=== PATIENT | male | born 1960 | race Caucasian/White ===

== ENCOUNTER 2022-08-18 09:51 | Inpatient (IN) | payer MEDICARE, MEDICAID, SELFPAY ==
--- NOTE | ~2022-08-18 | XR_ITS ---
EXAMINATION: XR CHEST CLINICAL INFORMATION: Shortness of breath COMPARISON: None TECHNIQUE: Frontal view of the chest was obtained. FINDINGS: Lungs grossly clear. No pneumothorax. Heart and pulmonary vessels are normal. XR/XR chest 1V IMPRESSION: No active disease.
[2022-08-18 09:55] VITALS: BP 132/93; PULSE 86; RESP 18; TEMP 36.4; O2SAT 95; BMI 18.4
--- NOTE | 2022-08-18 10:30 | ECG_ITS ---
Test Reason : ABNL LABS Blood Pressure : / mmHG Vent. Rate : 080 BPM Atrial Rate : 080 BPM P-R Int : 154 ms QRS Dur : 088 ms QT Int : 360 ms P-R-T Axes : 075 067 060 degrees QTc Int : 415 ms Normal sinus rhythm Possible Left atrial enlargement Borderline ECG No previous ECGs available Referred By: Lamar Rosado Electronically Signed By:APRIL HENDRIX MD
--- NOTE | 2022-08-18 10:44 | ED_ITS ---
HPI - Recheck/Abnormal Lab/Rx General Chief Complaint: Recheck/Abnormal Lab/Rx Stated Complaint: sent by doctor for blood work Time Seen by Provider: 08/18/22 10:17 Source: patient Mode of arrival: wheelchair History of Present Illness HPI narrative: 61-year-old male with a past medical history of ALS presenting to ED sent in by PCP for abnormal outpatient labs. Patient reports nausea, decreased p.o. intake, and muscle spasms x 1 week. Also reports mild SOB/chest tightness. Denies fever, chills, cough, vomiting, diarrhea, abdominal pain, focal weakness Related Data Allergies Allergy/AdvReac Type Severity Reaction Status Date / Time No Known Allergies Allergy Verified 08/18/22 09:57 Review of Systems Review of Systems: Constitutional: No Fever, No Chills, + Fatigue, No Malaise ENT/Mouth: No Hearing loss, No Ear Pain, No Nasal Congestion, No sore throat, No Rhinorrhea, No Swallowing Difficulty Eyes: No Eye Pain, No Swelling, No Redness, No Vision Changes Cardiovascular: + Chest tightness, + SOB, No Edema, No Palpitations Respiratory: No Cough, No Sputum, No Dyspnea Gastrointestinal: + Nausea, No Vomiting, No Diarrhea, No Constipation, No Abdominal pain Genitourinary: No Dysuria, No Urinary Frequency, No Hematuria, No Flank Pain Musculoskeletal: No joint pain, No Myalgias, No Joint Swelling Skin: No Skin Lesions, No rash Neuro: +spasms, No Weakness, No Numbness, No Paresthesias, No Dizziness, No Headache Yes all other systems are reviewed and are negative Constitutional: Constitutional: Reports as per [facility] Past Medical History Attestation statement: The following information was validated with the patient. Source: old records reviewed Medical History ALS (amyotrophic lateral sclerosis) Social History Social History Smoked in Last 30 Days: No Use of substances other than those prescribed or required for medical reasons: Yes Substance Use Type: Marijuana Advance Directives: No Advance Directives Information Provided: Yes Physical Exam Vital Signs: Vital Signs: Last Vital Signs Temp 97.5 F 08/18/22 09:55 Pulse 86 08/18/22 09:55 Resp 18 08/18/22 09:55 BP 132/93 H 08/18/22 09:55 Pulse Ox 95 08/18/22 09:55 O2 Del Method 08/18/22 09:55 BMI result Body Mass Index 18.4 Const: General: cooperative, comfortable and no acute distress [place] ation/consciousness: patient oriented x3 Limitations: no limitations HEENT: Head: Yes normal to inspection and Yes atraumatic Ears: hearing grossly normal bilaterally General nose exam: Normal external nose present Face and sinus: Yes normal facial exam Eyes: General: appearance normal, both eyes and all related structures EOM: EOMs intact bilaterally Neck: Neck: Yes normal visual inspection and Yes no meningeal signs Resp: Effort & Inspection: normal respiratory effort and no respiratory distress Auscultation: clear to auscultation bilaterally, no crackles and no wheezes Cardio: Rate: regular rate Heart sounds: S1 normal heart sound present and S2 normal heart sound present GI: Inspection: Yes normal to inspection Palpation (GI): Soft to palpation, nontender, no guarding and not rigid : General: Yes no CVA tenderness Back/Spine/Pelvis: Back: no CVA tenderness Skin: Rashes: no rashes Wounds: no wounds Neuro: General: patient oriented x3, tone normal, moves all extremities, no meningeal signs and no focal motor deficits Gait exam (Neuro): Normal gait present Motor exam (neuro): Motor fasciculations not present and no tremors Extrem: General: Yes normal to inspection Course Course Course Narrative: -1223--mild leukocytosis of 12.2. Hyponatremic to 121. AST/ALT mildly elevated > will consult nephrology XR chest 1V IMPRESSION: No active disease. -spoke with Nephrology, Dr. Olivo who recommended holding patient's sertraline, carbamazepine, starting normal saline at 100 cc an hour in repeating sodium Q 4 > patient to be admitted for further management Medications Administered Discontinued Medications Generic Name Dose Route Start Last Admin Trade Name Freq PRN Reason Stop Dose Admin Sodium Chloride 1,000 mls @ 999 mls/hr 08/18/22 10:30 08/18/22 12:15 Ns IV 08/18/22 11:30 Infused .Q1H1M YOUSUF Infusion Ondansetron HCl 4 mg 08/18/22 10:30 08/18/22 10:58 Ondansetron Hcl 4 Mg/2 Ml Vial IVPUSH 08/18/22 10:31 4 mg ONCE ONE Administration Medical Decision Making Medical Decision Making [facility] Narrative: 61-year-old male with a past medical history of ALS presenting to ED sent in by PCP for abnormal outpatient labs. Patient reports nausea, decreased p.o. intake, and muscle spasms x 1 week. Also reports mild SOB/chest tightness. On exam vital signs stable, NAD, nontoxic appearing, lungs CTA, abdomen soft/nontender, no appreciable tremor/fasciculations on exam. Obtained records from [facility] from yesterday patient's sodium was 123, WBC count 14.6, BUN of 46, creatinine of 1.2. Concern for dehydration/metabolic abnormalities. Rule out pneumonia/other infectious etiology. Plan: EKG, labs, CXR, UA, serum osmolalities, IVF, re-evaluate Differential Diagnosis Differential Diagnoses: The differential diagnosis associated with the presentation includes As above Admission/Observation Consideration of admission/observation: Escalation of care including admission/observation considered Consult Healthcare Provider Management of the patient was discussed with: Senior Paralegal Lab Data [facility] Lab Attestation statement: I reviewed the patient's lab results. 08/18/22 10:50 08/18/22 10:50 Labs: Lab Results 08/18/22 08/18/22 08/18/22 Range/Units 10:45 10:50 10:50 WBC 12.2 H (4.8-10.8) X10*3/uL RBC 5.77 (4.60-5.80) X10*6/uL Hgb 15.2 (14.0-18.0) g/dl Hct 45.4 (42.0-52.0) % MCV 78.7 L (80.0-98.0) fL MCH 26.3 L (27.0-33.0) pg MCHC 33.5 (31.0-36.0) g/dl RDW 12.3 (11.0-16.0) % Plt Count 253 (160-400) X10*3/uL MPV 9.8 (9.4-12.4) fL Immature Gran % (Auto) 0.5 H (0.0-0.4) % Neut % (Auto) 75.0 H (45-73) % Lymph % (Auto) 12.8 L (20-40) % [place] % (Auto) 11.3 H (2-11) % Eos % (Auto) 0.3 (0-4) % Baso % (Auto) 0.1 (0-2) % Lymph # (Auto) 1.6 (1.2-4.9) X10*3/uL [place] # (Auto) 1.4 H (0.1-1.2) X10*3/uL Eos # (Auto) 0.0 (0.0-0.4) X10*3/uL Baso # (Auto) 0.0 (0.0-0.2) X10*3/uL Abs Immat Gran (auto) 0.06 H (0.00-0.03) X10*3/uL Absolute Neuts (auto) 9.1 H (2.0-8.3) x10*3/uL Absolute Nucleated RBC 0.000 (0.0-0.012) X10*3/uL Nucleated RBC % (auto) 0.0 (0.0-0.2) /100WBC Smear Tech's Comments VERIFIED Sodium 121 L (135-145) mmol/L Potassium 4.9 (3.3-5.1) mmol/L Chloride 88 L (96-108) mmol/L Carbon Dioxide 21 L (22-29) mmol/L Anion Gap 17 (12-20) BUN 43 H (9-16) mg/dL Creatinine 0.88 (0.5-1.4) mg/dL Estim Creat Clear Calc 71.5 Estimated GFR > 60 Random Glucose 105 (60-115) mg/dL Calcium 9.1 (8.4-10.2) mg/dL Magnesium 2.4 (1.6-2.6) mg/dL Total Bilirubin 1.3 H (0.0-1.0) mg/dL Direct Bilirubin 0.4 (0.0-0.5) mg/dL AST 68 H (5-37) U/L ALT 86 H (0-40) U/L Alkaline Phosphatase 76 (39-117) U/L Total Protein 6.5 (6.5-8.0) g/dL Albumin 4.3 (3.5-5.0) g/dL COVID-19 (NASEEM) Negative (Negative) COVID-19 Clin Com See Note Radiology Impression Discussion of test interpretation with radiology: I have reviewed the radiologist's reading. External Record Review External record reviewed: Outpatient record and Prior outpatient labs Chronic Conditions Patient?s care impacted by: Other Critical Care Time Critical Care Time Critical Care Time: Yes Total Critical Care Time: 35 Attestation: I have personally provided critical care time exclusive of time spent on separately billable procedures. Time includes review of lab data, radiology results, discussion with consultants, and monitoring for potential decompensation. Intervention performed as documented. Discharge Plan Discharge Clinical Impression: Acute hyponatremia, Nausea, Muscle spasm Patient Disposition: Admitted As Inpatient
[2022-08-18] MEDS: 0.9 % Sodium Chloride 1,000 ML 999 ML IV (10:58)
[2022-08-18] MEDS: ondansetron HCL 4 MG/2 ML VIAL IVPUSH (10:58)
[2022-08-18 11:16] LABS: COVID-19 Test Negative (Negative); IDNOW Serial# BCCEAD1C
[2022-08-18 11:35] LABS: Basophils Percent Auto 0.1 % (0-2); Eosinophils Percent Auto 0.3 % (0-4); Hematocrit 45.4 % (42.0-52.0); Imm Gran Abs Auto 0.06 X10*3/uL (0.00-0.03); Imm Gran Pct Auto 0.5 % (0.0-0.4); Lymphocytes Absolute Auto 1.6 X10*3/uL (1.2-4.9); Lymphocytes Percent Auto 12.8 % (20-40); MANUAL DIFF FLAG SCAN; Mean Corpuscular Volume 78.7 fL (80.0-98.0); Mean Platelet Volume 9.8 fL (9.4-12.4); Monocytes Absolute Auto 1.4 X10*3/uL (0.1-1.2); Monocytes Percent Auto 11.3 % (2-11); Neutrophils Absolute Auto 9.1 x10*3/uL (2.0-8.3); Platelet Count 253 X10*3/uL (160-400); Red Blood Count 5.77 X10*6/uL (4.60-5.80); Red Cell Distribution Width 12.3 % (11.0-16.0); SCAN SMEAR FLAG 1; White Blood Count 12.2 X10*3/uL (4.8-10.8)
[2022-08-18 11:43] LABS: Hemoglobin 15.2 g/dl (14.0-18.0)
[2022-08-18 11:44] LABS: Mean Corpuscular Hemoglobin 26.3 pg (27.0-33.0)
[2022-08-18 11:45] LABS: Mean Corpuscular HGB Conc 33.5 g/dl (31.0-36.0)
[2022-08-18 11:48] LABS: SLIDE REVIEW VERIFIED
[2022-08-18 12:08] LABS: Alanine Aminotransferase 86 U/L (0-40); Albumin Level 4.3 g/dL (3.5-5.0); Alkaline Phosphatase 76 U/L (39-117); Anion Gap 17 (12-20); Aspartate Amino Transferase 68 U/L (5-37); Bilirubin Direct 0.4 mg/dL (0.0-0.5); Bilirubin Total 1.3 mg/dL (0.0-1.0); Blood Urea Nitrogen 43 mg/dL (9-16); Calcium 9.1 mg/dL (8.4-10.2); Carbon Dioxide 21 mmol/L (22-29); Chloride 88 mmol/L (96-108); Creatinine Clr Calc Pharmacy 71.5; Estimated Glomerular Filt Rate > 60; Glucose Random 105 mg/dL (60-115); Magnesium 2.4 mg/dL (1.6-2.6); Potassium 4.9 mmol/L (3.3-5.1); Sodium 121 mmol/L (135-145); Total Protein 6.5 g/dL (6.5-8.0)
--- NOTE | 2022-08-18 12:41 | MHC.EDTECH ---
@[phone] called Nephrology per request of CHINA Rosado. The woman on the phone took patient demographics and a call back number. The woman stated she would send out a page for the animal taxonomist neurologist Dr. Vieira.
[2022-08-18 12:53] VITALS: BP 130/81; PULSE 80; RESP 17; TEMP 36.9; O2SAT 93
--- NOTE | 2022-08-18 13:08 | PM.IMHP ---
History of Present Illness Date of Service: 08/18/22 <CHINA Hinson - Last Filed: 08/19/22 02:07> Attending physician on admission: Grzegorz Brennan <CHINA Hinson - Last Filed: 08/19/22 02:07> Chief Complaint: Hyponatremia <CHINA Hinson - Last Filed: 08/19/22 02:07> Pt is a 61-year-old male with a PMH significant for?ALS who was sent to the ED by his PCP after labs showed hyponatremia of 124. Pt states that he has been experiencing cramps in his extremities, difficulty walking, and generalized weakness for the past week. He has been feeling nervous, tense, and has been unable to relax or sleep during this time. Pt has had decreased appetite and po intake of solids, though has increased thirst and po intake of liquids. He has never experienced anything like this in the past. Denies chest pain/pressure, palpitations. No SOB. No F/C, N/V, abdominal pain. No headache or changes in vision. Of note, pt has had some recent medication changes: he was started on carbamenzapine for muscle cramps one week ago, and taken off riluzole 2-3 days ago for elevated LFTs. In the ED labs were significant for leukocytosis of 12.2, hyponatremia of 121, chloride of 88, transaminitis with AST of 68 and ALT of 86, total bilirubin of 1.3, creatinine of 0.8. CXR showed no active disease. EKG demonstrated normal sinus rhythm with no evidence of ST elevations or depressions. Pt was treated with ondansetron and normal saline. Pt will be admitted to the hospital for further evaluation and treatment of severe hyponatremia with IVF. <CHINA Hinson - Last Filed: 08/19/22 02:07> Review of Systems Review of Systems: Muscle cramps in extremities Generalized weakness Difficulty walking Increased thirst Anorexia Anxious <CHINA Hinson - Last Filed: 08/19/22 02:07> Yes all other systems are reviewed and are negative <CHINA Hinson - Last Filed: 08/19/22 02:07> [facility] Medical History: Medical History ALS (amyotrophic lateral sclerosis) <CHINA Hinson - Last Filed: 08/19/22 02:07> Social History: Social History Household Members: Spouse Housing: House Do you presently have visiting nurse or other home services: No Patient Tobacco Use Status: Never used Tobacco e-Cigarette/Vaping Use: Never Used Substance Use Type: Marijuana service: No Current occupational status: disabled <CHINA Hinson - Last Filed: 08/19/22 02:07> Meds Allergies/Adverse reactions: Allergies Allergy/AdvReac Type Severity Reaction Status Date / Time No Known Allergies Allergy Verified 08/18/22 09:57 <CHINA Hinson - Last Filed: 08/19/22 02:07> Active Medications: Current Medications Sodium Chloride (Ns) 1,000 mls @ 100 mls/hr IVCONT .Q10H [facility] Pharmacy Consult (Consult Rx Perform Med Rec) 1 each MISCELLANE ONCE STA Stop: 08/18/22 12:51 <CHINA Hinson - Last Filed: 08/19/22 02:07> Home medications: Home Medications Medication Instructions Recorded Confirmed Last Taken Type albuterol sulfate 90 mcg/actuation 1 puff inhalation Q4H PRN 08/18/22 08/18/22 Unknown History aerosol inhaler Shortness Of Breath amlodipine 5 mg tablet 1 tab PO BEDTIME 08/18/22 08/18/22 08/17/22 History aspirin 81 mg tablet,delayed 81 mg PO BEDTIME 08/18/22 08/18/22 08/17/22 History release atorvastatin 80 mg tablet 1 tab PO BEDTIME 08/18/22 08/18/22 08/17/22 History sertraline 50 mg tablet 1 tab PO DAILY 08/18/22 08/18/22 08/17/22 History trazodone 50 mg tablet 1 tab PO BEDTIME 08/18/22 08/18/22 08/17/22 History <CHINA Hinson - Last Filed: 08/19/22 02:07> Physical Exam Vital Signs and Narrative: Vital Signs: Last Vital Signs Temp 98.5 F 08/18/22 12:53 Pulse 80 08/18/22 12:53 Resp 17 08/18/22 12:53 BP 130/81 08/18/22 12:53 Pulse Ox 93 08/18/22 12:53 O2 Del Method 08/18/22 12:53 BMI result Body Mass Index 18.4 <CHINA Hinson - Last Filed: 08/19/22 02:07> Constitutional: Alert, in no acute distress. Mental Status: Oriented to person, place and time. Eyes: Pupils are equal, round, and reactive to light. Ear, Nose, and Throat: Oropharynx clear, mucous membranes moist. Ears and nose without deformities. Trachea midline. Respiratory: Clear to auscultation bilaterally. No wheezing, rales, or rhonchi. Cardiovascular: S1, S2 regular. No murmurs, rubs, or gallops. Gastrointestinal: Abdomen soft, non-tender, non-distended. Normal bowel sounds. Neurologic: Cranial nerves II-XII are grossly intact. No focal neurological deficits. Moves all extremities spontaneously. 5/5 strength of upper and lower extremities bilaterally. Skin: No rashes or lesions noted. Musculoskeletal: No cyanosis or clubbing. Extremities: No edema. Psychiatric: Normal mood and affect. <CHINA Hinson - Last Filed: 08/19/22 02:07> Results Labs CBC and Chem 7: 08/18/22 10:50 08/18/22 10:50 <CHINA Hinson - Last Filed: 08/19/22 02:07> Labs: Laboratory Results - last 24 hr 08/18/22 08/18/22 08/18/22 10:45 10:50 10:50 MCV 78.7 L MCH 26.3 L MCHC 33.5 RDW 12.3 Plt Count 253 MPV 9.8 Immature Gran % (Auto) 0.5 H Neut % (Auto) 75.0 H Lymph % (Auto) 12.8 L [place] % (Auto) 11.3 H Eos % (Auto) 0.3 Baso % (Auto) 0.1 Lymph # (Auto) 1.6 [place] # (Auto) 1.4 H Eos # (Auto) 0.0 Baso # (Auto) 0.0 Abs Immat Gran (auto) 0.06 H Absolute Neuts (auto) 9.1 H Absolute Nucleated RBC 0.000 Nucleated RBC % (auto) 0.0 Smear Tech's Comments VERIFIED Anion Gap 17 Estim Creat Clear Calc 71.5 Estimated GFR > 60 Random Glucose 105 Calcium 9.1 Magnesium 2.4 Total Bilirubin 1.3 H Direct Bilirubin 0.4 AST 68 H ALT 86 H Alkaline Phosphatase 76 Total Protein 6.5 Albumin 4.3 COVID-19 ([facility]SE[facility]) Negative COVID-19 Clin Com See Note <CHINA Hinson - Last Filed: 08/19/22 02:07> Imaging Radiologist's Impressions: Impressions Chest X-Ray 08/18/22 10:43 IMPRESSION: No active disease. <CHINA Hinson - Last Filed: 08/19/22 02:07> Assessment and Plan (1) Acute hyponatremia: Status: Acute <CHINA Hinson - Last Filed: 08/19/22 02:07> (2) Muscle spasm: Status: Acute <CHINA Hinson - Last Filed: 08/19/22 02:07> Pt is a 61-year-old male with a PMH significant for?ALS who was sent to the ED by his PCP after labs showed hyponatremia. Pt will be admitted to the hospital for further evaluation and treatment of severe hyponatremia with IVF. Acute hyponatremia Possibly secondary to medications, pt recently started on carbamazepine six days ago; SIADH also on differential Normal saline 100 ml/hr Check sodium levels q4 Check urine sodium, calculate FENa Hold sertraline and carbamazepine Nephrology consult Constipation Pt with decreased PO intake and last BM over one week ago Docusate and Miralax Transaminitis Pt recently taken off riluzole d/t elevated LFTs Monitor Leukocytosis Possibly reactionary, no signs of infection ALS Follow-up outpatient Full Code Attending:?Dr. Brennan DVT Prophylaxis: Lovenox Pt will require a hospitalization of at least two nights for treatment and evaluation of severe hyponatremia with IVF. .Addendum to history and physical by the advanced practice provider, Araceli Lopez I interviewed and examined the patient. I discussed their presentation and management with the MARIE. I reviewed the history and physical and agree with the documentation, with the following additions and corrections: 61yo M recently diagnosed with ALS managed by [facility]. Recently taken off riluzole due to elevated LFTs. Called in to hospital for hyponatremia and found to have Na 121 here. Of note, he had been started on carbamazepine [address] Schreiber for management of muscle spasm/cramps. on exam he is in NAD and appears clinically somewhat dry. Plan admit to M/S, monitor Na q4h, give trial of NS, consult Nephrology, and hold carbamazepine. Suspected hypovolemia with contributing factor of SIADH from carbamazepine. <CHINA Hinson - Last Filed: 08/19/22 02:07> Pt will be admitted to the hospital for further evaluation and treatment of severe hyponatremia with IVF. Hyponatremia Possibly secondary to medications, pt recently started on carbamazepine six days ago; SIADH also on differential Normal saline 100 ml/hr Check sodium levels q4 Check urine sodium, calculate FENa Hold sertraline and carbamazepine Nephrology consult Constipation Pt with decreased PO intake and last BM over one week ago Docusate and Miralax Leukocytosis Possibly reactionary, no signs of infection ALS Follow-up outpatient Pt will be admitted to the hospital for further evaluation and treatment of severe hyponatremia with IVF. .Addendum to history and physical by the advanced practice provider, Araceli Lopez I interviewed and examined the patient. I discussed their presentation and management with the MARIE. I reviewed the history and physical and agree with the documentation, with the following additions and corrections: 61yo M recently diagnosed with ALS managed by [facility] Neuro. Recently taken off riluzole due to elevated LFTs. Called in to hospital for hyponatremia and found to have Na 121 here. Of note, he had been started on carbamazepine [address] Schreiber for management of muscle spasm/cramps. on exam he is in NAD and appears clinically somewhat dry. Plan admit to M/S, monitor Na q4h, give trial of NS, consult Nephrology, and hold carbamazepine. Suspected hypovolemia with contributing factor of SIADH from carbamazepine. <Grzegorz Brennan MD - Last Filed: 08/25/22 13:51> Time Spent With Patient Time: Total time managing care of this patient today ____ minutes. <CHINA Hinson - Last Filed: 08/19/22 02:07> Quality Stroke Does the patient have a stroke diagnosis?: No <CHINA Hinson - Last Filed: 08/19/22 02:07> VTE Prior VTE?: No <CHINA Hinson - Last Filed: 08/19/22 02:07> VTE Risk Level:: Medical - moderate - high <CHINA Hinson - Last Filed: 08/19/22 02:07> VTE Device Contraindication: Treatment Not Indicated <CHINA Hinson - Last Filed: 08/19/22 02:07> VTE Drug Contraindication: N/A - Med Ordered <CHINA Hinson - Last Filed: 08/19/22 02:07>
[2022-08-18] MEDS: 0.9 % Sodium Chloride 1,000 ML 100 ML IVCONT ×2 (13:22→23:49)
--- NOTE | 2022-08-18 13:28 | PHA.MEDREC ---
Pharmacy Consult ? Medication Reconciliation Pharmacy has completed the medication reconciliation. Spoke with patient
[2022-08-18 13:38] LABS: Osmolality, Serum 266 mosm/kg (281-305)
[2022-08-18 13:49] LABS: Troponin-I High Sensitivity < 3.5 ng/L (<3.5-35.0)
[2022-08-18 15:09] LABS: Appearance Urine Clear; Color Urine Yellow; Glucose Urine UA 250 mg/dL (Negative); Leukocyte Esterase Urine Negative (Negative); Nitrite Urine Negative (Negative); UMIC TRIGGER UACC YES; Urine Blood Trace (Negative); Urine Ketones Negative (Negative); Urine Protein Trace mg/dL (Neg-Trace)
[2022-08-18 15:15] LABS: Bacteria Urine None Seen (None Seen); Hyaline Casts Urine 0-2 /LPF (0-2); RBC Urine 0-2 /HPF (0-2); Squamous Epithelial Cell Urine 0-2 /HPF (0-2); WBC Urine 0-5 /HPF (0-5)
[2022-08-18 15:21] LABS: Creatinine Urine 63.28 mg/dL; Potassium Urine Random 26.4 mmol/L; Sodium Urine Random < 20.0 mmol/L
[2022-08-18 15:33] LABS: Osmolality Urine 643 mosm/kg (373-1093)
[2022-08-18 15:56] VITALS: BP 113/75; PULSE 75; RESP 18; TEMP 36.7; O2SAT 96
[2022-08-18] MEDS: Enoxaparin Sodium 40 MG/0.4 ML SYRINGE SUBCUT (15:56)
[2022-08-18] MEDS: LORazepam 2 MG/ML VIAL 0.5 MG IVPUSH ×2 (15:56→23:48)
[2022-08-18] MEDS: polyethylene glycoL 3350 17 GM POWD.PACK PO (15:56)
[2022-08-18] MEDS: Docusate Sodium 100 MG CAPSULE PO ×2 (15:56→23:48)
[2022-08-18] MEDS: 0.9 % Sodium Chloride Flush 3 ML SYRINGE IVFLUSH (15:57)
[2022-08-18 16:01] LABS: Chloride Urine Random < 20.0 mmol/L
[2022-08-18 16:27] LABS: Anion Gap 13 (12-20); Blood Urea Nitrogen 37 mg/dL (9-16); Calcium 8.4 mg/dL (8.4-10.2); Carbon Dioxide 26 mmol/L (22-29); Chloride 92 mmol/L (96-108); Creatinine Clr Calc Pharmacy 70.7; Estimated Glomerular Filt Rate > 60; Glucose Random 114 mg/dL (60-115); Potassium 4.5 mmol/L (3.3-5.1); Sodium 126 mmol/L (135-145)
[2022-08-18 18:05] VITALS: BP 134/82; PULSE 76; RESP 18; TEMP 37; O2SAT 95
[2022-08-18 19:09] VITALS: BP 143/90; PULSE 89; RESP 18; TEMP 37; O2SAT 98
[2022-08-18 20:33] LABS: Anion Gap 15 (12-20); Blood Urea Nitrogen 33 mg/dL (9-16); Carbon Dioxide 22 mmol/L (22-29); Chloride 94 mmol/L (96-108); Creatinine Clr Calc Pharmacy 74.1; Estimated Glomerular Filt Rate > 60; Glucose Random 149 mg/dL (60-115); Potassium 3.4 mmol/L (3.3-5.1); Sodium 128 mmol/L (135-145)
[2022-08-18] MEDS: Atorvastatin Calcium 80 MG TABLET PO (23:47)
[2022-08-18] MEDS: Aspirin Enteric Coated 81 MG TABLET.DR PO (23:47)
[2022-08-18] MEDS: traZODone HCL 50 MG TABLET PO (23:47)
[2022-08-18 23:48] VITALS: BP 150/89; PULSE 73; RESP 20; TEMP 36.6; O2SAT 95
[2022-08-18] MEDS: amLODIPine Besylate 5 MG TABLET PO (23:48)
[2022-08-19 00:15] VITALS: BMI 18.0
[2022-08-19 00:42] LABS: Anion Gap 14 (12-20); Blood Urea Nitrogen 31 mg/dL (9-16); Carbon Dioxide 21 mmol/L (22-29); Chloride 94 mmol/L (96-108); Estimated Glomerular Filt Rate > 60; Glucose Random 93 mg/dL (60-115); Potassium 4.1 mmol/L (3.3-5.1); Sodium 125 mmol/L (135-145)
[2022-08-19 04:59] LABS: Anion Gap 13 (12-20); Blood Urea Nitrogen 28 mg/dL (9-16); Calcium 7.8 mg/dL (8.4-10.2); Carbon Dioxide 22 mmol/L (22-29); Chloride 97 mmol/L (96-108); Creatinine Clr Calc Pharmacy 83.3; Estimated Glomerular Filt Rate > 60; Glucose Random 91 mg/dL (60-115); Potassium 4.1 mmol/L (3.3-5.1); Sodium 128 mmol/L (135-145)
[2022-08-19 07:29] LABS: Anion Gap 11 (12-20); Blood Urea Nitrogen 27 mg/dL (9-16); Calcium 7.9 mg/dL (8.4-10.2); Carbon Dioxide 26 mmol/L (22-29); Chloride 97 mmol/L (96-108); Estimated Glomerular Filt Rate > 60; Glucose Random 84 mg/dL (60-115); Potassium 4.5 mmol/L (3.3-5.1); Sodium 129 mmol/L (135-145)
[2022-08-19 08:00] VITALS: BP 142/82; PULSE 70; RESP 18; TEMP 36.6; O2SAT 96
[2022-08-19] MEDS: LORazepam 2 MG/ML VIAL 0.5 MG IVPUSH ×3 (08:14→23:55)
[2022-08-19] MEDS: Docusate Sodium 100 MG CAPSULE PO ×2 (08:14→22:13)
[2022-08-19] MEDS: polyethylene glycoL 3350 17 GM POWD.PACK PO (08:15)
[2022-08-19] MEDS: Dextrose 5 % 1,000 ML 50 ML IVCONT (08:15)
[2022-08-19] MEDS: 0.9 % Sodium Chloride Flush 3 ML SYRINGE IVFLUSH ×3 (08:18→23:56)
[2022-08-19 08:31] LABS: Alanine Aminotransferase 65 U/L (0-40); Albumin Level 3.3 g/dL (3.5-5.0); Alkaline Phosphatase 60 U/L (39-117); Aspartate Amino Transferase 47 U/L (5-37); Bilirubin Direct 0.3 mg/dL (0.0-0.5); Bilirubin Total 0.9 mg/dL (0.0-1.0); Total Protein 4.8 g/dL (6.5-8.0)
--- NOTE | 2022-08-19 10:28 | MHC.CM.PN ---
CM met with Patient at bedside and addressed IMM with him, providing him with the original and placing a copy on the chart. Patient lives in an apartment with his /HCP and he uses a cane to assist with mobility. Home/self care is the goal and CM has initiated and will follow for dc planning. Patient has received Moderna/Covid vax x3 and his PCP is Dr. Wallace.
[2022-08-19 10:56] VITALS: BMI 18.0
--- NOTE | 2022-08-19 11:00 | MHC.CLN ---
PT IS MODERATELY MALNOURISHED PT WITH MILDLY DEPLETED SUBCUTANEOUS FAT AND MUSCLE MASS WITH REPORTED 30% SIGNIFICANT WT LOSS X 6 MONTHS PT REPORTS HIS UBW 175# WT LOSS OVER LAST 6 MONTHS TRIGGER FOR 30% SIGNIFICANT WT LOSS APPETITE IS IMPROVING SLOWLY DIET RX: REGULAR-APPROPRIATE PT RECEPTIVE TO DRINKING ENSURE TID (PREFERS CHOCOLATE) SUPP TO PROVIDE 1050KCALS, 60G PROTEIN MONITOR PO INTAKE CLOSELY SEE FULL CLINICAL NUTRITION ASSESSMENT
--- NOTE | 2022-08-19 11:03 | PM.NEUROCN ---
History of Present Illness Data of Consult Service Date: 08/19/22 Primary Care Provider: Angelina Javed DO HPI Reason for consult: Generalized weakness and cramps 61 years old man with generalized motor neuron disease and associated anxiety and depression and cramps. His cramps were treated with carbamazepine and for depression he has started to drink alcohol. He came to hospital with worsening weakness and pain and cramping in legs. His serum sodium was 121. He was telling me that he wanted to quit alcohol. Review of Systems Review of Systems: No recent cold or flu-like illness PMFSH Past Medical History Medical History ALS (amyotrophic lateral sclerosis) Social History Social History Household Members: Spouse Housing: House Do you presently have visiting nurse or other home services: No Patient Tobacco Use Status: Never used Tobacco Smoked in Last 30 Days: No e-Cigarette/Vaping Use: Never Used Use of substances other than those prescribed or required for medical reasons: Yes Substance Use Type: Marijuana Substance Use Frequency: Daily Last Used Substance: Just Prior to Admission Currently Displaying Signs/Symptoms of Drug Intoxication Withdrawal: No Any prior treatment program specific to substance use: No Have you been hit, kicked, punched, or otherwise hurt by someone within the past year? If so, by whom?: No Do you feel safe in your current relationship?: Yes Is there a partner from a previous relationship who is making you feel unsafe now?: No Are you made to feel afraid or neglected: No Spiritual Healthcare Practices: no Advance Directives: No Advance Directives Information Provided: Yes Do you have thoughts of harming others: None Do you have a plan to hurt others: No Plan Recently lost weight without trying: Yes How much weight loss: 34pounds or more Eating poorly because of decreased appetite: Yes Nutrition screen score: 7 Poor oral hygiene: No service: No Current occupational status: disabled Meds Allergies Allergy/AdvReac Type Severity Reaction Status Date / Time No Known Allergies Allergy Verified 08/18/22 09:57 Active Medications: Current Medications Acetaminophen (Acetaminophen 325 Mg Tablet) 650 mg PO Q6H PRN PRN Reason: Pain, Mild (Pain Scale 1-3) Albuterol Sulfate (Albuterol Sulfate 90 Mcg 8 Gm Inhaler) 1 puff INHALE Q4H PRN PRN Reason: Shortness Of Breath Amlodipine Besylate (Amlodipine Besylate 5 Mg Tablet) 5 mg PO BEDTIME [facility]; Protocol Last Admin: 08/18/22 23:48 Dose: 5 mg Aspirin (Aspirin Enteric Coated 81 Mg Tablet.Dr) 81 mg PO BEDTIME [facility] Last Admin: 08/18/22 23:47 Dose: 81 mg Atorvastatin Calcium (Atorvastatin Calcium 80 Mg Tablet) 80 mg PO BEDTIME [facility] Last Admin: 08/18/22 23:47 Dose: 80 mg Docusate Sodium (Docusate Sodium 100 Mg Capsule) 100 mg PO BID [facility] Last Admin: 08/19/22 08:14 Dose: 100 mg Enoxaparin Sodium (Enoxaparin Sodium 40 Mg/0.4 Ml Syringe) 40 mg SUBCUT Q24H [facility] Last Admin: 08/18/22 15:56 Dose: 40 mg Dextrose (D5w) 1,000 mls @ 50 mls/hr IVCONT .Q20H [facility] Last Admin: 08/19/22 08:15 Dose: 50 mls/hr Lorazepam (Lorazepam 2 Mg/Ml Vial) 0.5 mg IVPUSH Q6H PRN PRN Reason: anxiety/restlessness Last Admin: 08/19/22 08:14 Dose: 0.5 mg Ondansetron HCl (Ondansetron Hcl 4 Mg/2 Ml Vial) 4 mg IVPUSH Q8H PRN PRN Reason: Nausea and Vomiting Polyethylene Glycol (Polyethylene Glycol 3350 17 Gm Powd.Pack) 17 gm PO DAILY [facility] Last Admin: 08/19/22 08:15 Dose: 17 gm Sodium Chloride (0.9 % Sodium Chloride Flush 3 Ml Syringe) 3 ml IVFLUSH QSHIFT [facility] Last Admin: 08/19/22 08:18 Dose: 3 ml Trazodone HCl (Trazodone Hcl 50 Mg Tablet) 50 mg PO BEDTIME [facility] Last Admin: 08/18/22 23:47 Dose: 50 mg Home Medications Medication Instructions Recorded Confirmed Last Taken Type albuterol sulfate 90 mcg/actuation 1 puff inhalation Q4H PRN 08/18/22 08/18/22 Unknown History aerosol inhaler Shortness Of Breath amlodipine 5 mg tablet 1 tab PO BEDTIME 02/03/0208/18/22 08/17/22 History aspirin 81 mg tablet,delayed 81 mg PO BEDTIME 08/18/22 08/18/22 08/17/22 History release atorvastatin 80 mg tablet 1 tab PO BEDTIME 08/18/22 08/18/22 08/17/22 History sertraline 50 mg tablet 1 tab PO DAILY 08/18/22 08/18/22 08/17/22 History trazodone 50 mg tablet 1 tab PO BEDTIME 08/18/22 08/18/22 08/17/22 History Physical Exam Vital Signs: Vital Signs: Last Vital Signs Temp 97.8 F 08/19/22 08:00 Pulse 70 08/19/22 08:00 Resp 18 08/19/22 08:00 BP 142/82 H 08/19/22 08:00 Pulse Ox 96 08/19/22 08:00 O2 Del Method 08/19/22 08:00 BMI result Body Mass Index 18.0 Neuro: Other: Alert and awake with depressed affect. Face was symmetrical. Visual delgadillo are full. Mild generalized weakness was noted. His exam has revealed generalized fasciculations. Plantars were flexors. Deep tendon reflexes were trace to 1+ Results Labs 08/18/22 10:50 08/19/22 06:19 Labs: Short CBC 08/18/22 Range/Units 10:50 WBC 12.2 H (4.8-10.8) X10*3/uL Hgb 15.2 (14.0-18.0) g/dl Hct 45.4 (42.0-52.0) % Plt Count 253 (160-400) X10*3/uL BMP 08/18/22 08/18/22 08/18/22 10:50 16:07 19:55 Sodium 121 L 126 L 128 L Potassium 4.9 4.5 3.4 D Chloride 88 L 92 L 94 L Carbon Dioxide 21 L 26 22 BUN 43 H 37 H 33 H Creatinine 0.88 0.89 0.85 Calcium 9.1 8.4 D 8.0 L 08/19/22 08/19/22 08/19/22 00:14 04:34 06:19 Sodium 125 L 128 L 129 L Potassium 4.1 D 4.1 4.5 Chloride 94 L 97 97 Carbon Dioxide 21 L 22 26 BUN 31 H 28 H 27 H Creatinine 0.80 0.74 0.78 Calcium 8.0 L 7.8 L 7.9 L Liver Function 08/18/22 08/19/22 Range/Units 10:50 06:19 Total Bilirubin 1.3 H 0.9 (0.0-1.0) mg/dL Direct Bilirubin 0.4 0.3 (0.0-0.5) mg/dL AST 68 H 47 H (5-37) U/L ALT 86 H 65 H (0-40) U/L Alkaline Phosphatase 76 60 (39-117) U/L Albumin 4.3 3.3 L (3.5-5.0) g/dL Urine 08/18/22 Range/Units 14:54 Urine Color Yellow Urine Appearance Clear Urine pH 6.0 (5.0-9.0) Ur Specific [place] 1.020 (1.005-1.025) Urine Protein Trace (Neg-Trace) mg/dL Urine Glucose (UA) 250 H (Negative) mg/dL Assessment and Plan (1) Motor neuron disease: Status: Acute 61 years old man with generalized motor neuron disease for which no significant treatment was available. He was seeing a neurologist in [facility] for 2nd opinion who put him on Rilutek, which did not work out. It was not a very effective medicine. His insurance has not covered Radicava, which is approved for classical ALS, which his clinical picture does not suggest. At this time he is treated symptomatically. He was given carbamazepine for muscle cramps, which likely has resulted in hyponatremia and further worsening. Alcohol abuse has not helped the situation. At this time my recommendation is to discontinue carbamazepine. He is advised to quit alcohol completely. (2) Depression: Status: Acute (3) Alcohol abuse: Status: Acute Time Spent With Patient Time: Total time managing care of this patient today ____ minutes. Procedures Date of Service Date of Service: 08/19/22
--- NOTE | 2022-08-19 11:10 | PM.CNNEP ---
History of Present Illness Reason for Consult Consult date: 08/19/22 Reason for consult: Hyponatremia Chief Complaint Chief complaint: Hyponatremia History of Present Illness Narrative: 61-year-old male with a h/o ?ALS who was sent to the ED by his PCP after labs showed hyponatremia of 124. Pt states that he has been experiencing cramps in his extremities, difficulty walking, and generalized weakness for the past week. He has been feeling nervous, tense, and has been unable to relax or sleep during this time. Pt has had decreased appetite and po intake of solids, though has increased thirst and po intake of liquids. He has never experienced anything like this in the past. Denies chest pain/pressure, palpitations. No SOB. No F/C,, abdominal pain. No headache or changes in vision. Of note, pt has had some recent medication changes: he was started on carbamenzapine for muscle cramps one week ago, and taken off riluzole 2-3 days ago for elevated LFTs.? Na increased by 8 mmol in 10 hrs Now on D5W Review of Systems Review of Systems Muscle cramps in extremities Generalized weakness Difficulty walking Increased thirst Anorexia Anxious Had Nausea PMFSH Past Medical History Medical History ALS (amyotrophic lateral sclerosis) Social History Social History Household Members: Spouse Housing: House Do you presently have visiting nurse or other home services: No Patient Tobacco Use Status: Never used Tobacco e-Cigarette/Vaping Use: Never Used Substance Use Type: Marijuana service: No Current occupational status: disabled Meds Allergies Allergy/AdvReac Type Severity Reaction Status Date / Time No Known Allergies Allergy Verified 08/18/22 09:57 Active Medications: Current Medications Acetaminophen (Acetaminophen 325 Mg Tablet) 650 mg PO Q6H PRN PRN Reason: Pain, Mild (Pain Scale 1-3) Albuterol Sulfate (Albuterol Sulfate 90 Mcg 8 Gm Inhaler) 1 puff INHALE Q4H PRN PRN Reason: Shortness Of Breath Amlodipine Besylate (Amlodipine Besylate 5 Mg Tablet) 5 mg PO BEDTIME [facility]; Protocol Last Admin: 08/18/22 23:48 Dose: 5 mg Aspirin (Aspirin Enteric Coated 81 Mg Tablet.) 81 mg PO BEDTIME [facility] Last Admin: 08/18/22 23:47 Dose: 81 mg Atorvastatin Calcium (Atorvastatin Calcium 80 Mg Tablet) 80 mg PO BEDTIME [facility] Last Admin: 08/18/22 23:47 Dose: 80 mg Docusate Sodium (Docusate Sodium 100 Mg Capsule) 100 mg PO BID [facility] Last Admin: 08/19/22 08:14 Dose: 100 mg Enoxaparin Sodium (Enoxaparin Sodium 40 Mg/0.4 Ml Syringe) 40 mg SUBCUT Q24H [facility] Last Admin: 08/18/22 15:56 Dose: 40 mg Dextrose (D5w) 1,000 mls @ 50 mls/hr IVCONT .Q20H [facility] Last Admin: 08/19/22 08:15 Dose: 50 mls/hr Lorazepam (Lorazepam 2 Mg/Ml Vial) 0.5 mg IVPUSH Q6H PRN PRN Reason: anxiety/restlessness Last Admin: 08/19/22 08:14 Dose: 0.5 mg Ondansetron HCl (Ondansetron Hcl 4 Mg/2 Ml Vial) 4 mg IVPUSH Q8H PRN PRN Reason: Nausea and Vomiting Polyethylene Glycol (Polyethylene Glycol 3350 17 Gm Powd.Pack) 17 gm PO DAILY [facility] Last Admin: 08/19/22 08:15 Dose: 17 gm Sodium Chloride (0.9 % Sodium Chloride Flush 3 Ml Syringe) 3 ml IVFLUSH QSHIFT [facility] Last Admin: 08/19/22 08:18 Dose: 3 ml Trazodone HCl (Trazodone Hcl 50 Mg Tablet) 50 mg PO BEDTIME [facility] Last Admin: 08/18/22 23:47 Dose: 50 mg Home Medications Medication Instructions Recorded Confirmed Last Taken Type albuterol sulfate 90 mcg/actuation 1 puff inhalation Q4H PRN 08/18/22 08/18/22 Unknown History aerosol inhaler Shortness Of Breath amlodipine 5 mg tablet 1 tab PO BEDTIME 08/18/22 08/18/22 08/17/22 History aspirin 81 mg tablet,delayed 81 mg PO BEDTIME 08/18/22 08/18/22 08/17/22 History release atorvastatin 80 mg tablet 1 tab PO BEDTIME 08/18/22 08/18/22 08/17/22 History sertraline 50 mg tablet 1 tab PO DAILY 08/18/22 08/18/2208/17/23 History trazodone 50 mg tablet 1 tab PO BEDTIME 08/18/22 08/18/22 08/17/22 History Physical Exam Vital Signs: Last Vital Signs Temp 97.8 F 08/19/22 08:00 Pulse 70 08/19/22 08:00 Resp 18 08/19/22 08:00 BP 142/82 H 08/19/22 08:00 Pulse Ox 96 08/19/22 08:00 O2 Del Method 08/19/22 08:00 BMI result Body Mass Index 18.0 Constitutional:?Alert, in no acute distress. Mental Status:?Oriented to person, place and time. Eyes:?Pupils are equal, round, and reactive to light. Ear, Nose, and Throat:?Oropharynx clear, mucous membranes moist. Ears and nose without deformities. Trachea midline. Respiratory:?Clear to auscultation bilaterally. No wheezing, rales, or rhonchi. Cardiovascular:?S1, S2 regular. No murmurs, rubs, or gallops. Gastrointestinal:?Abdomen soft, non-tender, non-distended. Normal bowel sounds. Neurologic:?No invol movements. Mentation normal. Skin:?No rashes or lesions noted. Musculoskeletal:?No cyanosis or clubbing. Extremities:?No edema. Psychiatric:?Normal mood and affect. Results Lab Results 08/18/22 10:50 08/19/22 06:19 Lab results: Chemistry 08/18/22 08/18/22 08/18/22 10:50 16:07 19:55 Sodium 121 L 126 L 128 L Potassium 4.9 4.5 3.4 D Carbon Dioxide 21 L 26 22 BUN 43 H 37 H 33 H Creatinine 0.88 0.89 0.85 Calcium 9.1 8.4 D 8.0 L 08/19/22 08/19/22 08/19/22 00:14 04:34 06:19 Sodium 125 L 128 L 129 L Potassium 4.1 D 4.1 4.5 Carbon Dioxide 21 L 22 26 BUN 31 H 28 H 27 H Creatinine 0.80 0.74 0.78 Calcium 8.0 L 7.8 L 7.9 L Hematology 08/18/22 10:50 WBC 12.2 H Hgb 15.2 Plt Count 253 Urinalysis 08/18/22 14:54 Urine Color Yellow Urine Appearance Clear Urine pH 6.0 Ur Specific [place] 1.020 Urine Protein Trace Urine Glucose (UA) 250 H Urine Ketones Negative Urine Blood Trace H Urine Nitrite Negative Ur Leukocyte Esterase Negative Urine RBC 0-2 Urine WBC 0-5 Ur Squamous Epith Cells 0-2 Hyaline Casts 0-2 Urine Studies 08/18/22 08/18/22 14:54 14:54 Urine Osmolality 643 Urine Creatinine 63.28 Assessment and Plan (1) Acute hyponatremia: Status: Acute Plan Most likely due to non osmotic ADH release Nausea might be a precipitating factor Meds- Carbamazepine and SSRI could be playing a role as well suggest Urine Na.cr, osm Serum osm TSH Cortisol HOLD SSRI and Carbamazepine temporarily Restrict PO water intake Treat Nausea Goal to correct pNa at 0.5 to 1 mmol/l/hr and not more than 10 mmol/24 hours AGree with D5W to avoid rapid correction Check pNa Q 2- 4 hrs Time Spent With Patient Time: Total time managing care of this patient today ____ minutes. Procedures Date of Service Date of Service: 08/19/22
--- NOTE | 2022-08-19 13:46 | P.PNIM_ITS ---
Subjective Subjective Date of Service: 08/19/22 Interval History: hyponatremia ,alcohol use Review of Systems says po intake improvin, denies any chest pain or sob Physical Exam Vital Signs: Vital Signs: Last Vital Signs Temp 97.8 F 08/19/22 08:00 Pulse 70 08/19/22 08:00 Resp 18 08/19/22 08:00 BP 142/82 H 08/19/22 08:00 Pulse Ox 96 08/19/22 08:00 O2 Del Method 08/19/22 08:00 BMI result Body Mass Index 18.0 Appearance: Alert.? Oriented X3.? not in distress.? cvs: rrr, [id number] , no murmur res: clear to auscultation ,no rhonchii or wheezing abd: no rebound or guarding ,nt, bs present. ext pulses present , no cyanosis. neuro: axo3 , moves all ext. Objective Data Active Medications Acetaminophen (Acetaminophen 325 Mg Tablet) 650 mg PO Q6H PRN PRN Reason: Pain, Mild (Pain Scale 1-3) Albuterol Sulfate (Albuterol Sulfate 90 Mcg 8 Gm Inhaler) 1 puff INHALE Q4H PRN PRN Reason: Shortness Of Breath Amlodipine Besylate (Amlodipine Besylate 5 Mg Tablet) 5 mg PO BEDTIME [facility]; Protocol Last Admin: 08/18/22 23:48 Dose: 5 mg Documented By: VARSHA Aspirin (Aspirin Enteric Coated 81 Mg Tablet.) 81 mg PO BEDTIME [facility] Last Admin: 08/18/22 23:47 Dose: 81 mg Documented By: VARSHA Atorvastatin Calcium (Atorvastatin Calcium 80 Mg Tablet) 80 mg PO BEDTIME [facility] Last Admin: 08/18/22 23:47 Dose: 80 mg Documented By: VARSHA Docusate Sodium (Docusate Sodium 100 Mg Capsule) 100 mg PO BID [facility] Last Admin: 08/19/22 08:14 Dose: 100 mg Documented By: RIOSCEL Enoxaparin Sodium (Enoxaparin Sodium 40 Mg/0.4 Ml Syringe) 40 mg SUBCUT Q24H [facility] Last Admin: 08/18/22 15:56 Dose: 40 mg Documented By: COOPEB Dextrose (D5w) 1,000 mls @ 50 mls/hr IVCONT .Q20H [facility] Last Admin: 08/19/22 08:15 Dose: 50 mls/hr Documented By: CHARITY Lorazepam (Lorazepam 2 Mg/Ml Vial) 0.5 mg IVPUSH Q6H PRN PRN Reason: anxiety/restlessness Last Admin: 08/19/22 08:14 Dose: 0.5 mg Documented By: CHARITY Ondansetron HCl (Ondansetron Hcl 4 Mg/2 Ml Vial) 4 mg IVPUSH Q8H PRN PRN Reason: Nausea and Vomiting Polyethylene Glycol (Polyethylene Glycol 3350 17 Gm Powd.Pack) 17 gm PO DAILY [facility] Last Admin: 08/19/22 08:15 Dose: 17 gm Documented By: CHARITY Sodium Chloride (0.9 % Sodium Chloride Flush 3 Ml Syringe) 3 ml IVFLUSH QSHIFT [facility] Last Admin: 08/19/22 08:18 Dose: 3 ml Documented By: CHARITY Trazodone HCl (Trazodone Hcl 50 Mg Tablet) 50 mg PO BEDTIME [facility] Last Admin: 08/18/22 23:47 Dose: 50 mg Documented By: YOGESH-KAYDEN Labs 08/18/22 10:50 08/19/22 06:19 Labs: Laboratory Results - last 24 hr 08/18/22 08/18/22 08/18/22 11:24 14:54 14:54 Anion Gap Estim Creat Clear Calc Estimated GFR Random Glucose Calcium Total Bilirubin Direct Bilirubin AST ALT Alkaline Phosphatase Troponin I High Sens < 3.5 Total Protein Albumin Urine Color Yellow Urine Appearance Clear Urine pH 6.0 Ur Specific [place] 1.020 Urine Protein Trace Urine Glucose (UA) 250 H Urine Ketones Negative Urine Blood Trace H Urine Nitrite Negative Ur Leukocyte Esterase Negative Urine RBC 0-2 Urine WBC 0-5 Ur Squamous Epith Cells 0-2 Urine Bacteria None Seen Hyaline Casts 0-2 Urine Osmolality Ur Random Sodium < 20.0 Ur Random Potassium 26.4 Ur Random Chloride < 20.0 Urine Creatinine 63.28 08/18/22 08/18/22 08/18/22 14:54 16:07 19:55 Anion Gap 13 15 Estim Creat Clear Calc 70.7 74.1 Estimated GFR > 60 > 60 Random Glucose 114 149 H Calcium 8.4 D 8.0 L Total Bilirubin Direct Bilirubin AST ALT Alkaline Phosphatase Troponin I High Sens Total Protein Albumin Urine Color Urine Appearance Urine pH Ur Specific [place] Urine Protein Urine Glucose (UA) Urine Ketones Urine Blood Urine Nitrite Ur Leukocyte Esterase Urine RBC Urine WBC Ur Squamous Epith Cells Urine Bacteria Hyaline Casts Urine Osmolality 643 Ur Random Sodium Ur Random Potassium Ur Random Chloride Urine Creatinine 08/19/22 08/19/22 08/19/22 00:14 04:34 06:19 Anion Gap 14 13 11 L Estim Creat Clear Calc 77.0 83.3 79.0 Estimated GFR > 60 > 60 > 60 Random Glucose 93 91 84 Calcium 8.0 L 7.8 L 7.9 L Total Bilirubin 0.9 Direct Bilirubin 0.3 AST 47 H ALT 65 H Alkaline Phosphatase 60 Troponin I High Sens Total Protein 4.8 L Albumin 3.3 L Urine Color Urine Appearance Urine pH Ur Specific [place] Urine Protein Urine Glucose (UA) Urine Ketones Urine Blood Urine Nitrite Ur Leukocyte Esterase Urine RBC Urine WBC Ur Squamous Epith Cells Urine Bacteria Hyaline Casts Urine Osmolality Ur Random Sodium Ur Random Potassium Ur Random Chloride Urine Creatinine Assessment and Plan (1) Alcohol abuse: Status: Acute (2) Motor neuron disease: Status: Acute (3) Acute hyponatremia: Status: Acute (4) Nausea: Status: Acute (5) Leucocytosis: Status: Acute Plan 61-year-old male with a PMH significant for?ALS who was sent to the ED by his PCP after labs showed hyponatremia. Pt will be admitted to the hospital for further evaluation and treatment of severe hyponatremia with IVF. Acute hyponatremia Most likely due to non osmotic ADH release decreased po intake/alcohol use. serum osmolarity<urine osmolarity urine Na and cholride<20. Hold sertraline and carbamazepine mental status seems stable. Nephrology consult noted - hold SSRI and Carbamazepine temporarily fluid restrictions,nausea improvin d5w since sodium trending up sodium around 129 -next pendin, possible moniter q6hr moniter bmp closely Constipation Pt with decreased PO intake and last BM over one week ago Docusate and Miralax Transaminitis similar to yesterday Pt recently taken off riluzole d/t elevated LFTs further workup outpatient. Leukocytosis Possibly reactionary, no signs of infection ALS Follow-up outpatient neurology eval noted -hold acrbamezapine for now. alcohol use: care team eval, thiamine ,folic acid Strongly advised to quit alcohol. inpatient need : Acute hyponatremia -p.o. need fluid restriction, IV fluid adjustment for sodium fluctuations, he monitoring of sodium Time Spent With Patient Time: Total time managing care of this patient today ____ minutes. Quality Stroke Does the patient have a stroke diagnosis?: No VTE Prior VTE?: No VTE Risk Level:: Medical - moderate - high VTE Device Contraindication: Treatment Not Indicated VTE Drug Contraindication: N/A - Med Ordered
[2022-08-19 13:49] LABS: Alanine Aminotransferase 68 U/L (0-40); Albumin Level 3.5 g/dL (3.5-5.0); Alkaline Phosphatase 83 U/L (39-117); Anion Gap 11 (12-20); Aspartate Amino Transferase 44 U/L (5-37); Bilirubin Direct 0.2 mg/dL (0.0-0.5); Bilirubin Total 0.6 mg/dL (0.0-1.0); Blood Urea Nitrogen 23 mg/dL (9-16); Calcium 8.1 mg/dL (8.4-10.2); Carbon Dioxide 27 mmol/L (22-29); Chloride 95 mmol/L (96-108); Creatinine Clr Calc Pharmacy 82.2; Estimated Glomerular Filt Rate > 60; Glucose Random 112 mg/dL (60-115); Potassium 3.9 mmol/L (3.3-5.1); Sodium 129 mmol/L (135-145); Total Protein 5.3 g/dL (6.5-8.0)
[2022-08-19 15:35] VITALS: BP 145/89; PULSE 68; RESP 18; TEMP 36.8; O2SAT 97
[2022-08-19 16:40] LABS: Sodium 130 mmol/L (135-145)
[2022-08-19] MEDS: Enoxaparin Sodium 40 MG/0.4 ML SYRINGE SUBCUT (16:51)
[2022-08-19] MEDS: Omeprazole 20 MG CAPSULE.DR PO (16:51)
[2022-08-19 20:42] LABS: Anion Gap 13 (12-20); Blood Urea Nitrogen 23 mg/dL (9-16); Calcium 7.7 mg/dL (8.4-10.2); Carbon Dioxide 24 mmol/L (22-29); Chloride 98 mmol/L (96-108); Creatinine Clr Calc Pharmacy 69.2; Estimated Glomerular Filt Rate > 60; Glucose Random 111 mg/dL (60-115); Potassium 4.3 mmol/L (3.3-5.1); Sodium 131 mmol/L (135-145)
[2022-08-19] MEDS: Aspirin Enteric Coated 81 MG TABLET.DR PO (22:12)
[2022-08-19] MEDS: traZODone HCL 50 MG TABLET PO (22:13)
[2022-08-19] MEDS: Atorvastatin Calcium 80 MG TABLET PO (22:13)
[2022-08-19] MEDS: amLODIPine Besylate 5 MG TABLET PO (22:13)
[2022-08-19 23:53] VITALS: BP 143/78; PULSE 70; RESP 14; TEMP 36.8; O2SAT 98
[2022-08-20] MEDS: Dextrose 5 % 1,000 ML 75 ML IVCONT (02:27)
[2022-08-20] MEDS: Omeprazole 20 MG CAPSULE.DR PO (05:33)
[2022-08-20 06:09] LABS: Hematocrit 37.5 % (42.0-52.0); Hemoglobin 13.8 g/dl (14.0-18.0); Mean Corpuscular HGB Conc 36.8 g/dl (31.0-36.0); Mean Corpuscular Hemoglobin 30.3 pg (27.0-33.0); Mean Corpuscular Volume 82.4 fL (80.0-98.0); Mean Platelet Volume 9.8 fL (9.4-12.4); Platelet Count 160 X10*3/uL (160-400); Red Blood Count 4.55 X10*6/uL (4.60-5.80); Red Cell Distribution Width 12.4 % (11.0-16.0)
[2022-08-20 06:34] LABS: Anion Gap 9 (12-20); Blood Urea Nitrogen 19 mg/dL (9-16); Calcium 8.1 mg/dL (8.4-10.2); Carbon Dioxide 28 mmol/L (22-29); Chloride 98 mmol/L (96-108); Creatinine Clr Calc Pharmacy 82.2; Estimated Glomerular Filt Rate > 60; Glucose Random 105 mg/dL (60-115); Potassium 4.2 mmol/L (3.3-5.1); Sodium 131 mmol/L (135-145)
[2022-08-20 08:00] VITALS: BP 128/70; PULSE 65; RESP 18; TEMP 36.7; O2SAT 98
--- NOTE | 2022-08-20 08:11 | MHC.CDI.CONC ---
CDI Concurrent Query Documentation Clarification: PHYSICIAN'S DOCUMENTATION REQUEST Date of Query: 08/20/22810 Patient Name: Ronny Quiñonez Admit Date: 08/18/22 Dear Doctor, A review of the medical record indicates additional documentation may be needed. Please review below and update the documentation accordingly. Risk Factors/Clinical Indicators/Treatments Nutrition note 08/18 - Patient is moderately malnourished, mildly depleted subcutaneous fat and muscle mass with reported 30% weight loss x 6 months. BMI 18.1 5' 9 in height 55.5kg Adding Ensure. If possible, please provide an associated diagnosis related to the abnormal BMI, such as: For a BMI <= 19: Malnutrition, mild, moderate or severe Underweight Weight loss Cachexia Other Unable to determine Use of terms such as suspected, likely, concern for, or probable (associated with a specific diagnosis that is being evaluated, monitored, or treated as if it exists) are acceptable and can be coded in the inpatient setting, when documented at the time of discharge. Thank you, Layne Yoo [facility], CDIS Extension: [phone] Please use your independent medical judgment in providing your response. THIS QUERY IS PART OF THE PERMANENT MEDICAL RECORD Provider Response: Other Other Diagnosis: boderline underweight possible due to poor oral intake .
[2022-08-20 08:20] VITALS: BP 128/70; PULSE 65; O2SAT 98
[2022-08-20] MEDS: polyethylene glycoL 3350 17 GM POWD.PACK PO (08:26)
[2022-08-20] MEDS: Docusate Sodium 100 MG CAPSULE PO (08:26)
[2022-08-20] MEDS: Thiamine HCL 100 MG TABLET PO (08:26)
[2022-08-20] MEDS: Folic Acid 1 MG TABLET PO (08:26)
[2022-08-20] MEDS: 0.9 % Sodium Chloride Flush 3 ML SYRINGE IVFLUSH (08:26)
[2022-08-20] MEDS: LORazepam 2 MG/ML VIAL 0.5 MG IVPUSH (09:30)
--- NOTE | 2022-08-20 10:56 | PM.DS ---
DS: Providers Provider Date of Service: 08/20/22 Date of admission: 08/18/22 14:32 Date of discharge: 08/20/22 Primary care physician: Angelina Javed DO Consults: 08/18/22 16:16 Consult to Neurology Routine Consulting Provider: [facility] Reason for consultation: likely hypoNa from Tegretol. alternative med for spasms? 08/19/22 01:57 Consult to Nephrology Routine Consulting Provider: Stanton Vieira Reason for consultation: Hyponatremia of 121 08/19/22 13:44 Consult to Care Team Routine Comment: Reason for consultation: alcohol use 08/19/22 15:07 Consult to Psychiatry Routine Consulting Provider: Psych Covering Reason for consultation: depression on sertraline Has provider been notified: No DS: Diagnosis Discharge Diagnosis (1) Alcohol abuse: Status: Acute (2) Motor neuron disease: Status: Acute (3) Acute hyponatremia: Status: Acute (4) Nausea: Status: Acute (5) Leucocytosis: Status: Acute (6) Constipation: Status: Acute DS: Summary Hospital Course Hospital Course: 61-year-old male with a PMH significant for?ALS who was sent to the ED by his PCP after labs showed hyponatremia of 124. Pt states that he has been experiencing cramps in his extremities, difficulty walking, and generalized weakness for the past week. He has been feeling nervous, tense, and has been unable to relax or sleep during this time. Pt has had decreased appetite and po intake of solids, though has increased thirst and po intake of liquids. He has never experienced anything like this in the past. Denies chest pain/pressure, palpitations. No SOB. No F/C, N/V, abdominal pain. No headache or changes in vision. Of note, pt has had some recent medication changes: he was started on carbamenzapine for muscle cramps one week ago, and taken off riluzole 2-3 days ago for elevated LFTs.? In the ED labs were significant for leukocytosis of 12.2, hyponatremia of 121, chloride of 88, transaminitis with AST of 68 and ALT of 86, total bilirubin of 1.3, creatinine of 0.8. CXR showed no active disease. EKG demonstrated normal sinus rhythm with no evidence of ST elevations or depressions. Pt was treated with ondansetron and normal saline. Pt will be admitted to the hospital for further evaluation and treatment of severe hyponatremia with IVF. Hospital course: Patient was admitted for generalized weakness and cramps and feeling nauseated, poor oral intake also patient was having alcohol use,hyponatremia : seen by nephrology -serum osmolality is higher than urine osmolality, Most likely due to non osmotic ADH release (Nausea might be a precipitating factor, carbamazepine,ssri might have contributed )also With patient was treated with supportive care with hydration adjustment for hyponatremia , sodium seems to be improved - neurology: Currently recommended hold carbamazepine. Patient likely had low sodium possibly secondary to decreased p.o. intake as well as alcohol use. Neurology also recommended to hold carbamazepine temporally. Monitor BMP out patiently Patient is borderline underweight: Encouraged for better p.o. intake. Leukocytosis seems reactive: Resolved. Constipation also improved: Continue p.r.n. laxative. Patient was seen by PT recommended home PT. Patient is to follow up outpatient with Neurology for further use of carbamazepine. plan: moniter bmp follow up pcp outpatient,consider outpatient psych follow up for ssri adjustment if needed. consider nephrology eval outpatient . Patient is to follow-up with Neurology for further use of carbamazepine and ALS. Time Spent with Patient Time attestation: Total time managing care of this patient today ____ minutes. Discharge coordination time: Greater than 30 minutes Quality: Safe Use of Opioids Does Pt have an Active Cancer Diagnosis on the Problem List?: No Quality: Stroke Does the patient have a stroke diagnosis?: No Physical Exam Vital Signs: Vital Signs: Last Vital Signs Temp 98.1 F 08/20/22 08:00 Pulse 65 08/20/22 08:20 Resp 18 08/20/22 08:00 BP 128/70 08/20/22 08:20 Pulse Ox 98 08/20/22 08:20 O2 Del Method 08/20/22 08:00 BMI result Body Mass Index 18.0 Appearance: Alert.? Oriented X3.? not in distress.? cvs: rrr, [id number] , no murmur res: clear to auscultation ,no rhonchii or wheezing abd: no rebound or guarding ,nt, bs present. ext pulses present , no cyanosis. neuro: axo3 , moves all ext. DS: Data Data Completed and Pending Labs on day of discharge: Laboratory Results - last 24 hr 08/19/22 08/19/22 08/19/22 12:35 16:16 19:52 WBC RBC Hgb Hct MCV MCH MCHC RDW Plt Count MPV Absolute Nucleated RBC Nucleated RBC % (auto) Sodium 129 L 130 L 131 L Potassium 3.9 4.3 Chloride 95 L 98 Carbon Dioxide 27 24 Anion Gap 11 L 13 BUN 23 H 23 H Creatinine 0.75 0.89 Estim Creat Clear Calc 82.2 69.2 Estimated GFR > 60 > 60 Random Glucose 112 111 Calcium 8.1 L 7.7 L Total Bilirubin 0.6 Direct Bilirubin 0.2 AST 44 H ALT 68 H Alkaline Phosphatase 83 Total Protein 5.3 L Albumin 3.5 08/20/22 08/20/22 05:57 05:57 WBC 6.0 RBC 4.55 L D Hgb 13.8 L Hct 37.5 L MCV 82.4 MCH 30.3 MCHC 36.8 H RDW 12.4 Plt Count 160 D MPV 9.8 Absolute Nucleated RBC 0.000 Nucleated RBC % (auto) 0.0 Sodium 131 L Potassium 4.2 Chloride 98 Carbon Dioxide 28 Anion Gap 9 L BUN 19 H Creatinine 0.75 Estim Creat Clear Calc 82.2 Estimated GFR > 60 Random Glucose 105 Calcium 8.1 L Total Bilirubin Direct Bilirubin AST ALT Alkaline Phosphatase Total Protein Albumin Imaging Chest x-ray: Radiologist's impression: ITS Impressions Chest X-Ray 08/18/22 10:43 IMPRESSION: No active disease. Discharge Plan Discharge Anticipated Discharge Date/Time: 08/20/22 10:43 Patient Disposition: Home Health Service Discharge Diagnosis: Hyponatremia, alcohol use Referrals: [facility] [Other] - 1 Week Angelina Barone DO [Primary Care Provider] - 1 Week Discharge Medications: New polyethylene glycol 3350 17 gram Powder In Packet 17 g PO DAILY Qty: 30 0RF docusate sodium 100 mg Capsule 100 mg PO DAILY Qty: 30 0RF omeprazole 20 mg Capsule,Delayed Release(Dr/Ec) 20 mg PO DAILY@0630 Qty: 30 0RF folic acid 1 mg Tablet 1 mg PO DAILY Qty: 30 0RF thiamine mononitrate (vit B1) 100 mg Tablet 100 mg PO DAILY Qty: 30 0RF Continued atorvastatin 80 mg tablet 1 tab PO BEDTIME trazodone 50 mg tablet 1 tab PO BEDTIME amlodipine 5 mg tablet 1 tab PO BEDTIME albuterol sulfate 90 mcg/actuation HFA aerosol inhaler 1 puff inhalation Q4H PRN (Reason: Shortness Of Breath) sertraline 50 mg tablet 1 tab PO DAILY aspirin 81 mg Tablet,Delayed Release (Dr/Ec) 81 mg PO BEDTIME Discharge Orders: Discharge Order (Routine); Ordered 08/20/22 Ordered By: Jacob Flowers Diet: Advance to usual diet Activity on Discharge: As tolerated Stand Alone Forms: Patient Portal Discharge page Other Ambulatory Orders: Basic Metabolic Panel (Routine) Timeframe: 1 Week Facility: [facility] - Location: Laboratory Ordered By: Jacob Flowers Care Plan Goals: Patient was admitted for generalized weakness and cramps and firs feeling nauseated, poor oral intake also patient was having alcohol use: With patient was treated with supportive care with hydration adjustment for hyponatremia , sodium seems to be improved - neurology: Currently recommended hold carbamazepine. Patient likely had low sodium possibly secondary to decreased p.o. intake as well as alcohol use. Neurology also recommended to hold carbamazepine temporally. Monitor BMP out patiently Patient was seen by PT recommended home PT. Patient is to follow up outpatient with Neurology for further use of carbamazepine. Health Concerns: As above. Plan of Treatment: As above. Assessment: As above.
--- NOTE | 2022-08-20 11:49 | MHC.CM.PN ---
pt dcd home with katiuska murphya for sn and home pt
--- NOTE | 2022-08-20 11:59 | W.MHC.F2F ---
Service Date Service Date: 08/20/22 Encounter Date of encounter: 08/20/22 Encounter: Hyponatremia,als Reasons for Services Signs and symptoms assessed: And weakness or any new neurological symptoms. Reason for halfway: medication management, medication treatment and teach disease management Reason for physical therapy: home safety and mobility, therapeutic exercises, restore joint function, gait/transfer training, assess need for DME, ADL training, energy conservation and other MD Overseeing Care: Angelina Javed Homebound: Leaving the home is medically contraindicated at this time without the asist of a device and/or another person due th the listed conditions above and below. Reason homebound: weakness related to hospital stay Homebound supporting statement: Patient is generally weak and has multiple medical comorbidities including als , alcohol abuse , hypernatremia , week post hospitalization need help to go to appointment. Certification: Based on the above findings, I certify that this patient is confined to the home and needs intermittent halfway care, physical therapy and/or speech therapy, or continues to need occupational therapy. The patient is under my care, and I have initiated the establishment of the plan of care. The patient will be followed by a physician who will periodically review the plan of care. Time Spent With Patient Time: Total time managing care of this patient today ____ minutes.
--- NOTE | 2022-08-20 12:53 | MHC.RECOVRN ---
Met with pt in 458 after consult placed to Care Team for alcohol use. Pt sitting in chair, awake, alert, easily engages in conversation. Pts brother in law, Osmany, present with pts consent. Pt reports drinking a couple Manhattans and a couple beers 4-5 times weekly since my diagnosis in December. Pt reports this is an increase to what he typically would consume. Pt has never had tx for AUD, denies ever experiencing withdrawal symptoms, denies family hx AUD. Pt reports in the past when he has attempted to reduce amount or abstain, he has been able to successfully. Pt reports he has a large support system and is confident he will be able to abstain once dc from the hospital. Pt plans to reengage with outpatient psychologist whom he has not seen in two months. Provided pt with recovery resources and support information, declines referrals at this time. Pt also provided with t/w contact information if needed. Declines other questions or concerns. Provider aware.
== END 2022-08-20 11:00 | disposition home health service (06) | DRG 641 ==
LOC: HO.ED 14:41 → HO.EDOVER 14:42 → HO.IMC 17:24
PROVIDERS: Physician Assistant; Admitting Provider Student in an Organized Health Care Education/Training Program; Emergency Provider Emergency Medicine; PCP Internal Medicine; Visit Provider Internal Medicine
DX: E87.1 Hypo-osmolality and hyponatremia (principal); G12.21 Amyotrophic lateral sclerosis; Z68.1 Body mass index [BMI] 19.9 or less, adult; K59.00 Constipation, unspecified; D72.829 Elevated white blood cell count, unspecified; F41.9 Anxiety disorder, unspecified; T42.1X5A Adverse effect of iminostilbenes, initial encounter; F10.10 Alcohol abuse, uncomplicated; R63.6 Underweight; F32.A Depression, unspecified; Z20.822 Contact with and (suspected) exposure to COVID-19; Z79.82 Long term (current) use of aspirin; Z79.899 Other long term (current) drug therapy
CPT/HCPCS: 36415; 71045; 80048; 80076; 81001; 81003; 82436; 83735; 83930; 83935; 84133; 84295; 84300; 84484; 85025; 85027; 87635; 93005; 97162; 99285; J1650; J2060; J2405

== ENCOUNTER 2023-07-29 15:59 | Inpatient (IN) | payer MEDICARE, MEDICAID, SELFPAY ==
[2023-07-29] VITALS (10 sets, daily range): BP systolic 132–160; BP diastolic 76–114; PULSE 86–101; RESP 14–22; TEMP 36.8–37.4; O2SAT 90–97; BMI 15.6; BMI 16.4
--- NOTE | ~2023-07-29 | XR_ITS ---
EXAMINATION: XR CHEST CLINICAL INFORMATION: Hypoxia. COMPARISON: Multiple prior studies including Chest x-ray August 02, 2023. CT chest July 29, 2023 TECHNIQUE: Frontal portable view of the chest was obtained. 3:12 PM FINDINGS: Persistent dense consolidation at the posterior left lower lobe unchanged since prior chest x-ray and CT chest exam. On the CT of chest there is complete atelectasis of the right middle lobe as well. This is not appreciated on the frontal view chest x-ray exams. No pleural effusion. No pulmonary vascular congestion. Heart size is normal. Cardiac mediastinal contours are normal. XR/XR chest 1V IMPRESSION: Persistent dense consolidation at the posterior left lower lobe. Complete atelectasis right middle lobe seen on CT of chest July 29, 2023 is not appreciated by frontal view plain film chest x-ray.
--- NOTE | ~2023-07-29 | XR_ITS ---
EXAMINATION: XR CHEST CLINICAL INFORMATION: Worsening shortness of breath COMPARISON: 07/31/2023 TECHNIQUE: Frontal view of the chest was obtained. FINDINGS: There is persistent dense retrocardiac left basilar opacity suspicious for at least a component of atelectasis, without significant change from prior. There is also suspected persistent right middle lobe collapse with haziness in this region. Remainder of the lungs appear clear. No evidence of pneumothorax, significant pleural effusion, or pulmonary edema. The cardiomediastinal contour is unremarkable. No acute osseous findings are seen. XR/XR chest 1V IMPRESSION: Persistent dense retrocardiac left basilar opacity suspicious for at least a component of atelectasis though superimposed consolidation cannot be excluded, without significant change from 07/31/2023. Persistent right middle lobe collapse also noted.
--- NOTE | ~2023-07-29 | XR_ITS ---
EXAMINATION: XR CHEST CLINICAL INFORMATION: Follow-up pneumonia COMPARISON: CT of the chest July 29, 2023. Chest x-ray August 18, 2022, July 29, 2023 TECHNIQUE: 2 views of the chest were obtained. FINDINGS: Persistent dense consolidation at the left lung base similar prior studies. Right lung remains normally aerated. No pulmonary vascular congestion. XR/XR chest 2V IMPRESSION: Persistent dense consolidation at the left lung base similar prior studies.
--- NOTE | ~2023-07-29 | XR_ITS ---
EXAMINATION: XR CHEST CLINICAL INFORMATION: Shortness of breath. COMPARISON: None available. TECHNIQUE: Frontal view of the chest was obtained. FINDINGS: No significant abnormality is noted involving the heart, lungs, mediastinum, bony thorax or soft tissues. XR/XR chest 1V IMPRESSION: Unremarkable chest examination.
--- NOTE | ~2023-07-29 | CT_ITS ---
EXAMINATION: CT ANGIOGRAM OF THE CHEST WITH AND WITHOUT CONTRAST (CT PULMONARY ANGIOGRAM FOR PE) CLINICAL INFORMATION: Reason for Exam hypoxia COMPARISON: Previous chest x-ray from earlier the same day TECHNIQUE: Prior to contrast administration, noncontrast localization images were obtained. Subsequently, multidetector volumetric imaging was performed from the thoracic inlet to below the diaphragms following the administration of 65 mL Omnipaque 350 intravenous contrast. No contrast reaction reported Sagittal, coronal, and MIP oblique sagittal reformatted images were obtained on the CT workstation, uploaded to PACS, and reviewed. This CT examination was performed using dose optimization techniques as appropriate, variously including the following: *Automated exposure control *Adjustment of mA and/or kV according to patient size (this includes techniques or standardized protocols for targeted exams where dose is matched to indication/reason for exam; i.e. extremities or head) *Use of iterative reconstruction technique Total exam dose-length product 187 mGy-cm FINDINGS: QUALITY OF STUDY/CONTRAST BOLUS: Satisfactory. PULMONARY ARTERIES: No pulmonary emboli. THORACIC AORTA: No aneurysm. LUNG: There is complete consolidation of the left lower lobe and some atelectasis. There are secretions left main and upper lobe bronchus. There is no aeration of left lower lobe bronchi. There is complete right middle lobe atelectasis. There is mild bronchial wall thickening and increased peribronchial attenuation in the right lower lobe suggestive of airways. PLEURA: No pleural effusion or pneumothorax. MEDIASTINUM: Normal heart size. No pericardial effusion. Question left hilar lymphadenopathy No mediastinal lymphadenopathy. No evidence of septal bowing or right heart strain. CORONARY ARTERY CALCIFICATION: None visualized on this study. CHEST WALL/AXILLA: No axillary or internal mammary lymphadenopathy. OSSEOUS STRUCTURES: No acute or suspicious osseous abnormality. UPPER ABDOMEN: Spleen not visualized but appears prominent.. No reflux of contrast into the hepatic veins to suggest elevated right heart pressures. CT/CT angio chest PE protocol IMPRESSION: No evidence of pulmonary embolism. Complete left lower lobe consolidation and some atelectasis. Complete atelectasis of the right middle lobe. Mild airways disease in the right lower lobe. Question left hilar lymphadenopathy. VTE: negative
--- NOTE | 2023-07-29 17:18 | ED_ITS ---
HPI - General Adult General Chief complaint: Upper Respiratory Symptoms Stated complaint: SOB, COUGH Time Seen by Provider: 07/29/23 16:37 Source: patient, family, RN notes reviewed and old records reviewed Mode of arrival: EMS Limitations: no limitations History of Present Illness HPI narrative: [age] year male past medical history significant for ALS presents for evaluation of ?shortness of breath and coughing. ? Patient reports that he had COVID about 2 weeks ago He tested positive 8 days ago but had symptoms at least a few days before that His son reports a tested-2 days ago He reports increased weakness, continued cough and shortness of breath. The patient asked to go to the hospital, so therefore his son called 911 Apparently EMS found the patient to have an oxygen saturation of 90% on room air The patient denies any leg swelling, fevers or chills. Related Data Home Medications Medication Instructions Recorded Confirmed albuterol sulfate 90 mcg/actuation 1 puff inhalation Q4H PRN 08/18/22 08/18/22 aerosol inhaler Shortness Of Breath amlodipine 5 mg tablet 1 tab PO BEDTIME 08/18/22 08/18/22 aspirin 81 mg tablet,delayed 81 mg PO BEDTIME 08/18/22 08/18/22 release atorvastatin 80 mg tablet 1 tab PO BEDTIME 08/18/22 08/18/22 sertraline 50 mg tablet 1 tab PO DAILY 08/18/22 08/18/22 trazodone 50 mg tablet 1 tab PO BEDTIME 08/18/22 08/18/22 Previous Rx's Medication Instructions Recorded docusate sodium 100 mg capsule 100 mg PO DAILY #30 caps 08/20/22 folic acid 1 mg tablet 1 mg PO DAILY #30 tabs 08/20/22 omeprazole 20 mg capsule,delayed 20 mg PO DAILY@0630 #30 caps 08/20/22 release polyethylene glycol 3350 17 gram 17 g PO DAILY #30 ea 08/20/22 oral powder packet thiamine mononitrate (vit B1) 100 100 mg PO DAILY #30 tabs 08/20/22 mg tablet Allergies Allergy/AdvReac Type Severity Reaction Status Date / Time No Known Allergies Allergy Verified 08/18/22 09:57 Review of Systems 2 Constitutional: Constitutional: Denies chills, Denies fever(s), Reports lethargy, Reports malaise and Reports weakness Cardiovascular: Cardiovascular: Denies chest pain and Reports dyspnea Respiratory: Respiratory: Reports chest congestion, Reports cough and Reports dyspnea Gastrointestinal: Gastrointestinal: Denies abdominal pain, Denies nausea and Denies vomiting Integumentary/Breasts: Skin/Breast: Denies rash Neurologic: Reports weakness PMFSH Past Medical History Onset Date is defined in the Problem List Problems that require an onset date and time if occurred within 24 hrs of arrival to the ED Aortic Dissection and Rupture; Neurologic impairment; Cardiopulmonary Arrest; Endotracheal Intubation; Insertion or Replacement of Mechanical Circulatory Assist Device Medical History ALS (amyotrophic lateral sclerosis) Social History Social History Household Members: Spouse Housing: House Do you presently have visiting nurse or other home services: No Comment: rings appropriately Patient Tobacco Use Status: Never used Tobacco Smoked in Last 30 Days: No e-Cigarette/Vaping Use: Never Used Use of substances other than those prescribed or required for medical reasons: No Substance Use Type: Marijuana Advance Directives: Yes Advance Directives Information Provided: No Advance Directives on File: No service: No Current occupational status: disabled Physical Exam ED Vital Signs: Vital Signs - 24 hr 07/29/23 16:30 07/29/23 16:34 07/29/23 17:32 Temperature 99.3 F Pulse Rate 93 Respiratory Rate 22 H Blood Pressure 148/89 H Pulse Oximetry 91 L 95 95 Oxygen Delivery Method Room Air Nasal Cannula Nasal Cannula Oxygen Flow Rate 2 07/29/23 17:40 07/29/23 19:47 07/29/23 19:56 Temperature 98.9 F 98.3 F Pulse Rate 97 90 Respiratory Rate 20 14 Blood Pressure 160/102 H 132/114 H 138/88 Pulse Oximetry 93 97 Oxygen Delivery Method Nasal Cannula Room Air Oxygen Flow Rate 2 BMI result Body Mass Index 15.6 Const General: comfortable, no acute distress, alert and awake Nutritional Appearance: cachectic and malnourished Orientation/consciousness: patient oriented x3 HENMT Head: Yes normocephalic and Yes atraumatic Throat: Yes posterior oropharynx normal Eyes Eyelids: Yes eyelids normal Conjunctivae: conjunctivae normal Sclerae: sclerae normal Corneas: corneas normal Pupils: Equal, round and reactive pupils present EOM: EOMs intact bilaterally Neck Neck: Yes full ROM Resp Other: Overall diminished Effort & Inspection: able to speak in complete sentences and not labored Auscultation: not clear to auscultation bilaterally and rhonchi ([place] best in the upper lobes) throughout Cardio Other: No leg swelling Jugular venous distension: no JVD Rate: regular rate Rhythm: regular rhythm GI Inspection: No distended Palpation (GI): Soft to palpation, not firm, nontender, no guarding and not rigid Skin General skin exam: no rashes or lesions noted and elasticity normal Neuro General: patient oriented x3 Cranial nerves: Yes Equal, round and reactive pupils present Cognition (Neuro): normal cognition Extrem Other: Moving all extremities well without any obvious deformities Course Reevaluation(s) Reevaluation #1: Patient's CT angiography shows no evidence of PE but shows complete consolidation of the left lower lobe. The patient will be admitted for community-acquired pneumonia. Patient's vital signs are stable, no evidence of sepsis despite his white count of 23.1 K. Given the patient's history of ALS and high risk for aspiration I ordered Zosyn. Will discuss with the hospitalist Time: 20:48 Medications Administered Discontinued Medications Generic Name Dose Route Start Last Admin Trade Name Freq PRN Reason Stop Dose Admin Iohexol 65 ml 07/29/23 18:55 07/29/23 18:55 Iohexol 350 Mg/Ml 100 Ml Infus..Btl IV 07/29/23 18:56 65 ml ONCE ONE Administration Medical Decision Making Medical Decision Making [facility] Narrative: 62-year-old male with history of ALS presents for evaluation of shortness of breath. He reports he was diagnosed with COVID 8 days ago but had symptoms for approximately 2 weeks. He does admit that he has on a clinical trial for medication he is due to take every morning. He does not know the name of this medication. Denies any fevers or chills, he was found to be hypoxic. We will started by workup including labs, chest x-ray, blood cultures. The patient has a very weak cough likely due to his ALS. He is high risk for aspiration pneumonia Differential Diagnosis Differential Diagnoses: The differential diagnosis associated with the presentation includes Postviral pneumonia Aspiration pneumonia COVID-19 Influenza RSV Admission/Observation Consideration of admission/observation: Escalation of care including admission/observation considered Lab Data [facility] Lab Attestation statement: I reviewed the patient's lab results. White count 23.1k. He has a mild normocytic anemia consistent with his recent baseline. 07/29/23 17:36 07/29/23 17:36 Labs: Lab Results 07/29/23 07/29/23 07/29/23 Range/Units 17:36 17:37 17:40 WBC 23.1 H (4.8-10.8) X10*3/uL RBC 4.58 L (4.60-5.80) X10*6/uL Hgb 13.6 L (14.0-18.0) g/dl Hct 39.5 L (42.0-52.0) % MCV 86.2 (80.0-98.0) fL MCH 29.7 (27.0-33.0) pg MCHC 34.4 (31.0-36.0) g/dl RDW 13.1 (11.0-16.0) % Plt Count 268 D (160-400) X10*3/uL MPV 8.7 L (9.4-12.4) fL Immature Gran % (Auto) 0.7 H (0.0-0.4) % Neut % (Auto) 92.2 H (45-73) % Lymph % (Auto) 2.9 L (20-40) % [place] % (Auto) 4.0 (2-11) % Eos % (Auto) 0.0 (0-4) % Baso % (Auto) 0.2 (0-2) % Lymph # (Auto) 0.7 L (1.2-4.9) X10*3/uL [place] # (Auto) 0.9 (0.1-1.2) X10*3/uL Eos # (Auto) 0.0 (0.0-0.4) X10*3/uL Baso # (Auto) 0.0 (0.0-0.2) X10*3/uL Abs Immat Gran (auto) 0.17 H (0.00-0.03) X10*3/uL Absolute Neuts (auto) 21.3 H (2.0-8.3) x10*3/uL Absolute Nucleated RBC 0.000 (0.0-0.012) X10*3/uL Nucleated RBC % (auto) 0.0 (0.0-0.2) /100WBC Smear Tech's Comments VERIFIED Hold Purple Top SEE NOTE PT (11.1-13.3) SEC INR (0.9-1.1) APTT (26.0-36.4) SEC Sodium 133 L (135-145) mmol/L Potassium 4.4 (3.3-5.1) mmol/L Chloride 95 L (96-108) mmol/L Carbon Dioxide 29 (22-29) mmol/L Anion Gap 13 (12-20) BUN 15 (9-16) mg/dL Creatinine 0.53 (0.5-1.4) mg/dL Estim Creat Clear Calc 99.3 Estimated GFR > 60 Random Glucose 114 (60-115) mg/dL Lactic Acid 0.5 (0.5-2.0) mmol/L Calcium 9.4 D (8.4-10.2) mg/dL Total Bilirubin 0.3 (0.0-1.0) mg/dL AST 24 (5-37) U/L ALT 31 (0-40) U/L Alkaline Phosphatase 91 (39-117) U/L Troponin I High Sens 3.9 (<3.5-35.0) ng/L Total Protein 6.8 (6.5-8.0) g/dL Albumin 3.8 (3.5-5.0) g/dL Lipase 23 (8-78) U/L Influenza Type A (PCR) NEGATIVE (Negative) Influenza Type B (PCR) NEGATIVE (Negative) RSV RNA Qual (PCR) NEGATIVE (Negative) SARS-CoV-2 RNA (RT-PCR) NEGATIVE (Negative) 07/29/23 Range/Units 18:14 WBC (4.8-10.8) X10*3/uL RBC (4.60-5.80) X10*6/uL Hgb (14.0-18.0) g/dl Hct (42.0-52.0) % MCV (80.0-98.0) fL MCH (27.0-33.0) pg MCHC (31.0-36.0) g/dl RDW (11.0-16.0) % Plt Count (160-400) X10*3/uL MPV (9.4-12.4) fL Immature Gran % (Auto) (0.0-0.4) % Neut % (Auto) (45-73) % Lymph % (Auto) (20-40) % [place] % (Auto) (2-11) % Eos % (Auto) (0-4) % Baso % (Auto) (0-2) % Lymph # (Auto) (1.2-4.9) X10*3/uL [place] # (Auto) (0.1-1.2) X10*3/uL Eos # (Auto) (0.0-0.4) X10*3/uL Baso # (Auto) (0.0-0.2) X10*3/uL Abs Immat Gran (auto) (0.00-0.03) X10*3/uL Absolute Neuts (auto) (2.0-8.3) x10*3/uL Absolute Nucleated RBC (0.0-0.012) X10*3/uL Nucleated RBC % (auto) (0.0-0.2) /100WBC Smear Tech's Comments Hold Purple Top PT 12.2 (11.1-13.3) SEC INR 1.0 (0.9-1.1) APTT 30.6 (26.0-36.4) SEC Sodium (135-145) mmol/L Potassium (3.3-5.1) mmol/L Chloride (96-108) mmol/L Carbon Dioxide (22-29) mmol/L Anion Gap (12-20) BUN (9-16) mg/dL Creatinine (0.5-1.4) mg/dL Estim Creat Clear Calc Estimated GFR Random Glucose (60-115) mg/dL Lactic Acid (0.5-2.0) mmol/L Calcium (8.4-10.2) mg/dL Total Bilirubin (0.0-1.0) mg/dL AST (5-37) U/L ALT (0-40) U/L Alkaline Phosphatase (39-117) U/L Troponin I High Sens (<3.5-35.0) ng/L Total Protein (6.5-8.0) g/dL Albumin (3.5-5.0) g/dL Lipase (8-78) U/L Influenza Type A (PCR) (Negative) Influenza Type B (PCR) (Negative) RSV RNA Qual (PCR) (Negative) SARS-CoV-2 RNA (RT-PCR) (Negative) Discharge Plan Discharge Clinical Impression: Community acquired pneumonia Patient Disposition: Admitted As Inpatient Prescriptions: No Action atorvastatin 80 mg tablet 1 tab PO BEDTIME trazodone 50 mg tablet 1 tab PO BEDTIME amlodipine 5 mg tablet 1 tab PO BEDTIME albuterol sulfate 90 mcg/actuation HFA aerosol inhaler 1 puff inhalation Q4H PRN (Reason: Shortness Of Breath) sertraline 50 mg tablet 1 tab PO DAILY aspirin 81 mg Tablet,Delayed Release (Dr/Ec) 81 mg PO BEDTIME polyethylene glycol 3350 17 gram Powder In Packet 17 g PO DAILY Qty: 30 0RF docusate sodium 100 mg Capsule 100 mg PO DAILY Qty: 30 0RF omeprazole 20 mg Capsule,Delayed Release(Dr/Ec) 20 mg PO DAILY@0630 Qty: 30 0RF folic acid 1 mg Tablet 1 mg PO DAILY Qty: 30 0RF thiamine mononitrate (vit B1) 100 mg Tablet 100 mg PO DAILY Qty: 30 0RF
--- NOTE | 2023-07-29 17:18 | ECG_ITS ---
Test Reason : PAIN Blood Pressure : / mmHG Vent. Rate : 091 BPM Atrial Rate : 091 BPM P-R Int : 130 ms QRS Dur : 076 ms QT Int : 356 ms P-R-T Axes : 061 047 050 degrees QTc Int : 437 ms Normal sinus rhythm Normal ECG When compared with ECG of 18-AUG-2022 10:44, No significant change was found Referred By: Gregory Higuera Electronically Signed By:TRAMAINE FRANCO
--- NOTE | 2023-07-29 17:42 | MHC.EDTECH ---
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
[2023-07-29 17:44] LABS: Basophils Percent Auto 0.2 % (0-2); Hematocrit 39.5 % (42.0-52.0); Hemoglobin 13.6 g/dl (14.0-18.0); Imm Gran Abs Auto 0.17 X10*3/uL (0.00-0.03); Imm Gran Pct Auto 0.7 % (0.0-0.4); Lymphocytes Absolute Auto 0.7 X10*3/uL (1.2-4.9); Lymphocytes Percent Auto 2.9 % (20-40); MANUAL DIFF FLAG SCAN; Mean Corpuscular HGB Conc 34.4 g/dl (31.0-36.0); Mean Corpuscular Hemoglobin 29.7 pg (27.0-33.0); Mean Corpuscular Volume 86.2 fL (80.0-98.0); Mean Platelet Volume 8.7 fL (9.4-12.4); Monocytes Absolute Auto 0.9 X10*3/uL (0.1-1.2); Neutrophils Absolute Auto 21.3 x10*3/uL (2.0-8.3); Neutrophils Percent Auto 92.2 % (45-73); Platelet Count 268 X10*3/uL (160-400); Red Blood Count 4.58 X10*6/uL (4.60-5.80); Red Cell Distribution Width 13.1 % (11.0-16.0); SCAN SMEAR FLAG 1; White Blood Count 23.1 X10*3/uL (4.8-10.8)
[2023-07-29 17:55] LABS: Lactic Acid 0.5 mmol/L (0.5-2.0)
[2023-07-29 18:00] LABS: Alanine Aminotransferase 31 U/L (0-40); Albumin Level 3.8 g/dL (3.5-5.0); Alkaline Phosphatase 91 U/L (39-117); Anion Gap 13 (12-20); Aspartate Amino Transferase 24 U/L (5-37); Bilirubin Total 0.3 mg/dL (0.0-1.0); Blood Urea Nitrogen 15 mg/dL (9-16); Calcium 9.4 mg/dL (8.4-10.2); Carbon Dioxide 29 mmol/L (22-29); Chloride 95 mmol/L (96-108); Creatinine Clr Calc Pharmacy 99.3; Estimated Glomerular Filt Rate > 60; Glucose Random 114 mg/dL (60-115); Lipase 23 U/L (8-78); Potassium 4.4 mmol/L (3.3-5.1); Sodium 133 mmol/L (135-145); Total Protein 6.8 g/dL (6.5-8.0)
[2023-07-29 18:07] LABS: SLIDE REVIEW VERIFIED; Troponin-I High Sensitivity 3.9 ng/L (<3.5-35.0)
[2023-07-29 18:22] LABS: Influenza A PCR NEGATIVE (Negative); Influenza B PCR NEGATIVE (Negative); Resp Syncy Virus RNA Qual PCR NEGATIVE (Negative); SARS COV2 PCR INHOUSE NEGATIVE (Negative)
[2023-07-29 18:30] LABS: Prothrombin Time 12.2 SEC (11.1-13.3)
[2023-07-29 18:32] LABS: Partial Thromboplastin Time 30.6 SEC (26.0-36.4)
[2023-07-29] MEDS: iohexoL 350 MG/ML 100 ML INFUS..BTL 65 ML IV (18:55)
--- NOTE | 2023-07-29 19:31 | PC.NURSE ---
assumed care of pt 1915. nad. awaiting cta results.
[2023-07-29] MEDS: 0.9 % Sodium Chloride 1,000 ML 999 ML IV (21:04)
[2023-07-29] MEDS: Piperacillin Sodium/Tazobactam 3.375 GM in 0.9 % Sodium Chloride 50 ML IV (21:05)
--- NOTE | 2023-07-29 21:26 | PC.NURSE ---
pt axox4 speaking full clear sentences. diminished lung sounds on ausc bilat throughout. intermittent cough productive; yellow mucous. sats 97% on 2L NC. pt denies cp/n/v/d at this time. ivF and abx infusing via iv R. wrist. nad. awaiting transport to admitted unit.
--- NOTE | 2023-07-29 21:37 | P.HPHOSP_ITS ---
History of Present Illness Date of Service: 07/29/23 Attending physician on admission: Zi Orr Chief Complaint: Cough, SOB Pt is a 62-year-old male with a PMH significant for?ALS and HTN who presents to the ED with?increasing shortness of breath, productive cough, and fatigue for the past several days. Patient notes that he tested positive for COVID last week. Since then patient has been experienced increased shortness of breath, cough productive of greenish sputum, and weakness. Also reports chest tightness associated with coughing. States he feels like he is ?drowning when lying down?. Patient apparently tested negative for COVID 3 days ago. Patient denies fever, chills, nausea, vomiting, abdominal pain. Denies chest pain or palpitations. Patient has history of ALS and has lost a great deal of weight in the past year. Reports chronic anorexia and that eating is a ?challenge?. In the ED pt had low-grade fever 99.3, tachycardic up to 97, tachypneic up to 22, and hypertensive as high as 160/102, satting as low as 91% on RA. Labs were significant for leukocytosis 23.1, otherwise grossly unremarkable. Stable H&H 13.6/39.5. Chronic hyponatremia of 133 (around baseline). Renal function WNL. Lactic acid WNL at 0.5. Hepatic function WNL. Troponin 3.9. CXR was unremarkable. Chest CTA found no evidence of pulmonary embolism, but showed complete left lower lobe consolidation and some atelectasis. Also found complete atelectasis of the right middle lobe and mild airway disease in the right lower lobe. EKG demonstrated normal sinus rhythm without evidence of ST elevations or depressions. Pt was treated with IVF and Zosyn. Pt will be admitted to the hospital for treatment and further evaluation of community- acquired pneumonia with sepsis. Review of Systems 2 Review of Systems: Increased shortness of breath Productive cough Increased fatigue, weakness Chest tightness associated with coughing and deep breathing Chronic anorexia PMFSH Medical History ALS (amyotrophic lateral sclerosis) Social History Household Members: None Housing: House Do you presently have visiting nurse or other home services: Yes Comment: rings appropriately Patient Tobacco Use Status: Never used Tobacco Smoked in Last 30 Days: No e-Cigarette/Vaping Use: Never Used Use of substances other than those prescribed or required for medical reasons: Yes Substance Use Type: Marijuana Substance Use Frequency: Daily Currently Displaying Signs/Symptoms of Drug Intoxication Withdrawal: No Any prior treatment program specific to substance use: No Have you been hit, kicked, punched, or otherwise hurt by someone within the past year? If so, by whom?: No Do you feel safe in your current relationship?: Yes Is there a partner from a previous relationship who is making you feel unsafe now?: No Are you made to feel afraid or neglected: No Advance Directives: Yes Advance Directives Information Provided: No Advance Directives on File: No Advance Directives Date on File: 07/29/23 Do you have thoughts of harming others: None Do you have a plan to hurt others: No Plan Nutrition Risks: No Nutritional Risk Poor oral hygiene: No service: No Current occupational status: disabled Meds Allergies Allergy/AdvReac Type Severity Reaction Status Date / Time No Known Allergies Allergy Verified 08/18/22 09:57 Active Medications: Current Medications Acetaminophen (Acetaminophen 325 Mg Tablet) 650 mg PO Q6H PRN PRN Reason: Pain, Mild (Pain Scale 1-3) Enoxaparin Sodium (Enoxaparin Sodium 40 Mg/0.4 Ml Syringe) 40 mg SUBCUT Q24H [facility] Sodium Chloride (Ns) 1,000 mls @ 999 mls/hr IV .Q1H1M [facility] Stop: 07/29/23 22:00 Last Admin: 07/29/23 21:04 Dose: 999 mls/hr Ceftriaxone Sodium 1 gm/ (Sodium Chloride) 50 mls @ 100 mls/hr IV Q24H [facility] Azithromycin 500 mg/ Sodium (Chloride) 250 mls @ 125 mls/hr IV Q24H [facility] Melatonin (Melatonin 3 Mg Tablet) 6 mg PO BEDTIME PRN PRN Reason: Insomnia Ondansetron HCl (Ondansetron Hcl 4 Mg/2 Ml Vial) 4 mg IVPUSH Q8H PRN PRN Reason: Nausea and Vomiting Sodium Chloride (0.9 % Sodium Chloride Flush 3 Ml Syringe) 3 ml IVFLUSH QSHIFT [facility] Home Medications Medication Instructions Recorded Confirmed Last Taken Type albuterol sulfate 90 mcg/actuation 1 puff inhalation Q4H PRN 08/18/22 07/29/23 07/29/23 History aerosol inhaler Shortness Of Breath amlodipine 5 mg tablet 1 tab PO BEDTIME 08/18/22 07/29/23 07/29/23 History sertraline 50 mg tablet 1 tab PO DAILY 08/18/22 07/29/23 07/29/23 History trazodone 50 mg tablet 1 tab PO BEDTIME 08/18/22 07/29/23 07/29/23 History sodium phenylbutyrate 3 1 packet PO BID 07/29/23 07/29/23 Unknown History gram-taurursodiol 1 gram oral powder packet (Relyvrio) Physical Exam 2 Vital Signs and Narrative: Vital Signs: Last Vital Signs Temp 98.4 F 07/29/23 21:05 Pulse 86 07/29/23 21:05 Resp 18 07/29/23 21:05 BP 157/100 H 07/29/23 21:05 Pulse Ox 96 07/29/23 21:05 O2 Del Method Nasal Cannula 07/29/23 21:05 O2 Flow Rate 2 07/29/23 21:05 Oxygen Flow Rate 2 07/29/23 17:32 BMI result Body Mass Index 15.6 Constitutional: Alert, cachectic, frail looking, in no acute distress. Mental Status: Oriented to person, place and time. Eyes: Pupils are equal, round, and reactive to light. Ear, Nose, and Throat: Oropharynx clear, mucous membranes moist. Ears and nose without deformities. Trachea midline. Respiratory: Diffuse bilateral rhonchi, especially in right lung. Pt seen constantly coughing during interview and exam. Cardiovascular: S1, S2 regular. No murmurs, rubs, or gallops. Gastrointestinal: Abdomen soft, non-tender, non-distended. Normal bowel sounds. Neurologic: Cranial nerves II-XII are grossly intact bilaterally. No focal neurological deficits. Moves all extremities spontaneously. Skin: Warm, dry. Musculoskeletal: No cyanosis or clubbing. Extremities: No edema. Psychiatric: Normal mood and affect. Results Labs 07/29/23 17:36 07/29/23 17:36 Labs: Laboratory Results - last 24 hr 07/29/23 07/29/23 07/29/23 17:36 17:37 17:40 MCV 86.2 MCH 29.7 MCHC 34.4 RDW 13.1 Plt Count 268 D MPV 8.7 L Immature Gran % (Auto) 0.7 H Neut % (Auto) 92.2 H Lymph % (Auto) 2.9 L [place] % (Auto) 4.0 Eos % (Auto) 0.0 Baso % (Auto) 0.2 Lymph # (Auto) 0.7 L [place] # (Auto) 0.9 Eos # (Auto) 0.0 Baso # (Auto) 0.0 Abs Immat Gran (auto) 0.17 H Absolute Neuts (auto) 21.3 H Absolute Nucleated RBC 0.000 Nucleated RBC % (auto) 0.0 Smear Tech's Comments VERIFIED Hold Purple Top SEE NOTE PT INR APTT Anion Gap 13 Estim Creat Clear Calc 99.3 Estimated GFR > 60 Random Glucose 114 Lactic Acid 0.5 Calcium 9.4 D Total Bilirubin 0.3 AST 24 ALT 31 Alkaline Phosphatase 91 Total Protein 6.8 Albumin 3.8 Lipase 23 Influenza Type A (PCR) NEGATIVE Influenza Type B (PCR) NEGATIVE RSV RNA Qual (PCR) NEGATIVE SARS-CoV-2 RNA (RT-PCR) NEGATIVE 07/29/23 18:14 MCV MCH MCHC RDW Plt Count MPV Immature Gran % (Auto) Neut % (Auto) Lymph % (Auto) [place] % (Auto) Eos % (Auto) Baso % (Auto) Lymph # (Auto) [place] # (Auto) Eos # (Auto) Baso # (Auto) Abs Immat Gran (auto) Absolute Neuts (auto) Absolute Nucleated RBC Nucleated RBC % (auto) Smear Tech's Comments Hold Purple Top PT 12.2 INR 1.0 APTT 30.6 Anion Gap Estim Creat Clear Calc Estimated GFR Random Glucose Lactic Acid Calcium Total Bilirubin AST ALT Alkaline Phosphatase Total Protein Albumin Lipase Influenza Type A (PCR) Influenza Type B (PCR) RSV RNA Qual (PCR) SARS-CoV-2 RNA (RT-PCR) Imaging Radiologist's Impressions: Impressions Chest X-Ray 07/29/23 18:05 IMPRESSION: Unremarkable chest examination. Chest CTA 07/29/23 19:00 IMPRESSION: No evidence of pulmonary embolism. Complete left lower lobe consolidation and some atelectasis. Complete atelectasis of the right middle lobe. Mild airways disease in the right lower lobe. Question left hilar lymphadenopathy. VTE: negative Assessment and Plan (1) Community acquired pneumonia: Qualifiers: Laterality: left Lung location: lower lobe of lung Qualified Code(s): J18.9 - Pneumonia, unspecified organism Status: Acute (2) Moderate protein-calorie malnutrition: Status: Acute Plan Pt is a 62-year-old male with a PMH significant for?ALS and HTN who presents to the ED with?increasing shortness of breath, productive cough, and fatigue for the past several days. Pt was treated with IVF and Zosyn. Pt will be admitted to the hospital for treatment and further evaluation of community-acquired pneumonia with sepsis. Community acquired pneumonia with sepsis CTA with evidence of complete left lower lobe consolidation Likely secondary to COVID infection from last week Patient with worsening SOB, productive cough, fatigue the past few days Patient meets sepsis criteria: Tachycardia, tachypnea, leukocytosis; lactic acid WNL at 0.5 Patient given IVF and started on broad-spectrum antibiotics in the ED Will treat with ceftriaxone and azithromycin, started 07/29/2023 Titrate supplemental O2>92, wean as tolerated DuoNebs prn, guaifenesin Monitor respiratory status ALS Continue Relyvrio HTN Continue home meds Moderate protein calorie malnutrition In the setting of reduced p.o. intake Will supplement with Ensure Full Code Attending:? DVT Prophylaxis: Lovenox Pt will require a hospitalization of at least two nights for treatment of?community-acquired pneumonia with sepsis. Given patient's cachectic state and significant comorbidities, patient required hospitalization for the administration of IV antibiotics and close monitoring of vitals and labs. Quality Stroke Does the patient have a stroke diagnosis?: No VTE Prior VTE?: No VTE Risk Level:: Medical - moderate - high VTE Device Contraindication: Treatment Not Indicated VTE Drug Contraindication: N/A - Med Ordered
--- NOTE | 2023-07-29 21:48 | PHA.MEDREC ---
Pharmacy Consult ? Medication Reconciliation Pharmacy has completed the medication reconciliation.Patient confirmed medications through self and list brought from home. Patient also brought Relyvrio from home (in trial) Angelica Nielson CPhT
[2023-07-29] MEDS: Enoxaparin Sodium 40 MG/0.4 ML SYRINGE SUBCUT (22:02)
[2023-07-29] MEDS: cefTRIAXone sodium 1 GM in 0.9 % Sodium Chloride 50 ML IV (22:02)
[2023-07-29] MEDS: Azithromycin 500 MG in 0.9 % Sodium Chloride 250 ML 125 MG IV (22:45)
[2023-07-29] MEDS: traZODone HCL 50 MG TABLET PO (22:45)
[2023-07-29] MEDS: amLODIPine Besylate 5 MG TABLET PO (22:45)
[2023-07-29] MEDS: Albuterol/Iprat 2.5/0.5MG 3 ML AMPUL.NEB INHALE (23:25)
[2023-07-30] MEDS: hydrOXYzine HCL 25 MG TABLET PO (00:29)
--- NOTE | 2023-07-30 00:31 | PC.NURSE ---
pt c/o anxiety. notified and ordered atarax 25mg po x1.
[2023-07-30 03:10] VITALS: BP 141/87; PULSE 99; RESP 19; TEMP 37.1; O2SAT 92
[2023-07-30 06:05] LABS: Basophils Percent Auto 0.1 % (0-2); Hematocrit 40.6 % (42.0-52.0); Hemoglobin 14.2 g/dl (14.0-18.0); Imm Gran Abs Auto 0.11 X10*3/uL (0.00-0.03); Imm Gran Pct Auto 0.5 % (0.0-0.4); Lymphocytes Absolute Auto 0.8 X10*3/uL (1.2-4.9); Lymphocytes Percent Auto 3.4 % (20-40); MANUAL DIFF FLAG SCAN; Mean Corpuscular Hemoglobin 30.1 pg (27.0-33.0); Mean Platelet Volume 8.2 fL (9.4-12.4); Monocytes Absolute Auto 0.8 X10*3/uL (0.1-1.2); Monocytes Percent Auto 3.8 % (2-11); Neutrophils Absolute Auto 20.1 x10*3/uL (2.0-8.3); Neutrophils Percent Auto 92.2 % (45-73); Platelet Count 305 X10*3/uL (160-400); Red Blood Count 4.72 X10*6/uL (4.60-5.80); Red Cell Distribution Width 12.9 % (11.0-16.0); SCAN SMEAR FLAG 1; White Blood Count 21.8 X10*3/uL (4.8-10.8)
[2023-07-30 06:20] LABS: Anion Gap 15 (12-20); Blood Urea Nitrogen 9 mg/dL (9-16); Calcium 9.3 mg/dL (8.4-10.2); Carbon Dioxide 29 mmol/L (22-29); Chloride 97 mmol/L (96-108); Creatinine Clr Calc Pharmacy 135.1; Estimated Glomerular Filt Rate > 60; Glucose Random 98 mg/dL (60-115); Potassium 3.7 mmol/L (3.3-5.1); Sodium 137 mmol/L (135-145)
[2023-07-30 06:40] LABS: SLIDE REVIEW VERIFIED
[2023-07-30 07:31] VITALS: BP 156/94; PULSE 93; RESP 16; TEMP 36.8; O2SAT 93
--- NOTE | 2023-07-30 07:48 | HO.PM.IMPN ---
Subjective Subjective Date of Service: 07/30/23 Interval History: 62-year-old male with aforementioned PMH admitted for CAP/hypoxia/sepsis. S/p covid 1 week prior, ct 07/29 shows complete LLL consolidation/atelectasis, likely sequelae of viral infection. Today he is feeling much improved, asking to leave, very anxious. Remains on supp 02 2L NC. He reports improved respirations/decreased coughing/phlegm. He is agreeable to stay in hospital for one more night. He is asking about his home ALS medications. Good appetite, has been eating his meals. Denies fever, chills, nausea, vomiting, diarrhea, chest pain, dyspnea, abdominal pain, dysuria, hematuria, hematemesis, melena, hematochezia Physical Exam Vital Signs: Vital Signs: Last Vital Signs Temp 98.3 F 07/30/23 07:31 Pulse 93 07/30/23 07:31 Resp 16 07/30/23 07:31 BP 156/94 H 07/30/23 07:31 Pulse Ox 93 07/30/23 07:31 O2 Del Method Nasal Cannula 07/30/23 07:31 O2 Flow Rate 2 07/30/23 07:31 Oxygen Flow Rate 2 07/29/23 17:32 BMI result Body Mass Index 16.4 . Constitutional: Cachetic, 62 year old male, NAD HEENT: No lymphadenopathy, no scleral icterae, no JVD Cardiovascular: S1/S2 heard, No MRG Respiratory: Lung sounds CTA bilaterally Gastrointestinal: Normal BS throughout, neg murphys. : Deferred Neuro: No FND, moving all 4 extremities spontaneously Psych: Calm/cooperative IV Line: left forearm Objective Data Active Medications Acetaminophen (Acetaminophen 325 Mg Tablet) 650 mg PO Q6H PRN PRN Reason: Pain, Mild (Pain Scale 1-3) Albuterol Sulfate (Albuterol Sulfate 90 Mcg 8 Gm Inhaler) 1 puff INHALE Q4H PRN PRN Reason: Shortness Of Breath Albuterol/Ipratropium (Albuterol/Iprat 2.5/0.5mg 3 Ml Ampul.Neb) 3 ml INHALE RQ4H WHILE AWAKE PRN PRN Reason: Shortness of Breath/Wheezing Last Admin: 07/29/23 23:25 Dose: 3 ml Documented By: MIKE Amlodipine Besylate (Amlodipine Besylate 5 Mg Tablet) 5 mg PO BEDTIME [facility]; Protocol Last Admin: 07/29/23 22:45 Dose: 5 mg Documented By: EAGLE Docusate Sodium (Docusate Sodium 100 Mg Capsule) 100 mg PO DAILY [facility] Enoxaparin Sodium (Enoxaparin Sodium 40 Mg/0.4 Ml Syringe) 40 mg SUBCUT Q24H [facility] Last Admin: 07/29/23 22:02 Dose: 40 mg Documented By: JC Folic Acid (Folic Acid 1 Mg Tablet) 1 mg PO DAILY [facility] Guaifenesin/Dextromethorphan (Guaifenesin Dm 200/20/10 Ml 10 Ml Syrup) 10 ml PO Q4H PRN PRN Reason: Cough Ceftriaxone Sodium 1 gm/ (Sodium Chloride) 50 mls @ 100 mls/hr IV Q24H [facility] Last Infusion: 07/29/23 22:43 Dose: Infused Documented By: EAGLE Azithromycin 500 mg/ Sodium (Chloride) 250 mls @ 125 mls/hr IV Q24H [facility] Last Infusion: 07/30/23 00:45 Dose: Infused Documented By: EAGLE Melatonin (Melatonin 3 Mg Tablet) 6 mg PO BEDTIME PRN PRN Reason: Insomnia Non-Formulary Medication (Sod Phenylbutyrat-Taurursodiol [Relyvrio]) 1 packet PO BID [facility] Ondansetron HCl (Ondansetron Hcl 4 Mg/2 Ml Vial) 4 mg IVPUSH Q8H PRN PRN Reason: Nausea and Vomiting Sertraline HCl (Sertraline Hcl 50 Mg Tablet) 50 mg PO DAILY [facility] Sodium Chloride (0.9 % Sodium Chloride Flush 3 Ml Syringe) 3 ml IVFLUSH QSHIFT [facility] Last Admin: 07/29/23 22:45 Dose: 3 ml Documented By: EAGLE Thiamine HCl (Thiamine Hcl 100 Mg Tablet) 100 mg PO DAILY [facility] Trazodone HCl (Trazodone Hcl 50 Mg Tablet) 50 mg PO BEDTIME [facility] Last Admin: 07/29/23 22:45 Dose: 50 mg Documented By: EAGLE Labs 07/30/23 05:30 07/30/23 05:30 Labs: Laboratory Results - last 24 hr 07/29/23 07/29/23 07/29/23 17:36 17:37 17:40 MCV 86.2 MCH 29.7 MCHC 34.4 RDW 13.1 Plt Count 268 D MPV 8.7 L Immature Gran % (Auto) 0.7 H Neut % (Auto) 92.2 H Lymph % (Auto) 2.9 L [place] % (Auto) 4.0 Eos % (Auto) 0.0 Baso % (Auto) 0.2 Lymph # (Auto) 0.7 L [place] # (Auto) 0.9 Eos # (Auto) 0.0 Baso # (Auto) 0.0 Abs Immat Gran (auto) 0.17 H Absolute Neuts (auto) 21.3 H Absolute Nucleated RBC 0.000 Nucleated RBC % (auto) 0.0 Smear Tech's Comments VERIFIED Hold Purple Top SEE NOTE PT INR APTT Anion Gap 13 Estim Creat Clear Calc 99.3 Estimated GFR > 60 Random Glucose 114 Lactic Acid 0.5 Calcium 9.4 D Total Bilirubin 0.3 AST 24 ALT 31 Alkaline Phosphatase 91 Total Protein 6.8 Albumin 3.8 Lipase 23 Influenza Type A (PCR) NEGATIVE Influenza Type B (PCR) NEGATIVE RSV RNA Qual (PCR) NEGATIVE SARS-CoV-2 RNA (RT-PCR) NEGATIVE 07/29/23 07/30/23 18:14 05:30 MCV 86.0 MCH 30.1 MCHC 35.0 RDW 12.9 Plt Count 305 MPV 8.2 L Immature Gran % (Auto) 0.5 H Neut % (Auto) 92.2 H Lymph % (Auto) 3.4 L [place] % (Auto) 3.8 Eos % (Auto) 0.0 Baso % (Auto) 0.1 Lymph # (Auto) 0.8 L [place] # (Auto) 0.8 Eos # (Auto) 0.0 Baso # (Auto) 0.0 Abs Immat Gran (auto) 0.11 H Absolute Neuts (auto) 20.1 H Absolute Nucleated RBC 0.000 Nucleated RBC % (auto) 0.0 Smear Tech's Comments VERIFIED Hold Purple Top PT 12.2 INR 1.0 APTT 30.6 Anion Gap 15 Estim Creat Clear Calc 135.1 Estimated GFR > 60 Random Glucose 98 Lactic Acid Calcium 9.3 Total Bilirubin AST ALT Alkaline Phosphatase Total Protein Albumin Lipase Influenza Type A (PCR) Influenza Type B (PCR) RSV RNA Qual (PCR) SARS-CoV-2 RNA (RT-PCR) Assessment and Plan (1) Community acquired pneumonia: Status: Acute (2) Moderate protein-calorie malnutrition: Status: Acute (3) Leucocytosis: Status: Acute Plan Pt is a 62-year-old male with aforementioned PMH admitted for acute hypoxic respiratory failure, community-acquired pneumonia/sepsis Acute Medical Conditions: 1. Community acquired pneumonia with sepsis/acute hypoxic respiratory failure: Likely sequelae to covid infection last week. Today 07/30 remains HD stable, WBCs downtrending, remains on 2L NC sats 93-94%.. Pt asking to leave hospital. He is very anxious however is agreeable to stay at least one more night Received PO ativan today w/ good effect, not meeting sepsis criteria, will hold off on BCx at this time. Plan: -continue ceftriaxone/azithromycin -will add sputum culture -improving, not meeting sepsis criteria, no bcx at this time -Titrate supplemental O2>92, attempting to wean down today as pt anxious to leave -will add Incentive spirometry -DuoNebs prn, guaifenesin -po ativan 0.5mg q8 x2 doses -Monitor respiratory status -cbc in am -likely dc in am pending clinical scenario vs pt potentially leaving AMA, Chronic Medical Conditions: 2. ALS Continue Relyvrio- this is not on formulary, patient is also requesting a medication, he does not know the name of this, reports it is from a clinical trial at [facility], states it is at home. Spoke to pharmacy if he is able to have family bring it in. 3. HTN Continue home meds 4. Moderate protein calorie malnutrition In the setting of reduced p.o. intake Will supplement with Ensure Full Code Attending:?Dr. Oliver DVT Prophylaxis: Lovenox Pt will require a hospitalization of at least two nights for treatment of?community-acquired pneumonia with sepsis. Given patient's cachectic state and significant comorbidities, patient required hospitalization for the administration of IV antibiotics and close monitoring of vitals and labs. Total time managing care of this patient today: 40 minutes. Quality Stroke Does the patient have a stroke diagnosis?: No VTE Prior VTE?: No VTE Risk Level:: Medical - moderate - high VTE Device Contraindication: Treatment Not Indicated VTE Drug Contraindication: N/A - Med Ordered
[2023-07-30] MEDS: LORazepam 0.5 MG TABLET PO ×2 (08:14→17:33)
[2023-07-30] MEDS: Docusate Sodium 100 MG CAPSULE PO (08:14)
[2023-07-30] MEDS: Sertraline HCL 50 MG TABLET PO (08:14)
[2023-07-30] MEDS: Folic Acid 1 MG TABLET PO (08:14)
[2023-07-30] MEDS: Thiamine HCL 100 MG TABLET PO (08:14)
[2023-07-30] MEDS: 0.9 % Sodium Chloride Flush 3 ML SYRINGE IVFLUSH ×2 (08:16→17:34)
--- NOTE | 2023-07-30 09:03 | PM.IMHP ---
[facility] Medical History ALS (amyotrophic lateral sclerosis) Social History Household Members: None Housing: House Do you presently have visiting nurse or other home services: Yes Comment: rings appropriately Patient Tobacco Use Status: Never used Tobacco Smoked in Last 30 Days: No e-Cigarette/Vaping Use: Never Used Use of substances other than those prescribed or required for medical reasons: Yes Substance Use Type: Marijuana Substance Use Frequency: Daily Currently Displaying Signs/Symptoms of Drug Intoxication Withdrawal: No Any prior treatment program specific to substance use: No Have you been hit, kicked, punched, or otherwise hurt by someone within the past year? If so, by whom?: No Do you feel safe in your current relationship?: Yes Is there a partner from a previous relationship who is making you feel unsafe now?: No Are you made to feel afraid or neglected: No Advance Directives: Yes Advance Directives Information Provided: No Advance Directives on File: No Advance Directives Date on File: 07/29/23 Do you have thoughts of harming others: None Do you have a plan to hurt others: No Plan Nutrition Risks: No Nutritional Risk Poor oral hygiene: No service: No Current occupational status: disabled Meds Allergies Allergy/AdvReac Type Severity Reaction Status Date / Time No Known Allergies Allergy Verified 08/18/22 09:57 Active Medications: Current Medications Acetaminophen (Acetaminophen 325 Mg Tablet) 650 mg PO Q6H PRN PRN Reason: Pain, Mild (Pain Scale 1-3) Albuterol Sulfate (Albuterol Sulfate 90 Mcg 8 Gm Inhaler) 1 puff INHALE Q4H PRN PRN Reason: Shortness Of Breath Albuterol/Ipratropium (Albuterol/Iprat 2.5/0.5mg 3 Ml Ampul.Neb) 3 ml INHALE RQ4H WHILE AWAKE PRN PRN Reason: Shortness of Breath/Wheezing Last Admin: 07/29/23 23:25 Dose: 3 ml Amlodipine Besylate (Amlodipine Besylate 5 Mg Tablet) 5 mg PO BEDTIME [facility]; Protocol Last Admin: 07/29/23 22:45 Dose: 5 mg Docusate Sodium (Docusate Sodium 100 Mg Capsule) 100 mg PO DAILY [facility] Last Admin: 07/30/23 08:14 Dose: 100 mg Enoxaparin Sodium (Enoxaparin Sodium 40 Mg/0.4 Ml Syringe) 40 mg SUBCUT Q24H [facility] Last Admin: 07/29/23 22:02 Dose: 40 mg Folic Acid (Folic Acid 1 Mg Tablet) 1 mg PO DAILY [facility] Last Admin: 07/30/23 08:14 Dose: 1 mg Guaifenesin/Dextromethorphan (Guaifenesin Dm 200/20/10 Ml 10 Ml Syrup) 10 ml PO Q4H PRN PRN Reason: Cough Ceftriaxone Sodium 1 gm/ (Sodium Chloride) 50 mls @ 100 mls/hr IV Q24H [facility] Last Infusion: 07/29/23 22:43 Dose: Infused Azithromycin 500 mg/ Sodium (Chloride) 250 mls @ 125 mls/hr IV Q24H [facility] Last Infusion: 07/30/23 00:45 Dose: Infused Lorazepam (Lorazepam 0.5 Mg Tablet) 0.5 mg PO Q6H PRN PRN Reason: Anxiety Last Admin: 07/30/23 08:14 Dose: 0.5 mg Melatonin (Melatonin 3 Mg Tablet) 6 mg PO BEDTIME PRN PRN Reason: Insomnia Non-Formulary Medication (Sod Phenylbutyrat-Taurursodiol [Relyvrio]) 1 packet PO BID [facility] Ondansetron HCl (Ondansetron Hcl 4 Mg/2 Ml Vial) 4 mg IVPUSH Q8H PRN PRN Reason: Nausea and Vomiting Sertraline HCl (Sertraline Hcl 50 Mg Tablet) 50 mg PO DAILY [facility] Last Admin: 07/30/23 08:14 Dose: 50 mg Sodium Chloride (0.9 % Sodium Chloride Flush 3 Ml Syringe) 3 ml IVFLUSH QSHIFT [facility] Last Admin: 07/30/23 08:16 Dose: 3 ml Thiamine HCl (Thiamine Hcl 100 Mg Tablet) 100 mg PO DAILY [facility] Last Admin: 07/30/23 08:14 Dose: 100 mg Trazodone HCl (Trazodone Hcl 50 Mg Tablet) 50 mg PO BEDTIME [facility] Last Admin: 07/29/23 22:45 Dose: 50 mg Home Medications Medication Instructions Recorded Confirmed Last Taken Type albuterol sulfate 90 mcg/actuation 1 puff inhalation Q4H PRN 08/18/22 07/29/23 07/29/23 History aerosol inhaler Shortness Of Breath amlodipine 5 mg tablet 1 tab PO BEDTIME 08/18/22 07/29/23 07/29/23 History sertraline 50 mg tablet 1 tab PO DAILY 08/18/22 07/29/23 07/29/23 History trazodone 50 mg tablet 1 tab PO BEDTIME 08/18/22 07/29/23 07/29/23 History sodium phenylbutyrate 3 1 packet PO BID 07/29/23 07/29/23 Unknown History gram-taurursodiol 1 gram oral powder packet (Relyvrio) Physical Exam Vital Signs and Narrative: Vital Signs: Last Vital Signs Temp 98.3 F 07/30/23 07:31 Pulse 93 07/30/23 07:31 Resp 16 07/30/23 07:31 BP 156/94 H 07/30/23 07:31 Pulse Ox 93 07/30/23 07:31 O2 Del Method Nasal Cannula 07/30/23 07:31 O2 Flow Rate 2 07/30/23 07:31 Oxygen Flow Rate 2 07/29/23 17:32 BMI result Body Mass Index 16.4 Results Labs 07/30/23 05:30 07/30/23 05:30 Labs: Laboratory Results - last 24 hr 07/29/23 07/29/23 07/29/23 17:36 17:37 17:40 MCV 86.2 MCH 29.7 MCHC 34.4 RDW 13.1 Plt Count 268 D MPV 8.7 L Immature Gran % (Auto) 0.7 H Neut % (Auto) 92.2 H Lymph % (Auto) 2.9 L [place] % (Auto) 4.0 Eos % (Auto) 0.0 Baso % (Auto) 0.2 Lymph # (Auto) 0.7 L [place] # (Auto) 0.9 Eos # (Auto) 0.0 Baso # (Auto) 0.0 Abs Immat Gran (auto) 0.17 H Absolute Neuts (auto) 21.3 H Absolute Nucleated RBC 0.000 Nucleated RBC % (auto) 0.0 Smear Tech's Comments VERIFIED Hold Purple Top SEE NOTE PT INR APTT Anion Gap 13 Estim Creat Clear Calc 99.3 Estimated GFR > 60 Random Glucose 114 Lactic Acid 0.5 Calcium 9.4 D Total Bilirubin 0.3 AST 24 ALT 31 Alkaline Phosphatase 91 Total Protein 6.8 Albumin 3.8 Lipase 23 Influenza Type A (PCR) NEGATIVE Influenza Type B (PCR) NEGATIVE RSV RNA Qual (PCR) NEGATIVE SARS-CoV-2 RNA (RT-PCR) NEGATIVE 07/29/23 07/30/23 18:14 05:30 MCV 86.0 MCH 30.1 MCHC 35.0 RDW 12.9 Plt Count 305 MPV 8.2 L Immature Gran % (Auto) 0.5 H Neut % (Auto) 92.2 H Lymph % (Auto) 3.4 L [place] % (Auto) 3.8 Eos % (Auto) 0.0 Baso % (Auto) 0.1 Lymph # (Auto) 0.8 L [place] # (Auto) 0.8 Eos # (Auto) 0.0 Baso # (Auto) 0.0 Abs Immat Gran (auto) 0.11 H Absolute Neuts (auto) 20.1 H Absolute Nucleated RBC 0.000 Nucleated RBC % (auto) 0.0 Smear Tech's Comments VERIFIED Hold Purple Top PT 12.2 INR 1.0 APTT 30.6 Anion Gap 15 Estim Creat Clear Calc 135.1 Estimated GFR > 60 Random Glucose 98 Lactic Acid Calcium 9.3 Total Bilirubin AST ALT Alkaline Phosphatase Total Protein Albumin Lipase Influenza Type A (PCR) Influenza Type B (PCR) RSV RNA Qual (PCR) SARS-CoV-2 RNA (RT-PCR) Imaging Radiologist's Impressions: Impressions Chest X-Ray 07/29/23 18:05 IMPRESSION: Unremarkable chest examination. Chest CTA 07/29/23 19:00 IMPRESSION: No evidence of pulmonary embolism. Complete left lower lobe consolidation and some atelectasis. Complete atelectasis of the right middle lobe. Mild airways disease in the right lower lobe. Question left hilar lymphadenopathy. VTE: negative Assessment and Plan Plan Plan Pt is a 62-year-old male with aforementioned PMH admitted for acute hypoxic respiratory failiure, CAP. Community acquired pneumonia- CTA with evidence of complete left lower lobe consolidation Likely secondary to COVID infection from last week Patient with worsening SOB, productive cough, fatigue the past few days Patient meets sepsis criteria: Tachycardia, tachypnea, leukocytosis; lactic acid WNL at 0.5 Patient given IVF and started on broad-spectrum antibiotics in the ED Will treat with ceftriaxone and azithromycin, started 07/29/2023 Titrate supplemental O2>92, wean as tolerated DuoNebs prn, guaifenesin Monitor respiratory status ALS Continue Relyvrio HTN Continue home meds Moderate protein calorie malnutrition In the setting of reduced p.o. intake Will supplement with Ensure Full Code Attending:? DVT Prophylaxis: Lovenox Pt will require a hospitalization of at least two nights for treatment of?community-acquired pneumonia with sepsis. Given patient's cachectic state and significant comorbidities, patient required hospitalization for the administration of IV antibiotics and close monitoring of vitals and labs. Quality Stroke Does the patient have a stroke diagnosis?: No VTE Prior VTE?: No VTE Risk Level:: Medical - moderate - high VTE Device Contraindication: Treatment Not Indicated VTE Drug Contraindication: N/A - Med Ordered
--- NOTE | 2023-07-30 12:54 | HE.PHANOTE ---
RE: patient own med Patient had medication stored in safe, but provider continued. Medication unclear as it seems to be part of a trial and possible placebo, nurse and provider aware. Medication labeled as is on box itself. Asked Beatrice to remove triplicate form from patient's chart as we no longer have anything stored in the safe for him. Med labeled and sent up in original box to be returned upon discharge
--- NOTE | 2023-07-30 13:35 | MHC.CM.PN ---
IMM DELIVERED. PATIENT IS FROM HOME W/ . INDEPENDENT W/ ADL'S. AMBULATES W/ A CANE. 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 HAS USED [facility] IN THE PAST FOR SN/PT. PCP: Dr. Angelina Javed HCP: PATIENT REPORTS IS HCP, COPY REQUESTED DP: GOAL IS HOME SELF CARE. WOULD USE [facility] AGAIN IF RECOMMENDED. CAN TRANSPORT. CM WILL CONTINUE TO FOLLOW.
--- NOTE | 2023-07-30 14:02 | PC.NURSE ---
Regarding pts own medication, spoke to Nilda Briggs, Pharmacist, Casandra Greene, Nursing floating labor gang supervisor, and CHINA Schroeder. Medication brought back from pharmacy and placed at pts bedside. Two packets to be taken once daily with water.
[2023-07-30 15:47] VITALS: PULSE 87; RESP 20; TEMP 37.1; O2SAT 97
[2023-07-30 19:45] VITALS: BP 140/71; PULSE 88; RESP 19; TEMP 36.7; O2SAT 92
[2023-07-30] MEDS: cefTRIAXone sodium 1 GM in 0.9 % Sodium Chloride 50 ML IV (21:05)
[2023-07-30] MEDS: Melatonin 3 MG TABLET 6 MG PO (21:05)
[2023-07-30] MEDS: amLODIPine Besylate 5 MG TABLET PO (21:05)
[2023-07-30] MEDS: Enoxaparin Sodium 40 MG/0.4 ML SYRINGE SUBCUT (21:05)
[2023-07-30] MEDS: traZODone HCL 50 MG TABLET PO (21:05)
[2023-07-30] MEDS: Azithromycin 500 MG in 0.9 % Sodium Chloride 250 ML 125 MG IV (22:18)
[2023-07-31] MEDS: 0.9 % Sodium Chloride Flush 3 ML SYRINGE IVFLUSH ×2 (00:14→10:08)
[2023-07-31 03:43] VITALS: BP 167/96; PULSE 85; RESP 19; TEMP 36.5; O2SAT 92
[2023-07-31] MEDS: Acetaminophen 325 MG TABLET 650 MG PO (03:45)
[2023-07-31] MEDS: Albuterol/Iprat 2.5/0.5MG 3 ML AMPUL.NEB INHALE ×2 (04:12→07:59)
[2023-07-31 04:13] VITALS: PULSE 85; RESP 19; O2SAT 90
[2023-07-31 04:17] VITALS: PULSE 85; RESP 19; O2SAT 90
[2023-07-31] MEDS: LORazepam 0.5 MG TABLET PO (04:40)
[2023-07-31 06:03] LABS: Basophils Percent Auto 0.1 % (0-2); Eosinophils Percent Auto 0.1 % (0-4); Hematocrit 41.6 % (42.0-52.0); Hemoglobin 14.4 g/dl (14.0-18.0); Imm Gran Abs Auto 0.15 X10*3/uL (0.00-0.03); Imm Gran Pct Auto 0.8 % (0.0-0.4); Lymphocytes Absolute Auto 0.6 X10*3/uL (1.2-4.9); Lymphocytes Percent Auto 3.4 % (20-40); MANUAL DIFF FLAG SCAN; Mean Corpuscular HGB Conc 34.6 g/dl (31.0-36.0); Mean Corpuscular Hemoglobin 29.7 pg (27.0-33.0); Mean Corpuscular Volume 85.8 fL (80.0-98.0); Mean Platelet Volume 8.2 fL (9.4-12.4); Monocytes Absolute Auto 0.7 X10*3/uL (0.1-1.2); Monocytes Percent Auto 3.6 % (2-11); Neutrophils Absolute Auto 16.9 x10*3/uL (2.0-8.3); Platelet Count 324 X10*3/uL (160-400); Red Blood Count 4.85 X10*6/uL (4.60-5.80); Red Cell Distribution Width 12.8 % (11.0-16.0); SCAN SMEAR FLAG 1; White Blood Count 18.4 X10*3/uL (4.8-10.8)
[2023-07-31 06:17] LABS: Hemoglobin 14.5 g/dl (14.0-18.0); Mean Corpuscular HGB Conc 34.5 g/dl (31.0-36.0); Mean Corpuscular Hemoglobin 29.5 pg (27.0-33.0); Mean Corpuscular Volume 85.5 fL (80.0-98.0); Mean Platelet Volume 8.4 fL (9.4-12.4); Platelet Count 331 X10*3/uL (160-400); Red Blood Count 4.91 X10*6/uL (4.60-5.80); Red Cell Distribution Width 12.8 % (11.0-16.0); White Blood Count 18.5 X10*3/uL (4.8-10.8)
[2023-07-31 06:27] LABS: SLIDE REVIEW VERIFIED
[2023-07-31 08:00] VITALS: BP 166/112; PULSE 91; RESP 18; RESP 20; TEMP 36.3; O2SAT 90; O2SAT 91
--- NOTE | 2023-07-31 08:00 | HO.PM.IMPN ---
Subjective Subjective Date of Service: 07/31/23 Interval History: F/u on acute hypoxic respiratory failure, sepsis/PNA in an ALS patient Review of Systems Cough, sob, anxiety Physical Exam Vital Signs: Vital Signs: Last Vital Signs Temp 97.7 F 07/31/23 03:43 Pulse 85 07/31/23 04:17 Resp 19 07/31/23 04:17 BP 167/96 H 07/31/23 03:43 Pulse Ox 92 07/31/23 03:43 O2 Del Method Nasal Cannula 07/31/23 03:43 O2 Flow Rate 5 07/31/23 03:43 Oxygen Flow Rate 2 07/29/23 17:32 BMI result Body Mass Index 16.4 Objective Data Active Medications Acetaminophen (Acetaminophen 325 Mg Tablet) 650 mg PO Q6H PRN PRN Reason: Pain, Mild (Pain Scale 1-3) Last Admin: 07/31/23 03:45 Dose: 650 mg Documented By: EAGLE Albuterol Sulfate (Albuterol Sulfate 90 Mcg 8 Gm Inhaler) 1 puff INHALE Q4H PRN PRN Reason: Shortness Of Breath Albuterol/Ipratropium (Albuterol/Iprat 2.5/0.5mg 3 Ml Ampul.Neb) 3 ml INHALE RQ4H WHILE AWAKE PRN PRN Reason: Shortness of Breath/Wheezing Last Admin: 07/31/23 07:59 Dose: 3 ml Documented By: XIOMARA Amlodipine Besylate (Amlodipine Besylate 5 Mg Tablet) 5 mg PO BEDTIME [facility]; Protocol Last Admin: 07/30/23 21:05 Dose: 5 mg Documented By: EAGLE Docusate Sodium (Docusate Sodium 100 Mg Capsule) 100 mg PO DAILY [facility] Last Admin: 07/30/23 08:14 Dose: 100 mg Documented By: LACEY Enoxaparin Sodium (Enoxaparin Sodium 40 Mg/0.4 Ml Syringe) 40 mg SUBCUT Q24H [facility] Last Admin: 07/30/23 21:05 Dose: 40 mg Documented By: EAGLE Folic Acid (Folic Acid 1 Mg Tablet) 1 mg PO DAILY [facility] Last Admin: 07/30/23 08:14 Dose: 1 mg Documented By: LACEY Guaifenesin/Dextromethorphan (Guaifenesin Dm 200/20/10 Ml 10 Ml Syrup) 10 ml PO Q4H PRN PRN Reason: Cough Ceftriaxone Sodium 1 gm/ (Sodium Chloride) 50 mls @ 100 mls/hr IV Q24H [facility] Last Infusion: 07/30/23 21:35 Dose: Infused Documented By: EAGLE Azithromycin 500 mg/ Sodium (Chloride) 250 mls @ 125 mls/hr IV Q24H [facility] Last Infusion: 07/31/23 00:20 Dose: Infused Documented By: EAGLE Lorazepam (Lorazepam 1 Mg Tablet) 1 mg PO Q6H PRN PRN Reason: anxiety/restlessness Melatonin (Melatonin 3 Mg Tablet) 6 mg PO BEDTIME PRN PRN Reason: Insomnia Last Admin: 07/30/23 21:05 Dose: 6 mg Documented By: EAGLE Pt Own (Inv [id number] 100mg Or Placebo) 2 each PO DAILY [facility] Last Admin: 07/30/23 13:56 Dose: 2 each Documented By: LACEY Ondansetron HCl (Ondansetron Hcl 4 Mg/2 Ml Vial) 4 mg IVPUSH Q8H PRN PRN Reason: Nausea and Vomiting Sertraline HCl (Sertraline Hcl 50 Mg Tablet) 50 mg PO DAILY [facility] Last Admin: 07/30/23 08:14 Dose: 50 mg Documented By: LACEY Sodium Chloride (0.9 % Sodium Chloride Flush 3 Ml Syringe) 3 ml IVFLUSH QSHIFT [facility] Last Admin: 07/31/23 00:38 Dose: Not Given Documented By: EAGLE Non-Admin Reason: IV Running Thiamine HCl (Thiamine Hcl 100 Mg Tablet) 100 mg PO DAILY [facility] Last Admin: 07/30/23 08:14 Dose: 100 mg Documented By: LACEY Trazodone HCl (Trazodone Hcl 50 Mg Tablet) 50 mg PO BEDTIME [facility] Last Admin: 07/30/23 21:05 Dose: 50 mg Documented By: EAGLE Labs 07/31/23 05:16 07/30/23 05:30 Labs: Laboratory Results - last 24 hr 07/31/23 07/31/23 07/31/23 05:16 05:16 05:16 MCV 85.8 85.5 MCH 29.7 29.5 MCHC 34.6 RDW Plt Count MPV Immature Gran % (Auto) Neut % (Auto) Lymph % (Auto) [place] % (Auto) Eos % (Auto) Baso % (Auto) Lymph # (Auto) [place] # (Auto) Eos # (Auto) Baso # (Auto) Abs Immat Gran (auto) Absolute Neuts (auto) Absolute Nucleated RBC Nucleated RBC % (auto) Smear Tech's Comments 07/31/23 07/31/23 07/31/23 05:16 05:16 05:16 MCV MCH MCHC 34.5 RDW 12.8 12.8 Plt Count 324 331 MPV 8.2 L Immature Gran % (Auto) Neut % (Auto) Lymph % (Auto) [place] % (Auto) Eos % (Auto) Baso % (Auto) Lymph # (Auto) [place] # (Auto) Eos # (Auto) Baso # (Auto) Abs Immat Gran (auto) Absolute Neuts (auto) Absolute Nucleated RBC Nucleated RBC % (auto) Smear Tech's Comments 07/31/23 07/31/23 07/31/23 05:16 05:16 05:16 MCV MCH MCHC RDW Plt Count MPV 8.4 L Immature Gran % (Auto) 0.8 H Neut % (Auto) 92.0 H Lymph % (Auto) 3.4 L [place] % (Auto) 3.6 Eos % (Auto) 0.1 Baso % (Auto) 0.1 Lymph # (Auto) 0.6 L [place] # (Auto) 0.7 Eos # (Auto) 0.0 Baso # (Auto) 0.0 Abs Immat Gran (auto) 0.15 H Absolute Neuts (auto) 16.9 H Absolute Nucleated RBC 0.000 0.000 Nucleated RBC % (auto) 0.0 0.0 Smear Tech's Comments VERIFIED Microbiology Microbiology Results: Microbiology 07/29/23 17:36 Blood Culture - Final Blood - Venous Coag negative Staphylococcus 07/29/23 17:42 Blood Culture - Preliminary Blood - Venous No growth after 24 hours. Assessment and Plan (1) Community acquired pneumonia: Status: Acute (2) Moderate protein-calorie malnutrition: Status: Acute (3) Leucocytosis: Status: Acute Plan 62-year-old male with a PMH significant for?ALS and HTN who presents to the ED with?increasing shortness of breath, productive cough, and fatigue for the past several days. Pt was treated with IVF and Zosyn. Admitted for Sepsis d/t Community acquired pneumonia (CAP) 1.Sepsis d/t CAP, acute hypoxic resp failure--improving but not optimal, still hypoxic on 4 L -Continue Ceftriaxone + Azithro started 07/29 -Continue O2 and wean as carlos eduardo -cough med -Sputum culture, pending has difficulty cough -Bronchodilators PRN -Chest Physitherapy -Flutter valve Anxiety-Ativan PRN Chronic Medical Conditions: 2. ALS Continue Relyvrio- this is a trial med by [facility], will check with Clinic to see if they want him to continue during acute illness 3. HTN Continue home meds 4. Moderate protein calorie malnutrition In the setting of reduced p.o. intake Will supplement with Ensure Full Code Attending:?Dr. Oliver DVT Prophylaxis: Lovenox Ongoing hospialization d/t acute hypoxic resp failure to Sepsis d/t PNA in ALS pt, requiring high amount of O2 Total time managing care of this patient today: 40 minutes. Quality Stroke Does the patient have a stroke diagnosis?: No VTE Prior VTE?: No VTE Risk Level:: Medical - moderate - high VTE Device Contraindication: Treatment Not Indicated VTE Drug Contraindication: N/A - Med Ordered
[2023-07-31] MEDS: Folic Acid 1 MG TABLET PO (10:07)
[2023-07-31] MEDS: Docusate Sodium 100 MG CAPSULE PO (10:08)
[2023-07-31] MEDS: Sertraline HCL 50 MG TABLET PO (10:08)
[2023-07-31] MEDS: Thiamine HCL 100 MG TABLET PO (10:08)
[2023-07-31] MEDS: LORazepam 1 MG TABLET PO ×2 (11:52→18:09)
--- NOTE | 2023-07-31 14:40 | PM.EVENT ---
Event Note Date of Service: 07/31/23 Event Note: Multiple attempts made to reach pt's experiment drug clinic to inquiry about weather the medication is to be during acute illness, as potentially immunosupressive. I called the Clinic [phone], left message no call back, called [phone]..No answer and no way to leave a message. I could not reach Dr. Victor Manuel Vigil, the risk investigator.. Not knowing the potentil effect of this experimental drug on patient's acute condition I have reached an agreement with the patient not to use drug until we can discuss with the Trial Team Time Spent With Patient Time: Total time managing care of this patient today ____ minutes.
[2023-07-31 16:00] VITALS: BP 146/68; PULSE 92; RESP 18; TEMP 36.6; O2SAT 94
[2023-07-31 19:23] VITALS: BP 174/96; PULSE 93; RESP 18; TEMP 37.2; O2SAT 94
[2023-07-31] MEDS: amLODIPine Besylate 5 MG TABLET PO (20:16)
[2023-07-31] MEDS: traZODone HCL 50 MG TABLET PO (20:16)
[2023-07-31] MEDS: Enoxaparin Sodium 40 MG/0.4 ML SYRINGE SUBCUT (20:16)
[2023-07-31] MEDS: cefTRIAXone sodium 1 GM in 0.9 % Sodium Chloride 50 ML IV (22:38)
[2023-07-31] MEDS: Azithromycin 500 MG in 0.9 % Sodium Chloride 250 ML 125 MG IV (23:38)
[2023-08-01 03:03] VITALS: BP 154/98; PULSE 89; RESP 18; TEMP 36.4; O2SAT 94
[2023-08-01 05:13] VITALS: PULSE 89; RESP 18; O2SAT 93
[2023-08-01] MEDS: Albuterol/Iprat 2.5/0.5MG 3 ML AMPUL.NEB INHALE (05:13)
[2023-08-01] MEDS: LORazepam 1 MG TABLET PO ×3 (06:23→23:36)
--- NOTE | 2023-08-01 07:00 | CA_ITS ---
Transthoracic Echocardiogram Patient (Last, First, Middle): Ronny Quiñonez P Gender: Male Date of : 1960 Age: 62 Procedure Date: 08/01/2023 Procedure Type: Transthoracic Echocardiogram Location: S3E Height: 175.26 cm Weight: 50.35 kg BSA: 1.61 m2 Heart Rate: bpm BP: 159 / 98 mmHg Laundry Aide: SANDY Referring MD: Jaime Molina MD Symptoms: PURI Study Quality: Adequate Conclusions: - Normal left ventricular size and systolic function. The visually estimated ejection fraction is between 60-65%. - There is moderate septal asymmetric hypertrophy. - Normal right ventricular cavity size and systolic function. - The left atrium is mildly dilated. The right atrium is mildly dilated. Findings Left Ventricle Normal left ventricular size and systolic function. The visually estimated ejection fraction is between 60-65%. There is no evidence of regional wall motion abnormalities. Diastolic function is normal for age. There is moderate septal asymmetric hypertrophy. Right Ventricle Normal right ventricular cavity size and systolic function. Atria The left atrium is mildly dilated. The right atrium is mildly dilated. Aortic Valve There is a normal trileaflet aortic valve. There is mild thickening of the aortic valve. There is no aortic valve stenosis. There is no aortic valve regurgitation. Mitral Valve Normal mitral valve structure and function. There is mild mitral valve regurgitation. There is no mitral valve stenosis. Pulmonic Valve The pulmonic valve is likely normal. Tricuspid Valve Normal tricuspid valve structure and function. There is trace tricuspid valve regurgitation. Normal right atrial pressure. There is no evidence of pulmonary hypertension. Great Vessels There is mild dilatation of the sinuses of Valsalva measuring 3.87 cm and mild dilatation of the ascending aorta measuring 3.90 cm. The visualized portions of the pulmonary artery and branches are normal. Venous The inferior vena cava is normal in size and collapses greater than 50% with inspiration. Pericardium/Pleural There is no evidence of pericardial effusion. Prior Study Comparison No prior study available for comparison. Measurements 2D Linear Measurements IVSd: 1.38 0.6-0.9/0.6-1.0 cm LVIDd: 3.87 3.9-5.3/4.2-5.9 cm LVIDd Index: 2.40 2.4-3.2/2.2-3.1 cm/m2 LVIDs: 2.54 2.0-3.6 cm LVPWd: 1.03 0.7-1.1 cm LA Diam: 3.40 2.7-3.8/3.0-4.0 cm LAIDs Index: 2.11 1.5-2.3 cm/m2 LV Mass: 197.30 67-162/88-224 g LV Mass Index: 122.55 43-95/49-115 g/m2 LVOT Diam: 2.30 3.0+(-)1.3 cm 2D Systolic Function EF 4C: 65.10 >55% EF 2C: 62.10 >55% EF BiP: 63.60 >55% Mitral Valve MV Pk E: 0.62 MV PK A: 0.81 MV Decel Time: 222.00 E/A: 0.80 E'Lateral: 10.40 E'Medial: 6.09 E/E' Med: 10.10 E/E' Lat: 5.90 PHT: 65.00 MVA PHT: 3.38 Decel [place]: 2.78 Aortic Valve AoV Pk Felix: 1.23 AoV Mn Felix: 0.85 AoV VTI: 0.24 AoV Pk Grad: 6.00 Aov Mn Grad: 3.00 [place] Cont.VTI: 3.65 LVOT LVOT Pk Felix: 1.06 LVOT Mn Felix: 0.69 LVOT VTI: 0.21 LVOT Pk Grad: 4.00 LVOT Mn Grad: 2.00 LVOT Diam: 2.30 LVOT Area: 4.15 Diastolic Function MV Pk E: 0.62 MV Pk A: 0.81 E/A: 0.80 E'Medial: 6.09 E/E' Med: 10.10 E' Laterial: 10.40 E/E' Lat: 5.90 Right Ventricle TAPSE (mm): 27.40 TVS' Felix: 20.50 Tricuspid Valve TR Pk Felix: 1.89 TR Pk Grad: 14.00 RA Press: 3.00 RVSP: 17.00 Great Vessels Aorta Sinus of Valsalva: 3.87 2.0-3.[address] [place]: 2.57 1.7-3.4 cm Ao Asc: 3.90 2.1-3.4 cm Updated in Other Vendor System with Status of Final Robe Gracia MD electronically signed on 08/01/2023 6:21:51 PM with status of Final
[2023-08-01 07:21] VITALS: BP 159/98; PULSE 90; RESP 18; TEMP 36.5; O2SAT 95
[2023-08-01] MEDS: Sertraline HCL 50 MG TABLET PO (08:33)
[2023-08-01] MEDS: Thiamine HCL 100 MG TABLET PO (08:33)
[2023-08-01] MEDS: Docusate Sodium 100 MG CAPSULE PO (08:34)
[2023-08-01] MEDS: Folic Acid 1 MG TABLET PO (08:34)
[2023-08-01] MEDS: 0.9 % Sodium Chloride Flush 3 ML SYRINGE IVFLUSH ×2 (08:34→23:33)
[2023-08-01 09:44] LABS: Hematocrit 42.7 % (42.0-52.0); Hemoglobin 14.8 g/dl (14.0-18.0); Mean Corpuscular HGB Conc 34.7 g/dl (31.0-36.0); Mean Corpuscular Hemoglobin 29.3 pg (27.0-33.0); Mean Corpuscular Volume 84.6 fL (80.0-98.0); Platelet Count 364 X10*3/uL (160-400); Red Blood Count 5.05 X10*6/uL (4.60-5.80); Red Cell Distribution Width 12.8 % (11.0-16.0); White Blood Count 18.1 X10*3/uL (4.8-10.8)
[2023-08-01 10:16] LABS: Anion Gap 15 (12-20); Blood Urea Nitrogen 15 mg/dL (9-16); Calcium 9.8 mg/dL (8.4-10.2); Carbon Dioxide 35 mmol/L (22-29); Chloride 90 mmol/L (96-108); Creatinine Clr Calc Pharmacy 100.7; Estimated Glomerular Filt Rate > 60; Glucose Random 138 mg/dL (60-115); Potassium 3.7 mmol/L (3.3-5.1); Sodium 136 mmol/L (135-145)
--- NOTE | 2023-08-01 10:27 | P.CONPL_ITS ---
History of Present Illness History of Present Illness Consult date: 08/01/23 Requesting physician: Chaka Moreno Chief complaint: Dyspnea and cough Narrative: 62-year-old gentleman with underlying ALS admitted on 07/29/2023 with increased shortness of breath and productive cough after recent COVID infection. CT chest showed complete atelectasis of left lower lobe and right middle lobe. He patient was started on empiric therapy for community-acquired pneumonia. Review of Systems 2 Constitutional: Constitutional: Denies daytime sleepiness, Denies excessive sweating, Denies fatigue, Denies fever(s), Denies lethargy, Denies malaise, Denies night sweats, Denies snoring and Denies weight loss Eyes: Eyes: Denies blurry vision and Denies itchy eyes ENT: Denies nasal congestion, Denies post nasal drip, Denies sinus pain, Denies sinus pressure and Denies other ( Thrush) Cardiovascular: Cardiovascular: Denies chest pain, Denies pedal edema, Denies dyspnea, Reports dyspnea on exertion, Reports orthopnea and Denies paroxysmal nocturnal dyspnea Respiratory: Respiratory: Reports cough, Denies hemoptysis, Reports excessive phlegm production, Denies dyspnea, Reports dyspnea on exertion, Denies snoring and Denies wheezing Gastrointestinal: Gastrointestinal: Denies abdominal pain and Denies heartburn Musculoskeletal: Musculoskeletal: Denies myalgias, Denies arthralgias and Denies joint swelling Integumentary/Breasts: Skin/Breast: Denies rash Neurologic: Denies memory loss and Denies seizure-like activity Psychiatric: Psychiatric: Denies abnormal sleep pattern, Denies anxiety and Denies memory loss Endocrine: Endocrine: Denies excessive sweating, Denies fatigue and Denies heat intolerance Hematologic/Lymphatic: Hematologic/Lymphatic: Denies easy bruising Allergic/Immunologic: Allergic/Immunologic: Denies itchy eyes, Denies seasonal rhinorrhea and Denies wheezing PMFSH Past Medical History Medical History (Updated 08/01/23 @ 10:29 by Jaime Molina MD) ALS (amyotrophic lateral sclerosis) Social History Social History Household Members: None Housing: House Do you presently have visiting nurse or other home services: Yes Comment: rings appropriately Patient Tobacco Use Status: Never used Tobacco Smoked in Last 30 Days: No e-Cigarette/Vaping Use: Never Used Use of substances other than those prescribed or required for medical reasons: Yes Substance Use Type: Marijuana Substance Use Frequency: Daily Currently Displaying Signs/Symptoms of Drug Intoxication Withdrawal: No Any prior treatment program specific to substance use: No Have you been hit, kicked, punched, or otherwise hurt by someone within the past year? If so, by whom?: No Do you feel safe in your current relationship?: Yes Is there a partner from a previous relationship who is making you feel unsafe now?: No Are you made to feel afraid or neglected: No Advance Directives: Yes Advance Directives Information Provided: No Advance Directives on File: No Advance Directives Date on File: 07/29/23 Do you have thoughts of harming others: None Do you have a plan to hurt others: No Plan Nutrition Risks: No Nutritional Risk Poor oral hygiene: No service: No Current occupational status: disabled Meds Allergies Allergy/AdvReac Type Severity Reaction Status Date / Time No Known Allergies Allergy Verified 08/18/22 09:57 Active Medications: Current Medications Acetaminophen (Acetaminophen 325 Mg Tablet) 650 mg PO Q6H PRN PRN Reason: Pain, Mild (Pain Scale 1-3) Last Admin: 07/31/23 03:45 Dose: 650 mg Albuterol Sulfate (Albuterol Sulfate 90 Mcg 8 Gm Inhaler) 1 puff INHALE Q4H PRN PRN Reason: Shortness Of Breath Albuterol/Ipratropium (Albuterol/Iprat 2.5/0.5mg 3 Ml Ampul.Neb) 3 ml INHALE RQ4H WHILE AWAKE PRN PRN Reason: Shortness of Breath/Wheezing Last Admin: 08/01/23 05:13 Dose: 3 ml Amlodipine Besylate (Amlodipine Besylate 5 Mg Tablet) 5 mg PO BEDTIME [facility]; Protocol Last Admin: 07/31/23 20:16 Dose: 5 mg Docusate Sodium (Docusate Sodium 100 Mg Capsule) 100 mg PO DAILY [facility] Last Admin: 08/01/23 08:34 Dose: 100 mg Enoxaparin Sodium (Enoxaparin Sodium 40 Mg/0.4 Ml Syringe) 40 mg SUBCUT Q24H [facility] Last Admin: 07/31/23 20:16 Dose: 40 mg Folic Acid (Folic Acid 1 Mg Tablet) 1 mg PO DAILY [facility] Last Admin: 08/01/23 08:34 Dose: 1 mg Guaifenesin/Dextromethorphan (Guaifenesin Dm 200/20/10 Ml 10 Ml Syrup) 10 ml PO Q4H PRN PRN Reason: Cough Ceftriaxone Sodium 1 gm/ (Sodium Chloride) 50 mls @ 100 mls/hr IV Q24H [facility] Last Infusion: 07/31/23 23:39 Dose: Infused Azithromycin 500 mg/ Sodium (Chloride) 250 mls @ 125 mls/hr IV Q24H [facility] Last Infusion: 08/01/23 02:46 Dose: Infused Lorazepam (Lorazepam 1 Mg Tablet) 1 mg PO Q6H PRN PRN Reason: anxiety/restlessness Last Admin: 08/01/23 06:23 Dose: 1 mg Melatonin (Melatonin 3 Mg Tablet) 6 mg PO BEDTIME PRN PRN Reason: Insomnia Last Admin: 07/30/23 21:05 Dose: 6 mg Pt Own (Inv [id number] 100mg Or Placebo) 2 each PO DAILY [facility] Last Admin: 07/31/23 10:08 Dose: 2 each Ondansetron HCl (Ondansetron Hcl 4 Mg/2 Ml Vial) 4 mg IVPUSH Q8H PRN PRN Reason: Nausea and Vomiting Sertraline HCl (Sertraline Hcl 50 Mg Tablet) 50 mg PO DAILY [facility] Last Admin: 08/01/23 08:33 Dose: 50 mg Sodium Chloride (0.9 % Sodium Chloride Flush 3 Ml Syringe) [facility] Last Admin: 08/01/23 08:34 Dose: 3 ml Thiamine HCl (Thiamine Hcl 100 Mg Tablet) 100 mg PO DAILY [facility] Last Admin: 08/01/23 08:33 Dose: 100 mg Trazodone HCl (Trazodone Hcl 50 Mg Tablet) 50 mg PO BEDTIME [facility] Last Admin: 07/31/23 20:16 Dose: 50 mg Home Medications Medication Instructions Recorded Confirmed Last Taken Type albuterol sulfate 90 mcg/actuation 1 puff inhalation Q4H PRN 08/18/22 07/29/23 07/29/23 History aerosol inhaler Shortness Of Breath amlodipine 5 mg tablet 1 tab PO BEDTIME 08/18/22 07/29/23 07/29/23 History sertraline 50 mg tablet 1 tab PO DAILY 08/18/22 07/29/23 07/29/23 History trazodone 50 mg tablet 1 tab PO BEDTIME 08/18/22 07/29/23 07/29/23 History sodium phenylbutyrate 3 1 packet PO BID 07/29/23 07/29/23 Unknown History gram-taurursodiol 1 gram oral powder packet (Relyvrio) Physical Exam 2 Vital Signs: Vital Signs: Last Vital Signs Temp 97.7 F 08/01/23 07:21 Pulse 90 08/01/23 07:21 Resp 18 08/01/23 07:21 BP 159/98 H 08/01/23 07:21 Pulse Ox 95 08/01/23 07:21 O2 Del Method Room Air 08/01/23 07:21 O2 Flow Rate 2 08/01/23 03:03 Oxygen Flow Rate 2 07/29/23 17:32 BMI result Body Mass Index 16.4 Const: General: no acute distress and alert Nutritional Appearance: m alnourished Orientation/consciousness: Other orientation findings ( oriented) HEENT: Head: Yes atraumatic Eyes: General: appearance normal, both eyes and all related structures S clerae: sclerae normal EOM: EOMs intact bilaterally Neck: Neck: Yes supple Lymphatic: no lymphadenopathy noted Resp: Effort & Inspection: normal respiratory effort and no use of accessory muscles Auscultation: clear to auscultation bilaterally Cardio: Rate: regular rate Rhythm: regular rhythm Heart sounds: no gallops, no murmurs and no rubs Skin: General skin exam: other ( warm) Extrem: General: No clubbing, No cyanosis and No edema Results Laboratory Findings 08/01/23 09:29 08/01/23 09:29 ABG, PT/INR, D-dimer: PT/INR, D-dimer PT 12.2 SEC (11.1-13.3) 07/29/23 18:14 INR 1.0 (0.9-1.1) 07/29/23 18:14 Abnormal lab findings: Abnormal Labs 07/29/23 07/30/23 07/31/23 17:36 05:30 05:16 WBC 23.1 H 21.8 H 18.4 H RBC 4.58 L Hgb 13.6 L Hct 39.5 L 40.6 L MPV 8.7 L 8.2 L Immature Gran % (Auto) 0.7 H 0.5 H Neut % (Auto) 92.2 H 92.2 H Lymph % (Auto) 2.9 L 3.4 L Lymph # (Auto) 0.7 L 0.8 L Abs Immat Gran (auto) 0.17 H 0.11 H Absolute Neuts (auto) 21.3 H 20.1 H Sodium 133 L Chloride 95 L Carbon Dioxide Creatinine 0.41 L Random Glucose 07/31/23 07/31/23 08/01/23 05:16 05:16 09:29 WBC 18.5 H 18.1 H RBC Hgb Hct 41.6 L MPV 8.2 L 8.4 L 8.0 L Immature Gran % (Auto) 0.8 H Neut % (Auto) 92.0 H Lymph % (Auto) 3.4 L Lymph # (Auto) 0.6 L Abs Immat Gran (auto) 0.15 H Absolute Neuts (auto) 16.9 H Sodium Chloride 90 L Carbon Dioxide 35 H Creatinine Random Glucose 138 H Microbiology: Microbiology 07/29/23 17:42 Blood - Venous Blood Culture - Preliminary No growth after 48 hours. 07/29/23 17:36 Blood - Venous Blood Culture - Final Coag negative Staphylococcus Assessment and Plan (1) Atelectasis: Status: Acute (2) Community acquired pneumonia: Qualifiers: Laterality: left Lung location: lower lobe of lung Qualified Code(s): J18.9 - Pneumonia, unspecified organism Status: Acute (3) ALS (amyotrophic lateral sclerosis): Status: Acute (4) Alcohol abuse: Status: Acute Plan Impression: 62-year-old gentleman with underlying ALS prior history of alcohol abuse, recent COVID admitted with dyspnea and hypoxic respiratory failure with CT chest showing bilateral atelectasis. May have a post COVID pneumonia, with possible component of silent aspiration. Recommendations: Will change ceftriaxone and azithromycin to Levaquin. Will plan for bronchoscopy. Will obtain 2D echocardiogram to evaluate orthopnea symptoms. Procedures Date of Service Date of Service: 08/01/23
[2023-08-01 10:44] VITALS: BMI 16.4
[2023-08-01] MEDS: levoFLOXacin/D5W 750 MG/150 ML PIGGYBACK 100 MG IV (10:45)
--- NOTE | 2023-08-01 10:57 | MHC.CLN ---
NUTRITION CURRENTLY NPO. WHEN DIET RESUMES, RECOMMEND LIBERALIZE TO REGULAR FROM CARDIAC. PATIENT LIKES CHOCOLATE ENSURE AND AGREES TO SUPPLEMENT BID. ENSURE MAX PROTEIN BID PROVIDES 300 KCALS, 60 G PROTEIN. PATIENT WITH MODERATE MALNUTRITION IN THE CONTEXT OF CHRONIC ILLNESS. FOLLOW FOR DIET ADVANCEMENT AND INTAKE. SEE CLINICAL NUTRITION ASSESSMENT 08/01/23.
--- NOTE | 2023-08-01 12:36 | HO.PM.IMPN ---
Subjective Subjective Date of Service: 08/01/23 Interval History: F/u on acute hypoxic respiratory failure, sepsis/PNA in an ALS patient Overall seems a bit better this morning, still with periods of anxiety Physical Exam Vital Signs: Vital Signs: Last Vital Signs Temp 97.7 F 08/01/23 07:21 Pulse 90 08/01/23 07:21 Resp 18 08/01/23 07:21 BP 159/98 H 08/01/23 07:21 Pulse Ox 95 08/01/23 07:21 O2 Del Method Nasal Cannula 08/01/23 07:21 O2 Flow Rate 2 08/01/23 07:21 Oxygen Flow Rate 2 07/29/23 17:32 BMI result Body Mass Index 16.4 Const: Other: General: AO X 3, no acute distress Resp: rhonchi bilater CVS: S1,S2,RRR GI: +BS, NT, no distention Skin: No rash Neuro: motor grossly intact Psych: appropriate affect Objective Data Active Medications Acetaminophen (Acetaminophen 325 Mg Tablet) 650 mg PO Q6H PRN PRN Reason: Pain, Mild (Pain Scale 1-3) Last Admin: 07/31/23 03:45 Dose: 650 mg Documented By: EAGLE Albuterol Sulfate (Albuterol Sulfate 90 Mcg 8 Gm Inhaler) 1 puff INHALE Q4H PRN PRN Reason: Shortness Of Breath Albuterol/Ipratropium (Albuterol/Iprat 2.5/0.5mg 3 Ml Ampul.Neb) 3 ml INHALE RQ4H WHILE AWAKE PRN PRN Reason: Shortness of Breath/Wheezing Last Admin: 08/01/23 05:13 Dose: 3 ml Documented By: MALGORZATA Amlodipine Besylate (Amlodipine Besylate 5 Mg Tablet) 5 mg PO BEDTIME [facility]; Protocol Last Admin: 07/31/23 20:16 Dose: 5 mg Documented By: RUPALI Docusate Sodium (Docusate Sodium 100 Mg Capsule) 100 mg PO DAILY [facility] Last Admin: 08/01/23 08:34 Dose: 100 mg Documented By: LIONEL Enoxaparin Sodium (Enoxaparin Sodium 40 Mg/0.4 Ml Syringe) 40 mg SUBCUT Q24H [facility] Last Admin: 07/31/23 20:16 Dose: 40 mg Documented By: RUPALI Folic Acid (Folic Acid 1 Mg Tablet) 1 mg PO DAILY [facility] Last Admin: 08/01/23 08:34 Dose: 1 mg Documented By: LIONEL Guaifenesin/Dextromethorphan (Guaifenesin Dm 200/20/10 Ml 10 Ml Syrup) 10 ml PO Q4H PRN PRN Reason: Cough Levofloxacin (Levaquin) 750 mg in 150 mls @ 100 mls/hr IV Q24H [facility] Last Infusion: 08/01/23 12:15 Dose: Infused Documented By: LIONEL Lorazepam (Lorazepam 1 Mg Tablet) 1 mg PO Q6H PRN PRN Reason: anxiety/restlessness Last Admin: 08/01/23 06:23 Dose: 1 mg Documented By: RUPALI Melatonin (Melatonin 3 Mg Tablet) 6 mg PO BEDTIME PRN PRN Reason: Insomnia Last Admin: 07/30/23 21:05 Dose: 6 mg Documented By: EAGLE Pt Own (Inv [id number] 100mg Or Placebo) 2 each PO DAILY [facility] Last Admin: 07/31/23 10:08 Dose: 2 each Documented By: LACEY Ondansetron HCl (Ondansetron Hcl 4 Mg/2 Ml Vial) 4 mg IVPUSH Q8H PRN PRN Reason: Nausea and Vomiting Sertraline HCl (Sertraline Hcl 50 Mg Tablet) 50 mg PO DAILY [facility] Last Admin: 08/01/23 08:33 Dose: 50 mg Documented By: LIONEL Sodium Chloride (0.9 % Sodium Chloride Flush 3 Ml Syringe) 3 ml IVFLUSH QSHIFT [facility] Last Admin: 08/01/23 08:34 Dose: 3 ml Documented By: LIONEL Thiamine HCl (Thiamine Hcl 100 Mg Tablet) 100 mg PO DAILY [facility] Last Admin: 08/01/23 08:33 Dose: 100 mg Documented By: LIONEL Trazodone HCl (Trazodone Hcl 50 Mg Tablet) 50 mg PO BEDTIME [facility] Last Admin: 07/31/23 20:16 Dose: 50 mg Documented By: RUPALI Labs 08/01/23 09:29 08/01/23 09:29 Labs: Laboratory Results - last 24 hr 08/01/23 09:29 MCV 84.6 MCH 29.3 MCHC 34.7 RDW 12.8 Plt Count 364 MPV 8.0 L Absolute Nucleated RBC 0.000 Nucleated RBC % (auto) 0.0 Anion Gap 15 Estim Creat Clear Calc 100.7 Estimated GFR > 60 Random Glucose 138 H Calcium 9.8 Microbiology Microbiology Results: Microbiology 07/29/23 17:42 Blood Culture - Preliminary Blood - Venous No growth after 48 hours. 07/29/23 17:36 Blood Culture - Final Blood - Venous Coag negative Staphylococcus Assessment and Plan (1) Community acquired pneumonia: Status: Acute (2) Moderate protein-calorie malnutrition: Status: Acute (3) Leucocytosis: Status: Acute Plan 62-year-old male with a PMH significant for?ALS and HTN who presents to the ED with?increasing shortness of breath, productive cough, and fatigue for the past several days. Pt was treated with IVF and Zosyn. Admitted for Sepsis d/t Community acquired pneumonia (CAP) 1.Sepsis d/t CAP, acute hypoxic resp failure--improving slowly, oxygenation is better now on 2 liters -Ceftriaxone + Azithro started 07/29, changing to Levauquin today per Pulmonary -Continue O2 and wean as carlos eduardo -cough med -Sputum culture, pending has difficulty cough -Bronchodilators PRN -Chest Physitherapy -Flutter valve -Bronchoscopy today Anxiety-Ativan PRN Chronic Medical Conditions: 2. ALS--on trial medication with RON171, eIF2B activator that prevents and reverses the effects of neurodegeneration caused by the Integrated Stress Response. Ongoing discussion with the clinic to see if he needs to continue on the med 3. HTN Continue home meds 4. Moderate protein calorie malnutrition In the setting of reduced p.o. intake Will supplement with Ensure Full Code Attending:?Dr. Oliver DVT Prophylaxis: Lovenox Ongoing hospialization d/t acute hypoxic resp failure to Sepsis d/t PNA in ALS pt, requiring high amount of O2 Total time managing care of this patient today: 40 minutes. Quality Stroke Does the patient have a stroke diagnosis?: No VTE Prior VTE?: No VTE Risk Level:: Medical - moderate - high VTE Device Contraindication: Treatment Not Indicated VTE Drug Contraindication: N/A - Med Ordered
--- NOTE | 2023-08-01 14:50 | MHC.SHP ---
Pre-Procedural Eval Section A Date of Service: 08/01/23 The patient is an INPATIENT: Yes Changes since office visit: Yes Patient answered all questions; No Cold of Flu in the past 2 weeks, No New Medical Problems and No Changes in Medication The History & Physical has been completed within 30 days and I have reviewed it.: Yes Section B Chief Complaint: Dyspnea and cough Allergies: Allergies Allergy/AdvReac Type Severity Reaction Status Date / Time No Known Allergies Allergy Verified 08/18/22 09:57 Plan Diagnosis/Plan: Unchanged I have reviewed the history and physical and performed a pertinent physical examination on my patient. No changes have occurred unless specified. Time Spent With Patient Time: Total time managing care of this patient today ____ minutes.
--- NOTE | 2023-08-01 15:18 | MHC.CM.PN ---
per rounds pt nbot medically ready for dc
[2023-08-01 15:48] VITALS: BP 158/99; PULSE 83; RESP 18; TEMP 36.7; O2SAT 98
--- NOTE | 2023-08-01 16:47 | PM.EVENT ---
Event Note Date of Service: 08/01/23 Event Note: I spoke to the patient investigation/trial medication team at [facility] Dr. Narayan and they reviewed his present meds and diagnosis and voice no concern and advise he continues the meds as patient's own med. discuss with patient who will continue to take it Time Spent With Patient Time: Total time managing care of this patient today ____ minutes.
[2023-08-01 19:16] VITALS: BP 158/98; PULSE 88; RESP 18; O2SAT 98
[2023-08-01] MEDS: amLODIPine Besylate 5 MG TABLET PO (19:50)
[2023-08-01] MEDS: traZODone HCL 50 MG TABLET PO (19:50)
[2023-08-02] VITALS (26 sets, daily range): BP systolic 121–155; BP diastolic 79–102; PULSE 75–99; RESP 12–42; TEMP 36.1–36.9; O2SAT 85–98
[2023-08-02] MEDS: Albuterol/Iprat 2.5/0.5MG 3 ML AMPUL.NEB INHALE (00:58)
--- NOTE | 2023-08-02 02:34 | PC.NURSE ---
Addendum entered by Nickie Stevenson RN 08/02/23 04:19: Pt states feeling better, o2 97% on 2L oxymask Addendum entered by Nickie Stevenson RN 08/02/23 03:15: Upon reassessing pt, pt in increased resp distress, RR 28, holding onto bed rails, stating he still cant breathe. Shallow anxious breaths. o2 89%, titrated to 5L o2 on oxymask. MD to bedside with RN to assess pt. MD ordered solumedrol and morphine IV, ABGs and repeat CXR. Resp to bedside as well, collected ABGs and going to do cough assist with the pt again. Original Note: Pt states he felt like he couldn't breathe, felt like he had sputum and difficulty getting it up. Resp called to bedside. Resp did cough assist with pt, pt called again stating he felt like he was panting and could not breathe out of his nose with nasal cannula. Pt then received breathing treatment followed by switching pt to oxymask. Pt stated did still feel some difficulty but improving. Upon reassessing pt, appeared to be resting comfortably.
[2023-08-02] MEDS: Morphine Sulfate 2 MG/ML CARTRIDGE IVPUSH (03:05)
[2023-08-02] MEDS: methylPREDNISolone Sod Succ 125 MG/2 ML VIAL IVPUSH (03:05)
[2023-08-02 03:20] LABS: ABG Base Excess 10.1 mmol/L; ABG HCO3 37 mmol/L (22-26); ABG pCO2 62 mmHg (32-45); ABG pH 7.38 (7.35-7.45); ABG pO2 72 mmHg (83-108)
[2023-08-02 03:21] LABS: ABG Refer to POC result
--- NOTE | 2023-08-02 05:09 | PM.EVENT ---
Event Note Date of Service: 08/02/23 Event Note: 2:42 AM - contacted by nursing to notify patient has been having worsening shortness of breath and having shallow breathing. I did evaluate patient he was breathing with difficulty and tachypneic. He was looking very uncomfortable. No use of accessory muscles noted. His oxygen saturation was 90% on 4 liters/minute via OxyMask. Cardiopulmonary auscultation was remarkable for decreased breath sound at the bases without rhonchi, wheezing or crackles. CXR was obtained stat and showed persistent dense retrocardiac left basilar opacity suspicious for at least a component of atelectasis (superimposed consolidation can not be excluded) and persistent right middle collapse. ABGs obtained: 7.38/62/72/37/95%. Treatment given: Supplemental oxygen, Solu-Medrol 125 mg IV and morphine 2 mg IV. He also has been receiving treatment with bronchodilator therapy. Time Spent With Patient Time: Total time managing care of this patient today ___ minutes.
[2023-08-02] MEDS: 0.9 % Sodium Chloride Flush 3 ML SYRINGE IVFLUSH ×3 (08:43→20:33)
[2023-08-02] MEDS: LORazepam 1 MG TABLET PO ×2 (10:21→17:50)
[2023-08-02] MEDS: levoFLOXacin/D5W 750 MG/150 ML PIGGYBACK 100 MG IV (10:21)
--- NOTE | 2023-08-02 12:06 | MHC.SHP ---
Pre-Procedural Eval Section A Date of Service: 08/02/23 The patient is an INPATIENT: Yes Changes since office visit: No Cold of Flu in the past 2 weeks, No New Medical Problems, No Changes in Medication and No Patient answered all questions The History & Physical has been completed within 30 days and I have reviewed it.: Yes Section B Chief Complaint: Dyspnea and cough Allergies: Allergies Allergy/AdvReac Type Severity Reaction Status Date / Time No Known Allergies Allergy Verified 08/18/22 09:57 Plan Diagnosis/Plan: Unchanged I have reviewed the history and physical and performed a pertinent physical examination on my patient. No changes have occurred unless specified. Time Spent With Patient Time: Total time managing care of this patient today ____ minutes.
--- NOTE | 2023-08-02 12:28 | HO.ANESPROP2 ---
HPI - Anesthesia Eval Consult details Narrative: for bronchoscopy [facility] Active Problems Active Problems: All Active Problems (Updated 08/01/23 @ 10:29 by Jaime Molina MD) ALS (amyotrophic lateral sclerosis) (Acute) Atelectasis (Acute) Moderate protein-calorie malnutrition (Acute) Community acquired pneumonia (Acute) Constipation (Acute) Leucocytosis (Acute) Alcohol abuse (Acute) Depression (Acute) Motor neuron disease (Acute) Acute hyponatremia (Acute) Nausea (Acute) Muscle spasm (Acute) Past Medical History Medical History ALS (amyotrophic lateral sclerosis) Family History Family history of problems with anesthesia: No Surgical History History of Problems with Anesthesia: No Social History Social History Household Members: None Housing: House Do you presently have visiting nurse or other home services: Yes Comment: rings appropriately Patient Tobacco Use Status: Never used Tobacco Smoked in Last 30 Days: No e-Cigarette/Vaping Use: Never Used Use of substances other than those prescribed or required for medical reasons: Yes Substance Use Type: Marijuana Substance Use Frequency: Daily Currently Displaying Signs/Symptoms of Drug Intoxication Withdrawal: No Any prior treatment program specific to substance use: No Have you been hit, kicked, punched, or otherwise hurt by someone within the past year? If so, by whom?: No Do you feel safe in your current relationship?: Yes Is there a partner from a previous relationship who is making you feel unsafe now?: No Are you made to feel afraid or neglected: No Are you DNR?: Yes Advance Directives: Yes Advance Directives Information Provided: No Advance Directives on File: No Advance Directives Date on File: 07/29/23 Do you have thoughts of harming others: None Do you have a plan to hurt others: No Plan Nutrition Risks: No Nutritional Risk Poor oral hygiene: No service: No Current occupational status: disabled Meds Allergies Allergy/AdvReac Type Severity Reaction Status Date / Time No Known Allergies Allergy Verified 08/18/22 09:57 Active Medications: Current Medications Acetaminophen (Acetaminophen 325 Mg Tablet) 650 mg PO Q6H PRN PRN Reason: Pain, Mild (Pain Scale 1-3) Last Admin: 07/31/23 03:45 Dose: 650 mg Albuterol Sulfate (Albuterol Sulfate 90 Mcg 8 Gm Inhaler) 1 puff INHALE Q4H PRN PRN Reason: Shortness Of Breath Albuterol/Ipratropium (Albuterol/Iprat 2.5/0.5mg 3 Ml Ampul.Neb) 3 ml INHALE RQ4H WHILE AWAKE PRN PRN Reason: Shortness of Breath/Wheezing Last Admin: 08/02/23 00:58 Dose: 3 ml Amlodipine Besylate (Amlodipine Besylate 5 Mg Tablet) 5 mg PO BEDTIME [facility]; Protocol Last Admin: 08/01/23 19:50 Dose: 5 mg Docusate Sodium (Docusate Sodium 100 Mg Capsule) 100 mg PO DAILY [facility] Last Admin: 08/02/23 09:40 Dose: Not Given Enoxaparin Sodium (Enoxaparin Sodium 40 Mg/0.4 Ml Syringe) 40 mg SUBCUT Q24H [facility] Last Admin: 07/31/23 20:16 Dose: 40 mg Folic Acid (Folic Acid 1 Mg Tablet) 1 mg PO DAILY [facility] Last Admin: 08/02/23 09:40 Dose: Not Given Guaifenesin/Dextromethorphan (Guaifenesin Dm 200/20/10 Ml 10 Ml Syrup) 10 ml PO Q4H PRN PRN Reason: Cough Levofloxacin (Levaquin) 750 mg in 150 mls @ 100 mls/hr IV Q24H [facility] Last Infusion: 08/02/23 12:23 Dose: Infused Lorazepam (Lorazepam 1 Mg Tablet) 1 mg PO Q6H PRN PRN Reason: anxiety/restlessness Last Admin: 08/02/23 10:21 Dose: 1 mg Melatonin (Melatonin 3 Mg Tablet) 6 mg PO BEDTIME PRN PRN Reason: Insomnia Last Admin: 07/30/23 21:05 Dose: 6 mg Pt Own (Inv [id number] 100mg Or Placebo) 2 each PO DAILY [facility] Last Admin: 08/02/23 09:41 Dose: Not Given Ondansetron HCl (Ondansetron Hcl 4 Mg/2 Ml Vial) 4 mg IVPUSH Q8H PRN PRN Reason: Nausea and Vomiting Sertraline HCl (Sertraline Hcl 50 Mg Tablet) 50 mg PO DAILY [facility] Last Admin: 08/02/23 09:41 Dose: Not Given Sodium Chloride (0.9 % Sodium Chloride Flush 3 Ml Syringe) 3 ml IVFLUSH QSHIFT [facility] Last Admin: 08/02/23 08:43 Dose: 3 ml Thiamine HCl (Thiamine Hcl 100 Mg Tablet) 100 mg PO DAILY [facility] Last Admin: 08/02/23 09:41 Dose: Not Given Trazodone HCl (Trazodone Hcl 50 Mg Tablet) 50 mg PO BEDTIME [facility] Last Admin: 08/01/23 19:50 Dose: 50 mg Home Medications Medication Instructions Recorded Confirmed Last Taken Type albuterol sulfate 90 mcg/actuation 1 puff inhalation Q4H PRN 08/18/22 07/29/23 07/29/23 History aerosol inhaler Shortness Of Breath amlodipine 5 mg tablet 1 tab PO BEDTIME 08/18/22 07/29/23 07/29/23 History sertraline 50 mg tablet 1 tab PO DAILY 08/18/22 07/29/23 07/29/23 History trazodone 50 mg tablet 1 tab PO BEDTIME 08/18/22 07/29/23 07/29/23 History sodium phenylbutyrate 3 1 packet PO BID 07/29/23 07/29/23 Unknown History gram-taurursodiol 1 gram oral powder packet (Relyvrio) Exam Height,Weight and Vital Signs: Height 5 ft 9 in Weight 50.5 kg Last Vital Signs Temp 98.4 F 08/02/23 12:18 Pulse 91 08/02/23 12:18 Resp 18 08/02/23 12:18 BP 142/96 H 08/02/23 12:18 Pulse Ox 97 08/02/23 12:18 O2 Del Method Simple Mask 08/02/23 12:18 O2 Flow Rate 3 08/02/23 12:18 Oxygen Flow Rate 2 07/29/23 17:32 Pertinent Lab Results Pertinent Lab Results: Laboratory Tests 07/29/23 07/29/23 07/29/23 17:36 17:37 17:40 WBC 23.1 H RBC 4.58 L Hgb 13.6 L Hct 39.5 L MCV 86.2 MCH 29.7 MCHC 34.4 RDW 13.1 Plt Count 268 D MPV 8.7 L Immature Gran % (Auto) 0.7 H Neut % (Auto) 92.2 H Lymph % (Auto) 2.9 L [place] % (Auto) 4.0 Eos % (Auto) 0.0 Baso % (Auto) 0.2 Lymph # (Auto) 0.7 L [place] # (Auto) 0.9 Eos # (Auto) 0.0 Baso # (Auto) 0.0 Abs Immat Gran (auto) 0.17 H Absolute Neuts (auto) 21.3 H Absolute Nucleated RBC 0.000 Nucleated RBC % (auto) 0.0 Smear Tech's Comments VERIFIED Hold Purple Top SEE NOTE PT INR APTT O2 Saturation ABG pH at Pt Temp ABG pCO2 at Pt Temp ABG pO2 at Pt Temp ABG HCO3 ABG Base Excess (Actual) Sodium 133 L Potassium 4.4 Chloride 95 L Carbon Dioxide 29 Anion Gap 13 BUN 15 Creatinine 0.53 Estim Creat Clear Calc 99.3 Estimated GFR > 60 Random Glucose 114 Lactic Acid 0.5 Calcium 9.4 D Total Bilirubin 0.3 AST 24 ALT 31 Alkaline Phosphatase 91 Troponin I High Sens 3.9 Total Protein 6.8 Albumin 3.8 Lipase 23 Influenza Type A (PCR) NEGATIVE Influenza Type B (PCR) NEGATIVE RSV RNA Qual (PCR) NEGATIVE SARS-CoV-2 RNA (RT-PCR) NEGATIVE 07/29/23 07/30/23 07/31/23 18:14 05:30 05:16 WBC 21.8 H 18.4 H RBC 4.72 Hgb 14.2 Hct 40.6 L MCV 86.0 MCH 30.1 MCHC 35.0 RDW 12.9 Plt Count 305 MPV 8.2 L Immature Gran % (Auto) 0.5 H Neut % (Auto) 92.2 H Lymph % (Auto) 3.4 L [place] % (Auto) 3.8 Eos % (Auto) 0.0 Baso % (Auto) 0.1 Lymph # (Auto) 0.8 L [place] # (Auto) 0.8 Eos # (Auto) 0.0 Baso # (Auto) 0.0 Abs Immat Gran (auto) 0.11 H Absolute Neuts (auto) 20.1 H Absolute Nucleated RBC 0.000 Nucleated RBC % (auto) 0.0 Smear Tech's Comments VERIFIED Hold Purple Top PT 12.2 INR 1.0 APTT 30.6 O2 Saturation ABG pH at Pt Temp ABG pCO2 at Pt Temp ABG pO2 at Pt Temp ABG HCO3 ABG Base Excess (Actual) Sodium 137 Potassium 3.7 Chloride 97 Carbon Dioxide 29 Anion Gap 15 BUN 9 Creatinine 0.41 L Estim Creat Clear Calc 135.1 Estimated GFR > 60 Random Glucose 98 Lactic Acid Calcium 9.3 Total Bilirubin AST ALT Alkaline Phosphatase Troponin I High Sens Total Protein Albumin Lipase Influenza Type A (PCR) Influenza Type B (PCR) RSV RNA Qual (PCR) SARS-CoV-2 RNA (RT-PCR) 07/31/23 07/31/23 07/31/23 05:16 05:16 05:16 WBC 18.5 H RBC 4.85 4.91 Hgb 14.4 14.5 Hct 41.6 L MCV MCH MCHC RDW Plt Count MPV Immature Gran % (Auto) Neut % (Auto) Lymph % (Auto) [place] % (Auto) Eos % (Auto) Baso % (Auto) Lymph # (Auto) [place] # (Auto) Eos # (Auto) Baso # (Auto) Abs Immat Gran (auto) Absolute Neuts (auto) Absolute Nucleated RBC Nucleated RBC % (auto) Smear Tech's Comments Hold Purple Top PT INR APTT O2 Saturation ABG pH at Pt Temp ABG pCO2 at Pt Temp ABG pO2 at Pt Temp ABG HCO3 ABG Base Excess (Actual) Sodium Potassium Chloride Carbon Dioxide Anion Gap BUN Creatinine Estim Creat Clear Calc Estimated GFR Random Glucose Lactic Acid Calcium Total Bilirubin AST ALT Alkaline Phosphatase Troponin I High Sens Total Protein Albumin Lipase Influenza Type A (PCR) Influenza Type B (PCR) RSV RNA Qual (PCR) SARS-CoV-2 RNA (RT-PCR) 07/31/23 07/31/23 07/31/23 05:16 05:16 05:16 WBC RBC Hgb Hct 42.0 MCV 85.8 85.5 MCH 29.7 29.5 MCHC 34.6 RDW Plt Count MPV Immature Gran % (Auto) Neut % (Auto) Lymph % (Auto) [place] % (Auto) Eos % (Auto) Baso % (Auto) Lymph # (Auto) [place] # (Auto) Eos # (Auto) Baso # (Auto) Abs Immat Gran (auto) Absolute Neuts (auto) Absolute Nucleated RBC Nucleated RBC % (auto) Smear Tech's Comments Hold Purple Top PT INR APTT O2 Saturation ABG pH at Pt Temp ABG pCO2 at Pt Temp ABG pO2 at Pt Temp ABG HCO3 ABG Base Excess (Actual) Sodium Potassium Chloride Carbon Dioxide Anion Gap BUN Creatinine Estim Creat Clear Calc Estimated GFR Random Glucose Lactic Acid Calcium Total Bilirubin AST ALT Alkaline Phosphatase Troponin I High Sens Total Protein Albumin Lipase Influenza Type A (PCR) Influenza Type B (PCR) RSV RNA Qual (PCR) SARS-CoV-2 RNA (RT-PCR) 07/31/23 07/31/23 07/31/23 05:16 05:16 05:16 WBC RBC Hgb Hct MCV MCH MCHC 34.5 RDW 12.8 12.8 Plt Count 324 331 MPV 8.2 L Immature Gran % (Auto) Neut % (Auto) Lymph % (Auto) [place] % (Auto) Eos % (Auto) Baso % (Auto) Lymph # (Auto) [place] # (Auto) Eos # (Auto) Baso # (Auto) Abs Immat Gran (auto) Absolute Neuts (auto) Absolute Nucleated RBC Nucleated RBC % (auto) Smear Tech's Comments Hold Purple Top PT INR APTT O2 Saturation ABG pH at Pt Temp ABG pCO2 at Pt Temp ABG pO2 at Pt Temp ABG HCO3 ABG Base Excess (Actual) Sodium Potassium Chloride Carbon Dioxide Anion Gap BUN Creatinine Estim Creat Clear Calc Estimated GFR Random Glucose Lactic Acid Calcium Total Bilirubin AST ALT Alkaline Phosphatase Troponin I High Sens Total Protein Albumin Lipase Influenza Type A (PCR) Influenza Type B (PCR) RSV RNA Qual (PCR) SARS-CoV-2 RNA (RT-PCR) 07/31/23 07/31/23 07/31/23 05:16 05:16 05:16 WBC RBC Hgb Hct MCV MCH MCHC RDW Plt Count MPV 8.4 L Immature Gran % (Auto) 0.8 H Neut % (Auto) 92.0 H Lymph % (Auto) 3.4 L [place] % (Auto) 3.6 Eos % (Auto) 0.1 Baso % (Auto) 0.1 Lymph # (Auto) 0.6 L [place] # (Auto) 0.7 Eos # (Auto) 0.0 Baso # (Auto) 0.0 Abs Immat Gran (auto) 0.15 H Absolute Neuts (auto) 16.9 H Absolute Nucleated RBC 0.000 0.000 Nucleated RBC % (auto) 0.0 0.0 Smear Tech's Comments VERIFIED Hold Purple Top PT INR APTT O2 Saturation ABG pH at Pt Temp ABG pCO2 at Pt Temp ABG pO2 at Pt Temp ABG HCO3 ABG Base Excess (Actual) Sodium Potassium Chloride Carbon Dioxide Anion Gap BUN Creatinine Estim Creat Clear Calc Estimated GFR Random Glucose Lactic Acid Calcium Total Bilirubin AST ALT Alkaline Phosphatase Troponin I High Sens Total Protein Albumin Lipase Influenza Type A (PCR) Influenza Type B (PCR) RSV RNA Qual (PCR) SARS-CoV-2 RNA (RT-PCR) 08/01/23 08/02/23 09:29 03:13 WBC 18.1 H RBC 5.05 Hgb 14.8 Hct 42.7 MCV 84.6 MCH 29.3 MCHC 34.7 RDW 12.8 Plt Count 364 MPV 8.0 L Immature Gran % (Auto) Neut % (Auto) Lymph % (Auto) [place] % (Auto) Eos % (Auto) Baso % (Auto) Lymph # (Auto) [place] # (Auto) Eos # (Auto) Baso # (Auto) Abs Immat Gran (auto) Absolute Neuts (auto) Absolute Nucleated RBC 0.000 Nucleated RBC % (auto) 0.0 Smear Tech's Comments Hold Purple Top PT INR APTT O2 Saturation 95.0 ABG pH at Pt Temp 7.38 ABG pCO2 at Pt Temp 62 H* ABG pO2 at Pt Temp 72 L ABG HCO3 37 H ABG Base Excess (Actual) 10.1 Sodium 136 Potassium 3.7 Chloride 90 L Carbon Dioxide 35 H Anion Gap 15 BUN 15 Creatinine 0.55 Estim Creat Clear Calc 100.7 Estimated GFR > 60 Random Glucose 138 H Lactic Acid Calcium 9.8 Total Bilirubin AST ALT Alkaline Phosphatase Troponin I High Sens Total Protein Albumin Lipase Influenza Type A (PCR) Influenza Type B (PCR) RSV RNA Qual (PCR) SARS-CoV-2 RNA (RT-PCR) Airway Mallampati Class: II TM Dist: >3cm Neck ROM: Full Heart: rrr Lungs: cta Assessment and Plan Assessment Anesthesia Assessment: Anesthesia Plan Discussed and Chart Reviewed Final Anesthetic Review Family History of Problems with Anesthesia: No History of Problems with Anesthesia: No NPO: Yes ASA Class: IV and Emergency Final Preanesthetic Review: No Changes in Pt Med Stat, Meds/Allgs Chart Reviewed, Consent Obtained/Reviewed, Anes Risks/Benef Reviewed and DNR Form (If Appl.) (reversed) Patient Risk: High Procedure Risk: Intermediate Anesthetic Plan Anesthetic Plan: GA and Agree w/ Assess. and Plan Disposition: Standard PACU
--- NOTE | 2023-08-02 13:02 | P.BOP_ITS ---
Brief Operative Note Date of Service: 08/02/23 Pre-op diagnosis: Atelectasis Post-op diagnosis: same Procedure: Flexible bronchoscopy performed with bronchoscope advanced through the ET tube with patient intubated for the procedure through the tracheobronchial tree. Copious tenacious secretions noted completely obstructing right middle lobe, basilar segments of right lower lobe and left lower lobe. Secretions cleared with normal bronchial mucosa identified underneath. Lavage sample sent for microbiologic testing. Patient tolerated the procedure well and was returned to PACU in stable condition. Surgeon: Jaime Molina MD Anesthesia: GETA Was an Hvac Refrigeration Technician used for this Procedure?: No Estimated blood loss (mL): 0
--- NOTE | 2023-08-02 14:26 | P.PNIM_ITS ---
Subjective Subjective Date of Service: 08/02/23 Interval History: hypoxia,atelactasis Review of Systems overnight event noted sob seems improving with steriods ,oxygen ,morphine -seems mor comfortable. no fever or chills Physical Exam 2 Vital Signs: Vital Signs: Last Vital Signs Temp 98 F 08/02/23 13:59 Pulse 98 08/02/23 13:59 Resp 26 H 08/02/23 13:59 BP 155/101 H 08/02/23 13:59 Pulse Ox 93 08/02/23 13:59 O2 Del Method BiPAP 08/02/23 13:59 O2 Flow Rate 3 08/02/23 12:18 FiO2 100 08/02/23 13:59 Oxygen Flow Rate 2 07/29/23 17:32 BMI result Body Mass Index 16.4 General: AO X 3, no acute distress Resp: rhonchi bilater CVS: S1,S2,RRR GI: +BS, NT, no distention Skin: No rash Neuro: motor grossly intact Psych: appropriate affect Objective Data Active Medications Acetaminophen (Acetaminophen 325 Mg Tablet) 650 mg PO Q6H PRN PRN Reason: Pain, Mild (Pain Scale 1-3) Last Admin: 07/31/23 03:45 Dose: 650 mg Documented By: EAGLE Albuterol Sulfate (Albuterol Sulfate 90 Mcg 8 Gm Inhaler) 1 puff INHALE Q4H PRN PRN Reason: Shortness Of Breath Albuterol/Ipratropium (Albuterol/Iprat 2.5/0.5mg 3 Ml Ampul.Neb) 3 ml INHALE RQ4H WHILE AWAKE PRN PRN Reason: Shortness of Breath/Wheezing Last Admin: 08/02/23 00:58 Dose: 3 ml Documented By: ANTONINA Amlodipine Besylate (Amlodipine Besylate 5 Mg Tablet) 5 mg PO BEDTIME [facility]; Protocol Last Admin: 08/01/23 19:50 Dose: 5 mg Documented By: ELOISE Docusate Sodium (Docusate Sodium 100 Mg Capsule) 100 mg PO DAILY [facility] Last Admin: 08/02/23 09:40 Dose: Not Given Documented By: COTEMA Non-Admin Reason: NPO Enoxaparin Sodium (Enoxaparin Sodium 40 Mg/0.4 Ml Syringe) 40 mg SUBCUT Q24H [facility] Last Admin: 07/31/23 20:16 Dose: 40 mg Documented By: DANIEL Folic Acid (Folic Acid 1 Mg Tablet) 1 mg PO DAILY [facility] [place] Last Admin: 08/02/23 09:40 Dose: Not Given Documented By: COTEMA Non-Admin Reason: NPO Guaifenesin/Dextromethorphan (Guaifenesin Dm 200/20/10 Ml 10 Ml Syrup) 10 ml PO Q4H PRN PRN Reason: Cough Levofloxacin (Levaquin) 750 mg in 150 mls @ 100 mls/hr IV Q24H [facility] Last Infusion: 08/02/23 12:23 Dose: Infused Documented By: COTDARSHANA Lorazepam (Lorazepam 1 Mg Tablet) 1 mg PO Q6H PRN PRN Reason: anxiety/restlessness Last Admin: 08/02/23 10:21 Dose: 1 mg Documented By: MEEK Melatonin (Melatonin 3 Mg Tablet) 6 mg PO BEDTIME PRN PRN Reason: Insomnia Last Admin: 07/30/23 21:05 Dose: 6 mg Documented By: EAGLE Pt Own (Inv [id number] 100mg Or Placebo) 2 each PO DAILY [facility] Last Admin: 08/02/23 09:41 Dose: Not Given Documented By: COTEMA Non-Admin Reason: NPO Ondansetron HCl (Ondansetron Hcl 4 Mg/2 Ml Vial) 4 mg IVPUSH Q8H PRN PRN Reason: Nausea and Vomiting Sertraline HCl (Sertraline Hcl 50 Mg Tablet) 50 mg PO DAILY [facility] Last Admin: 08/02/23 09:41 Dose: Not Given Documented By: COTEMA Non-Admin Reason: NPO Sodium Chloride (0.9 % Sodium Chloride Flush 3 Ml Syringe) 3 ml IVFLUSH QSHIFT [facility] [place] Last Admin: 08/02/23 08:43 Dose: 3 ml Documented By: GEORGEEMA Thiamine HCl (Thiamine Hcl 100 Mg Tablet) 100 mg PO DAILY [facility] Last Admin: 08/02/23 09:41 Dose: Not Given Documented By: COTEMA Non-Admin Reason: NPO Trazodone HCl (Trazodone Hcl 50 Mg Tablet) 50 mg PO BEDTIME [facility] Last Admin: 08/01/23 19:50 Dose: 50 mg Documented By: LYSZ Labs 08/01/23 09:29 08/01/23 09:29 Labs: Laboratory Results - last 24 hr 08/02/23 03:13 O2 Saturation 95.0 ABG pH at Pt Temp 7.38 ABG pCO2 at Pt Temp 62 H* ABG pO2 at Pt Temp 72 L ABG HCO3 37 H ABG Base Excess (Actual) 10.1 Assessment and Plan (1) Atelectasis: Status: Acute (2) Community acquired pneumonia: Status: Acute Plan Day 5: 62-year-old male with a PMH significant for?ALS and HTN who presents to the ED with?increasing shortness of breath, productive cough, and fatigue for the past several days. Pt was treated with IVF and Zosyn. Admitted for Sepsis d/t Community acquired pneumonia (CAP) 1.Sepsis d/t CAP, acute hypoxic resp failure--improving slowly, oxygenation is better now on 2 liters overnight event noted as above. Sputum culture, pending has difficulty cough plan:Bronchodilators PRN,Chest Physitherapy,Flutter valve. Ceftriaxone + Azithro started 07/29, changing to Levauquin today per Pulmonary , O2 and wean as carlos eduardo,cough med, Bronchoscopy today Anxiety-Ativan PRN Chronic Medical Conditions: ALS--on trial medication with [id number], eIF2B activator that prevents and reverses the effects of neurodegeneration caused by the Integrated Stress Response. Ongoing discussion with the clinic to see if he needs to continue on the med HTN Continue home meds Moderate protein calorie malnutrition In the setting of reduced p.o. intake Will supplement with Ensure Full Code DVT Prophylaxis: Lovenox Ongoing hospialization d/t acute hypoxic resp failure to Sepsis d/t PNA,atelactasis in ALS pt, requiring high amount of O2- need steriods ,antibiotics , chest physiotherapy, nebs, incentive spirometry, also need bronchoscopy. Quality Stroke Does the patient have a stroke diagnosis?: No VTE Prior VTE?: No VTE Risk Level:: Medical - moderate - high VTE Device Contraindication: Treatment Not Indicated VTE Drug Contraindication: N/A - Med Ordered
--- NOTE | 2023-08-02 15:02 | PM.CCN ---
Critical Care Event Note Summary Date of Service: 08/02/23 Code activated: No Narrative: 62-year-old gentleman with underlying ALS, cachexia admitted with dyspnea and hypoxia with atelectasis? Pneumonia, now status post bronchoscopy with clearance of right middle lobe, right lower lobe, and left lower lobe atelectasis with poor recovery from anesthesia been transferred to intensive care unit requiring BiPAP support for close monitoring. Critical Care Time (minutes): 0
[2023-08-02 15:26] LABS: ABG Base Excess 10.2 mmol/L; ABG HCO3 38 mmol/L (22-26); ABG pCO2 64 mmHg (32-45); ABG pH 7.37 (7.35-7.45); ABG pO2 64 mmHg (83-108)
[2023-08-02 15:57] LABS: ABG Refer to POC result
--- NOTE | 2023-08-02 17:30 | HO.SKINPHOTO ---
Location:coccyx Category: PI
--- NOTE | 2023-08-02 18:53 | HO.WOUND ---
Wound Consult: Initial 62yr old M? admitted to [facility] on 07/29 - See progress notes and H&P for detailed history.? Wound consult placed for sacral wound.? Patient agreeable to assessment and photo documentation.? Pt states he has a some breakdown to his sacrum in the past - he states its skin on bone . He reports he does use a waffle cushion at home when up to chair. Right Sacrum Etiology: Deep Tissue Injury Wound Bed: dark maroon nonblanchable tissue - appears intact tissue Drainage / Odor: None Edges: ? irregular Danielle wound: ?Hyperpigmented tissue - No Induration, Fluctuance or Warmth noted Pain: reports baseline tenderness Goals of Treatment: ? Off Load Pressure - protect from friction and moisture - foam application Recommendations: 1. Turn and Reposition every 2 hours and as needed for patient comfort.? Use pillows or wedges to support off loading positions. 2. Off Load all bony prominences with use of pillows and heel boots if needed.? Apply Preventative foams where needed. ? 3. Monitor for incontinence and moisture control, use barrier creams when needed for prevention and treatment. 4. Provide adequate and supplemental nutrition.? Nutrition following. 5. Order or Continue low air loss mattress. 6. Sacrum - Off Load pressure - Cleanse with routine cleansing - apply sacral foam dressing - peel back and assess Q shift change every 3 days and PRN. Re-consult wound care Nurse for wound deterioration or wound changes.
[2023-08-02] MEDS: Enoxaparin Sodium 40 MG/0.4 ML SYRINGE SUBCUT (20:30)
[2023-08-02] MEDS: Melatonin 3 MG TABLET 6 MG PO (20:35)
[2023-08-03] VITALS (18 sets, daily range): BP systolic 106–162; BP diastolic 75–111; PULSE 70–103; RESP 17–33; TEMP 36.6–37.4; O2SAT 89–99; BMI 18.3
[2023-08-03 04:31] LABS: VBG HCO3 42 mmol/L (22-26); VBG pCO2 49 mmHg; VBG pH 7.53 (7.32-7.43); VBG pO2 58 mmHg
[2023-08-03 04:34] LABS: Venous Blood Gas Refer to POC result
[2023-08-03] MEDS: LORazepam 1 MG TABLET PO ×2 (04:39→12:23)
[2023-08-03 04:43] LABS: MANUAL DIFF FLAG NO
[2023-08-03 04:44] LABS: Basophils Percent Auto 0.1 % (0-2); Eosinophils Percent Auto 0.1 % (0-4); Hematocrit 40.2 % (42.0-52.0); Imm Gran Abs Auto 0.09 X10*3/uL (0.00-0.03); Imm Gran Pct Auto 0.8 % (0.0-0.4); Lymphocytes Percent Auto 8.2 % (20-40); Mean Corpuscular HGB Conc 34.8 g/dl (31.0-36.0); Mean Corpuscular Hemoglobin 29.5 pg (27.0-33.0); Mean Corpuscular Volume 84.6 fL (80.0-98.0); Mean Platelet Volume 8.1 fL (9.4-12.4); Monocytes Absolute Auto 0.7 X10*3/uL (0.1-1.2); Monocytes Percent Auto 5.6 % (2-11); Neutrophils Absolute Auto 9.9 x10*3/uL (2.0-8.3); Neutrophils Percent Auto 85.2 % (45-73); Platelet Count 394 X10*3/uL (160-400); Red Blood Count 4.75 X10*6/uL (4.60-5.80); Red Cell Distribution Width 12.9 % (11.0-16.0); White Blood Count 11.7 X10*3/uL (4.8-10.8)
[2023-08-03 04:59] LABS: Albumin Level 3.2 g/dL (3.5-5.0); Anion Gap 15 (12-20); Blood Urea Nitrogen 21 mg/dL (9-16); Calcium 9.3 mg/dL (8.4-10.2); Carbon Dioxide 32 mmol/L (22-29); Chloride 90 mmol/L (96-108); Creatinine Clr Calc Pharmacy 100.7; Estimated Glomerular Filt Rate > 60; Glucose Random 89 mg/dL (60-115); Phosphorus 2.6 mg/dL (2.7-4.5); Potassium 4.3 mmol/L (3.3-5.1); Sodium 133 mmol/L (135-145)
[2023-08-03] MEDS: Docusate Sodium 100 MG CAPSULE PO (08:56)
[2023-08-03] MEDS: Thiamine HCL 100 MG TABLET PO (08:56)
[2023-08-03] MEDS: Folic Acid 1 MG TABLET PO (08:56)
[2023-08-03] MEDS: 0.9 % Sodium Chloride Flush 3 ML SYRINGE IVFLUSH ×2 (09:00→16:05)
[2023-08-03] MEDS: Potassium Phosphate/NS 15 MMOL/250 ML PLAST..BAG 62.5 MMOL IV (09:00)
--- NOTE | 2023-08-03 09:11 | HO.POSTANES ---
Post Anesthesia Evaluation Post Anesthesia Evaluation Date of Service: 08/03/23 Vital Signs: Vital Signs Temp Pulse Resp BP Pulse Ox O2 Del Method O2 Flow Rate 08/03/23 08:53 100 24 H 153/95 H 89 L Room Air 08/03/23 08:06 90 L Room Air 08/03/23 08:00 98.4 F 98 27 H 153/95 H 99 Room Air 08/03/23 07:00 87 33 H 160/97 H 93 Nasal Cannula 2 08/03/23 06:00 81 24 H 162/100 H 96 Nasal Cannula 2 08/03/23 05:00 97.8 F 94 23 H 151/97 H 95 Nasal Cannula 2 08/03/23 04:01 27 H 08/03/23 04:00 83 25 H 128/77 91 L BiPAP 08/03/23 03:00 81 20 121/76 96 BiPAP 08/03/23 02:00 103 H 17 110/78 98 BiPAP 08/03/23 01:00 70 22 H 106/75 97 BiPAP 08/03/23 00:00 76 18 111/79 98 BiPAP 08/02/23 23:11 24 H 08/02/23 23:00 83 27 H 121/90 H 97 BiPAP 08/02/23 22:00 79 20 132/88 94 Nasal Cannula 2 FiO2 08/03/23 08:53 08/03/23 08:06 21 08/03/23 08:00 08/03/23 07:00 08/03/23 06:00 08/03/23 05:00 08/03/23 04:01 08/03/23 04:00 35 08/03/23 03:00 35 08/03/23 02:00 35 08/03/23 01:00 35 08/03/23 00:00 08/02/23 23:11 08/02/23 23:00 08/02/23 22:00 Anesthesia: General Endotracheal-GETA Mental Status: Awake Pain Control: Satisfactory Nausea/Vomiting: None Hydration: Adequate Anesthesia-Related Issues: No Anes. Related Issues Comments: Patient on room air o2 currently being managed by ICU. Thank you.
--- NOTE | 2023-08-03 09:46 | P.PNCC_ITS ---
Subjective Subjective Date of Service: 08/03/23 Interval History: 62-year-old gentleman with underlying ALS admitted on 07/29/2023 with increased shortness of breath and productive cough after recent COVID infection. CT chest showed complete atelectasis of left lower lobe and right middle lobe. The patient was started on empiric therapy for community-acquired pneumonia. Flexible bronchoscopy performed 08/02/2023 with clearance of thick tenacious mucus secretions obstructing right middle, right lower, and left lower lobes. Patient with prolonged recovery from anesthesia briefly requiring BiPAP support secondary to respiratory muscle weakness, titrated off back to room air. Critical Care Time (minutes): 0 Physical Exam 2 Vital Signs: Vital Signs: Last Vital Signs Temp 98.4 F 08/03/23 08:00 Pulse 100 08/03/23 08:53 Resp 24 H 08/03/23 08:53 BP 153/95 H 08/03/23 08:53 Pulse Ox 89 L 08/03/23 08:53 O2 Del Method Room Air 08/03/23 08:53 O2 Flow Rate 2 08/03/23 07:00 FiO2 21 08/03/23 08:06 Oxygen Flow Rate 2 07/29/23 17:32 BMI result Body Mass Index 18.3 Const: General: no acute distress, alert and awake Eyes: Sclerae: sclerae normal EOM: EOMs intact bilaterally Neck: Neck: Yes no lymphadenopathy, Yes trachea midline and Yes supple Resp: Effort & Inspection: normal respiratory effort and no respiratory distress Auscultation: clear to auscultation bilaterally Cardio: Rate: regular rate Rhythm: regular rhythm Heart sounds: no gallops, no murmurs and no rubs GI: Palpation (GI): Soft to palpation and Other GI palpation findings present ( Nontender) Auscultation: normal bowel sounds Extrem: General: Yes no pedal edema, No clubbing and No cyanosis Objective Data Labs 08/03/23 04:23 08/03/23 04:23 Labs: Laboratory Results - last 24 hr 08/02/23 08/03/23 08/03/23 15:20 04:23 04:25 WBC 11.7 H RBC 4.75 Hgb 14.0 Hct 40.2 L MCV 84.6 MCH 29.5 MCHC 34.8 RDW 12.9 Plt Count 394 MPV 8.1 L Immature Gran % (Auto) 0.8 H Neut % (Auto) 85.2 H Lymph % (Auto) 8.2 L [place] % (Auto) 5.6 Eos % (Auto) 0.1 Baso % (Auto) 0.1 Lymph # (Auto) 1.0 L [place] # (Auto) 0.7 Eos # (Auto) 0.0 Baso # (Auto) 0.0 Abs Immat Gran (auto) 0.09 H Absolute Neuts (auto) 9.9 H Absolute Nucleated RBC 0.000 Nucleated RBC % (auto) 0.0 O2 Saturation 91.0 ABG pH at Pt Temp 7.37 ABG pCO2 at Pt Temp 64 H* ABG pO2 at Pt Temp 64 L ABG HCO3 38 H ABG Base Excess (Actual) 10.2 VBG pH 7.53 H VBG pCO2 49 VBG pO2 58 VBG HCO3 42 H VBG O2 Saturation 92.0 VBG Base Excess 17.0 Sodium 133 L Potassium 4.3 Chloride 90 L Carbon Dioxide 32 H Anion Gap 15 BUN 21 H Creatinine 0.55 Estim Creat Clear Calc 100.7 Estimated GFR > 60 Random Glucose 89 Calcium 9.3 Phosphorus 2.6 L Magnesium 2.0 Albumin 3.2 L Microbiology Microbiology Results: Microbiology 08/02/23 13:02 Bronchial Washings Gram Stain - Final 07/29/23 17:42 Blood - Venous Blood Culture - Preliminary No growth after 48 hours. 07/29/23 17:36 Blood - Venous Blood Culture - Final Coag negative Staphylococcus Progress Note: A&P Assessment and plan (1) Atelectasis: Status: Acute (2) ALS (amyotrophic lateral sclerosis): Status: Acute Plan Assessment: 62-year-old gentleman with admitted dyspnea hypoxia secondary to atelectasis/pneumonia, now with significant improvement. Plan: Neuro: No acute issues. Underlying ALS. Cardiac: No acute issues. Pulmonary: Status post bronchoscopy with clearance of bilateral lower lobes obstructing secretions. Now on room air. Continue with cough assist. Renal: No acute issues. Endo: No acute issues. GI: No acute issues. ID: No acute issues Heme/Onc: No acute issues. Psych: No acute issues. Miscellaneous: No acute issues. Prophylaxis: Lovenox Diet: Regular Quality Stroke Does the patient have a stroke diagnosis?: No VTE Prior VTE?: No VTE Risk Level:: Medical - moderate - high VTE Device Contraindication: Treatment Not Indicated VTE Drug Contraindication: N/A - Med Ordered
--- NOTE | 2023-08-03 10:06 | MHC.CLN ---
F/U PATIENT WITH MODERATE MALNUTRITION IN THE CONTEXT OF CHRONIC ILLNESS DIET ADVANCED TO REGULAR PO INTAKE AVG 67% NEW DTI TO RIGHT SACRUM NOTED PER ICU NURSE PATIENT LIKES CHOCOLATE ENSURE AND AGREES TO SUPPLEMENT BID ENSURE MAX PROTEIN BID PROVIDES 300 KCALS, 60 G PROTEIN MONITOR PO INTAKE CLOSELY AND ENCOURAGE SUPPLEMENT.
[2023-08-03] MEDS: levoFLOXacin/D5W 750 MG/150 ML PIGGYBACK 100 MG IV (11:27)
--- NOTE | 2023-08-03 11:27 | PM.EVENT ---
Event Note Date of Service: 08/03/23 Event Note: Patient was transferred from ICU this morning. Patient has history of ALS, also has productive cough shortness of breath and had recent COVID infection, CT scan chest showed left lower lobe and right middle lobe atelectasis: Patient had bronchoscopy-cultures are pending Patient is off BiPAP-transferred to the floor with IV antibiotics for possible pneumonia. Seen and examined: Physical exam: Please see ICU note, unchanged. Assessment and plan coordinated in ICU note, discussed with ICU in detail length. We will continue current antibiotics and monitor, incentive spirometry, chest physiotherapy, nebs, PT evaluation Time Spent With Patient Time: Total time managing care of this patient today ____ minutes.
--- NOTE | 2023-08-03 15:54 | MHC.CM.PN ---
Addendum entered by Danette Haider 08/03/23 16:29: CM SPOKE WITH CRISTI, SHE IS NOT ABLE TO BRING HIM HOME SAFELY THIS EVENING AND HAS CALLED PT TO MAKE HIM AWARE OF THIS. NOTIFIED. MERLINE OLIVA UPDATED VIA [facility] Original Note: CM MET WITH PT TO DISCUSS STAYING ANOTHER NIGHT DUE TO HIS WEAKNESS AND RESPIRATORY STATUS. PT IS ADAMANT ABOUT GOING HOME. PT STATES HE WILL CALL HIS TO BRING HIM HOME BUT ALSO GIVES PERMISSION FOR THIS CM TO SPEAK WITH HER WELL. MESSAGE LEFT VIA TELEPHONE FOR CRISTI TO RETURN CALL. MERLINE OLIVA UPDATED ON POSSIBLE DC AND DR. DODD MADE AWARE OF SITUATION. CM WILL CONTINUE TO FOLLOW.
--- NOTE | 2023-08-03 17:57 | PC.NURSE ---
This RN was covering live in housekeeper, per RN request discussed the importance of pt stating to complete his care, education on the risk of not completing treatment, pt refusing to stay and wanting to go home. Notified pt Leonila per pt request. Provider was notified, provider reviewed risk pt, plan is for pt to be discharge against medical advice. pt is A&O at this time.
--- NOTE | 2023-08-03 18:06 | PC.NURSE ---
Pt decided to leave AMA. MD and nursing mold yard supervisor notified and at bedside.Patient have weakness to lower extremities he was offered Pt eval and overnight monitoring for respiratory status but patient decline. notified of patients decision by telephone. Patient understands risk of leaving AMA ,aox3. Pt advised to seek medical attention if worsening respiratory status or any new symptoms.
--- NOTE | 2023-08-04 08:53 | PM.DS ---
DS: Providers Provider Date of Service: 08/03/23 Date of admission: 07/29/23 20:54 Date of discharge: 08/03/23 Primary care physician: Angelina Javed DO Consults: 08/01/23 09:21 Consult to Pulmonology Routine Consulting Provider: [facility] Pulmonology Services Reason for consultation: Dense pneumonia in patient with ALS? need for bronch Has provider been notified: No 08/02/23 17:32 Consult to Wound Care Routine Reason for consultation: coccyx to PI Attending physician on discharge: Jacob Flowers Discharging clinician: Jacob Flowers DS: Diagnosis Discharge Diagnosis (1) Atelectasis: Status: Acute (2) ALS (amyotrophic lateral sclerosis): Status: Acute DS: Summary Hospital Course Hospital Course: Date of service and discharge:08/04 62 years old man with past medical history significant for ALS and recent hospitalization due to pneumonia + atelectasis requiring bronchoscopy presents to the emergency department complaining of shortness of breath. The patient left against medical advice yesterday. He did not report any headache, palpitation, cough, fevers chills. He denies any gastrointestinal or genitourinary symptoms. He does smoke marijuana. He denies tobacco smoking or alcohol abuse. In the ED, he was found to have stable vital signs. Blood pressure is slightly elevated. He is currently requiring 2 liters/minute supplemental oxygen via nasal cannula. Blood workup remarkable for leukocytosis of 13.4. There is hyponatremia 132 which is similar to prior. There is no lactic acidosis. CXR showed persistent region of retrocardiac left basilar opacity with suggestion of some associated volume loss in the left lung favoring at least a component of atelectasis and previously identified right middle lobe collapse. ED tx: oxygen, Levaquin 750 mg IV. Hospital course: 62-year-old gentleman with underlying ALS admitted on 07/29/2023 with increased shortness of breath and productive cough after recent COVID infection. CT chest showed complete atelectasis of left lower lobe and right middle lobe. The patient was started on empiric therapy for community-acquired pneumonia. Flexible bronchoscopy performed 08/02/2023 with clearance of thick tenacious mucus secretions obstructing right middle, right lower, and left lower lobes. Patient with prolonged recovery from anesthesia briefly requiring BiPAP support secondary to respiratory muscle weakness, titrated off back to room air. patient still somewhat sob and generalised weak need help with walking also - he was offered Pt eval and overnight monitering for respiratory status but patient decided to AMA -risks of leaving AMA discussed with him detail including worsening respiratory status including . patient understands ,aox3 ,able to repeat back. staff witnessed . also told if worsening respiratory status or any new symptoms -please get evaluated with nearest emergency room. will give po levaquin 750 ng daily for possible penumonia ,his bronch cultures still pending assessment and plan total time spent 50 min. Time Attestation Discharge coordination time: Greater than 30 minutes Quality: Safe Use of Opioids Does Pt have an Active Cancer Diagnosis on the Problem List?: No Quality: Stroke Does the patient have a stroke diagnosis?: No Physical Exam Vital Signs: Vital Signs: Last Vital Signs Temp 99.3 F 08/03/23 16:00 Pulse 90 08/03/23 16:00 Resp 29 H 08/03/23 16:00 BP 160/111 H 08/03/23 16:00 Pulse Ox 93 08/03/23 16:00 O2 Del Method Room Air 08/03/23 16:00 O2 Flow Rate 2 08/03/23 07:00 FiO2 21 08/03/23 08:06 Oxygen Flow Rate 2 07/29/23 17:32 BMI result Body Mass Index 18.3 limited due to AMA Appearance: Alert.? Oriented X3.? generalised weak. cvs: rrr, [id number] . res: air entry fair ,slightly diminshed ,no rales or wheezing abd: no rebound or guarding ,nt, bs present. ext pulses present , no cyanosis . neuro: axo3 , nonfocal. DS: Data Data Completed and Pending Labs on day of discharge: Preliminary micro results at discharge 08/02/23 13:02 Routine Culture - Preliminary Bronchial Washings No growth to date. Imaging Chest x-ray: Radiologist's impression: ITS Impressions Chest X-Ray 07/29/23 18:05 IMPRESSION: Unremarkable chest examination. Chest CTA 07/29/23 19:00 IMPRESSION: No evidence of pulmonary embolism. Complete left lower lobe consolidation and some atelectasis. Complete atelectasis of the right middle lobe. Mild airways disease in the right lower lobe. Question left hilar lymphadenopathy. VTE: negative Chest X-Ray 07/31/23 13:12 IMPRESSION: Persistent dense consolidation at the left lung base similar prior studies. Chest X-Ray 08/02/23 03:05 IMPRESSION: Persistent dense retrocardiac left basilar opacity suspicious for at least a component of atelectasis though superimposed consolidation cannot be excluded, without significant change from 07/31/2023. Persistent right middle lobe collapse also noted. Chest X-Ray 08/02/23 15:21 IMPRESSION: Persistent dense consolidation at the posterior left lower lobe. Complete atelectasis right middle lobe seen on CT of chest July 29, 2023 is not appreciated by frontal view plain film chest x-ray. Discharge Plan Discharge Anticipated Discharge Date/Time: 08/03/23 17:24 Patient Disposition: Left Against Medical Advice Discharge Diagnosis: pneumonia ,atelcatsis Referrals: Angelina Barone DO [Primary Care Provider] - 1 Week Discharge Medications: Continued trazodone 50 mg tablet 2 tab PO BEDTIME amlodipine 5 mg tablet 1 tab PO DAILY@0900 albuterol sulfate 90 mcg/actuation HFA aerosol inhaler 1 puff inhalation Q4H PRN (Reason: Shortness Of Breath) docusate sodium 100 mg Capsule 100 mg PO DAILY Qty: 30 0RF thiamine mononitrate (vit B1) 100 mg Tablet 100 mg PO DAILY Qty: 30 0RF Relyvrio 3-1 gram powder in packet 1 packet PO BID No Action sertraline 100 mg tablet 150 mg PO DAILY folic acid 1 mg tablet 1 mg PO DAILY@1800 Discharge Orders: Discharge Order (Routine); Ordered 08/03/23 Ordered By: Jacob Flowers Diet: Advance to usual diet Activity on Discharge: As tolerated Care Plan Goals: 62-year-old gentleman with underlying ALS admitted on 07/29/2023 with increased shortness of breath and productive cough after recent COVID infection. CT chest showed complete atelectasis of left lower lobe and right middle lobe. The patient was started on empiric therapy for community-acquired pneumonia. Flexible bronchoscopy performed 08/02/2023 with clearance of thick tenacious mucus secretions obstructing right middle, right lower, and left lower lobes. Patient with prolonged recovery from anesthesia briefly requiring BiPAP support secondary to respiratory muscle weakness, titrated off back to room air. patient still somewhat sob and generalised weak need help with walking also - he was offered Pt eval and overnight monitering for respiratory status but patient decided to AMA -risks of leaving AMA discussed with him detail including worsening respiratory status including . patient understands ,aox3 ,able to repeat back. staff witnessed . also told if worsening respiratory status or any new symptoms -please get evaluated with nearest emergency room. will give po levaquin 750 ng daily for possible penumonia ,his bronch cultures still pending assessment and plan total time spent 50 min Health Concerns: as above. Plan of Treatment: as above. Assessment: as above. Discharge Date/Time: 08/03/23 18:27
--- NOTE | 2023-08-05 13:06 | P.CDIM_ITS ---
PROVIDER RESPONSE TEXT: To clarify, the appropriate diagnosis supported by the clinical indicators: Pressure (decubitus) ulcer, deep tissue injury: right sacrum area QUERY TEXT: PHYSICIAN'S DOCUMENTATION REQUEST Date of Query: 08/03/2023 12:41 PM EST Patient Name: Ronny Quiñonez Admit Date: 07/30/2023 Dear Jacob Flowers, A review of the medical record indicates additional documentation may be needed. Please review below and update the documentation accordingly. Clinical Indicators: Per Nursing Pressure Injury Assessment 08/02/23: Deep tissue injury right sacrum, foam dressing, offload pressure Based on the above, could you please provide further information regarding the ulcer/wound: Pressure (decubitus) ulcer, deep tissue injury Please include the stage of the ulcer and specify the location and laterality of the ulcer/wound Traumatic wound Please specify the location and laterality of the ulcer/wound Non-healing surgical wound Please specify the location and laterality of the ulcer/wound Other (explain) Clinically unable to determine (explain) Thank you, Gloria Linda RN Use of terms such as suspected, likely, concern for, or probable (associated with a specific diagnosi s that is being evaluated, monitored, or treated as if it exists) are acceptable and can be coded in the inpatient se tting, when documented at the time of discharge. Please use your independent medical judgment in providing your response. THIS QUERY IS PART OF THE PERMANENT MEDICAL RECORD
== END 2023-08-03 18:27 | disposition left against medical advice (07) | DRG 871 ==
LOC: HO.ED 20:51 → HO.EDOVER 21:12 → HO.S3 21:25 → HO.ICU 08-02 14:51
PROVIDERS: Internal Medicine; Internal Medicine Pulmonary Disease; Physician Assistant; Physician Assistant Medical; Admitting Provider Student in an Organized Health Care Education/Training Program; Emergency Provider Emergency Medicine Emergency Medical Services; PCP Internal Medicine; Visit Provider Internal Medicine
PROC: 0BJ08ZZ Inspection of Tracheobronchial Tree, Via Natural or Artificial Opening Endoscopic (ICD-10-PCS; CPT 31622; principal; 2023-08-02 12:00)
DX: A41.9 Sepsis, unspecified organism (principal); J18.9 Pneumonia, unspecified organism; J96.01 Acute respiratory failure with hypoxia; E44.0 Moderate protein-calorie malnutrition; G12.21 Amyotrophic lateral sclerosis; Z68.1 Body mass index [BMI] 19.9 or less, adult; J98.11 Atelectasis; E88.A Wasting disease (syndrome) due to underlying condition; U09.9 Post COVID-19 condition, unspecified; F10.11 Alcohol abuse, in remission; L89.156 Pressure-induced deep tissue damage of sacral region; F41.9 Anxiety disorder, unspecified; Z20.822 Contact with and (suspected) exposure to COVID-19; Z79.899 Other long term (current) drug therapy
CPT/HCPCS: 0241U; 36415; 36600; 71045; 71046; 71275; 80048; 80053; 80307; 82040; 82803; 83605; 83690; 83735; 84100; 84145; 84484; 85025; 85027; 85610; 85730; 87040; 87070; 87102; 87106; 87116; 87147; 87205; 87206; 87389; 93005; 93306; 94640; 94660; 99285; J0171; J0330; J0456; J0696; J1100; J1644; J1650; J1956; J2250; J2270; J2543; J2598; J2704; J2930; Q9957; Q9967

== ENCOUNTER → 2023-07-29 17:18 | Outpatient (BNV) | payer MEDICARE, MEDICAID, SELFPAY | PROVIDERS: Admitting Provider Student in an Organized Health Care Education/Training Program; Emergency Provider Emergency Medicine Emergency Medical Services; Visit Provider Internal Medicine | DX: R52 Pain, unspecified (principal) | CPT/HCPCS: 93010 ==

== ENCOUNTER 2023-07-29 20:54 | Outpatient (BNV) | payer MEDICARE, MEDICAID, SELFPAY | END 2023-08-01 07:00 | PROVIDERS: Admitting Provider Student in an Organized Health Care Education/Training Program; Emergency Provider Emergency Medicine Emergency Medical Services; PCP Internal Medicine; Visit Provider Internal Medicine Cardiovascular Disease | DX: I34.0 Nonrheumatic mitral (valve) insufficiency (principal) | CPT/HCPCS: 93306 ==

== ENCOUNTER → 2023-07-29 20:54 | Outpatient (BNV) | payer MEDICARE, MEDICAID, SELFPAY | PROVIDERS: Admitting Provider Student in an Organized Health Care Education/Training Program; Emergency Provider Emergency Medicine Emergency Medical Services; Visit Provider Internal Medicine Pulmonary Disease | DX: J98.11 Atelectasis (principal) | CPT/HCPCS: 31645; 99222; 99232 ==

== ENCOUNTER → 2023-07-29 20:54 | Outpatient (BNV) | payer MEDICARE, MEDICAID, SELFPAY | PROVIDERS: Admitting Provider Student in an Organized Health Care Education/Training Program; Emergency Provider Emergency Medicine Emergency Medical Services; Visit Provider Student in an Organized Health Care Education/Training Program | DX: A41.9 Sepsis, unspecified organism (principal); J96.01 Acute respiratory failure with hypoxia; J18.9 Pneumonia, unspecified organism; E44.0 Moderate protein-calorie malnutrition; D72.829 Elevated white blood cell count, unspecified | CPT/HCPCS: 99223; 99232; 99233; 99239; 99499 ==

== ENCOUNTER 2023-08-04 01:32 | Inpatient (IN) | payer MEDICARE, MEDICAID, SELFPAY ==
[2023-08-04] VITALS (15 sets, daily range): BP systolic 129–143; BP diastolic 78–99; PULSE 79–93; RESP 14–26; TEMP 36.1–37; O2SAT 93–99; BMI 15.8; BMI 14.5
--- NOTE | ~2023-08-04 | XR_ITS ---
EXAMINATION: XR CHEST CLINICAL INFORMATION: Shortness of breath COMPARISON: 08/02/2023 TECHNIQUE: Frontal view of the chest was obtained. FINDINGS: There is a persistent region of retrocardiac left basilar opacity with suggestion of some associated volume loss in the left lung. Appearance is similar to prior. There may be persistent right middle lobe collapse as identified on prior CT, though this is not as well demonstrated radiographically. No evidence of pneumothorax, pleural effusion, or pulmonary edema. The cardiomediastinal contour is unremarkable. No acute osseous findings are seen. XR/XR chest 1V IMPRESSION: Persistent region of retrocardiac left basilar opacity with suggestion of some associated volume loss in the left lung favoring at least a component of atelectasis. Previously identified right middle lobe collapse is not as well demonstrated radiographically. Overall appearance is similar to 08/02/2023.
--- NOTE | 2023-08-04 01:54 | ECG_ITS ---
Test Reason : SHORTNESS OF BREATH Blood Pressure : / mmHG Vent. Rate : 085 BPM Atrial Rate : 085 BPM P-R Int : 136 ms QRS Dur : 078 ms QT Int : 388 ms P-R-T Axes : 000 056 036 degrees QTc Int : 461 ms Artifact Sinus rhythm with Premature atrial complexes Minimal voltage criteria for LVH, may be normal variant ( Sokolow-Jama ) Borderline ECG When compared with ECG of 29-JUL-2023 17:24, Premature atrial complexes are now Present Referred By: Camilla Hernandez Electronically Signed By:Robe Gracia
[2023-08-04 02:34] LABS: Basophils Percent Auto 0.1 % (0-2); Eosinophils Percent Auto 0.1 % (0-4); Hematocrit 43.8 % (42.0-52.0); Hemoglobin 15.2 g/dl (14.0-18.0); Imm Gran Abs Auto 0.06 X10*3/uL (0.00-0.03); Imm Gran Pct Auto 0.4 % (0.0-0.4); Lymphocytes Absolute Auto 1.1 X10*3/uL (1.2-4.9); Lymphocytes Percent Auto 8.3 % (20-40); MANUAL DIFF FLAG NO; Mean Corpuscular HGB Conc 34.7 g/dl (31.0-36.0); Mean Corpuscular Hemoglobin 28.9 pg (27.0-33.0); Mean Corpuscular Volume 83.3 fL (80.0-98.0); Mean Platelet Volume 7.8 fL (9.4-12.4); Monocytes Absolute Auto 0.7 X10*3/uL (0.1-1.2); Monocytes Percent Auto 5.4 % (2-11); Neutrophils Absolute Auto 11.5 x10*3/uL (2.0-8.3); Neutrophils Percent Auto 85.7 % (45-73); Platelet Count 352 X10*3/uL (160-400); Red Blood Count 5.26 X10*6/uL (4.60-5.80); Red Cell Distribution Width 12.7 % (11.0-16.0); White Blood Count 13.4 X10*3/uL (4.8-10.8)
--- NOTE | 2023-08-04 02:38 | ED_ITS ---
HPI - SOB/Dyspnea General Chief Complaint: Upper Respiratory Symptoms Stated Complaint: SOB Time Seen by Provider: 08/04/23 01:54 Source: patient Mode of arrival: EMS History of Present Illness HPI Narrative: 62-year-old male with known ALS, who signed himself out against medical advice today with known pneumonia and now presents via EMS with worsening shortness of breath, EMS found patient at 88% on room air but reports that patient was very responsive to 3 L via nasal cannula. Patient states that it was a bad decision on his part. Related Data Home Medications Medication Instructions Recorded Confirmed albuterol sulfate 90 mcg/actuation 1 puff inhalation Q4H PRN 08/18/22 07/29/23 aerosol inhaler Shortness Of Breath amlodipine 5 mg tablet 1 tab PO BEDTIME 08/18/22 07/29/23 sertraline 50 mg tablet 1 tab PO DAILY 08/18/22 07/29/23 trazodone 50 mg tablet 1 tab PO BEDTIME 08/18/22 07/29/23 sodium phenylbutyrate 3 1 packet PO BID 07/29/23 07/29/23 gram-taurursodiol 1 gram oral powder packet (Relyvrio) Previous Rx's Medication Instructions Recorded docusate sodium 100 mg capsule 100 mg PO DAILY #30 caps 08/20/22 folic acid 1 mg tablet 1 mg PO DAILY #30 tabs 08/20/22 thiamine mononitrate (vit B1) 100 100 mg PO DAILY #30 tabs 08/20/22 mg tablet levofloxacin 750 mg tablet 750 mg PO DAILY #10 tabs 08/03/23 Allergies Allergy/AdvReac Type Severity Reaction Status Date / Time No Known Allergies Allergy Verified 08/04/23 01:51 Review of Systems 2 Review of Systems: Pertinent positives and negatives as stated in HPI PMFSH Past Medical History Source: nursing notes reviewed Medical History ALS (amyotrophic lateral sclerosis) Social History Social History Household Members: None Housing: House Do you presently have visiting nurse or other home services: Yes Alcohol intake: never Comment: rings appropriately Patient Tobacco Use Status: Never used Tobacco Smoked in Last 30 Days: No e-Cigarette/Vaping Use: Never Used Substance Use Type: Marijuana Any prior treatment program specific to substance use: No Advance Directives: Yes Advance Directives on File: Yes Advance Directives Date on File: 07/29/23 service: No Current occupational status: disabled Physical Exam 2 Vital Signs: Vital Signs: Last Vital Signs Temp 97.5 F 08/04/23 02:14 Pulse 83 08/04/23 02:14 Resp 20 08/04/23 02:14 BP 139/94 H 08/04/23 02:14 Pulse Ox 94 08/04/23 02:48 O2 Del Method Nasal Cannula 08/04/23 02:48 O2 Flow Rate 3 08/04/23 02:14 Oxygen Flow Rate 3 08/04/23 02:48 BMI result Body Mass Index 15.8 VITAL SIGNS: Reviewed. GENERAL: Cachectic, in no acute distress. HEAD: Normocephalic/atraumatic EYES: PERRLA, EOMI EARS: Ext canals without abnormality NOSE: Nares patent bilateral OROPHARYNX: no oral lesions noted, posterior pharynx clear NECK: Supple, no adenopathy LUNGS: Good inspiratory effort, coarse rhonchi throughout, mild tachypnea. SpO2<96> CARDIOVASCULAR: Regular rate and rhythm without noted murmurs ABDOMEN: Soft, non-tender, non-distended with bowel sounds. MUSCULOSKELETAL: No tenderness, deformities, or effusions noted on gross inspection. EXTREMITIES: No cyanosis, clubbing or edema. SKIN: Inspection of the skin reveals no rashes NEUROLOGIC: Alert and oriented x 4. Strength and sensation to light touch were grossly intact x 4. Medical Decision Making Medical Decision Making MDM Narrative: 62-year-old male with history and clinical presentation consistent with known ALS and by basilar atelectasis, initially had a course within the ICU and had recently been transferred to the floor and transitioned onto Levaquin but patient states that he became frustrated and wanted to go home and decided to sign out against medical advice. He is oxygenating well on supplemental nasal cannula. Reviewed all investigations and hematologic indices are consistent with a leukocytosis/left shift otherwise, no anemia or thrombocytopenia. Coagulation studies are within normal limits. VBG does not demonstrate a respiratory acidosis, there is subtle hypercapnia -49. Chemistry indices demonstrate a stable mild hyponatremia and hypokalemia and otherwise no evidence of NILA. Patient has received antibiotics in his this time does not qualify for sepsis fluid bolus. I have already discussed this patient with the inpatient hospitalist who accepts readmission. Differential Diagnosis Differential Diagnoses: The differential diagnosis associated with the presentation includes Please see the discussion above Admission/Observation Consideration of admission/observation: Escalation of care including admission/observation considered Please see the discussion above Consult Healthcare Provider Management of the patient was discussed with: Hospitalist Please see the discussion above Lab Data MDM Lab Attestation statement: I reviewed the patient's lab results. Please see the discussion above 08/04/23 02:25 08/04/23 02:25 Labs: Lab Results 08/04/23 Range/Units 02:25 WBC 13.4 H (4.8-10.8) X10*3/uL RBC 5.26 (4.60-5.80) X10*6/uL Hgb 15.2 (14.0-18.0) g/dl Hct 43.8 (42.0-52.0) % MCV 83.3 (80.0-98.0) fL MCH 28.9 (27.0-33.0) pg MCHC 34.7 (31.0-36.0) g/dl RDW 12.7 (11.0-16.0) % Plt Count 352 (160-400) X10*3/uL MPV 7.8 L (9.4-12.4) fL Immature Gran % (Auto) 0.4 (0.0-0.4) % Neut % (Auto) 85.7 H (45-73) % Lymph % (Auto) 8.3 L (20-40) % [place] % (Auto) 5.4 (2-11) % Eos % (Auto) 0.1 (0-4) % Baso % (Auto) 0.1 (0-2) % Lymph # (Auto) 1.1 L (1.2-4.9) X10*3/uL [place] # (Auto) 0.7 (0.1-1.2) X10*3/uL Eos # (Auto) 0.0 (0.0-0.4) X10*3/uL Baso # (Auto) 0.0 (0.0-0.2) X10*3/uL Abs Immat Gran (auto) 0.06 H (0.00-0.03) X10*3/uL Absolute Neuts (auto) 11.5 H (2.0-8.3) x10*3/uL Absolute Nucleated RBC 0.000 (0.0-0.012) X10*3/uL Nucleated RBC % (auto) 0.0 (0.0-0.2) /100WBC PT 13.0 (11.1-13.3) SEC INR 1.1 (0.9-1.1) Sodium 132 L (135-145) mmol/L Potassium 4.0 (3.3-5.1) mmol/L Chloride 91 L (96-108) mmol/L Carbon Dioxide 30 H (22-29) mmol/L Anion Gap 15 (12-20) BUN 18 H (9-16) mg/dL Creatinine 0.54 (0.5-1.4) mg/dL Estim Creat Clear Calc 98.3 Estimated GFR > 60 Random Glucose 116 H (60-115) mg/dL Lactic Acid 0.8 (0.5-2.0) mmol/L Calcium 9.6 (8.4-10.2) mg/dL Total Bilirubin 0.5 (0.0-1.0) mg/dL AST 21 (5-37) U/L ALT 26 (0-40) U/L Alkaline Phosphatase 82 (39-117) U/L Total Protein 6.5 (6.5-8.0) g/dL Albumin 3.6 (3.5-5.0) g/dL Ethyl Alcohol < 10 mg/dL Independent Interpretation I performed an independent interpretation of an: EKG Interpretation: Sinus rhythm with PACs, HR-85, no STEMI, [place]/QRS/QTC is within normal limits. Radiology Impression Discussion of test interpretation with radiology: I have reviewed the radiologist's reading. External Record Review External record reviewed: Inpatient record, Outpatient record, Prior outpatient labs and Prior outpatient radiology Chronic Conditions Patient?s care impacted by: Other ALS Critical Care Time Critical Care Time Critical Care Time: Yes Total Critical Care Time: 45 Attestation: I personally attest to this time spent taking care of the patient. Discharge Plan Discharge Clinical Impression: Acute hypoxic respiratory failure, Pneumonia Patient Disposition: Admitted As Inpatient
[2023-08-04 02:39] LABS: INTERNATIONAL NORM RATIO 1.1 (0.9-1.1)
[2023-08-04 02:44] LABS: Lactic Acid 0.8 mmol/L (0.5-2.0)
[2023-08-04 02:50] LABS: Alanine Aminotransferase 26 U/L (0-40); Albumin Level 3.6 g/dL (3.5-5.0); Alkaline Phosphatase 82 U/L (39-117); Anion Gap 15 (12-20); Aspartate Amino Transferase 21 U/L (5-37); Bilirubin Total 0.5 mg/dL (0.0-1.0); Blood Urea Nitrogen 18 mg/dL (9-16); Calcium 9.6 mg/dL (8.4-10.2); Carbon Dioxide 30 mmol/L (22-29); Chloride 91 mmol/L (96-108); Creatinine Clr Calc Pharmacy 98.3; Estimated Glomerular Filt Rate > 60; Ethanol < 10 mg/dL; Glucose Random 116 mg/dL (60-115); Sodium 132 mmol/L (135-145); Total Protein 6.5 g/dL (6.5-8.0)
[2023-08-04] MEDS: levoFLOXacin/D5W 750 MG/150 ML PIGGYBACK 100 MG IV (04:09)
[2023-08-04] MEDS: Heparin Sodium,Porcine 5,000 UNIT/ML VIAL 5000 UNIT SUBCUT ×3 (05:21→21:25)
[2023-08-04] MEDS: Morphine Sulfate 2 MG/ML CARTRIDGE IVPUSH (05:21)
--- NOTE | 2023-08-04 05:27 | P.HPHOSP_ITS ---
History of Present Illness Date of Service: 08/04/23 Attending physician on admission: Fatou Sood Chief Complaint: Shortness of breaths Ronny Quiñonez is a 62 years old man with past medical history significant for ALS and recent hospitalization due to pneumonia + atelectasis requiring bronchoscopy presents to the emergency department complaining of shortness of breath. The patient left against medical advice yesterday. He did not report any headache, palpitation, cough, fevers chills. He denies any gastrointestinal or genitourinary symptoms. He does smoke marijuana. He denies tobacco smoking or alcohol abuse. In the ED, he was found to have stable vital signs. Blood pressure is slightly elevated. He is currently requiring 2 liters/minute supplemental oxygen via nasal cannula. Blood workup remarkable for leukocytosis of 13.4. There is hyponatremia 132 which is similar to prior. There is no lactic acidosis. CXR showed persistent region of retrocardiac left basilar opacity with suggestion of some associated volume loss in the left lung favoring at least a component of atelectasis and previously identified right middle lobe collapse. ED tx: oxygen, Levaquin 750 mg IV. Review of Systems 2 Review of Systems: All 12 systems were reviewed and normal except as noted in HPI. [facility] Medical History ALS (amyotrophic lateral sclerosis) Social History Household Members: None Housing: House Do you presently have visiting nurse or other home services: Yes Alcohol intake: never Comment: rings appropriately Patient Tobacco Use Status: Never used Tobacco Smoked in Last 30 Days: No e-Cigarette/Vaping Use: Never Used Substance Use Type: Marijuana Any prior treatment program specific to substance use: No Advance Directives: Yes Advance Directives on File: Yes Advance Directives Date on File: 07/29/23 service: No Current occupational status: disabled Meds Allergies Allergy/AdvReac Type Severity Reaction Status Date / Time No Known Allergies Allergy Verified 08/04/23 01:51 Active Medications: Current Medications Heparin Sodium (Porcine) (Heparin Sodium,Porcine 5,000 Unit/Ml Vial) 5,000 unit SUBCUT Q8H [facility]SUF Last Admin: 08/04/23 05:21 Dose: 5,000 unit Levofloxacin (Levaquin) 750 mg in 150 mls @ 100 mls/hr IV Q24H [facility] Sodium Chloride (0.9 % Sodium Chloride Flush 3 Ml Syringe) 3 ml IVFLUSH QSHIFT [facility] Home Medications Medication Instructions Recorded Confirmed Last Taken Type albuterol sulfate 90 mcg/actuation 1 puff inhalation Q4H PRN 08/18/22 07/29/23 07/29/23 History aerosol inhaler Shortness Of Breath amlodipine 5 mg tablet 1 tab PO BEDTIME 08/18/22 07/29/23 07/29/23 History sertraline 50 mg tablet 1 tab PO DAILY 08/18/22 07/29/23 07/29/23 History trazodone 50 mg tablet 1 tab PO BEDTIME 08/18/22 07/29/23 07/29/23 History sodium phenylbutyrate 3 1 packet PO BID 07/29/23 07/29/23 Unknown History gram-taurursodiol 1 gram oral powder packet (Relyvrio) Physical Exam 2 Vital Signs and Narrative: Vital Signs: Last Vital Signs Temp 97.6 F 08/04/23 05:16 Pulse 82 08/04/23 05:16 Resp 20 08/04/23 05:16 BP 140/90 H 08/04/23 05:16 Pulse Ox 97 08/04/23 05:16 O2 Del Method Room Air, Nasal C annula 08/04/23 05:16 O2 Flow Rate 3 08/04/23 05:16 Oxygen Flow Rate 3 08/04/23 02:48 BMI result Body Mass Index 15.8 Constitutional - Awake and Alert, No apparent distress. Cachectic. HEENT - Atraumatic. Normocephalic. Nasal cannula in place Heart - normal rate. Normal rhythm. No murmur. Respiratory - Decreased respiratory effort, No respiratory distress, tachypneic. Decreased breath sound bilaterally Gastrointestinal - NT / ND; +BS; No rebound or guarding Extremities - no calf tenderness bilaterally, no swelling Musculoskeletal - Normal inspection, normal ROM Skin - Warm/Dry Neurological - Alert & oriented x3. Psychological - Appropriate affect Results Labs 08/04/23 02:25 08/04/23 02:25 Labs: Laboratory Results - last 24 hr 08/04/23 02:25 MCV 83.3 MCH 28.9 MCHC 34.7 RDW 12.7 Plt Count 352 MPV 7.8 L Immature Gran % (Auto) 0.4 Neut % (Auto) 85.7 H Lymph % (Auto) 8.3 L [place] % (Auto) 5.4 Eos % (Auto) 0.1 Baso % (Auto) 0.1 Lymph # (Auto) 1.1 L [place] # (Auto) 0.7 Eos # (Auto) 0.0 Baso # (Auto) 0.0 Abs Immat Gran (auto) 0.06 H Absolute Neuts (auto) 11.5 H Absolute Nucleated RBC 0.000 Nucleated RBC % (auto) 0.0 PT 13.0 INR 1.1 Anion Gap 15 Estim Creat Clear Calc 98.3 Estimated GFR > 60 Random Glucose 116 H Lactic Acid 0.8 Calcium 9.6 Total Bilirubin 0.5 AST 21 ALT 26 Alkaline Phosphatase 82 Total Protein 6.5 Albumin 3.6 Ethyl Alcohol < 10 Imaging Radiologist's Impressions: Impressions Chest X-Ray 08/04/23 03:04 IMPRESSION: Persistent region of retrocardiac left basilar opacity with suggestion of some associated volume loss in the left lung favoring at least a component of atelectasis. Previously identified right middle lobe collapse is not as well demonstrated radiographically. Overall appearance is similar to 08/02/2023. Assessment and Plan (1) Pneumonia: Status: Acute (2) Acute hypoxic respiratory failure: Status: Acute Plan Ronny Quiñonez is a 62 years old man with past medical history significant for ALS (followed by [facility], trial med): * Hypoxic respiratory failure secondary to possible pneumonia and/atelectasis/lung collapse. Admit to hospitalist service. Telemetry. Pulse oximetry. Continue supplemental oxygen via nasal cannula to keep oxygen saturation above 90%. Continue IV antibiotic therapy with Levaquin. Chest physiotherapy. Bronchodilator therapy as needed. * Hypertension. Continue amlodipine. * Moderate protein calorie malnutrition. Ensure. * Hypophosphatemia. Replete as needed. * Anxiety and depression. Ativan as needed. Continue trazodone and sertraline DVT prophylaxis: heparin subcut Code status: Full. Patient needs hospitalization for at least 2 midnights for acute respiratory failure/possible pneumonia/atelectasis treatment in the setting of underlying ALS. Patient will require supplemental oxygen, steroids IV antibiotics, bronchodilator therapy and chest physiotherapy. Quality Stroke Does the patient have a stroke diagnosis?: No VTE Prior VTE?: No VTE Risk Level:: Medical - moderate - high VTE Device Contraindication: N/A - Device Ordered VTE Drug Contraindication: N/A - Med Ordered
[2023-08-04 05:48] LABS: Phosphorus 2.5 mg/dL (2.7-4.5)
[2023-08-04] MEDS: LORazepam 0.5 MG TABLET PO (06:51)
[2023-08-04] MEDS: 0.9 % Sodium Chloride Flush 3 ML SYRINGE IVFLUSH ×3 (07:33→21:42)
[2023-08-04] MEDS: amLODIPine Besylate 5 MG TABLET PO (07:33)
[2023-08-04] MEDS: Folic Acid 1 MG TABLET PO (07:34)
--- NOTE | 2023-08-04 07:42 | PC.NURSE ---
Pt is a&ox4, respirations even and unlabored. skin pwd on 2lt nc. Pt denies pain. Reports taking more medications in the am, pharmacy called to review medications with pt.
[2023-08-04] MEDS: Albuterol/Iprat 2.5/0.5MG 3 ML AMPUL.NEB INHALE ×3 (07:51→19:25)
--- NOTE | 2023-08-04 08:39 | PHA.MEDREC ---
Pharmacy Consult ? Medication Reconciliation Pharmacy has completed the medication reconciliation. Spoke to patient and confirmed medication list. He takes 150 mg of sertraline daily and 100 mg of trazodone at night.
--- NOTE | 2023-08-04 08:47 | PM.DS ---
DS: Providers Provider Date of Service: 08/03/23 Date of admission: 08/04/23 04:38 Date of discharge: 08/03/23 Primary care physician: Angelina Javed DO Attending physician on discharge: Jacob Flowers Discharging clinician: Jacob Flowers DS: Diagnosis Discharge Diagnosis (1) Pneumonia: Status: Acute (2) Acute hypoxic respiratory failure: Status: Acute DS: Summary Hospital Course Hospital Course: 62 years old man with past medical history significant for ALS and recent hospitalization due to pneumonia + atelectasis requiring bronchoscopy presents to the emergency department complaining of shortness of breath. The patient left against medical advice yesterday. He did not report any headache, palpitation, cough, fevers chills. He denies any gastrointestinal or genitourinary symptoms. He does smoke marijuana. He denies tobacco smoking or alcohol abuse. In the ED, he was found to have stable vital signs. Blood pressure is slightly elevated. He is currently requiring 2 liters/minute supplemental oxygen via nasal cannula. Blood workup remarkable for leukocytosis of 13.4. There is hyponatremia 132 which is similar to prior. There is no lactic acidosis. CXR showed persistent region of retrocardiac left basilar opacity with suggestion of some associated volume loss in the left lung favoring at least a component of atelectasis and previously identified right middle lobe collapse. ED tx: oxygen, Levaquin 750 mg IV. Hospital course: Physical Exam Vital Signs: Vital Signs: Last Vital Signs Temp 98.2 F 08/04/23 07:35 Pulse 93 08/04/23 07:51 Resp 17 08/04/23 07:51 BP 133/89 08/04/23 07:35 Pulse Ox 98 08/04/23 07:51 O2 Del Method Nasal Cannula 08/04/23 07:35 O2 Flow Rate 2 08/04/23 07:35 Oxygen Flow Rate 3 08/04/23 02:48 BMI result Body Mass Index 15.8 DS: Data Data Completed and Pending Labs on day of discharge: Laboratory Results - last 24 hr 08/04/23 02:25 WBC 13.4 H RBC 5.26 Hgb 15.2 Hct 43.8 MCV 83.3 MCH 28.9 MCHC 34.7 RDW 12.7 Plt Count 352 MPV 7.8 L Immature Gran % (Auto) 0.4 Neut % (Auto) 85.7 H Lymph % (Auto) 8.3 L [place] % (Auto) 5.4 Eos % (Auto) 0.1 Baso % (Auto) 0.1 Lymph # (Auto) 1.1 L [place] # (Auto) 0.7 Eos # (Auto) 0.0 Baso # (Auto) 0.0 Abs Immat Gran (auto) 0.06 H Absolute Neuts (auto) 11.5 H Absolute Nucleated RBC 0.000 Nucleated RBC % (auto) 0.0 PT 13.0 INR 1.1 Sodium 132 L Potassium 4.0 Chloride 91 L Carbon Dioxide 30 H Anion Gap 15 BUN 18 H Creatinine 0.54 Estim Creat Clear Calc 98.3 Estimated GFR > 60 Random Glucose 116 H Lactic Acid 0.8 Calcium 9.6 Phosphorus 2.5 L Total Bilirubin 0.5 AST 21 ALT 26 Alkaline Phosphatase 82 Total Protein 6.5 Albumin 3.6 Ethyl Alcohol < 10 Discharge Plan Discharge Referrals: Angelina Barone DO [Primary Care Provider] - 1 Week Discharge Medications: No Action sertraline 100 mg tablet 150 mg PO DAILY trazodone 50 mg tablet 2 tab PO BEDTIME amlodipine 5 mg tablet 1 tab PO DAILY@0900 albuterol sulfate 90 mcg/actuation HFA aerosol inhaler 1 puff inhalation Q4H PRN (Reason: Shortness Of Breath) docusate sodium 100 mg Capsule 100 mg PO DAILY Qty: 30 0RF thiamine mononitrate (vit B1) 100 mg Tablet 100 mg PO DAILY Qty: 30 0RF Relyvrio 3-1 gram powder in packet 1 packet PO BID folic acid 1 mg tablet 1 mg PO DAILY@1800
[2023-08-04] MEDS: Sertraline HCL 50 MG TABLET 150 MG PO (09:00)
[2023-08-04] MEDS: Thiamine HCL 100 MG TABLET PO (09:46)
[2023-08-04] MEDS: Docusate Sodium 100 MG CAPSULE PO (09:46)
--- NOTE | 2023-08-04 10:06 | MHC.CM.PN ---
IMM 08/04. Pt left AMA yesterday. Pt lives at home with his , self-care, uses a cane and walker. Returning home is the goal, likely with new VNA ([facility]). Pts or son will transport him home. HCP completed with pt, now on file. PCP: Dr. Angelina Javed
[2023-08-04] MEDS: LORazepam 1 MG TABLET PO (12:49)
--- NOTE | 2023-08-04 15:04 | HO.WOUND ---
Wound Consult: Initial 62yr old M? admitted to [facility] [place] on 08/04 - See progress notes and H&P for detailed history.? Patient noted to have left AMA yesterday - was seen by this writter on 08/02/23. Wound consult placed for sacral wound.? Patient agreeable to assessment and photo documentation.? Pt states he has a some breakdown to his sacrum in the past - he states its skin on bone . He reports he does use a waffle cushion at home when up to chair. Right Sacrum Etiology: Deep Tissue Injury Wound Bed: dark maroon nonblanchable tissue - intact tissue Drainage / Odor: None Edges: ? irregular Danielle wound: ?Hyperpigmented tissue - No Induration, Fluctuance or Warmth noted Pain: reports baseline tenderness Goals of Treatment: ? Off Load Pressure - protect from friction and moisture - foam application Recommendations: 1. Turn and Reposition every 2 hours and as needed for patient comfort.? Use pillows or wedges to support off loading positions. 2. Off Load all bony prominences with use of pillows and heel boots if needed.? Apply Preventative foams where needed. ? 3. Monitor for incontinence and moisture control, use barrier creams when needed for prevention and treatment. 4. Provide adequate and supplemental nutrition.? Nutrition following. 5. Order low air loss mattress. 6. Sacrum - Off Load pressure - Cleanse with routine cleansing - apply sacral foam dressing - peel back and assess Q shift change every 3 days and PRN. Re-consult wound care Nurse for wound deterioration or wound changes.
--- NOTE | 2023-08-04 15:22 | P.PNIM_ITS ---
Subjective Subjective Date of Service: 08/04/23 Interval History: hypoxia,atelactasis Review of Systems Patient still short of breath with minimal exertion Denies any chest pain or nausea or vomiting or abdominal pain. Physical Exam 2 Vital Signs: Vital Signs: Last Vital Signs Temp 98.1 F 08/04/23 12:00 Pulse 89 08/04/23 12:00 Resp 20 08/04/23 12:00 BP 129/86 08/04/23 12:00 Pulse Ox 97 08/04/23 12:00 O2 Del Method Nasal Cannula 08/04/23 12:00 O2 Flow Rate 1 08/04/23 12:00 Oxygen Flow Rate 3 08/04/23 02:48 BMI result Body Mass Index 15.8 Appearance: Alert.? Oriented X3.? . cvs: rrr, [id number] , no murmur res: air entry seems diminshed ,few rhonchii scattered . abd: no rebound or guarding ,nt, bs present. ext pulses present , no cyanosis . neuro: axo3 , nonfocal. Objective Data Active Medications Albuterol/Ipratropium (Albuterol/Iprat 2.5/0.5mg 3 Ml Ampul.Neb) 3 ml INHALE RQ4H WHILE AWAKE PRN PRN Reason: Shortness of Breath/Wheezing Last Admin: 08/04/23 07:51 Dose: 3 ml Documented By: AYLEEN Albuterol/Ipratropium (Albuterol/Iprat 2.5/0.5mg 3 Ml Ampul.Neb) 3 ml INHALE RQ4H WHILE AWAKE [facility] Last Admin: 08/04/23 15:04 Dose: Not Given Documented By: AYLEEN Non-Admin Reason: Patient Asleep Amlodipine Besylate (Amlodipine Besylate 5 Mg Tablet) 5 mg PO DAILY [facility]; Protocol Last Admin: 08/04/23 07:33 Dose: 5 mg Documented By: LA Docusate Sodium (Docusate Sodium 100 Mg Capsule) 100 mg PO DAILY [facility] Last Admin: 08/04/23 09:46 Dose: 100 mg Documented By: LA Folic Acid (Folic Acid 1 Mg Tablet) 1 mg PO DAILY@1800 [facility] Heparin Sodium (Porcine) (Heparin Sodium,Porcine 5,000 Unit/Ml Vial) 5,000 unit SUBCUT Q8H [facility] Last Admin: 08/04/23 12:49 Dose: 5,000 unit Documented By: LA Levofloxacin (Levaquin) 750 mg in 150 mls @ 100 mls/hr IV Q24H [facility] Lorazepam (Lorazepam 1 Mg Tablet) 1 mg PO Q8H PRN PRN Reason: Anxiety Last Admin: 08/04/23 12:49 Dose: 1 mg Documented By: LA Non-Formulary Medication (Sod Phenylbutyrat-Taurursodiol [Relyvrio]) 1 packet PO BID [facility] Sertraline HCl (Sertraline Hcl 50 Mg Tablet) 150 mg PO DAILY [facility] Last Admin: 08/04/23 09:00 Dose: 150 mg Documented By: LA Sodium Chloride (0.9 % Sodium Chloride Flush 3 Ml Syringe) 3 ml IVFLUSH QSHIFT [facility] Last Admin: 08/04/23 07:33 Dose: 3 ml Documented By: LA Thiamine HCl (Thiamine Hcl 100 Mg Tablet) 100 mg PO DAILY [facility] Last Admin: 08/04/23 09:46 Dose: 100 mg Documented By: LA Trazodone HCl (Trazodone Hcl 50 Mg Tablet) 50 mg PO BEDTIME PRN PRN Reason: Insomnia Labs 08/04/23 02:25 08/04/23 02:25 Labs: Laboratory Results - last 24 hr 08/04/23 02:25 MCV 83.3 MCH 28.9 MCHC 34.7 RDW 12.7 Plt Count 352 MPV 7.8 L Immature Gran % (Auto) 0.4 Neut % (Auto) 85.7 H Lymph % (Auto) 8.3 L [place] % (Auto) 5.4 Eos % (Auto) 0.1 Baso % (Auto) 0.1 Lymph # (Auto) 1.1 L [place] # (Auto) 0.7 Eos # (Auto) 0.0 Baso # (Auto) 0.0 Abs Immat Gran (auto) 0.06 H Absolute Neuts (auto) 11.5 H Absolute Nucleated RBC 0.000 Nucleated RBC % (auto) 0.0 PT 13.0 INR 1.1 Anion Gap 15 Estim Creat Clear Calc 98.3 Estimated GFR > 60 Random Glucose 116 H Lactic Acid 0.8 Calcium 9.6 Phosphorus 2.5 L Total Bilirubin 0.5 AST 21 ALT 26 Alkaline Phosphatase 82 Total Protein 6.5 Albumin 3.6 Ethyl Alcohol < 10 Imaging Chest x-ray: Radiologist's impression: Impressions Chest X-Ray 08/04/23 03:04 IMPRESSION: Persistent region of retrocardiac left basilar opacity with suggestion of some associated volume loss in the left lung favoring at least a component of atelectasis. Previously identified right middle lobe collapse is not as well demonstrated radiographically. Overall appearance is similar to 08/02/2023. Assessment and Plan (1) Pneumonia: Status: Acute (2) Acute hypoxic respiratory failure: Status: Acute Plan 62-year-old male with a PMH significant for?ALS and HTN who presents to the ED with?increasing shortness of breath.has cap and atelectasis: Sign-out yesterday against medical advice now came back with shortness of breath. Sepsis d/t CAp/atelactais , acute hypoxic resp failure--improving slowly, oxygenation is better now on 1 liters Bronchoscopy cultures pending. Chest x-ray seems similar to before, blood culture pending, leukocytosis improving, no fever plan:Bronchodilators PRN,Chest Physitherapy,Flutter valve, Levauquin today per Pulmonary , O2 and wean as carlos eduardo,cough med, Anxiety-Ativan PRN Chronic Medical Conditions: ALS--on trial medication with [id number], eIF2B activator that prevents and reverses the effects of neurodegeneration caused by the Integrated Stress Response. Ongoing discussion with the clinic to see if he needs to continue on the med HTN Continue home meds Moderate protein calorie malnutrition In the setting of reduced p.o. intake Will supplement with Ensure Full Code DVT Prophylaxis: Lovenox Ongoing hospialization d/t acute hypoxic resp failure to d/t PNA,atelactasis in ALS pt, requiring high amount of O2- need steriods ,antibiotics , chest physiotherapy, nebs, incentive spirometry. Quality Stroke Does the patient have a stroke diagnosis?: No VTE Prior VTE?: No VTE Risk Level:: Medical - moderate - high VTE Device Contraindication: N/A - Device Ordered VTE Drug Contraindication: N/A - Med Ordered
--- NOTE | 2023-08-04 19:18 | MHC.EDTECH ---
Supervised patient getting out of bed to stand for a several seconds and get back in bed independently.
[2023-08-05] VITALS (10 sets, daily range): BP systolic 116–139; BP diastolic 82–96; PULSE 72–95; RESP 16–20; TEMP 36.2–37.1; O2SAT 94–98; BMI 14.5
[2023-08-05] MEDS: LORazepam 1 MG TABLET PO ×3 (03:02→20:02)
[2023-08-05] MEDS: Heparin Sodium,Porcine 5,000 UNIT/ML VIAL 5000 UNIT SUBCUT ×3 (06:05→20:02)
[2023-08-05] MEDS: levoFLOXacin/D5W 750 MG/150 ML PIGGYBACK 100 MG IV (06:07)
[2023-08-05] MEDS: Sertraline HCL 50 MG TABLET 150 MG PO (07:47)
[2023-08-05] MEDS: Thiamine HCL 100 MG TABLET PO (07:47)
[2023-08-05] MEDS: Docusate Sodium 100 MG CAPSULE PO (07:47)
[2023-08-05] MEDS: amLODIPine Besylate 5 MG TABLET PO (07:47)
[2023-08-05] MEDS: 0.9 % Sodium Chloride Flush 3 ML SYRINGE IVFLUSH ×2 (07:47→15:38)
[2023-08-05] MEDS: Albuterol/Iprat 2.5/0.5MG 3 ML AMPUL.NEB INHALE ×3 (08:21→15:10)
--- NOTE | 2023-08-05 12:59 | P.PNIM_ITS ---
Subjective Subjective Date of Service: 08/05/23 Interval History: hypoxia,atelactasis Review of Systems sob seems similar seems anxious ,intermitetnt agiatated Physical Exam 2 Vital Signs: Vital Signs: Last Vital Signs Temp 98.5 F 08/05/23 12:00 Pulse 86 08/05/23 12:00 Resp 20 08/05/23 12:00 BP 139/96 H 08/05/23 12:00 Pulse Ox 96 08/05/23 12:00 O2 Del Method Nasal Cannula 08/05/23 12:00 O2 Flow Rate 97 08/05/23 12:00 Oxygen Flow Rate 3 08/04/23 02:48 BMI result Body Mass Index 14.5 Appearance: Alert.? Oriented X3.? cvs: rrr, [id number] , no murmur res: air entry seems diminshed ,few rhonchii scattered . abd: no rebound or guarding ,nt, bs present. ext pulses present , no cyanosis . neuro: axo3 , nonfocal. Objective Data Active Medications Albuterol/Ipratropium (Albuterol/Iprat 2.5/0.5mg 3 Ml Ampul.Neb) 3 ml INHALE RQ4H WHILE AWAKE PRN PRN Reason: Shortness of Breath/Wheezing Last Admin: 08/04/23 07:51 Dose: 3 ml Documented By: AYLEEN Albuterol/Ipratropium (Albuterol/Iprat 2.5/0.5mg 3 Ml Ampul.Neb) 3 ml INHALE RQ4H WHILE AWAKE [facility] Last Admin: 08/05/23 11:29 Dose: 3 ml Documented By: SAURAV Amlodipine Besylate (Amlodipine Besylate 5 Mg Tablet) 5 mg PO DAILY [facility]; Protocol Last Admin: 08/05/23 07:47 Dose: 5 mg Documented By: PANCHO Docusate Sodium (Docusate Sodium 100 Mg Capsule) 100 mg PO DAILY [facility] Last Admin: 08/05/23 07:47 Dose: 100 mg Documented By: PANCHO Folic Acid (Folic Acid 1 Mg Tablet) 1 mg PO DAILY@1800 [facility] Last Admin: 08/04/23 17:14 Dose: Not Given Documented By: LA Non-Admin Reason: Duplicate Order Comments: given this am Heparin Sodium (Porcine) (Heparin Sodium,Porcine 5,000 Unit/Ml Vial) 5,000 unit SUBCUT Q8H [facility] Last Admin: 08/05/23 12:44 Dose: 5,000 unit Documented By: PANCHO Levofloxacin (Levaquin) 750 mg in 150 mls @ 100 mls/hr IV Q24H [facility] Last Infusion: 08/05/23 07:37 Dose: Infused Documented By: PANCHO Lorazepam (Lorazepam 1 Mg Tablet) 1 mg PO Q8H PRN PRN Reason: Anxiety Last Admin: 08/05/23 10:59 Dose: 1 mg Documented By: PANCHO Non-Formulary Medication (Sod Phenylbutyrat-Taurursodiol [Relyvrio]) 1 packet PO BID [facility] Pt Own (Inv [id number] 100mg Or Placebo) 2 each PO DAILY [facility] Sertraline HCl (Sertraline Hcl 50 Mg Tablet) 150 mg PO DAILY [facility] Last Admin: 08/05/23 07:47 Dose: 150 mg Documented By: PANCHO Sodium Chloride (0.9 % Sodium Chloride Flush 3 Ml Syringe) 3 ml IVFLUSH QSHIFT [facility] Last Admin: 08/05/23 07:47 Dose: 3 ml Documented By: PANCHO Thiamine HCl (Thiamine Hcl 100 Mg Tablet) 100 mg PO DAILY [facility] Last Admin: 08/05/23 07:47 Dose: 100 mg Documented By: PANCHO Trazodone HCl (Trazodone Hcl 50 Mg Tablet) 50 mg PO BEDTIME PRN PRN Reason: Insomnia Labs 08/04/23 02:25 08/04/23 02:25 Microbiology Microbiology Results: Microbiology 08/04/23 02:25 Blood Culture - Preliminary Blood - Arterial Line No growth after 24 hours. 08/04/23 02:25 Blood Culture - Preliminary Blood - Arterial Line No growth after 24 hours. Assessment and Plan (1) Pneumonia: Status: Acute (2) Acute hypoxic respiratory failure: Status: Acute Plan 62-year-old male with a PMH significant for?ALS and HTN who presents to the ED with?increasing shortness of breath.has cap and atelectasis: Sign-out yesterday against medical advice now came back with shortness of breath. Sepsis d/t CAp/atelactais , acute hypoxic resp failure--improving slowly, oxygenation is better now on 1 liters Bronchoscopy cultures pending. Chest x-ray seems similar to before, blood culture pending, leukocytosis improving, no fever plan:Bronchodilators PRN,Chest Physitherapy,Flutter valve, Levauquin today per Pulmonary , O2 and wean as carlos eduardo,cough med, Anxiety-Ativan PRN continue sertraline psych eval added Chronic Medical Conditions: ALS--on trial medication with [id number], eIF2B activator that prevents and reverses the effects of neurodegeneration caused by the Integrated Stress Response. Ongoing discussion with the clinic to see if he needs to continue on the med HTN Continue home meds Moderate protein calorie malnutrition In the setting of reduced p.o. intake Will supplement with Ensure Full Code DVT Prophylaxis: Lovenox Ongoing hospialization d/t acute hypoxic resp failure to d/t PNA,atelactasis in ALS pt, requiring high amount of O2- need steriods ,antibiotics , chest physiotherapy, nebs, incentive spirometry. Quality Stroke Does the patient have a stroke diagnosis?: No VTE Prior VTE?: No VTE Risk Level:: Medical - moderate - high VTE Device Contraindication: N/A - Device Ordered VTE Drug Contraindication: N/A - Med Ordered
--- NOTE | 2023-08-05 13:04 | MHC.CM.PN ---
EMR REVIEWED, PT W/PNA, ARF AND W/ALS, PT REMAINS ON SUPPLEMENTAL O2, NO PLAN FOR DC AT THIS TIME, CM WILL CONT TO FOLLOW DC NEEDS.
--- NOTE | 2023-08-05 13:38 | MHC.CLN ---
RE: CONSULT PT IS MODERATELY MALNOURISHED PT WITH MODERATELY DEPLETED SUBCUTANEOUS FAT AND MUSCLE LOSS, BMI 14.5 WITH 22% SIGNIFICANT WT LOSS X1 YEAR PT WITH INCREASED NUTRITION RISK R/T PRESSURE INJURY DIET RX: CARDIAC -RECOMMEND LIBERALIZING TO REGULAR R/T POOR PO RECOMMEND ADDING MAGIC CUP TID AND ENSURE MAX TO INCREASE KCALS AND PROMOTE WOUND HEALING MONITOR PO INTAKE AND ENCOURAGE SUPPLEMENTS WEEKLY WEIGHTS SEE ALSO FULL CLINICAL NUTRITION ASSESSMENT
--- NOTE | 2023-08-05 15:03 | P.CNPS_ITS ---
History of Present Illness Date of Service: 08/05/23 Chief Complaint: Acute Respiratory Failure Reason for Consult: severe anxiety Requesting physician: Jacob Flowers Discussed with referring provider: Yes Sources of Information: patient interviewed and chart reviewed HPI Narrative: Ronny Quiñonez is a 62 years old man with past medical history significant for ALS and recent hospitalization due to pneumonia + atelectasis requiring bronchoscopy presents to the emergency department complaining of shortness of breath. Consult was placed to psychiatry for severe anxiety. During consult, son was present during assessment with patient's permission. Patient denies hx of mental illness until a year ago I got depressed and anxious after getting ALS; I used to be able to keep up with my son . He reports having panic attacks at least once a day for the past three months; he attributes this to when he realized he was becoming weaker . Pt does not have a outpatient psychiatrist or therapist; however he reports he would be interested in both. Patient reports daily marijuana use, smoking three grams daily; pt also reports taking mushrooms in a chocolate bar form, but has not taken any in a couple of months. Pt stated, I plan on cutting back on smoking weed but I'm going to do more shrooms. It helps with my anxiety . Pt was educated regarding risks of using substances. Patient reports he has been taking Zoloft for the past year from his PCP and finds it beneficial. Past Psychiatric History: denies Review of Systems Constitutional: Reports as per HPI Eyes: Reports as per HPI Reports as per HPI Cardiovascular: Reports as per HPI Respiratory: Reports as per HPI Gastrointestinal: Reports as per HPI Genitourinary: Reports as per HPI Musculoskeletal: Reports as per HPI Skin/Breast: Reports as per HPI Reports as per HPI Psychiatric: Reports as per HPI Endocrine: Reports as per HPI Hematologic/Lymphatic: Reports as per HPI Allergic/Immunologic: Reports as per HPI [facility] Medical History ALS (amyotrophic lateral sclerosis) Family History: denies Social History: Lives with his in their home. He reports his son helps him with everything . Was working up until a year ago. Substance History: Pt reports smoking 3grams of marijuana daily. Uses mushrooms, stopped couple months ago . Trauma History: denies Diagnostics Vital Signs (24Hr): Vital Signs - 24 hr 08/04/23 16:00 08/04/23 16:44 08/04/23 19:25 Temperature 98.2 F Pulse Rate 87 88 83 Respiratory Rate 26 H 22 H 19 Blood Pressure 143/85 H Pulse Oximetry 94 94 Oxygen Delivery Method Room Air Nasal Cannula Oxygen Flow Rate 1 08/04/23 19:55 08/04/23 23:13 08/05/23 03:20 Temperature 98.6 F 97.0 F 98.5 F Pulse Rate 85 79 72 Respiratory Rate 18 14 16 Blood Pressure 130/80 129/78 139/92 H Pulse Oximetry 97 97 97 Oxygen Delivery Method Nasal Cannula Nasal Cannula Nasal Cannula Oxygen Flow Rate 1 2 2 08/05/23 07:56 08/05/23 08:00 08/05/23 08:22 Temperature 97.2 F Pulse Rate 80 77 84 Respiratory Rate 16 20 20 Blood Pressure 116/82 136/87 Pulse Oximetry 98 Oxygen Delivery Method Nasal Cannula Oxygen Flow Rate 1 08/05/23 08:33 08/05/23 11:29 08/05/23 12:00 Temperature 98.5 F Pulse Rate 84 84 86 Respiratory Rate 20 20 20 Blood Pressure 139/96 H Pulse Oximetry 98 96 Oxygen Delivery Method Nasal Cannula Oxygen Flow Rate 97 BMI result Body Mass Index 14.5 Labs 08/04/23 02:25 08/04/23 02:25 Labs: Laboratory Results - last 48 hr 08/04/23 02:25 WBC 13.4 H RBC 5.26 Hgb 15.2 Hct 43.8 MCV 83.3 MCH 28.9 MCHC 34.7 RDW 12.7 Plt Count 352 MPV 7.8 L Immature Gran % (Auto) 0.4 Neut % (Auto) 85.7 H Lymph % (Auto) 8.3 L [place] % (Auto) 5.4 Eos % (Auto) 0.1 Baso % (Auto) 0.1 Lymph # (Auto) 1.1 L [place] # (Auto) 0.7 Eos # (Auto) 0.0 Baso # (Auto) 0.0 Abs Immat Gran (auto) 0.06 H Absolute Neuts (auto) 11.5 H Absolute Nucleated RBC 0.000 Nucleated RBC % (auto) 0.0 PT 13.0 INR 1.1 Sodium 132 L Potassium 4.0 Chloride 91 L Carbon Dioxide 30 H Anion Gap 15 BUN 18 H Creatinine 0.54 Estim Creat Clear Calc 98.3 Estimated GFR > 60 Random Glucose 116 H Lactic Acid 0.8 Calcium 9.6 Phosphorus 2.5 L Total Bilirubin 0.5 AST 21 ALT 26 Alkaline Phosphatase 82 Total Protein 6.5 Albumin 3.6 Ethyl Alcohol < 10 Imaging Radiology Impressions: ITS Impressions Chest X-Ray 08/04/23 03:04 IMPRESSION: Persistent region of retrocardiac left basilar opacity with suggestion of some associated volume loss in the left lung favoring at least a component of atelectasis. Previously identified right middle lobe collapse is not as well demonstrated radiographically. Overall appearance is similar to 08/02/2023. Mental Status Exam Mental Status Exam Narrative: Pt is alert and oriented; behavior is cooperative and calm; dressed in casual attire; mood is described as okay ; eye contact appropriate; Speech is normal rate, volume and prosody and not pressured; thought process is organized; Thought content is on tx; denies SI/HI/VH/AH. Medications Medications Current Medications Albuterol/Ipratropium (Albuterol/Iprat 2.5/0.5mg 3 Ml Ampul.Neb) 3 ml INHALE RQ4H WHILE AWAKE PRN PRN Reason: Shortness of Breath/Wheezing Last Admin: 08/04/23 07:51 Dose: 3 ml Albuterol/Ipratropium (Albuterol/Iprat 2.5/0.5mg 3 Ml Ampul.Neb) 3 ml INHALE RQ4H WHILE AWAKE [facility] Last Admin: 08/05/23 11:29 Dose: 3 ml Amlodipine Besylate (Amlodipine Besylate 5 Mg Tablet) 5 mg PO DAILY [facility]; Protocol Last Admin: 08/05/23 07:47 Dose: 5 mg Docusate Sodium (Docusate Sodium 100 Mg Capsule) 100 mg PO DAILY [facility] Last Admin: 08/05/23 07:47 Dose: 100 mg Folic Acid (Folic Acid 1 Mg Tablet) 1 mg PO DAILY@1800 [facility] Last Admin: 08/04/23 17:14 Dose: Not Given Heparin Sodium (Porcine) (Heparin Sodium,Porcine 5,000 Unit/Ml Vial) 5,000 unit SUBCUT Q8H [facility] Last Admin: 08/05/23 12:44 Dose: 5,000 unit Levofloxacin (Levaquin) 750 mg in 150 mls @ 100 mls/hr IV Q24H [facility] Last Infusion: 08/05/23 07:37 Dose: Infused Lorazepam (Lorazepam 1 Mg Tablet) 1 mg PO Q8H PRN PRN Reason: Anxiety Last Admin: 08/05/23 10:59 Dose: 1 mg Non-Formulary Medication (Sod Phenylbutyrat-Taurursodiol [Relyvrio]) 1 packet PO BID [facility] Pt Own (Inv [id number] 100mg Or Placebo) 2 each PO DAILY [facility] Sertraline HCl (Sertraline Hcl 50 Mg Tablet) 150 mg PO DAILY [facility] Last Admin: 08/05/23 07:47 Dose: 150 mg Sodium Chloride (0.9 % Sodium Chloride Flush 3 Ml Syringe) 3 ml IVFLUSH QSHIFT [facility] Last Admin: 08/05/23 07:47 Dose: 3 ml Thiamine HCl (Thiamine Hcl 100 Mg Tablet) 100 mg PO DAILY [facility] Last Admin: 08/05/23 07:47 Dose: 100 mg Trazodone HCl (Trazodone Hcl 50 Mg Tablet) 50 mg PO BEDTIME PRN PRN Reason: Insomnia Allergies Allergies Allergy/AdvReac Type Severity Reaction Status Date / Time No Known Allergies Allergy Verified 08/04/23 01:51 Assessment & Plan Assessment & Plan (1) MDD (major depressive disorder): Status: Acute Code(s): F32.9 - Major depressive disorder, single episode, unspecified (2) Panic disorder: Status: Acute Code(s): F41.0 - Panic disorder [episodic paroxysmal anxiety] Plan Recommendations: Continue Zoloft Referral to outpatient psychiatrist and therapist Referral to substance abuse counselor Scheduling anti-anxiety medication, rather than PRN. Total time managing care of this patient today _30___ minutes. Patient educated on: diagnosis, medication risk/benefits and therapeutic strategies Informed Consent: understands
[2023-08-05] MEDS: Sertraline HCL 50 MG TABLET PO (15:28)
[2023-08-05] MEDS: Folic Acid 1 MG TABLET PO (17:21)
[2023-08-05] MEDS: traZODone HCL 50 MG TABLET PO (20:02)
--- NOTE | 2023-08-05 23:53 | W.PM.IDCN ---
History of Present Illness Data of Consult Service Date: 08/05/23 Primary Care Provider: Angelina Javed, HPI He had cough and concern over peristient UTI PMFSH Past Medical History Medical History ALS (amyotrophic lateral sclerosis) Family History Family history: reviewed and not pertinent Social History Social History Household Members: Spouse Housing: House Do you presently have visiting nurse or other home services: Yes (housework) Alcohol intake: never Comment: rings appropriately Patient Tobacco Use Status: Never used Tobacco e-Cigarette/Vaping Use: Never Used Substance Use Type: Marijuana Advance Directives Date on File: 07/29/23 service: No Current occupational status: disabled Meds Allergies Allergy/AdvReac Type Severity Reaction Status Date / Time No Known Allergies Allergy Verified 08/04/23 01:51 Active Medications: Current Medications Albuterol/Ipratropium (Albuterol/Iprat 2.5/0.5mg 3 Ml Ampul.Neb) 3 ml INHALE RQ4H WHILE AWAKE PRN PRN Reason: Shortness of Breath/Wheezing Last Admin: 08/04/23 07:51 Dose: 3 ml Albuterol/Ipratropium (Albuterol/Iprat 2.5/0.5mg 3 Ml Ampul.Neb) 3 ml INHALE RQ4H WHILE AWAKE [facility] Last Admin: 08/05/23 20:40 Dose: Not Given Amlodipine Besylate (Amlodipine Besylate 5 Mg Tablet) 5 mg PO DAILY [facility]; Protocol Last Admin: 08/05/23 07:47 Dose: 5 mg Docusate Sodium (Docusate Sodium 100 Mg Capsule) 100 mg PO DAILY [facility] Last Admin: 08/05/23 07:47 Dose: 100 mg Folic Acid (Folic Acid 1 Mg Tablet) 1 mg PO DAILY@1800 [facility] Last Admin: 08/05/23 17:21 Dose: 1 mg Heparin Sodium (Porcine) (Heparin Sodium,Porcine 5,000 Unit/Ml Vial) 5,000 unit SUBCUT Q8H [facility] Last Admin: 08/05/23 20:02 Dose: 5,000 unit Levofloxacin (Levaquin) 750 mg in 150 mls @ 100 mls/hr IV Q24H [facility] Last Infusion: 08/05/23 07:37 Dose: Infused Lorazepam (Lorazepam 1 Mg Tablet) 1 mg PO Q8H PRN PRN Reason: Anxiety Last Admin: 08/05/23 20:02 Dose: 1 mg Non-Formulary Medication (Sod Phenylbutyrat-Taurursodiol [Relyvrio]) 1 packet PO BID [facility] Pt Own (Inv [id number] 100mg Or Placebo) 2 each PO DAILY [facility] Last Admin: 08/05/23 15:28 Dose: 2 each Sertraline HCl (Sertraline Hcl 50 Mg Tablet) 150 mg PO DAILY [facility] Last Admin: 08/05/23 07:47 Dose: 150 mg Sodium Chloride (0.9 % Sodium Chloride Flush 3 Ml Syringe) 3 ml IVFLUSH QSHIFT [facility] Last Admin: 08/05/23 15:38 Dose: 3 ml Thiamine HCl (Thiamine Hcl 100 Mg Tablet) 100 mg PO DAILY [facility] Last Admin: 08/05/23 07:47 Dose: 100 mg Trazodone HCl (Trazodone Hcl 50 Mg Tablet) 50 mg PO BEDTIME PRN PRN Reason: Insomnia Last Admin: 08/05/23 20:02 Dose: 50 mg Home Medications Medication Instructions Recorded Confirmed Last Taken Type albuterol sulfate 90 mcg/actuation 1 puff inhalation Q4H PRN 08/18/22 08/04/23 07/29/23 History aerosol inhaler Shortness Of Breath amlodipine 5 mg tablet 1 tab PO DAILY@0900 08/18/22 08/04/23 07/29/23 History trazodone 50 mg tablet 2 tab PO BEDTIME 08/18/22 08/04/23 07/29/23 History sodium phenylbutyrate 3 1 packet PO BID 07/29/23 08/04/23 Unknown History gram-taurursodiol 1 gram oral powder packet (Relyvrio) folic acid 1 mg tablet 1 mg PO DAILY@1800 08/04/23 08/04/23 Unknown History sertraline 100 mg tablet 150 mg PO DAILY 08/04/23 08/04/23 Unknown History Physical Exam Vital Signs: Vital Signs: Last Vital Signs Temp 98.8 F 08/05/23 19:51 Pulse 95 08/05/23 19:51 Resp 20 08/05/23 19:51 BP 128/83 08/05/23 19:51 Pulse Ox 94 08/05/23 19:51 O2 Del Method Room Air 08/05/23 19:51 O2 Flow Rate 97 08/05/23 12:00 Oxygen Flow Rate 3 08/04/23 02:48 BMI result Body Mass Index 14.5 Const: General: cooperative HEENT: Head: Yes normal to inspection Face and sinus: Yes normal facial exam Mouth: Normal oral and palatal mucosa present Teeth and gingiva: dentition normal Eyes: General: appearance normal, both eyes and all related structures Pupils: Equal, round and reactive pupils present Resp: Effort & Inspection: normal respiratory effort Cardio: Rate: regular rate Rhythm: regular rhythm GI: Palpation (GI): Soft to palpation and nontender : General: Yes no CVA tenderness Back/Spine/Pelvis: Back: no CVA tenderness Skin: General skin exam: no rashes or lesions noted Neuro: General: moves all extremities Cranial nerves: Yes Equal, round and reactive pupils present Extrem: General: Yes normal to inspection Psych: Appearance: grossly normal Results Labs 08/04/23 02:25 08/04/23 02:25 Microbiology Microbiology Results: Microbiology 08/04/23 02:25 Blood - Arterial Line Blood Culture - Preliminary No growth after 24 hours. 08/04/23 02:25 Blood - Arterial Line Blood Culture - Preliminary No growth after 24 hours. Assessment and Plan (1) Atelectasis: Status: Acute
[2023-08-06] VITALS (12 sets, daily range): BP systolic 121–151; BP diastolic 81–89; PULSE 75–92; RESP 16–20; TEMP 36.7–37.3; O2SAT 94–98
[2023-08-06] MEDS: levoFLOXacin/D5W 750 MG/150 ML PIGGYBACK 100 MG IV (05:36)
[2023-08-06] MEDS: Heparin Sodium,Porcine 5,000 UNIT/ML VIAL 5000 UNIT SUBCUT ×3 (05:36→20:18)
[2023-08-06] MEDS: 0.9 % Sodium Chloride Flush 3 ML SYRINGE IVFLUSH ×4 (05:50→20:19)
[2023-08-06] MEDS: LORazepam 1 MG TABLET PO ×2 (07:38→20:18)
[2023-08-06] MEDS: Thiamine HCL 100 MG TABLET PO (07:38)
[2023-08-06] MEDS: amLODIPine Besylate 5 MG TABLET PO (07:38)
[2023-08-06] MEDS: Sertraline HCL 50 MG TABLET 150 MG PO (07:38)
[2023-08-06] MEDS: Docusate Sodium 100 MG CAPSULE PO (07:39)
[2023-08-06 08:16] LABS: Procalcitonin 0.04 ng/mL
[2023-08-06] MEDS: Albuterol/Iprat 2.5/0.5MG 3 ML AMPUL.NEB INHALE ×4 (08:52→20:16)
--- NOTE | 2023-08-06 11:21 | P.PNIM_ITS ---
Subjective Subjective Date of Service: 08/06/23 Interval History: hypoxia,atelactasis Review of Systems sob seems similar,sob with minimal excersion ,has cough no fever Physical Exam 2 Vital Signs: Vital Signs: Last Vital Signs Temp 99.1 F 08/06/23 11:03 Pulse 90 08/06/23 11:03 Resp 18 08/06/23 11:03 BP 137/89 08/06/23 11:03 Pulse Ox 95 08/06/23 11:03 O2 Del Method Room Air 08/06/23 11:03 O2 Flow Rate 97 08/05/23 12:00 Oxygen Flow Rate 3 08/04/23 02:48 BMI result Body Mass Index 14.5 Appearance: Alert.? Oriented X3.? cvs: rrr, [id number] , no murmur res: air entry seems diminshed ,few rhonchii scattered . abd: no rebound or guarding ,nt, bs present. ext pulses present , no cyanosis . neuro: axo3 , nonfocal. Objective Data Active Medications Albuterol/Ipratropium (Albuterol/Iprat 2.5/0.5mg 3 Ml Ampul.Neb) 3 ml INHALE RQ4H WHILE AWAKE PRN PRN Reason: Shortness of Breath/Wheezing Last Admin: 08/04/23 07:51 Dose: 3 ml Documented By: AYLEEN Albuterol/Ipratropium (Albuterol/Iprat 2.5/0.5mg 3 Ml Ampul.Neb) 3 ml INHALE RQ4H WHILE AWAKE [facility] Last Admin: 08/06/23 08:52 Dose: 3 ml Documented By: HAYDEE Amlodipine Besylate (Amlodipine Besylate 5 Mg Tablet) 5 mg PO DAILY [facility]; Protocol Last Admin: 08/06/23 07:38 Dose: 5 mg Documented By: PANCHO Docusate Sodium (Docusate Sodium 100 Mg Capsule) 100 mg PO DAILY [facility] Last Admin: 08/06/23 07:39 Dose: 100 mg Documented By: PANCHO Folic Acid (Folic Acid 1 Mg Tablet) 1 mg PO DAILY@1800 [facility] Last Admin: 08/05/23 17:21 Dose: 1 mg Documented By: PANCHO Heparin Sodium (Porcine) (Heparin Sodium,Porcine 5,000 Unit/Ml Vial) 5,000 unit SUBCUT Q8H [facility] Last Admin: 08/06/23 05:36 Dose: 5,000 unit Documented By: OSMEL Levofloxacin (Levaquin) 750 mg in 150 mls @ 100 mls/hr IV Q24H [facility] Last Infusion: 08/06/23 07:37 Dose: Infused Documented By: PANCHO Lorazepam (Lorazepam 1 Mg Tablet) 1 mg PO Q8H PRN PRN Reason: Anxiety Last Admin: 08/06/23 07:38 Dose: 1 mg Documented By: PANCHO Non-Formulary Medication (Sod Phenylbutyrat-Taurursodiol [Relyvrio]) 1 packet PO BID [facility] Pt Own (Inv [id number] 100mg Or Placebo) 2 each PO DAILY [facility] Last Admin: 08/06/23 07:38 Dose: 2 each Documented By: PANCHO Sertraline HCl (Sertraline Hcl 50 Mg Tablet) 150 mg PO DAILY [facility] Last Admin: 08/06/23 07:38 Dose: 150 mg Documented By: PANCHO Sodium Chloride (0.9 % Sodium Chloride Flush 3 Ml Syringe) 3 ml IVFLUSH QSHIFT [facility] Last Admin: 08/06/23 07:39 Dose: 3 ml Documented By: PANCHO Thiamine HCl (Thiamine Hcl 100 Mg Tablet) 100 mg PO DAILY [facility] Last Admin: 08/06/23 07:38 Dose: 100 mg Documented By: PANCHO Trazodone HCl (Trazodone Hcl 50 Mg Tablet) 50 mg PO BEDTIME PRN PRN Reason: Insomnia Last Admin: 08/05/23 20:02 Dose: 50 mg Documented By: OSMEL Labs 08/04/23 02:25 08/04/23 02:25 Labs: Laboratory Results - last 24 hr 08/06/23 06:50 Procalcitonin 0.04 Microbiology Microbiology Results: Microbiology 08/04/23 02:25 Blood Culture - Preliminary Blood - Arterial Line No growth after 48 hours. 08/04/23 02:25 Blood Culture - Preliminary Blood - Arterial Line No growth after 48 hours. Assessment and Plan (1) Pneumonia: Status: Acute (2) Acute hypoxic respiratory failure: Status: Acute Plan 62-year-old male with a PMH significant for?ALS and HTN who presents to the ED with?increasing shortness of breath.has cap and atelectasis: Sign-out yesterday against medical advice now came back with shortness of breath. Sepsis d/t CAp/atelactais , acute hypoxic resp failure--improving slowly, oxygenation is better now on 1 liters Bronchoscopy cultures pending. Chest x-ray seems similar to before, blood culture pending, leukocytosis improving, no fever plan:Bronchodilators PRN,Chest Physitherapy,Flutter valve, Levauquin today per Pulmonary , O2 and wean as carlos eduardo,cough med, Anxiety-Ativan PRN continue sertraline psych eval added Chronic Medical Conditions: ALS--on trial medication with [id number], eIF2B activator that prevents and reverses the effects of neurodegeneration caused by the Integrated Stress Response. Ongoing discussion with the clinic to see if he needs to continue on the med HTN Continue home meds Moderate protein calorie malnutrition In the setting of reduced p.o. intake Will supplement with Ensure Full Code DVT Prophylaxis: Lovenox Ongoing hospialization d/t acute hypoxic resp failure to d/t PNA,atelactasis in ALS pt, requiring high amount of O2- need steriods ,antibiotics , chest physiotherapy, nebs, incentive spirometry. Quality Stroke Does the patient have a stroke diagnosis?: No VTE Prior VTE?: No VTE Risk Level:: Medical - moderate - high VTE Device Contraindication: N/A - Device Ordered VTE Drug Contraindication: N/A - Med Ordered
[2023-08-06] MEDS: Folic Acid 1 MG TABLET PO (16:54)
[2023-08-06] MEDS: traZODone HCL 100 MG TABLET PO (20:18)
[2023-08-07 04:00] VITALS: BP 124/78; PULSE 78; RESP 18; TEMP 36.2
[2023-08-07] MEDS: Heparin Sodium,Porcine 5,000 UNIT/ML VIAL 5000 UNIT SUBCUT (05:29)
[2023-08-07] MEDS: levoFLOXacin/D5W 750 MG/150 ML PIGGYBACK 150 MG IV (05:30)
[2023-08-07 07:40] VITALS: BP 131/66; PULSE 83; RESP 20; TEMP 36.8; O2SAT 96
[2023-08-07] MEDS: Docusate Sodium 100 MG CAPSULE PO (07:47)
[2023-08-07] MEDS: Sertraline HCL 50 MG TABLET 150 MG PO (07:47)
[2023-08-07] MEDS: amLODIPine Besylate 5 MG TABLET PO (07:47)
[2023-08-07] MEDS: Thiamine HCL 100 MG TABLET PO (07:48)
[2023-08-07] MEDS: 0.9 % Sodium Chloride Flush 3 ML SYRINGE IVFLUSH (07:48)
[2023-08-07] MEDS: LORazepam 1 MG TABLET PO (07:48)
[2023-08-07] MEDS: Albuterol/Iprat 2.5/0.5MG 3 ML AMPUL.NEB INHALE ×2 (08:15→11:52)
[2023-08-07 08:16] VITALS: PULSE 86; RESP 18; O2SAT 96
--- NOTE | 2023-08-07 11:39 | P.F2F_ITS ---
Service Date Service Date: 08/07/23 Encounter Date of encounter: 08/07/23 Encounter: pneumonia .atelactasis Reasons for Services Signs and symptoms assessed: new sob or fever . Reason for [facility]: CV/CP assess and/or care, wound care, medication management, medication treatment and teach disease management Reason for physical therapy: home safety and mobility, therapeutic exercises, restore joint function, gait/transfer training, assess need for DME, ADL training, energy conservation and other MD Overseeing Care: Angelina Javed Homebound: Leaving the home is medically contraindicated at this time without the asist of a device and/or another person due th the listed conditions above and below. Reason homebound: weakness related to hospital stay Homebound supporting statement: Patient is generalized weak post hospitalization, has pneumonia and atelectasis- need help with PT, appointments,wound care and labs. Certification: Based on the above findings, I certify that this patient is confined to the home and needs intermittent [facility] care, physical therapy and/or speech therapy, or continues to need occupational therapy. The patient is under my care, and I have initiated the establishment of the plan of care. The patient will be followed by a physician who will periodically review the plan of care. Time Spent With Patient Time: Total time managing care of this patient today ____ minutes.
[2023-08-07 11:51] VITALS: BP 113/68; PULSE 88; RESP 18; TEMP 37.1; O2SAT 94
[2023-08-07 11:53] VITALS: PULSE 90; RESP 18; O2SAT 95
--- NOTE | 2023-08-07 11:57 | MHC.CM.PN ---
PT CLEARED TO DC HOME TODAY CM RECEIVED A CALL FROM PTS , KARLENE WHO REPORTS CONCERN THAT PT DOES NOT HAVE ENOUGH HELP AT HOME PER DISCUSSION, SHE IS INTERESTED IN [facility] FOR NURSING AND PT AND A REFERRAL TO [facility] TO [facility] [employer] [facility] ALREADY FOLLOWING AND NOW AWARE OF DC TASK SENT TO [facility] FOR POST DC ASSESSMENT KARLENE CONFIRMS THE PT WILL CALL HER WHEN HE IS READY TO LEAVE, SHE WILL PROVIDE HIS TRANSPORT
[2023-08-07 12:36] VITALS: PULSE 99; RESP 20; O2SAT 95
[2023-08-08 04:27] LABS: HIV AB/AG Nonreactive (Nonreactive); HIV Num 1 0.04 S/CO (0.00-0.99)
--- NOTE | 2023-08-22 13:00 | P.DS_ITS ---
DS: Providers Provider Date of Service: 08/07/23 Date of admission: 08/04/23 04:38 Date of discharge: 08/07/23 Primary care physician: Angelina Javed DO Consults: 08/04/23 13:41 Consult to Wound Care Routine Reason for consultation: pressure area in right sacrum area 08/05/23 11:51 Consult to Psychiatry Routine Consulting Provider: Psych Covering Reason for consultation: severe anxiety Has provider been notified: No 08/05/23 13:24 Consult to Infectious Diseases Routine Consulting Provider: [facility] Infectious Disease Reason for consultation: atelactasis ,pneumonia-ontrial dimard for ALS Has provider been notified: No Attending physician on discharge: Jacob Flowers Discharging clinician: Jacob Flowers DS: Diagnosis Discharge Diagnosis (1) Pneumonia: Status: Acute (2) Acute hypoxic respiratory failure: Status: Acute DS: Summary Hospital Course Hospital Course: date of service and discharge:08/07/22 62 years old man with past medical history significant for ALS and recent hospitalization due to pneumonia + atelectasis requiring bronchoscopy presents to the emergency department complaining of shortness of breath. The patient left against medical advice yesterday. He did not report any headache, palpitation, cough, fevers chills. He denies any gastrointestinal or genitourinary symptoms. He does smoke marijuana. He denies tobacco smoking or alcohol abuse. In the ED, he was found to have stable vital signs. Blood pressure is slightly elevated. He is currently requiring 2 liters/minute supplemental oxygen via nasal cannula. Blood workup remarkable for leukocytosis of 13.4. There is hyponatremia 132 which is similar to prior. There is no lactic acidosis. CXR showed persistent region of retrocardiac left basilar opacity with suggestion of some associated volume loss in the left lung favoring at least a component of atelectasis and previously identified right middle lobe collapse. ED tx: oxygen, Levaquin 750 mg IV. Hospital course: 62-year-old gentleman with underlying ALS admitted on 07/29/2023 with increased shortness of breath and productive cough after recent COVID infection. CT chest showed complete atelectasis of left lower lobe and right middle lobe. The patient was started on empiric therapy for community-acquired pneumonia. Flexible bronchoscopy performed 08/02/2023 with clearance of thick tenacious mucus secretions obstructing right middle, right lower, and left lower lobes,left AMA that time(08/04/23) -afterwards came back on 08/05 for acute hypoxemic respiratory failure sec to pneumonia / atelactasis -started on nebs ,antibiotics ,incentive spirometry -seems to be improved significantly ,no hypoxic ,improved significantly- going home with po levaquin 750 ng daily for possible penumonia ,his bronch cultures reviewed with pulmonary ,no new intervention . plan: please complete levaquin 750 mg po daily for 4 more days ( she already received 3 days levaquin). wound care:Turn and Reposition every 2 hours and as needed for patient comfort.? Use pillows or wedges to support off loading positions. Off Load all bony prominences with use of pillows and heel boots if needed.? Apply Preventative foams where needed. ? Monitor for incontinence and moisture control, use barrier creams when needed for prevention and treatment. Provide adequate and supplemental nutrition.? Nutrition following. Sacrum - Off Load pressure - Cleanse with routine cleansing - apply sacral foam dressing - peel back and assess Q shift change every 3 days and PRN. consider low air loss mattress outpatient with pcp. Above management discussed the patient detail length he understand in agreement with the above plan, time spent 50 minute. Time Attestation Discharge coordination time: Greater than 30 minutes Quality: Safe Use of Opioids Does Pt have an Active Cancer Diagnosis on the Problem List?: No Quality: Stroke Does the patient have a stroke diagnosis?: No Physical Exam Vital Signs: Vital Signs: Last Vital Signs Temp 98.7 F 08/07/23 11:51 Pulse 99 08/07/23 12:36 Resp 20 08/07/23 12:36 BP 113/68 08/07/23 11:51 Pulse Ox 95 08/07/23 12:36 O2 Del Method Room Air 08/07/23 12:36 O2 Flow Rate 97 08/05/23 12:00 Oxygen Flow Rate 3 08/04/23 02:48 BMI result Body Mass Index 14.5 Appearance: Alert.? Oriented X3.? Eyes: Pupils equal, round and reactive to light.? Sclera nonicteric.? ENT: Pharynx normal.? Moist mucous membranes. cvs: rrr, [id number] , no murmur res: clear to auscultation ,no rhonchii or wheezing abd: no rebound or guarding ,nt, bs present. ext pulses present , no cyanosis . neuro: axo3 , nonfocal. DS: Data Data Completed and Pending Completed studies during hospitalization [Text1]: Procedures Assistance with Respiratory Ventilation, Less than 24 Consecutive Hours, Continuous Positive Airway Pressure (07/29/23) Drainage of Left Lower Lung Lobe, Via Natural or Artificial Opening Endoscopic, Diagnostic (07/29/23) Drainage of Right Lower Lung Lobe, Via Natural or Artificial Opening Endoscopic, Diagnostic (07/29/23) Drainage of Right Middle Lung Lobe, Via Natural or Artificial Opening Endoscopic, Diagnostic (07/29/23) Imaging Chest x-ray: Radiologist's impression: ITS Impressions Chest X-Ray 08/04/23 03:04 IMPRESSION: Persistent region of retrocardiac left basilar opacity with suggestion of some associated volume loss in the left lung favoring at least a component of atelectasis. Previously identified right middle lobe collapse is not as well demonstrated radiographically. Overall appearance is similar to 08/02/2023. Discharge Plan Discharge Anticipated Discharge Date/Time: 08/07/23 10:50 Patient Disposition: Home Health Service Discharge Diagnosis: hypoxemic respitrtory failure sec to pneumonia ,atelactasis Referrals: Cristal Caceres [Outside] Angelina Barone DO [Primary Care Provider] - 1 Week Discharge Medications: New levofloxacin 750 mg tablet 750 mg PO DAILY Qty: 4 0RF Continued sertraline 100 mg tablet 150 mg PO DAILY amlodipine 5 mg tablet 1 tab PO DAILY@0900 albuterol sulfate 90 mcg/actuation HFA aerosol inhaler 1 puff inhalation Q4H PRN (Reason: Shortness Of Breath) docusate sodium 100 mg Capsule 100 mg PO DAILY Qty: 30 0RF thiamine mononitrate (vit B1) 100 mg Tablet 100 mg PO DAILY Qty: 30 0RF Relyvrio 3-1 gram powder in packet 1 packet PO BID folic acid 1 mg tablet 1 mg PO DAILY@1800 Held trazodone 50 mg tablet 2 tab PO BEDTIME Hold Instructions: Resume on 08/11/23. Discharge Orders: Discharge Order (Routine); Ordered 08/07/23 Ordered By: Jacob Flowers Diet: Advance to usual diet Activity on Discharge: As tolerated Stand Alone Forms: Patient Portal Discharge page Care Plan Goals: 62-year-old gentleman with underlying ALS admitted on 07/29/2023 with increased shortness of breath and productive cough after recent COVID infection. CT chest showed complete atelectasis of left lower lobe and right middle lobe. The patient was started on empiric therapy for community-acquired pneumonia. Flexible bronchoscopy performed 08/02/2023 with clearance of thick tenacious mucus secretions obstructing right middle, right lower, and left lower lobes,left AMA that time(08/04/23) -afterwards came back on 08/05 for acute hypoxemic respiratory failure sec to pneumonia / atelactasis -started on nebs ,antibiotics ,incentive spirometry -seems to be improved significantly ,no hypoxic ,improved significantly- going home with po levaquin 750 ng daily for possible penumonia ,his bronch cultures reviewed with pulmonary ,no new intervention . Health Concerns: please complete levaquin 750 mg po daily for 4 more days ( she already received 3 days levaquin). Plan of Treatment: Recommendations: Turn and Reposition every 2 hours and as needed for patient comfort.? Use pillows or wedges to support off loading positions. Off Load all bony prominences with use of pillows and heel boots if needed.? Apply Preventative foams where needed. ? Monitor for incontinence and moisture control, use barrier creams when needed for prevention and treatment. Provide adequate and supplemental nutrition.? Nutrition following. Sacrum - Off Load pressure - Cleanse with routine cleansing - apply sacral foam dressing - peel back and assess Q shift change every 3 days and PRN. consider low air loss mattress outpateint. Assessment: as above Discharge Date/Time: 08/07/23 13:27
== END 2023-08-07 13:27 | disposition home health service (06) | DRG 193 ==
LOC: HO.ED 02:46 → HO.EDOVER 04:51 → HO.IMC 18:29
PROVIDERS: Admitting Provider Internal Medicine; Emergency Provider Student in an Organized Health Care Education/Training Program; PCP Internal Medicine; Visit Provider Internal Medicine
DX: J18.9 Pneumonia, unspecified organism (principal); J96.01 Acute respiratory failure with hypoxia; Z68.1 Body mass index [BMI] 19.9 or less, adult; G12.21 Amyotrophic lateral sclerosis; J98.11 Atelectasis; F32.9 Major depressive disorder, single episode, unspecified; F41.0 Panic disorder [episodic paroxysmal anxiety]; Z79.899 Other long term (current) drug therapy
CPT/HCPCS: 36415; 71045; 80053; 80307; 83605; 84100; 84145; 85025; 85610; 87040; 87389; 93005; 94640; 99285; J1644; J1956; J2270

== ENCOUNTER → 2023-08-04 01:54 | Outpatient (BNV) | payer MEDICARE, MEDICAID, SELFPAY | PROVIDERS: Admitting Provider Internal Medicine; Emergency Provider Student in an Organized Health Care Education/Training Program; PCP Internal Medicine; Visit Provider Internal Medicine Cardiovascular Disease | DX: R06.02 Shortness of breath (principal) | CPT/HCPCS: 93010 ==

== ENCOUNTER → 2023-08-04 04:38 | Outpatient (BNV) | payer MEDICARE, MEDICAID, SELFPAY | PROVIDERS: Admitting Provider Internal Medicine; Emergency Provider Student in an Organized Health Care Education/Training Program; PCP Internal Medicine; Visit Provider Registered Nurse | DX: F33.1 Major depressive disorder, recurrent, moderate (principal); F41.0 Panic disorder [episodic paroxysmal anxiety] | CPT/HCPCS: 99222 ==

== ENCOUNTER → 2023-08-04 04:38 | Outpatient (BNV) | payer MEDICARE, MEDICAID, SELFPAY | PROVIDERS: Admitting Provider Internal Medicine; Emergency Provider Student in an Organized Health Care Education/Training Program; PCP Internal Medicine; Visit Provider Internal Medicine | DX: J96.01 Acute respiratory failure with hypoxia (principal); J18.9 Pneumonia, unspecified organism; G12.21 Amyotrophic lateral sclerosis; I10 Essential (primary) hypertension | CPT/HCPCS: 99223; 99231; 99232; 99239; 99499; G0180 ==

== ENCOUNTER 2023-12-27 07:17 | Inpatient (IN) | payer MEDICARE, MEDICAID, SELFPAY ==
[2023-12-27] VITALS (15 sets, daily range): BP systolic 132–170; BP diastolic 91–100; PULSE 80–103; RESP 18–28; TEMP 36.4–37.2; O2SAT 82–96; BMI 15.4
--- NOTE | 2023-12-27 | ECG_ITS ---
Test Reason : SOB Blood Pressure : / mmHG Vent. Rate : 089 BPM Atrial Rate : 089 BPM P-R Int : 136 ms QRS Dur : 068 ms QT Int : 352 ms P-R-T Axes : 074 065 065 degrees QTc Int : 428 ms Artifact Normal sinus rhythm Right atrial enlargement Minimal voltage criteria for LVH, may be normal variant ( Sokolow-Jama ) Borderline ECG When compared with ECG of 04-AUG-2023 02:12, Poor data quality in current ECG precludes serial comparison Referred By: Lamonte Camarillo Electronically Signed By:Robe Gracia
--- NOTE | ~2023-12-27 | CT_ITS ---
EXAMINATION: CT CHEST WITHOUT CONTRAST CLINICAL INFORMATION: Hypoxia. COMPARISON: CTA chest dated 07/29/2023. TECHNIQUE: Multidetector volumetric CT imaging of the chest was done. Axial MIP volume rendering provided. Sagittal and coronal reformatted images were obtained. This CT examination was performed using dose optimization techniques as appropriate, variously including the following: *Automated exposure control *Adjustment of mA and/or kV according to patient size (this includes techniques or standardized protocols for targeted exams where dose is matched to indication/reason for exam; i.e. extremities or head) *Use of iterative reconstruction technique DLP: 148 mGy-cm FINDINGS: WELLNESS COORDINATOR: The lungs are symmetrically well-expanded and grossly clear. LUNGS: There is stable biapical pleural and parenchymal scarring. There are is a small focus of subpleural scarring in the posterior segment of the right lower lobe. The lungs are otherwise clear, with no evidence of inflammation or nodules. There are mild centrilobular emphysematous changes. MEDIASTINUM: The thyroid is unremarkable. There is no thoracic aortic aneurysm. There are atherosclerotic calcifications of the great vessel origins and thoracic aorta. No mediastinal or hilar lymphadenopathy is seen. CORONARY ARTERY CALCIFICATION: Moderate. PLEURA: There is no pleural effusion. No pleural mass or thickening. AXILLA: No lymphadenopathy. UPPER ABDOMEN: There is splenomegaly, with a longitudinal span in the axial plane of 14.1 cm (2:56). The adrenal glands are unremarkable. OSSEOUS STRUCTURES: There is multi-level cervical thoracic spondylosis. No acute or aggressive osseous finding is noted. CT/CT chest wo IV con IMPRESSION: 1. There is stable biapical pleural and parenchymal scarring. The lungs are otherwise clear. 2. There is mild centrilobular emphysematous change. 3. No thoracic lymphadenopathy or pleural effusion is seen. 4. There is no acute or aggressive osseous finding. 5. There is splenomegaly. Fleischner guidelines were followed.
--- NOTE | ~2023-12-27 | XR_ITS ---
EXAMINATION: XR CHEST CLINICAL INFORMATION: Shortness of breath hypoxia COMPARISON: Chest radiograph from 08/04/2023 TECHNIQUE: Frontal view of the chest was obtained. FINDINGS: Hyperinflation of the bilateral lung [place]. Interval resolution of previously identified left retrocardiac radiopacity. No pneumothorax. Trachea is midline. Cardiac mediastinal silhouette is not enlarged. Aorta demonstrates mild tortuosity with atherosclerotic calcifications. No large pleural effusion. Osseous structures are intact. Soft tissues are unremarkable. XR/XR chest 1V IMPRESSION: Interval resolution of previously identified left retrocardiac radiopacity.
--- NOTE | 2023-12-27 07:21 | ED.SOB ---
HPI - SOB/Dyspnea General Chief Complaint: Dyspnea Stated Complaint: SOB,82%, ON CPAP, H/O ALS PER EMS Time Seen by Provider: 12/27/23 07:18 Source: patient and EMS Mode of arrival: EMS Limitations: no limitations History of Present Illness HPI Narrative: Patient has ALS with a PEG and is a smoker who presents with increased shortness of breath and feeling like he has phlegm stuck in his throat. MD elicited complaint: shortness of breath Pertinent past history: pneumonia Onset (ago): hour(s) Timing: constant Severity: severe Known history of: recurrent pneumonia, aspiration pneumonia and other (pneumothorax) Related Data Home Medications ?Medication ?Instructions ?Recorded ?Confirmed albuterol sulfate 90 mcg/actuation 1 puff inhalation Q4H PRN 08/18/22 08/04/23 aerosol inhaler Shortness Of Breath amlodipine 5 mg tablet 1 tab PO DAILY@0900 08/18/22 08/04/23 trazodone 50 mg tablet 2 tab PO BEDTIME 08/18/22 08/04/23 sodium phenylbutyrate 3 1 packet PO BID 07/29/23 08/04/23 gram-taurursodiol 1 gram oral powder packet (Relyvrio) folic acid 1 mg tablet 1 mg PO DAILY@1800 08/04/23 08/04/23 sertraline 100 mg tablet 150 mg PO DAILY 08/04/23 08/04/23 Previous Rx's ?Medication ?Instructions ?Recorded docusate sodium 100 mg capsule 100 mg PO DAILY #30 caps 08/20/22 thiamine mononitrate (vit B1) 100 100 mg PO DAILY #30 tabs 08/20/22 mg tablet levofloxacin 750 mg tablet 750 mg PO DAILY #4 tabs 08/07/23 Allergies Allergy/AdvReac Type Severity Reaction Status Date / Time No Known Allergies Allergy Verified 12/27/23 07:25 Review of Systems Review of Systems: Yes all other systems are reviewed and are negative Neurologic: Denies Sensory deficit (Neuro) PMFSH Past Medical History Medical History Atelectasis ALS (amyotrophic lateral sclerosis) Social History Social History Household Members: Spouse Housing: House Do you presently have visiting nurse or other home services: Yes (housework) Alcohol intake: current Alcohol intake frequency: holidays/special occasions only Comment: rings appropriately Patient Tobacco Use Status: Never used Tobacco Smoked in Last 30 Days: No e-Cigarette/Vaping Use: Never Used Use of substances other than those prescribed or required for medical reasons: No Substance Use Type: Marijuana Advance Directives: Yes Advance Directives on File: Yes Advance Directives Date on File: 07/29/23 Do you have a plan to hurt others: No Plan service: No Current occupational status: disabled Physical Exam Vital Signs: Vital Signs: Last Vital Signs Temp 97.7 F 12/27/23 07:36 Pulse 94 12/27/23 08:30 Resp 25 H 12/27/23 08:30 BP 137/93 H 12/27/23 08:30 Pulse Ox 93 12/27/23 08:50 O2 Del Method Oxymask 12/27/23 08:50 O2 Flow Rate 12 12/27/23 08:50 BMI result Body Mass Index 15.4 Const: Other: cachetic male very short of breath on CPAP Orientation/consciousness: oriented to person and patient oriented x3 Limitations: no limitations HEENT: Head: Yes normal to inspection Ears: external ears normal General nose exam: Normal external nose present Mouth: Normal oral and palatal mucosa present and oropharynx normal Throat: Yes posterior oropharynx normal Eyes: General: appearance normal, both eyes and all related structures Neck: Other: supple Neck: Yes normal visual inspection Chest: Chest palpation & inspection: normal inspection of the chest Resp: Other: retractions with diffuse wheezing and rhonchi Cardio: Jugular venous distension: no JVD Rate: regular rate Rhythm: regular rhythm Heart sounds: S1 normal heart sound present and S2 normal heart sound present GI: Inspection: Yes normal to inspection Palpation (GI): Soft to palpation, nontender and No hepatosplenomegaly present Auscultation: normal bowel sounds : General: Yes no CVA tenderness Back/Spine/Pelvis: Back: no CVA tenderness Skin: General skin exam: no rashes or lesions noted Neuro: General: oriented to person and patient oriented x3 Cranial nerves: Yes CN's II-XII intact bilaterally Motor exam (neuro): 5/5 motor strength present throughout Sensory Exam: No Sensory deficit (Neuro) Extrem: Other: atrophied extremities Psych: Appearance: grossly normal Course Reevaluation(s) Reevaluation #1: patient needed immediate attention with breathing treatments, iv steroids, iv magnesium. Will admit Time: 09:17 Reevaluation #2: I spent 40 minutes of critical care, with interventions, assessments, speaking to patient, consultants, and family. Time: :17 Reevaluation #3: There is no evidence of pneumonia or Covid, rsv or influenza. His respiratory failure is not due to an infectious cause. Time: 09:29 Medications Administered Discontinued Medications Generic Name Dose Route Start Last Admin Trade Name Freq PRN Reason Stop Dose Admin Albuterol Sulfate 7.5 mg/ 0 mg 12/27/23 07:26 12/27/23 07:28 Albuterol/Ipratropium 3 ml INHALE 12/27/23 07:27 1 each ONCE ONE Administration Albuterol Sulfate 2.5 mg/ 0 mg 12/27/23 08:20 12/27/23 08:24 Albuterol/Ipratropium 3 ml INHALE 12/27/23 08:21 1 dose ONCE ONE Administration Magnesium Sulfate 2 gm in 50 mls @ 25 mls/hr 12/27/23 07:22 12/27/23 07:43 Magnesium Sulfate/H2o IV 12/27/23 09:21 Infused ONCE ONE Infusion Methylprednisolone Sodium Succinate 125 mg 12/27/23 07:22 12/27/23 07:26 Methylprednisolone Sod Succ 125 Mg/2 Ml Vial IVPUSH 12/27/23 07:23 125 mg ONCE ONE Administration Medical Decision Making Differential Diagnosis Differential Diagnoses: The differential diagnosis associated with the presentation includes (acute respiratory failure, pneumonia, aspiration, pneumothorax) Admission/Observation Consideration of admission/observation: Escalation of care including admission/observation considered (upon arrival patient considered for admission) Consult Healthcare Provider Management of the patient was discussed with: Hospitalist Lab Data 12/27/23 07:34 12/27/23 07:34 Labs: Lab Results 12/27/23 Range/Units 07:34 WBC 10.4 (4.8-10.8) X10*3/uL RBC 5.91 H (4.60-5.80) X10*6/uL Hgb 18.1 H (14.0-18.0) g/dl Hct 50.9 (42.0-52.0) % MCV 86.1 (80.0-98.0) fL MCH 30.6 (27.0-33.0) pg MCHC 35.6 (31.0-36.0) g/dl RDW 14.0 (11.0-16.0) % Plt Count 217 D (160-400) X10*3/uL MPV 8.7 L (9.4-12.4) fL Immature Gran % (Auto) 0.5 H (0.0-0.4) % Neut % (Auto) 82.0 H (45-73) % Lymph % (Auto) 12.5 L (20-40) % [place] % (Auto) 4.4 (2-11) % Eos % (Auto) 0.3 (0-4) % Baso % (Auto) 0.3 (0-2) % Lymph # (Auto) 1.3 (1.2-4.9) X10*3/uL [place] # (Auto) 0.5 (0.1-1.2) X10*3/uL Eos # (Auto) 0.0 (0.0-0.4) X10*3/uL Baso # (Auto) 0.0 (0.0-0.2) X10*3/uL Abs Immat Gran (auto) 0.05 H (0.00-0.03) X10*3/uL Absolute Neuts (auto) 8.6 H (2.0-8.3) x10*3/uL Absolute Nucleated RBC 0.000 (0.0-0.012) X10*3/uL Nucleated RBC % (auto) 0.0 (0.0-0.2) /100WBC Sodium 139 (135-145) mmol/L Potassium 4.2 (3.3-5.1) mmol/L Chloride 92 L (96-108) mmol/L Carbon Dioxide 34 H (22-29) mmol/L Anion Gap 17 (12-20) BUN 13 (9-16) mg/dL Creatinine 0.65 (0.5-1.4) mg/dL Estim Creat Clear Calc 79.0 Estimated GFR > 60 Random Glucose 160 H (60-115) mg/dL Calcium 10.3 H D (8.4-10.2) mg/dL Influenza Type A (PCR) NEGATIVE (Negative) Influenza Type B (PCR) NEGATIVE (Negative) RSV RNA Qual (PCR) NEGATIVE (Negative) SARS-CoV-2 RNA (RT-PCR) NEGATIVE (Negative) Independent Interpretation I performed an independent interpretation of an: Plain X-Ray (no infiltrate, hyperinflated lungs, no PTX) Independent Historian Clinical information obtained from an independent historian. History obtained from or confirmed by: EMS External Record Review External record reviewed: Outpatient record and Prior outpatient radiology Prescription Management I considered prescription management with: Antibiotic (no evidence of pneumonia on xray) Chronic Conditions Patient?s care impacted by: Other (ALS) Discharge Plan Discharge Clinical Impression: Acute hypoxic respiratory failure, ALS (amyotrophic lateral sclerosis) Patient Disposition: Admitted As Inpatient Print Language: Hungarian
[2023-12-27] MEDS: Magnesium Sulfate/H2O 2 GM/50 ML PIGGYBACK IV (07:26)
[2023-12-27] MEDS: methylPREDNISolone Sod Succ 125 MG/2 ML VIAL IVPUSH (07:26)
[2023-12-27] MEDS: Albuterol Sulfate 7.5 MG, Albuterol/Iprat 2.5/0.5MG 3 ML 3 ML INHALE (07:28)
--- NOTE | 2023-12-27 07:34 | PC.RT ---
Pt brought in via EMS on CPAP. Pt tripoding with accessory muscle use. Pt trialed on RA while switching over CPAPs, pt appears more comfortable, SATs 87-88%. Pt placed on 2L NC and given breathing tx per protocol. Improvement in WOB. Pt has wheezing and rhonchi noted in lungs. Will continue to monitor and use bronchodilator protocol as needed.
[2023-12-27 07:39] LABS: MANUAL DIFF FLAG NO
[2023-12-27 07:43] LABS: Basophils Percent Auto 0.3 % (0-2); Eosinophils Percent Auto 0.3 % (0-4); Hematocrit 50.9 % (42.0-52.0); Hemoglobin 18.1 g/dl (14.0-18.0); Imm Gran Abs Auto 0.05 X10*3/uL (0.00-0.03); Imm Gran Pct Auto 0.5 % (0.0-0.4); Lymphocytes Absolute Auto 1.3 X10*3/uL (1.2-4.9); Lymphocytes Percent Auto 12.5 % (20-40); Mean Corpuscular HGB Conc 35.6 g/dl (31.0-36.0); Mean Corpuscular Hemoglobin 30.6 pg (27.0-33.0); Mean Corpuscular Volume 86.1 fL (80.0-98.0); Mean Platelet Volume 8.7 fL (9.4-12.4); Monocytes Absolute Auto 0.5 X10*3/uL (0.1-1.2); Monocytes Percent Auto 4.4 % (2-11); Neutrophils Absolute Auto 8.6 x10*3/uL (2.0-8.3); Platelet Count 217 X10*3/uL (160-400); Red Blood Count 5.91 X10*6/uL (4.60-5.80); White Blood Count 10.4 X10*3/uL (4.8-10.8)
[2023-12-27 08:01] LABS: Anion Gap 17 (12-20); Blood Urea Nitrogen 13 mg/dL (9-16); Calcium 10.3 mg/dL (8.4-10.2); Carbon Dioxide 34 mmol/L (22-29); Chloride 92 mmol/L (96-108); Estimated Glomerular Filt Rate > 60; Glucose Random 160 mg/dL (60-115); Potassium 4.2 mmol/L (3.3-5.1); Sodium 139 mmol/L (135-145)
[2023-12-27 08:21] LABS: Influenza A PCR NEGATIVE (Negative); Influenza B PCR NEGATIVE (Negative); Resp Syncy Virus RNA Qual PCR NEGATIVE (Negative); SARS COV2 PCR INHOUSE NEGATIVE (Negative)
[2023-12-27] MEDS: Albuterol Sulfate 2.5 MG, Albuterol/Iprat 2.5/0.5MG 3 ML 3 ML INHALE (08:24)
[2023-12-27 09:56] LABS: Venous Blood Gas Refer to POC result
[2023-12-27 09:56] LABS: VBG Base Excess 10.1 mmol/L; VBG HCO3 37 mmol/L (22-26); VBG pCO2 58 mmHg; VBG pH 7.41 (7.32-7.43); VBG pO2 79 mmHg
--- NOTE | 2023-12-27 10:12 | PC.NURSE ---
02 titrated down to 9 liters via oxy mask
--- NOTE | 2023-12-27 10:15 | PHA.MEDREC ---
Pharmacy Consult ? Medication Reconciliation Pharmacy has completed the medication reconciliation. Spoke with Leonila ([phone])
--- NOTE | 2023-12-27 10:49 | PC.RT ---
FVC/NIP completed. NIF -18 and FVC 1.44. Good pt effort.
--- NOTE | 2023-12-27 10:51 | PC.NURSE ---
Patient reports feeling much better, titrated to 7 liters via oxy mask sating 95%.
[2023-12-27] MEDS: Lidocaine 4 % Patch ADH..PATCH 1 PATCH TRANSDERMA (11:32)
[2023-12-27] MEDS: Albuterol/Iprat 2.5/0.5MG 3 ML AMPUL.NEB INHALE ×3 (11:40→20:20)
--- NOTE | 2023-12-27 12:18 | P.HPHOSP_ITS ---
History of Present Illness Date of Service: 12/27/23 Attending physician on admission: Tevin Estrella Chief Complaint: sob 63-year-old male with history of ALS, major depressive disorder, moderate protein calorie malnutrition, peg tube in place presented to the ED for evaluation of sob and difficulty clearing secretions noted this morning. States he does occasionally experience episodes similar to this but was not improving this morning so called EMS. He denies any fevers, chills, congestion, st, recent illness, sick contacts, abd pain, diarrhea, lightheadedness, chest pain. Does endorse nausea which limits his PO intake but denies associated dysphagia or odynophagia that limits PO intake. Denies aspiration events. He does supplement nutrition with jevity tube feeds. On EMS arrival, pt hypoxic to 82% and placed on CPAP. On arrival, while changing CPAPs, was noted to be tripodding. Attempted to wean to NC but required oxymask. Following IV mag, methylprednisolone, and multiple duonebs and has successfully weaned to 6L via NC on my exam. He reports feeling much better at this time. Did complete FVC/NIP with RT with good effort and NIF -18 and FVC 1.44. Aside from hypoxia, pt also tachypneic, but vitals otherwise stable. No leukocytosis. Renal fx normal, lytes normal except CO@ 34 and Cl 92. VBG wiht ph 7.41, pco2 58, bicarb 37. CXR shows interval resolution of previously identified left retrocardiac radiopacity otherwise unremarkable. EKG shows NSR, rate 89 without any significant change compared to prior EKGs. Review of Systems 2 Review of Systems: Yes all other systems are reviewed and are negative [facility] Medical History MDD (major depressive disorder) Atelectasis ALS (amyotrophic lateral sclerosis) Social History Household Members: Spouse Housing: House Do you presently have visiting nurse or other home services: Yes (housework) Alcohol intake: current Alcohol intake frequency: holidays/special occasions only Comment: rings appropriately Patient Tobacco Use Status: Never used Tobacco Smoked in Last 30 Days: No e-Cigarette/Vaping Use: Never Used Use of substances other than those prescribed or required for medical reasons: No Substance Use Type: Marijuana Advance Directives: Yes Advance Directives on File: Yes Advance Directives Date on File: 07/29/23 Do you have a plan to hurt others: No Plan service: No Current occupational status: disabled Meds Allergies Allergy/AdvReac Type Severity Reaction Status Date / Time No Known Allergies Allergy Verified 12/27/23 07:25 Home Medications ?Medication ?Instructions ?Recorded ?Confirmed ?Last Taken ?Type albuterol sulfate 90 mcg/actuation 1 puff inhalation Q4H PRN 08/18/22 12/27/23 07/29/23 History aerosol inhaler Shortness Of Breath trazodone 50 mg tablet 2 tab feeding tube BEDTIME 08/18/22 12/27/23 12/26/23 History folic acid 1 mg tablet 1 mg feeding tube DAILY@1800 08/04/23 12/27/23 12/26/23 History sertraline 100 mg tablet 200 mg feeding tube DAILY 08/04/23 12/27/23 12/26/23 History docusate sodium 100 mg capsule 100 mg PO DAILY 12/27/23 12/27/23 12/26/23 History edaravone 105 mg/5 mL oral See Rx Instructions .Route .COMPLEX 12/27/23 12/27/23 1 Week Ago History suspension (Radicava ORS) ~12/20/23 thiamine mononitrate (vit B1) 100 100 mg feeding tube DAILY 12/27/23 12/27/23 12/26/23 History mg tablet Physical Exam 2 Vital Signs and Narrative: Vital Signs: Last Vital Signs Temp 97.7 F 12/27/23 07:36 Pulse 91 12/27/23 11:40 Resp 18 12/27/23 11:40 BP 147/98 H 12/27/23 10:00 Pulse Ox 95 12/27/23 10:51 O2 Del Method Oxymask 12/27/23 10:51 O2 Flow Rate 7 12/27/23 10:51 BMI result Body Mass Index 15.4 Constitutional - Awake and Alert, cachectic, No apparent distress Eyes - PERRLA, EOMI Cardiovascular - S1S2, RRR, No edema Respiratory - Normal lung expansion, Normal respiratory effort, No respiratory distress, expiratory wheezes BUL, diminished lung sounds lower aspect of the lungs bilerally Gastrointestinal - NT / ND; +BS; No rebound or guarding Extremities - no calf tenderness bilaterally, no swelling Skin - Warm/Dry Neurological - Alert & oriented x3 Psychological - Appropriate affect Results Labs 12/27/23 07:34 12/27/23 07:34 Labs: Laboratory Results - last 24 hr 12/27/23 12/27/23 07:34 09:49 MCV 86.1 MCH 30.6 MCHC 35.6 RDW 14.0 Plt Count 217 D MPV 8.7 L Immature Gran % (Auto) 0.5 H Neut % (Auto) 82.0 H Lymph % (Auto) 12.5 L [place] % (Auto) 4.4 Eos % (Auto) 0.3 Baso % (Auto) 0.3 Lymph # (Auto) 1.3 [place] # (Auto) 0.5 Eos # (Auto) 0.0 Baso # (Auto) 0.0 Abs Immat Gran (auto) 0.05 H Absolute Neuts (auto) 8.6 H Absolute Nucleated RBC 0.000 Nucleated RBC % (auto) 0.0 VBG pH 7.41 VBG pCO2 58 VBG pO2 79 VBG HCO3 37 H VBG O2 Saturation 98.0 VBG Base Excess 10.1 Anion Gap 17 Estim Creat Clear Calc 79.0 Estimated GFR > 60 Random Glucose 160 H Calcium 10.3 H D Influenza Type A (PCR) NEGATIVE Influenza Type B (PCR) NEGATIVE RSV RNA Qual (PCR) NEGATIVE SARS-CoV-2 RNA (RT-PCR) NEGATIVE Imaging Radiologist's Impressions: Impressions Chest X-Ray 12/27/23 07:54 IMPRESSION: Interval resolution of previously identified left retrocardiac radiopacity. Assessment and Plan (1) Acute hypoxic respiratory failure: Status: Acute (2) ALS (amyotrophic lateral sclerosis): Status: Acute Plan 63-year-old male with history of ALS, major depressive disorder, moderate protein calorie malnutrition, peg tube in place admitted for acute hypoxemic respiratory failure related to ALS # acute hypoxemic respiratory failure with possible bronchitis in setting of ALS -CXR negative for acute pneumonia -continue supplemental O2 per protocol, wean as tolerated -iv methylprednisolone 40mg BID -duonebs q4h while awake, and prn -check RPP -MOnitor FVC/NIP -pulmonology consult -recheck vbg am #Moderate portein calorie malnutrition in setting of chronic illness -continue tube feeds, nutrition consult -toleratese small amount of PO, supplement with ensure #MDD -continue home meds dvt prophylaxis -heparin dnr/dni pt requires inpt stay at least 2 midnights for management of acute hypoxemic respiratory failure in setting of ALS still requiring 6L O2 and will require close monitoring of respiratory status and expert consultation with possible escalation of care for any further pulmonary decompensation Quality Stroke Does the patient have a stroke diagnosis?: No VTE Prior VTE?: No VTE Risk Level:: Medical - moderate - high VTE Device Contraindication: Treatment Not Indicated VTE Drug Contraindication: N/A - Med Ordered
[2023-12-27 12:47] LABS: D Dimer High Sensitivity < 150 NG/ML
[2023-12-27] MEDS: Heparin Sodium,Porcine 5,000 UNIT/ML VIAL 5000 UNIT SUBCUT ×2 (13:24→23:56)
--- NOTE | 2023-12-27 13:28 | PC.NURSE ---
Patient stating he only uses g tube for supplemental nutrition and meds and he does not want to be tube fed while in hospital. Provider aware
--- NOTE | 2023-12-27 14:50 | PC.NURSE ---
Patient stating he did not take his zoloft today and would like to takes todays dose. States does not want any meds by mouth. provider/ pharmacy aware
[2023-12-27] MEDS: LORazepam 0.5 MG TABLET PO ×2 (15:00→20:46)
--- NOTE | 2023-12-27 15:02 | PC.NURSE ---
Patient aware that a dose of zoloft would not be ordered for today and he would get his scheduled dose in the AM d/t risk of serotonin syndrome. Patient stating its fine because he just took his serotonin dose that his family brought in to him. Family at bedside educated on risk of taking medications at times not scheduled and too close to tomorrow morning dose. Family stating they will take medications home with them . Provider notified,
--- NOTE | 2023-12-27 15:49 | P.CONPL_ITS ---
History of Present Illness History of Present Illness Consult date: 12/27/23 Chief complaint: Acute hypoxic respiratory failure Narrative: 63-year-old gentleman with underlying ALS, cachexia, status post PEG admitted on 12/27/2023 with dyspnea and hypoxia. Patient initially requiring CPAP support and up to 10 L of supplemental oxygen, now titrated down to 4 L of supplemental oxygen. Chest x-ray is essentially normal. D-dimer is negative. CT chest is pending. Patient denies cough or sputum production. Review of Systems 2 Constitutional: Constitutional: Denies daytime sleepiness, Denies excessive sweating, Denies fatigue, Denies fever(s), Denies lethargy, Denies malaise, Denies night sweats, Denies snoring and Denies weight loss Eyes: Eyes: Denies blurry vision and Denies itchy eyes ENT: Denies nasal congestion, Denies post nasal drip, Denies sinus pain, Denies sinus pressure and Denies other ( Thrush) Cardiovascular: Cardiovascular: Denies chest pain, Denies pedal edema, Reports dyspnea, Denies orthopnea and Denies paroxysmal nocturnal dyspnea Respiratory: Respiratory: Denies cough, Denies hemoptysis, Denies excessive phlegm production, Reports dyspnea, Denies snoring and Denies wheezing Gastrointestinal: Gastrointestinal: Denies abdominal pain and Denies heartburn Musculoskeletal: Musculoskeletal: Denies myalgias, Denies arthralgias and Denies joint swelling Integumentary/Breasts: Skin/Breast: Denies rash Neurologic: Denies memory loss and Denies seizure-like activity Psychiatric: Psychiatric: Denies abnormal sleep pattern, Denies anxiety and Denies memory loss Endocrine: Endocrine: Denies excessive sweating, Denies fatigue and Denies heat intolerance Hematologic/Lymphatic: Hematologic/Lymphatic: Denies easy bruising Allergic/Immunologic: Allergic/Immunologic: Denies itchy eyes, Denies seasonal rhinorrhea and Denies wheezing PMFSH Past Medical History Medical History MDD (major depressive disorder) Atelectasis ALS (amyotrophic lateral sclerosis) Social History Social History Household Members: Spouse Housing: House Do you presently have visiting nurse or other home services: Yes (housework) Alcohol intake: current Alcohol intake frequency: holidays/special occasions only Comment: rings appropriately Patient Tobacco Use Status: Never used Tobacco Smoked in Last 30 Days: No e-Cigarette/Vaping Use: Never Used Use of substances other than those prescribed or required for medical reasons: No Substance Use Type: Marijuana Advance Directives: Yes Advance Directives on File: Yes Advance Directives Date on File: 07/29/23 Do you have a plan to hurt others: No Plan service: No Current occupational status: disabled Meds Allergies Allergy/AdvReac Type Severity Reaction Status Date / Time No Known Allergies Allergy Verified 12/27/23 07:25 Active Medications: Current Medications Acetaminophen (Acetaminophen 325 Mg Tablet) 650 mg PO Q6H PRN PRN Reason: Pain, Mild (Pain Scale 1-3), fever or headache Albuterol Sulfate (Albuterol Sulfate 90 Mcg 8 Gm Inhaler) 1 puff INHALE Q4H PRN PRN Reason: Shortness Of Breath Albuterol/Ipratropium (Albuterol/Iprat 2.5/0.5mg 3 Ml Ampul.Neb) 3 ml INHALE RQ4H WHILE AWAKE PRN PRN Reason: Shortness of Breath/Wheezing Albuterol/Ipratropium (Albuterol/Iprat 2.5/0.5mg 3 Ml Ampul.Neb) 3 ml INHALE RQ4H WHILE AWAKE [facility] Last Admin: 12/27/23 14:45 Dose: 3 ml Docusate Sodium (Docusate Sodium 100 Mg Capsule) 100 mg PO DAILY [facility] Folic Acid (Folic Acid 1 Mg Tablet) 1 mg G-TUBE DAILY@1800 [facility] Heparin Sodium (Porcine) (Heparin Sodium,Porcine 5,000 Unit/Ml Vial) 5,000 unit SUBCUT Q12H [facility] Last Admin: 12/27/23 13:24 Dose: 5,000 unit Magnesium Hydroxide (Milk Of Magnesia 30 Ml Oral.Susp) 30 ml PO DAILY PRN PRN Reason: Constipation Methylprednisolone Sodium Succinate (Methylprednisolone Sod Succ 40 Mg/Ml Vial) 40 mg IVPUSH Q12H [facility] Ondansetron HCl (Ondansetron Hcl 4 Mg/2 Ml Vial) 4 mg IVPUSH Q8H PRN PRN Reason: Nausea and Vomiting Sertraline HCl (Sertraline Hcl 100 Mg Tablet) 200 mg G-TUBE DAILY [facility] Sodium Chloride (0.9 % Sodium Chloride Flush 3 Ml Syringe) 3 ml IVFLUSH QSHIFT [facility] Thiamine HCl (Thiamine Hcl 100 Mg Tablet) 100 mg G-TUBE DAILY [facility] Trazodone HCl (Trazodone Hcl 100 Mg Tablet) 100 mg G-TUBE BEDTIME [facility] Home Medications ?Medication ?Instructions ?Recorded ?Confirmed ?Last Taken ?Type albuterol sulfate 90 mcg/actuation 1 puff inhalation Q4H PRN 08/18/22 12/27/23 07/29/23 History aerosol inhaler Shortness Of Breath trazodone 50 mg tablet 2 tab feeding tube BEDTIME 08/18/22 12/27/23 12/26/23 History folic acid 1 mg tablet 1 mg feeding tube DAILY@1800 08/04/23 12/27/23 12/26/23 History sertraline 100 mg tablet 200 mg feeding tube DAILY 08/04/23 12/27/23 12/26/23 History docusate sodium 100 mg capsule 100 mg PO DAILY 12/27/23 12/27/23 12/26/23 History edaravone 105 mg/5 mL oral See Rx Instructions .Route .COMPLEX 12/27/23 12/27/23 1 Week Ago History suspension (Radicava ORS) ~12/20/23 thiamine mononitrate (vit B1) 100 100 mg feeding tube DAILY 12/27/23 12/27/23 12/26/23 History mg tablet Physical Exam 2 Vital Signs: Vital Signs: Last Vital Signs Temp 97.7 F 12/27/23 07:36 Pulse 80 12/27/23 14:46 Resp 18 12/27/23 14:46 BP 147/98 H 12/27/23 10:00 Pulse Ox 95 12/27/23 10:51 O2 Del Method Oxymask 12/27/23 10:51 O2 Flow Rate 7 12/27/23 10:51 BMI result Body Mass Index 15.4 Const: General: no acute distress and alert Nutritional Appearance: c achectic Orientation/consciousness: Other orientation findings ( oriented) HEENT: Head: Yes atraumatic Eyes: General: appearance normal, both eyes and all related structures S clerae: sclerae normal EOM: EOMs intact bilaterally Neck: Neck: Yes supple Lymphatic: no lymphadenopathy noted Resp: Effort & Inspection: normal respiratory effort and no use of accessory muscles Auscultation: clear to auscultation bilaterally Cardio: Rate: regular rate Rhythm: regular rhythm Heart sounds: no gallops, no murmurs and no rubs Skin: General skin exam: other ( warm) Extrem: General: No clubbing, No cyanosis and No edema Results Laboratory Findings 12/27/23 07:34 12/27/23 07:34 Abnormal lab findings: Abnormal Labs 12/27/23 12/27/23 07:34 09:49 RBC 5.91 H Hgb 18.1 H MPV 8.7 L Immature Gran % (Auto) 0.5 H Neut % (Auto) 82.0 H Lymph % (Auto) 12.5 L Abs Immat Gran (auto) 0.05 H Absolute Neuts (auto) 8.6 H VBG HCO3 37 H Chloride 92 L Carbon Dioxide 34 H Random Glucose 160 H Calcium 10.3 H D Assessment and Plan (1) ALS (amyotrophic lateral sclerosis): Status: Acute (2) Acute hypoxic respiratory failure: Status: Acute Plan Impression: 63-year-old gentleman with underlying ALS admitted with a hypoxic episode now resolving. D-dimer is negative, CT chest is pending. Reasonable FVC/NIF. Likely transient aspiration event that is improving. Recommendations: Consider brief treatment course with Augmentin for 4-5 days and further monitoring. Procedures Date of Service Date of Service: 12/27/23
[2023-12-27] MEDS: 0.9 % Sodium Chloride Flush 3 ML SYRINGE IVFLUSH ×2 (16:39→20:46)
[2023-12-27] MEDS: traZODone HCL 100 MG TABLET G-TUBE (20:46)
[2023-12-27] MEDS: methylPREDNISolone Sod Succ 40 MG/ML VIAL IVPUSH (20:46)
[2023-12-28] VITALS (24 sets, daily range): BP systolic 92–145; BP diastolic 59–96; PULSE 94–124; RESP 15–35; TEMP 36.4–37.3; O2SAT 91–99; BMI 15.4
--- NOTE | 2023-12-28 03:17 | PC.NURSE ---
12/27/[id number] pt arrived from ER to room 358 A+O,lungs dim v0sel-15% on 4L no acute resp distress very anxious bp-170/94 requesting ativan. notified ordered ativan 0.5mg po given at 2044 with good effect.
[2023-12-28] MEDS: Albuterol/Iprat 2.5/0.5MG 3 ML AMPUL.NEB INHALE ×5 (04:00→19:59)
[2023-12-28 05:47] LABS: MANUAL DIFF FLAG NO
[2023-12-28 05:48] LABS: Venous Blood Gas Refer to POC result
[2023-12-28 05:50] LABS: Basophils Percent Auto 0.2 % (0-2); Hematocrit 42.9 % (42.0-52.0); Hemoglobin 15.2 g/dl (14.0-18.0); Imm Gran Abs Auto 0.04 X10*3/uL (0.00-0.03); Imm Gran Pct Auto 0.3 % (0.0-0.4); Lymphocytes Absolute Auto 0.7 X10*3/uL (1.2-4.9); Mean Corpuscular HGB Conc 35.4 g/dl (31.0-36.0); Mean Corpuscular Volume 87.6 fL (80.0-98.0); Mean Platelet Volume 8.9 fL (9.4-12.4); Monocytes Absolute Auto 0.7 X10*3/uL (0.1-1.2); Monocytes Percent Auto 5.4 % (2-11); Neutrophils Absolute Auto 11.6 x10*3/uL (2.0-8.3); Neutrophils Percent Auto 89.1 % (45-73); Platelet Count 161 X10*3/uL (160-400)
--- NOTE | 2023-12-28 05:52 | PM.EVENT ---
Event Note Date of Service: 12/28/23 Event Note: Blood culture: Gram-positive cocci in clusters. Initiating IV vancomycin Time Spent With Patient Time: Total time managing care of this patient today ____ minutes.
[2023-12-28 05:53] LABS: VBG Base Excess 12.5 mmol/L; VBG HCO3 39 mmol/L (22-26); VBG pCO2 60 mmHg; VBG pH 7.42 (7.32-7.43); VBG pO2 110 mmHg
[2023-12-28 06:03] LABS: Anion Gap 12 (12-20); Blood Urea Nitrogen 15 mg/dL (9-16); Calcium 9.9 mg/dL (8.4-10.2); Carbon Dioxide 34 mmol/L (22-29); Chloride 96 mmol/L (96-108); Creatinine Clr Calc Pharmacy 100.6; Estimated Glomerular Filt Rate > 60; Glucose Random 110 mg/dL (60-115); Potassium 4.4 mmol/L (3.3-5.1); Sodium 138 mmol/L (135-145)
[2023-12-28] MEDS: vancomycin HCL 1,250 MG in 0.9 % Sodium Chloride 250 ML 166.67 MG IV (06:27)
[2023-12-28] MEDS: methylPREDNISolone Sod Succ 40 MG/ML VIAL IVPUSH (08:15)
[2023-12-28] MEDS: 0.9 % Sodium Chloride Flush 3 ML SYRINGE IVFLUSH ×2 (08:15→17:58)
[2023-12-28] MEDS: Thiamine HCL 100 MG TABLET G-TUBE (08:15)
[2023-12-28] MEDS: Sertraline HCL 100 MG TABLET 200 MG G-TUBE (08:15)
[2023-12-28] MEDS: Docusate Sodium 100 MG CAPSULE PO (08:15)
--- NOTE | 2023-12-28 08:25 | PHA.PROG ---
Admission Date/Time: December 27, 2023 12:14 Indication: BACTEREMIA Weight in k.4 kg Adjusted body weight in Kg: Vass body weight in Kg: Obesity Dosing Indication % IBW: Serum Creatinine - Last 168 Hours 12/27/23 12/28/23 07:34 05:38 Creatinine 0.65 0.51 Estimated CrCl and GFR - Last 168 Hours 12/27/23 12/28/23 07:34 05:38 Estim Creat Clear Calc 79.0 100.6 Estimated GFR > 60 > 60 Vancomycin Loading Dose: 1250 MG Current Vancomycin Dosing Regimen: 750 MG Q8H Vancomycin Monitoring using AUC goal of 400 - 600 range with trough as surrogate marker: [id number] TROUGH=17.8 Date and Time for next Vancomycin Level to be drawn: 12/29/23 @0500 Pharmacist Comments on Vancomycin Plan: Vancomycin dosing will take advantage of [employer] as a clinical decision support tool that uses Bayesian modeling to calculate individual patient's pharmacokinetic parameters and forecast the patient's drug concentration time course with the target goal AUC 24 range of 400 - 600 mg/L/hr.
--- NOTE | 2023-12-28 09:04 | P.PNIM_ITS ---
Subjective Subjective Date of Service: 12/28/23 Interval History: anxious, sob Physical Exam 2 Vital Signs: Vital Signs: Last Vital Signs Temp 98.8 F 12/28/23 07:03 Pulse 100 12/28/23 08:30 Resp 20 12/28/23 08:30 BP 132/75 12/28/23 07:03 Pulse Ox 96 12/28/23 07:03 O2 Del Method Nasal Cannula 12/28/23 07:03 O2 Flow Rate 4 12/28/23 07:03 BMI result Body Mass Index 15.4 General: AO X 3, anxious, frail appearing, cachexic, muscle wasting, peg in place Resp: diminished bilateral, accessory muscles used CVS: S1,S2,RRR GI: soft, non tender, non distended Psych: appropriate affect, appropriate insight Objective Data Active Medications Acetaminophen (Acetaminophen 325 Mg Tablet) 650 mg PO Q6H PRN PRN Reason: Pain, Mild (Pain Scale 1-3), fever or headache Albuterol Sulfate (Albuterol Sulfate 90 Mcg 8 Gm Inhaler) 1 puff INHALE Q4H PRN PRN Reason: Shortness Of Breath Albuterol/Ipratropium (Albuterol/Iprat 2.5/0.5mg 3 Ml Ampul.Neb) 3 ml INHALE RQ4H WHILE AWAKE PRN PRN Reason: Shortness of Breath/Wheezing Last Admin: 12/28/23 04:00 Dose: 3 ml Documented By: JEANNETTE Albuterol/Ipratropium (Albuterol/Iprat 2.5/0.5mg 3 Ml Ampul.Neb) 3 ml INHALE RQ4H WHILE AWAKE [facility] Last Admin: 12/28/23 08:30 Dose: 3 ml Documented By: HAYDEE Docusate Sodium (Docusate Sodium 100 Mg Capsule) 100 mg PO DAILY [facility] Last Admin: 12/28/23 08:15 Dose: 100 mg Documented By: JEFFREY Folic Acid (Folic Acid 1 Mg Tablet) 1 mg G-TUBE DAILY@1800 [facility] Last Admin: 12/27/23 17:09 Dose: Not Given Documented By: WENDY Non-Admin Reason: Patient Refused Heparin Sodium (Porcine) (Heparin Sodium,Porcine 5,000 Unit/Ml Vial) 5,000 unit SUBCUT Q12H [facility] Last Admin: 12/27/23 23:56 Dose: 5,000 unit Documented By: NOEMI Vancomycin HCl 750 mg/ Sodium (Chloride) 265 mls @ 265 mls/hr IV Q8H [facility] Lorazepam (Lorazepam 0.5 Mg Tablet) 0.5 mg PO Q8H PRN PRN Reason: Anxiety Magnesium Hydroxide (Milk Of Magnesia 30 Ml Oral.Susp) 30 ml PO DAILY PRN PRN Reason: Constipation Methylprednisolone Sodium Succinate (Methylprednisolone Sod Succ 40 Mg/Ml Vial) 40 mg IVPUSH Q12H [facility] Last Admin: 12/28/23 08:15 Dose: 40 mg Documented By: JEFFREY Ondansetron HCl (Ondansetron Hcl 4 Mg/2 Ml Vial) 4 mg IVPUSH Q8H PRN PRN Reason: Nausea and Vomiting Pharmacy Consult (Consult Rx Vancomycin Dosing) 1 each MISCELLANE DAILY PRN PRN Reason: Consult order Sertraline HCl (Sertraline Hcl 100 Mg Tablet) 200 mg G-TUBE DAILY [facility] Last Admin: 12/28/23 08:15 Dose: 200 mg Documented By: JEFFREY Sodium Chloride (0.9 % Sodium Chloride Flush 3 Ml Syringe) 3 ml IVFLUSH QSHIFT [facility] Last Admin: 12/28/23 08:15 Dose: 3 ml Documented By: JEFFREY Thiamine HCl (Thiamine Hcl 100 Mg Tablet) 100 mg G-TUBE DAILY [facility] Last Admin: 12/28/23 08:15 Dose: 100 mg Documented By: JEFFREY Trazodone HCl (Trazodone Hcl 100 Mg Tablet) 100 mg G-TUBE BEDTIME [facility] Last Admin: 12/27/23 20:46 Dose: 100 mg Documented By: NOEMI Labs 12/28/23 05:38 12/28/23 05:38 Labs: Laboratory Results - last 24 hr 12/27/23 12/27/23 12/28/23 09:49 12:25 05:38 MCV 87.6 MCH 31.0 MCHC 35.4 RDW 14.0 Plt Count 161 D MPV 8.9 L Immature Gran % (Auto) 0.3 Neut % (Auto) 89.1 H Lymph % (Auto) 5.0 L [place] % (Auto) 5.4 Eos % (Auto) 0.0 Baso % (Auto) 0.2 Lymph # (Auto) 0.7 L [place] # (Auto) 0.7 Eos # (Auto) 0.0 Baso # (Auto) 0.0 Abs Immat Gran (auto) 0.04 H Absolute Neuts (auto) 11.6 H Absolute Nucleated RBC 0.000 Nucleated RBC % (auto) 0.0 D-Dimer High Sensitivty < 150 VBG pH 7.41 VBG pCO2 58 VBG pO2 79 VBG HCO3 37 H VBG O2 Saturation 98.0 VBG Base Excess 10.1 Anion Gap 12 Estim Creat Clear Calc 100.6 Estimated GFR > 60 Random Glucose 110 Calcium 9.9 12/28/23 05:44 MCV MCH MCHC RDW Plt Count MPV Immature Gran % (Auto) Neut % (Auto) Lymph % (Auto) [place] % (Auto) Eos % (Auto) Baso % (Auto) Lymph # (Auto) [place] # (Auto) Eos # (Auto) Baso # (Auto) Abs Immat Gran (auto) Absolute Neuts (auto) Absolute Nucleated RBC Nucleated RBC % (auto) D-Dimer High Sensitivty VBG pH 7.42 VBG pCO2 60 VBG pO2 110 VBG HCO3 39 H VBG O2 Saturation 99.0 VBG Base Excess 12.5 Anion Gap Estim Creat Clear Calc Estimated GFR Random Glucose Calcium Microbiology Microbiology Results: Microbiology 12/27/23 07:34 Blood Culture - Preliminary Blood - Venous Prelim: GPC Gram Stain only Assessment and Plan (1) Panic disorder: Status: Acute Plan 63M PMH ALS, major depressive disorder, moderate protein calorie malnutrition, peg tube in place presented with severe sob, acute hypoxemic respiratory failure related to ALS acute hypoxemic and chronic hypercapneic respiratory failure with possible bronchitis in setting of ALS, possible aspiration pulm appreciated augmentin solumedrol nebs follow up ct chest monitor FVC/NIP gpc in 1/2 unlikely pathogen, empircially started on vanco iv, follow up speciation Moderate portein calorie malnutrition in setting of chronic illness continue tube feeds toleratese small amount of PO, supplement with ensure MDD sertraline dvt prophylaxis heparin dnr/dni reason for continued hospitalization:hypoxia Quality Stroke Does the patient have a stroke diagnosis?: No VTE Prior VTE?: No VTE Risk Level:: Medical - moderate - high VTE Device Contraindication: Treatment Not Indicated VTE Drug Contraindication: N/A - Med Ordered
[2023-12-28] MEDS: LORazepam 0.5 MG TABLET PO ×2 (09:07→19:34)
[2023-12-28 09:08] LABS: Adenovirus PCR Not Detected (Not Detect.); Bordetella parapertussis PCR Not Detected (Not Detect.); Bordetella pertussis PCR Not Detected (Not Detect.); Chlamydia pneumoniae PCR Not Detected (Not Detect.); Coronavirus 229E PCR Not Detected (Not Detect.); Coronavirus HKU1 PCR Not Detected (Not Detect.); Coronavirus NL63 PCR Not Detected (Not Detect.); Coronavirus OC43 PCR Not Detected (Not Detect.); Human metapneumovirus PCR Not Detected (Not Detect.); Influenza A PCR Not Detected (Not Detect.); Influenza B PCR Not Detected (Not Detect.); Mycoplasma pneumoniae PCR Not Detected (Not Detect.); Parainfluenza 1 PCR Not Detected (Not Detect.); Parainfluenza 2 PCR Not Detected (Not Detect.); Parainfluenza 3 PCR Not Detected (Not Detect.); Parainfluenza 4 PCR Not Detected (Not Detect.); RSV PCR Not Detected (Not Detect.); Rhino/Enterovirus PCR Not Detected (Not Detect.)
[2023-12-28 09:13] LABS: SARS-CoV-2 PCR Not Detected (Not Detect.)
[2023-12-28] MEDS: Amoxicillin/Potassium Clav 875 MG TABLET PO ×2 (09:56→20:55)
--- NOTE | 2023-12-28 10:51 | ECG_ITS ---
Test Reason : per cardiology request Blood Pressure : / mmHG Vent. Rate : 105 BPM Atrial Rate : 105 BPM P-R Int : 114 ms QRS Dur : 080 ms QT Int : 316 ms P-R-T Axes : 094 083 174 degrees QTc Int : 417 ms Poor data quality Sinus tachycardia Minimal voltage criteria for LVH, may be normal variant ( Sokolow-Jama ) Borderline ECG No previous ECGs available Referred By: Khushbu Baptiste Electronically Signed By:Robe Gracia
--- NOTE | 2023-12-28 10:57 | PM.EVENT ---
Event Note Date of Service: 12/28/23 Event Note: Rapid response called for worsening acute hypoxia, respiratory distress, patient desaturating to the low 70s, was placed on 100% non-rebreather and slowly improved to mid 90s, patient with poor air movement, using accessory muscles, NIP 10-15, fvc 1.44L. Given 2 mg of morphine, Placed BiPAP, plan to transfer to ICU, DNR/DNI confirmed Time Spent With Patient Time: Total time managing care of this patient today ____ minutes.
--- NOTE | 2023-12-28 11:36 | PM.CCPN ---
Subjective Subjective Date of Service: 12/28/23 Interval History: 63-year-old gentleman with underlying ALS, cachexia, status post PEG admitted on 12/27/2023 with dyspnea and hypoxia. Patient initially requiring CPAP support and up to 10 L of supplemental oxygen, then titrated down to nasal cannula. On 12/28/2023 patient with acute hypoxia and increased respiratory distress requiring application of BiPAP and transfer to intensive care unit. ABG demonstrating CO2 retention. Critical Care Time (minutes): 45 Physical Exam Vital Signs: Vital Signs: Last Vital Signs Temp 98.8 F 12/28/23 07:03 Pulse 100 12/28/23 08:30 Resp 20 12/28/23 08:30 BP 132/75 12/28/23 07:03 Pulse Ox 96 12/28/23 07:03 O2 Del Method Nasal Cannula 12/28/23 07:03 O2 Flow Rate 4 12/28/23 07:03 BMI result Body Mass Index 15.4 Const: General: no acute distress, alert and awake Nutritional Appearance: cachectic Eyes: Sclerae: sclerae normal EOM: EOMs intact bilaterally Neck: Neck: Yes no lymphadenopathy, Yes trachea midline and Yes supple Resp: Effort & Inspection: normal respiratory effort and no respiratory distress Auscultation: clear to auscultation bilaterally Cardio: Rate: regular rate Rhythm: regular rhythm Heart sounds: no gallops, no murmurs and no rubs GI: Palpation (GI): Soft to palpation and Other GI palpation findings present ( Nontender) Auscultation: normal bowel sounds Extrem: General: Yes no pedal edema, No clubbing and No cyanosis Objective Data Labs 12/28/23 05:38 12/28/23 05:38 Labs: Laboratory Results - last 24 hr 12/27/23 12/27/23 12/28/23 12:25 16:56 05:38 WBC 13.0 H RBC 4.90 Hgb 15.2 Hct 42.9 MCV 87.6 MCH 31.0 MCHC 35.4 RDW 14.0 Plt Count 161 D MPV 8.9 L Immature Gran % (Auto) 0.3 Neut % (Auto) 89.1 H Lymph % (Auto) 5.0 L [place] % (Auto) 5.4 Eos % (Auto) 0.0 Baso % (Auto) 0.2 Lymph # (Auto) 0.7 L [place] # (Auto) 0.7 Eos # (Auto) 0.0 Baso # (Auto) 0.0 Abs Immat Gran (auto) 0.04 H Absolute Neuts (auto) 11.6 H Absolute Nucleated RBC 0.000 Nucleated RBC % (auto) 0.0 D-Dimer High Sensitivty < 150 VBG pH VBG pCO2 VBG pO2 VBG HCO3 VBG O2 Saturation VBG Base Excess Sodium 138 Potassium 4.4 Chloride 96 Carbon Dioxide 34 H Anion Gap 12 BUN 15 Creatinine 0.51 Estim Creat Clear Calc 100.6 Estimated GFR > 60 Random Glucose 110 Calcium 9.9 Respiratory Panel [place] See Note Adenovirus (Rapid PCR) Not Detected B.pert (TEM-PCR) Not Detected B.parapertussis DNA PCR Not Detected C. pneumoniae DNA (PCR) Not Detected Coronavirus OC43 (PCR) Not Detected Coronavirus HKU1 (PCR) Not Detected Coronavirus 229E (PCR) Not Detected Coronavirus NL63 (PCR) Not Detected Human Metapneumovir PCR Not Detected Influenza A (RT-PCR) Not Detected Influenza B (RT-PCR) Not Detected M. pneumoniae (PCR) Not Detected Parainfluenza 1 (PCR) Not Detected Parainfluenza 2 (PCR) Not Detected Parainfluenza 3 (PCR) Not Detected Parainfluenza 4 (PCR) Not Detected RSV (PCR) Not Detected Entero/Rhino (PCR) Not Detected SARS-CoV-2 RNA (RT-PCR) Not Detected 12/28/23 05:44 WBC RBC Hgb Hct MCV MCH MCHC RDW Plt Count MPV Immature Gran % (Auto) Neut % (Auto) Lymph % (Auto) [place] % (Auto) Eos % (Auto) Baso % (Auto) Lymph # (Auto) [place] # (Auto) Eos # (Auto) Baso # (Auto) Abs Immat Gran (auto) Absolute Neuts (auto) Absolute Nucleated RBC Nucleated RBC % (auto) D-Dimer High Sensitivty VBG pH 7.42 VBG pCO2 60 VBG pO2 110 VBG HCO3 39 H VBG O2 Saturation 99.0 VBG Base Excess 12.5 Sodium Potassium Chloride Carbon Dioxide Anion Gap BUN Creatinine Estim Creat Clear Calc Estimated GFR Random Glucose Calcium Respiratory Panel [place] Adenovirus (Rapid PCR) B.pert (TEM-PCR) B.parapertussis DNA PCR C. pneumoniae DNA (PCR) Coronavirus OC43 (PCR) Coronavirus HKU1 (PCR) Coronavirus 229E (PCR) Coronavirus NL63 (PCR) Human Metapneumovir PCR Influenza A (RT-PCR) Influenza B (RT-PCR) M. pneumoniae (PCR) Parainfluenza 1 (PCR) Parainfluenza 2 (PCR) Parainfluenza 3 (PCR) Parainfluenza 4 (PCR) RSV (PCR) Entero/Rhino (PCR) SARS-CoV-2 RNA (RT-PCR) Microbiology Microbiology Results: Microbiology 12/27/23 07:34 Blood - Venous Blood Culture - Preliminary No growth after 24 hours. 12/27/23 07:34 Blood - Venous Blood Culture - Preliminary Prelim: GPC Gram Stain only Progress Note: A&P Assessment and plan (1) ALS (amyotrophic lateral sclerosis): Status: Acute (2) Acute hypoxic respiratory failure: Status: Acute (3) CO2 retention: Status: Acute (4) Aspiration into airway: Status: Acute Plan Assessment: 63-year-old gentleman with underlying ALS and cachexia, status post PEG admitted with dyspnea now with worsening hypoxia development of CO2 retention likely secondary to slow progression of underlying ALS, now requiring BiPAP support. Plan: Neuro: Underlying ALS on Radicava. Appears to be slow progression, now may requiring nocturnal NIPPV Cardiac: No acute issues. Pulmonary: Acute hypoxic respiratory failure with development of CO2 retention, now requiring daytime BiPAP, continue to titrate off, started on nocturnal AVAPS. Also, intermittent pulmonary aspiration. Renal: No acute issues. Endo: No acute issues. GI: No acute issues. ID: Empiric coverage for pulmonary aspiration. Heme/Onc: No acute issues. Psych: No acute issues. Miscellaneous: No acute issues. Prophylaxis: Heparin Diet: Tube feeds Critical care time spent: 45 minutes Quality Stroke Does the patient have a stroke diagnosis?: No VTE Prior VTE?: No VTE Risk Level:: Medical - moderate - high VTE Device Contraindication: Treatment Not Indicated VTE Drug Contraindication: N/A - Med Ordered
[2023-12-28] MEDS: Morphine Sulfate 2 MG/ML CARTRIDGE IVPUSH (12:01)
--- NOTE | 2023-12-28 12:01 | MHC.CLN ---
RE; CONSULT PT IS MODERATELY MALNOURISHED PT WITH MILDLY DEPLETED SUBCUTANEOUS FAT AND MUSCLE MASS WITH BMI 15.4 AND 16% NONSIGNIFICANT WT LOSS X 16 MONTHS AND CHRONIC POOR PO INTAKE R/T NAUSEA PER PT PT APPEARS CACHETIC, FRAIL AND UNDER WT FOR HT. PT REPORTS USING PEG TO SUPPLEMENT NUTRITION, HOWEVER NOT MAINTAINING WT PT CURRENTLY RECEIVING JEVITY 1.0 BOLUS 300ML X4 RECOMMEND JEVITY 1.0 CONTINUOUS FEEDS AT MAX GOAL RATE 55ML/HR WITH 120ML FREE WATER FLUSHES Q 8 HRS TO PROVIDE 1399KCALS (30KCALS/KG), 58G PROTEIN (1.2G/KG), 1462ML TOTAL WATER FROM FORMULA AND FLUSHES (30ML/KG) MONITOR TOLERANCE, RESIDUALS AND LYTES RECOMMEND OIL AND GAS EXPLORATION TECHNICIAN EVAL FOR APPROPRIATE DIET CONSISTENCY IF ABLE SEE ALSO FULL CLINICAL NUTRITION ASSESSMENT
--- NOTE | 2023-12-28 12:18 | PC.NURSE ---
~1030 rapid response called for pt being in respiratory distress. Pt was found to be 73% on 4L o2 via NC then placed on a nonrebreather, EKG performed and showed sinus tachy, 2mg morphine IVP were given, pt placed on bipap by respiratory and pt was transferred to ICU
[2023-12-28 12:32] LABS: ABG Base Excess 10.9 mmol/L; ABG HCO3 38 mmol/L (22-26); ABG pCO2 62 mmHg (32-45); ABG pH 7.39 (7.35-7.45); ABG pO2 101 mmHg (83-108)
[2023-12-28] MEDS: Heparin Sodium,Porcine 5,000 UNIT/ML VIAL 5000 UNIT SUBCUT (12:45)
--- NOTE | 2023-12-28 16:35 | PC.RT ---
Cough assist therapy wriiten Bid for pt. Cough assist done 3 sets of 3 carlos eduardo well by patient. Loose weak npc noted. Aerobika done ind x 10. RT unable to chart in worklist as [employer] won't allow.
[2023-12-28] MEDS: Folic Acid 1 MG TABLET G-TUBE (20:53)
[2023-12-28] MEDS: traZODone HCL 100 MG TABLET G-TUBE (20:53)
[2023-12-28 21:17] LABS: ABG Refer to POC result
[2023-12-29] VITALS (19 sets, daily range): BP systolic 108–147; BP diastolic 67–94; PULSE 100–123; RESP 16–32; TEMP 36.6–37.1; O2SAT 90–98; BMI 15.3
[2023-12-29] MEDS: Heparin Sodium,Porcine 5,000 UNIT/ML VIAL 5000 UNIT SUBCUT ×2 (00:08→12:13)
[2023-12-29] MEDS: 0.9 % Sodium Chloride Flush 3 ML SYRINGE IVFLUSH ×3 (00:08→20:55)
[2023-12-29] MEDS: LORazepam 0.5 MG TABLET PO ×3 (03:51→18:46)
[2023-12-29 05:02] LABS: VBG Base Excess 10.7 mmol/L; VBG HCO3 36 mmol/L (22-26); VBG pCO2 52 mmHg; VBG pH 7.45 (7.32-7.43); VBG pO2 82 mmHg
[2023-12-29 05:05] LABS: Venous Blood Gas Refer to POC result
[2023-12-29 05:06] LABS: Basophils Percent Auto 0.2 % (0-2); Hematocrit 41.4 % (42.0-52.0); Hemoglobin 14.6 g/dl (14.0-18.0); Imm Gran Abs Auto 0.08 X10*3/uL (0.00-0.03); Imm Gran Pct Auto 0.6 % (0.0-0.4); Lymphocytes Absolute Auto 0.3 X10*3/uL (1.2-4.9); Lymphocytes Percent Auto 2.2 % (20-40); MANUAL DIFF FLAG SCAN; Mean Corpuscular HGB Conc 35.3 g/dl (31.0-36.0); Mean Corpuscular Hemoglobin 30.7 pg (27.0-33.0); Mean Corpuscular Volume 87.2 fL (80.0-98.0); Monocytes Absolute Auto 0.6 X10*3/uL (0.1-1.2); Monocytes Percent Auto 4.1 % (2-11); Neutrophils Absolute Auto 13.1 x10*3/uL (2.0-8.3); Neutrophils Percent Auto 92.9 % (45-73); Platelet Count 123 X10*3/uL (160-400); Red Blood Count 4.75 X10*6/uL (4.60-5.80); Red Cell Distribution Width 14.1 % (11.0-16.0); SCAN SMEAR FLAG 1; White Blood Count 14.1 X10*3/uL (4.8-10.8)
[2023-12-29 05:26] LABS: Alanine Aminotransferase 18 U/L (0-40); Albumin Level 3.9 g/dL (3.5-5.0); Alkaline Phosphatase 61 U/L (39-117); Anion Gap 14 (12-20); Aspartate Amino Transferase 18 U/L (5-37); Bilirubin Total 0.6 mg/dL (0.0-1.0); Blood Urea Nitrogen 19 mg/dL (9-16); Calcium 9.9 mg/dL (8.4-10.2); Carbon Dioxide 31 mmol/L (22-29); Chloride 94 mmol/L (96-108); Creatinine Clr Calc Pharmacy 100.6; Estimated Glomerular Filt Rate > 60; Glucose Fasting 102 mg/dL (60-99); Glucose Random 102 mg/dL (60-115); Magnesium 1.8 mg/dL (1.6-2.6); Phosphorus 2.9 mg/dL (2.7-4.5); Potassium 4.2 mmol/L (3.3-5.1); Sodium 135 mmol/L (135-145); Total Protein 6.2 g/dL (6.5-8.0)
[2023-12-29 05:27] LABS: SLIDE REVIEW VERIFIED
[2023-12-29] MEDS: Albuterol/Iprat 2.5/0.5MG 3 ML AMPUL.NEB INHALE ×4 (07:41→19:35)
--- NOTE | 2023-12-29 08:50 | P.CDIM_ITS ---
PROVIDER RESPONSE TEXT: To clarify, the appropriate diagnosis supported by the clinical indicators: After study, Bronchitis is ruled out QUERY TEXT: PHYSICIAN'S DOCUMENTATION REQUEST Date of Query: 12/29/2023 06:57 AM EDT Patient Name: Ronny Quiñonez Admit Date: 12/27/2023 Dear Jaime Molina MD, A review of the medical record indicates additional documentation may be needed. Please review below and update the documentation accordingly. Clinical Indicators: H&P 12/26 and Progress note 12/27 - Acute hypoxemic and chronic hypercapnic respiratory failure with po ssible Bronchitis in the setting of ALS. Albuterol, O2, IV methylprednisolone 40 mg BID Expiratory wheezing, BUL diminished lung sounds bilaterally Clarify which of the following accurately represents the acuity of the noted Bronchitis: Acute Bronchitis After study, Bronchitis is ruled out Other (explain) Clinically unable to determine (explain) Thank you, Layne Yoo, CCS, CDIS Use of terms such as suspected, likely, concern for, or probable (associated with a specific diagnosi s that is being evaluated, monitored, or treated as if it exists) are acceptable and can be coded in the inpatient se tting, when documented at the time of discharge. Please use your independent medical judgment in providing your response. THIS QUERY IS PART OF THE PERMANENT MEDICAL RECORD
[2023-12-29] MEDS: Docusate Sodium 100 MG CAPSULE PO (09:19)
[2023-12-29] MEDS: Thiamine HCL 100 MG TABLET G-TUBE (09:19)
[2023-12-29] MEDS: Amoxicillin/Potassium Clav 875 MG TABLET PO ×2 (09:19→20:55)
[2023-12-29] MEDS: Sertraline HCL 100 MG TABLET 200 MG G-TUBE (09:19)
--- NOTE | 2023-12-29 09:24 | MHC.CLN ---
F/U PT IS MODERATELY MALNOURISHED PT WITH MILDLY DEPLETED SUBCUTANEOUS FAT AND MUSCLE MASS WITH BMI 15.4 AND 16% NONSIGNIFICANT WT LOSS X 16 MONTHS AND CHRONIC POOR PO INTAKE R/T NAUSEA PER PT PT APPEARS CACHETIC, FRAIL AND UNDER WT FOR HT. PT REPORTS USING PEG TO SUPPLEMENT NUTRITION, HOWEVER NOT MAINTAINING WT R/T INCREASED NUTRITION NEEDS SECONDARY TO ALS DISCUSSED AT ROUNDS WITH MD AND NURSING PT REQUESTING BOLUS FEEDS RECOMMEND JEVITY 1.0 BOLUS FEEDS 350ML Q 6 HRS WITH 120ML FREE WATER FLUSHES Q 8 HRS TO PROVIDE 1484KCALS (30KCALS/KG), 62G PROTEIN (1.3G/KG), 1529ML TOTAL WATER FROM FORMULA AND FLUSHES (32ML/KG) MONITOR TOLERANCE AND LYTES RECOMMEND AIDS COUNSELOR EVAL FOR APPROPRIATE DIET CONSISTENCY WHEN ABLE
--- NOTE | 2023-12-29 09:38 | P.PNCC_ITS ---
Subjective Subjective Date of Service: 12/29/23 Interval History: 63-year-old gentleman with underlying ALS, cachexia, status post PEG admitted on 12/27/2023 with dyspnea and hypoxia. Patient initially requiring CPAP support and up to 10 L of supplemental oxygen, then titrated down to nasal cannula. On 12/28/2023 patient with acute hypoxia and increased respiratory distress requiring application of BiPAP and transfer to intensive care unit. ABG demonstrating CO2 retention. Patient was started on nocturnal BiPAP support with significant improvement in his respiratory status. Critical Care Time (minutes): 0 Physical Exam 2 Vital Signs: Vital Signs: Last Vital Signs Temp 98.5 F 12/29/23 08:00 Pulse 103 H 12/29/23 08:00 Resp 25 H 12/29/23 08:00 BP 114/78 12/29/23 08:00 Pulse Ox 90 L 12/29/23 08:00 O2 Del Method Nasal Cannula 12/29/23 08:00 O2 Flow Rate 2 12/29/23 08:00 FiO2 45 12/29/23 06:18 BMI result Body Mass Index 15.3 Const: General: no acute distress, alert and awake Nutritional Appearance: cachectic Eyes: Sclerae: sclerae normal EOM: EOMs intact bilaterally Neck: Neck: Yes no lymphadenopathy, Yes trachea midline and Yes supple Resp: Effort & Inspection: normal respiratory effort and no respiratory distress Auscultation: clear to auscultation bilaterally Cardio: Rate: regular rate Rhythm: regular rhythm Heart sounds: no gallops, no murmurs and no rubs GI: Palpation (GI): Soft to palpation and Other GI palpation findings present ( Nontender) Auscultation: normal bowel sounds Extrem: General: Yes no pedal edema, No clubbing and No cyanosis Objective Data Labs 12/29/23 04:57 12/29/23 04:57 Labs: Laboratory Results - last 24 hr 12/28/23 12/29/23 12/29/23 11:52 04:54 04:57 WBC 14.1 H RBC 4.75 Hgb 14.6 Hct 41.4 L MCV 87.2 MCH 30.7 MCHC 35.3 RDW 14.1 Plt Count 123 L MPV 9.0 L Immature Gran % (Auto) 0.6 H Neut % (Auto) 92.9 H Lymph % (Auto) 2.2 L [place] % (Auto) 4.1 Eos % (Auto) 0.0 Baso % (Auto) 0.2 Lymph # (Auto) 0.3 L [place] # (Auto) 0.6 Eos # (Auto) 0.0 Baso # (Auto) 0.0 Abs Immat Gran (auto) 0.08 H Absolute Neuts (auto) 13.1 H Absolute Nucleated RBC 0.000 Nucleated RBC % (auto) 0.0 Smear Tech's Comments VERIFIED O2 Saturation 99.0 ABG pH at Pt Temp 7.39 ABG pCO2 at Pt Temp 62 H* ABG pO2 at Pt Temp 101 ABG HCO3 38 H ABG Base Excess (Actual) 10.9 VBG pH 7.45 H VBG pCO2 52 VBG pO2 82 VBG HCO3 36 H VBG O2 Saturation 98.0 VBG Base Excess 10.7 Sodium 135 Potassium 4.2 Chloride 94 L Carbon Dioxide 31 H Anion Gap 14 BUN 19 H Creatinine 0.51 Estim Creat Clear Calc 100.6 Estimated GFR > 60 Random Glucose 102 Fasting Glucose 102 H Calcium 9.9 Phosphorus 2.9 Magnesium 1.8 Total Bilirubin 0.6 AST 18 ALT 18 Alkaline Phosphatase 61 Total Protein 6.2 L Albumin 3.9 Microbiology Microbiology Results: Microbiology 12/27/23 07:34 Blood - Venous Blood Culture - Preliminary No growth after 48 hours. 12/27/23 07:34 Blood - Venous Blood Culture - Final Coag negative Staphylococcus Progress Note: A&P Assessment and plan (1) ALS (amyotrophic lateral sclerosis): Status: Acute (2) CO2 retention: Status: Acute (3) Aspiration into airway: Status: Acute (4) Moderate protein-calorie malnutrition: Status: Acute Plan Assessment: 63-year-old gentleman with underlying ALS and cachexia, status post PEG admitted with dyspnea now with worsening hypoxia development of CO2 retention likely secondary to slow progression of underlying ALS, now requiring BiPAP support. Plan: Neuro: Underlying ALS on Radicava. Appears to be slowly progressive, now requiring nocturnal NIPPV Cardiac: No acute issues. Pulmonary: Acute hypoxic respiratory failure with development of CO2 retention, titrated off daytime BiPAP, continue nocturnal iVAPS. Also, intermittent pulmonary aspiration. Renal: No acute issues. Endo: No acute issues. GI: No acute issues. ID: Empiric coverage for pulmonary aspiration. Heme/Onc: No acute issues. Psych: No acute issues. Miscellaneous: No acute issues. Prophylaxis: Heparin Diet: Tube feeds/p.o. supplementation Quality Stroke Does the patient have a stroke diagnosis?: No VTE Prior VTE?: No VTE Risk Level:: Medical - moderate - high VTE Device Contraindication: Treatment Not Indicated VTE Drug Contraindication: N/A - Med Ordered
[2023-12-29] MEDS: Lidocaine 4 % Patch ADH..PATCH 1 PATCH TRANSDERMA (09:41)
--- NOTE | 2023-12-29 13:08 | PC.NURSE ---
Patient refused 1200 350cc tube feed bolus. Patient educated and will offer again at 1600.
--- NOTE | 2023-12-29 18:44 | PC.NURSE ---
pt reports increased anxiety. PRN lorazepam 0.5 mg Q8H last given at 1214. MD notified. PRN lorazepam 0.5 mg given at [address] Baird.
[2023-12-29] MEDS: traZODone HCL 100 MG TABLET G-TUBE (20:54)
[2023-12-29] MEDS: Folic Acid 1 MG TABLET G-TUBE (20:55)
[2023-12-30] MEDS: Heparin Sodium,Porcine 5,000 UNIT/ML VIAL 5000 UNIT SUBCUT (00:03)
[2023-12-30 04:00] VITALS: BP 134/77; PULSE 105; RESP 18; TEMP 37.4; O2SAT 93
[2023-12-30 05:51] VITALS: BMI 14.6
[2023-12-30 06:58] LABS: VBG HCO3 42 mmol/L (22-26); VBG pCO2 63 mmHg; VBG pH 7.43 (7.32-7.43); VBG pO2 73 mmHg
[2023-12-30 07:01] LABS: Venous Blood Gas Refer to POC result
[2023-12-30 07:02] LABS: Basophils Percent Auto 0.2 % (0-2); Hematocrit 38.7 % (42.0-52.0); Hemoglobin 13.6 g/dl (14.0-18.0); Imm Gran Abs Auto 0.09 X10*3/uL (0.00-0.03); Imm Gran Pct Auto 0.8 % (0.0-0.4); Lymphocytes Absolute Auto 0.4 X10*3/uL (1.2-4.9); Lymphocytes Percent Auto 3.2 % (20-40); MANUAL DIFF FLAG SCAN; Mean Corpuscular HGB Conc 35.1 g/dl (31.0-36.0); Mean Corpuscular Hemoglobin 30.6 pg (27.0-33.0); Mean Corpuscular Volume 87.2 fL (80.0-98.0); Mean Platelet Volume 9.3 fL (9.4-12.4); Monocytes Absolute Auto 0.5 X10*3/uL (0.1-1.2); Monocytes Percent Auto 3.9 % (2-11); Neutrophils Percent Auto 91.9 % (45-73); Platelet Count 124 X10*3/uL (160-400); Red Blood Count 4.44 X10*6/uL (4.60-5.80); Red Cell Distribution Width 13.9 % (11.0-16.0); SCAN SMEAR FLAG 1
[2023-12-30 07:12] LABS: Alanine Aminotransferase 16 U/L (0-40); Albumin Level 3.7 g/dL (3.5-5.0); Alkaline Phosphatase 63 U/L (39-117); Anion Gap 14 (12-20); Aspartate Amino Transferase 16 U/L (5-37); Bilirubin Total 0.6 mg/dL (0.0-1.0); Blood Urea Nitrogen 14 mg/dL (9-16); Calcium 9.9 mg/dL (8.4-10.2); Carbon Dioxide 33 mmol/L (22-29); Chloride 93 mmol/L (96-108); Creatinine Clr Calc Pharmacy 105.9; Estimated Glomerular Filt Rate > 60; Glucose Random 100 mg/dL (60-115); Magnesium 1.8 mg/dL (1.6-2.6); Phosphorus 2.2 mg/dL (2.7-4.5); Potassium 4.2 mmol/L (3.3-5.1); Sodium 136 mmol/L (135-145); Total Protein 6.3 g/dL (6.5-8.0)
[2023-12-30 07:36] LABS: SLIDE REVIEW VERIFIED
[2023-12-30] MEDS: Albuterol/Iprat 2.5/0.5MG 3 ML AMPUL.NEB INHALE ×2 (07:46→11:19)
[2023-12-30 07:47] VITALS: PULSE 98; RESP 18; O2SAT 93
[2023-12-30 07:54] VITALS: BP 138/79; PULSE 97; RESP 20; TEMP 37; O2SAT 94
[2023-12-30] MEDS: Sertraline HCL 100 MG TABLET 200 MG G-TUBE (08:01)
[2023-12-30] MEDS: Docusate Sodium 100 MG CAPSULE PO (08:01)
[2023-12-30] MEDS: Amoxicillin/Potassium Clav 875 MG TABLET PO (08:01)
[2023-12-30] MEDS: Thiamine HCL 100 MG TABLET G-TUBE (08:01)
[2023-12-30] MEDS: LORazepam 0.5 MG TABLET PO (08:01)
[2023-12-30] MEDS: Lidocaine 4 % Patch ADH..PATCH 1 PATCH TRANSDERMA (08:02)
[2023-12-30] MEDS: 0.9 % Sodium Chloride Flush 3 ML SYRINGE IVFLUSH (08:08)
[2023-12-30 08:51] VITALS: PULSE 89; PULSE 96; O2SAT 87; O2SAT 89
--- NOTE | 2023-12-30 09:05 | MHC.CM.PN ---
IMM 12/29. Pt with dx ALS, he was transferred from the ICU. Pt lives at home with his . 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 Pt uses a wheelchair and has home O2, will need a home vent as well per RT. Pts will transport him home. HCP on file and verified. Returning home with resumption of previous services is the goal. PCP: Dr. Angelina Javed
--- NOTE | 2023-12-30 11:04 | MHC.CLN ---
F/U PT IS MODERATELY MALNOURISHED PT WITH MILDLY DEPLETED SUBCUTANEOUS FAT AND MUSCLE MASS WITH BMI 15.4 AND 16% NONSIGNIFICANT WT LOSS X 16 MONTHS AND CHRONIC POOR PO INTAKE R/T NAUSEA PER PT PT APPEARS CACHETIC, FRAIL AND UNDER WT FOR HT. PT REPORTS USING PEG TO SUPPLEMENT NUTRITION, HOWEVER NOT MAINTAINING WT R/T INCREASED NUTRITION NEEDS SECONDARY TO ALS NOTED PT REFUSING SOME BOLUS FEEDS THROUGHOUT THE DAY EDUCATED PT ON MALNUTRITION, INCREASED KCAL NEEDS R/T HEALING AND ALS IN ADDITION TO CURRENT NPO STATUS REQUIRING MORE NUTRITION VIA TF PT RECEIVING BOLUS FEEDS JEVITY 1.0 BOLUS FEEDS 350ML Q 6 HRS WITH 120ML FREE WATER FLUSHES Q 8 HRS TO PROVIDE 1484KCALS (30KCALS/KG), 62G PROTEIN (1.3G/KG), 1529ML TOTAL WATER FROM FORMULA AND FLUSHES (32ML/KG) MONITOR TOLERANCE AND LYTES RECOMMEND VOICE STUDIES DIRECTOR EVAL FOR APPROPRIATE DIET CONSISTENCY WHEN ABLE
[2023-12-30 11:18] VITALS: BP 120/70; PULSE 103; RESP 20; TEMP 37.1; O2SAT 93
[2023-12-30 11:24] VITALS: PULSE 104; RESP 20; O2SAT 96
--- NOTE | 2023-12-30 11:34 | PM.DS ---
DS: Providers Provider Date of Service: 12/30/23 Date of admission: 12/27/23 12:14 Primary care physician: Angelina Javed DO Consults: 12/27/23 12:14 Consult to Pulmonology Routine Consulting Provider: [facility] Pulmonology Services Reason for consultation: respiratory failure, als DS: Diagnosis Discharge Diagnosis (1) ALS (amyotrophic lateral sclerosis): Status: Acute (2) CO2 retention: Status: Acute (3) Aspiration into airway: Status: Acute (4) Moderate protein-calorie malnutrition: Status: Acute (5) Acute hypoxic respiratory failure: Status: Acute DS: Summary Hospital Course Hospital Course: Admission note HPI 63-year-old male with history of ALS, major depressive disorder, moderate protein calorie malnutrition, peg tube in place presented to the ED for evaluation of sob and difficulty clearing secretions noted this morning. States he does occasionally experience episodes similar to this but was not improving this morning so called EMS. He denies any fevers, chills, congestion, st, recent illness, sick contacts, abd pain, diarrhea, lightheadedness, chest pain. Does endorse nausea which limits his PO intake but denies associated dysphagia or odynophagia that limits PO intake. Denies aspiration events. He does supplement nutrition with jevity tube feeds. On EMS arrival, pt hypoxic to 82% and placed on CPAP. On arrival, while changing CPAPs, was noted to be tripodding. Attempted to wean to NC but required oxymask. Following IV mag, methylprednisolone, and multiple duonebs and has successfully weaned to 6L via NC on my exam. He reports feeling much better at this time. Did complete FVC/NIP with RT with good effort and NIF -18 and FVC 1.44. Aside from hypoxia, pt also tachypneic, but vitals otherwise stable. No leukocytosis. Renal fx normal, lytes normal except CO@ 34 and Cl 92. VBG wiht ph 7.41, pco2 58, bicarb 37. CXR shows interval resolution of previously identified left retrocardiac radiopacity otherwise unremarkable. EKG shows NSR, rate 89 without any significant change compared to prior EKGs. Hospital course The patient was admitted to medical floor for treatment of acute hypoxemic and chronic hypercapneic respiratory failure with likely aspiration pneumonia in setting of ALS. He was started on steroids and Augmentin along with nebulizers but he continued to desaturate requiring ICU admission for Bipap support then AVAP at bedtime. Neon Sign Servicer recommended nocturnal IVAP. we have discussed the need for astral non-invasive ventilation with Ronny Quiñonez, who suffers from ALS. Due to this severe and life threatening disease state the astral non-invasive ventilator is being prescribed today to help reduce hospital admissions, longer hospital stays and improve the patient?s overall breathing. To be followed by pulmonology as outpatient. Continue Augmentin and Prednisone on discharge. He was noted to have a gpc in 07/12. Turned out to be Coag negative staphylococcus. He has Moderate portein calorie malnutrition in setting of chronic illness and was continued on tube feeds with aspiration precautions. toleratese small amount of PO. Discharge plan Continue Augmentin 5 more days Wean Oxygen down as tolerated Follow with Pulmonology as outpatient Time Attestation Discharge Coordination Time (in mins): 36 Quality: Safe Use of Opioids Does Pt have an Active Cancer Diagnosis on the Problem List?: No Quality: Stroke Does the patient have a stroke diagnosis?: No Physical Exam Vital Signs: Vital Signs: Last Vital Signs Temp 98.7 F 12/30/23 11:18 Pulse 104 H 12/30/23 11:24 Resp 20 12/30/23 11:24 BP 120/70 12/30/23 11:18 Pulse Ox 93 12/30/23 11:18 O2 Del Method Nasal Cannula 12/30/23 11:18 O2 Flow Rate 2 12/30/23 11:18 FiO2 45 12/29/23 23:51 BMI result Body Mass Index 14.6 Const: Other: Constitutional : Awake, interactive, underweight, not in distress Neck : Normal inspection, Supple Cardiovascular : RRR, no JVP, no lower extremity edema Respiratory : fair bilateral air entry but overall decreased, no crackles, no wheezes Gastrointestinal: soft, lax, Normal bowel sounds, Non tender Skin : Warm, Dry Neurological : Alert & oriented x3, No focal deficit DS: Data Data Completed and Pending Completed studies during hospitalization [Text1]: Procedures Assistance with Respiratory Ventilation, Less than 24 Consecutive Hours, Continuous Positive Airway Pressure (07/29/23) Drainage of Left Lower Lung Lobe, Via Natural or Artificial Opening Endoscopic, Diagnostic (07/29/23) Drainage of Right Lower Lung Lobe, Via Natural or Artificial Opening Endoscopic, Diagnostic (07/29/23) Drainage of Right Middle Lung Lobe, Via Natural or Artificial Opening Endoscopic, Diagnostic (07/29/23) Labs on day of discharge: Laboratory Results - last 24 hr 12/30/23 12/30/23 06:45 06:49 WBC 12.0 H RBC 4.44 L Hgb 13.6 L Hct 38.7 L MCV 87.2 MCH 30.6 MCHC 35.1 RDW 13.9 Plt Count 124 L MPV 9.3 L Immature Gran % (Auto) 0.8 H Neut % (Auto) 91.9 H Lymph % (Auto) 3.2 L [place] % (Auto) 3.9 Eos % (Auto) 0.0 Baso % (Auto) 0.2 Lymph # (Auto) 0.4 L [place] # (Auto) 0.5 Eos # (Auto) 0.0 Baso # (Auto) 0.0 Abs Immat Gran (auto) 0.09 H Absolute Neuts (auto) 11.0 H Absolute Nucleated RBC 0.000 Nucleated RBC % (auto) 0.0 Smear Tech's Comments VERIFIED VBG pH 7.43 VBG pCO2 63 VBG pO2 73 VBG HCO3 42 H VBG O2 Saturation 97.0 VBG Base Excess 15.0 Sodium 136 Potassium 4.2 Chloride 93 L Carbon Dioxide 33 H Anion Gap 14 BUN 14 Creatinine 0.46 L Estim Creat Clear Calc 105.9 Estimated GFR > 60 Random Glucose 100 Calcium 9.9 Phosphorus 2.2 L Magnesium 1.8 Total Bilirubin 0.6 AST 16 ALT 16 Alkaline Phosphatase 63 Total Protein 6.3 L Albumin 3.7 Preliminary micro results at discharge 12/27/23 07:34 Blood Culture - Preliminary Blood - Venous No growth after [address] scan - chest: Radiologist's impression: ITS Impressions Chest X-Ray 12/27/23 07:54 IMPRESSION: Interval resolution of previously identified left retrocardiac radiopacity. Chest CT 12/27/23 15:36 IMPRESSION: 1. There is stable biapical pleural and parenchymal scarring. The lungs are otherwise clear. 2. There is mild centrilobular emphysematous change. 3. No thoracic lymphadenopathy or pleural effusion is seen. 4. There is no acute or aggressive osseous finding. 5. There is splenomegaly. Fleischner guidelines were followed. Discharge Plan Discharge Anticipated Discharge Date/Time: 06/21/24 11:28 Patient Disposition: Home Health Service Discharge Diagnosis: Aspiration pneumonia CO2 retention and Hypoxia Referrals: Cristal Caceres [Outside] - 1 Week Angelina Barone DO [Primary Care Provider] - 1 Week Discharge Medications: New lidocaine [Lidocaine Pain Relief] 4 % Adhesive Patch,Medicated 1 patch transdermal DAILY PRN (Reason: Back Pain) Qty: 20 1RF Protocol: Apply to: Apply to: back amoxicillin-pot clavulanate 875-125 mg Tablet 1 tab PO Q12H Qty: 10 0RF Continued sertraline 100 mg tablet 200 mg feeding tube DAILY trazodone 50 mg tablet 2 tab feeding tube BEDTIME Hold Instructions: Resume on 08/11/23. albuterol sulfate 90 mcg/actuation HFA aerosol inhaler 1 puff inhalation Q4H PRN (Reason: Shortness Of Breath) Radicava ORS 105 mg/5 mL suspension See Rx Instructions .ROUTE .COMPLEX Rx Instructions: 105 mg (5 mL) once daily for 10 days within a 14-day period, followed by a 14-day drug-free period. docusate sodium 100 mg capsule 100 mg PO DAILY thiamine mononitrate (vit B1) 100 mg tablet 100 mg feeding tube DAILY folic acid 1 mg tablet 1 mg feeding tube DAILY@1800 Discharge Orders: Discharge Order (Routine); Ordered 12/30/23 Ordered By: Tanya Baird Diet: Advance to usual diet Activity on Discharge: As tolerated Stand Alone Forms: Patient Portal Discharge page Print Language: [place] Islander Care Plan Goals: You were treated for hypoxia to ICU for respiratory support with good response. received antibiotics for pneumonia. Seen by surgical instrument mechanic who recommended night time IVAP machine. Continue Augmentin 5 more days Wean Oxygen down as tolerated Follow with Pulmonology as outpatient Health Concerns: Read below Plan of Treatment: Read below Assessment: Read below
--- NOTE | 2023-12-30 12:04 | MHC.CM.PN ---
Pt is medically cleared for discharge home with resumption of previous [facility] services and [employer], with new home vent set up, pts to transport him home.
== END 2023-12-30 12:19 | disposition home health service (06) | DRG 177 ==
LOC: HO.ED 09:39 → HO.EDOVER 12:23 → HO.S3 18:14 → HO.ICU 12-28 11:07 → HO.IMC 12-29 14:30
PROVIDERS: Internal Medicine; Internal Medicine Pulmonary Disease; Student in an Organized Health Care Education/Training Program; Admitting Provider Physician Assistant; Emergency Provider Emergency Medicine; PCP Internal Medicine; Visit Provider Student in an Organized Health Care Education/Training Program
DX: J69.0 Pneumonitis due to inhalation of food and vomit (principal); J96.21 Acute and chronic respiratory failure with hypoxia; J96.22 Acute and chronic respiratory failure with hypercapnia; G12.21 Amyotrophic lateral sclerosis; E44.0 Moderate protein-calorie malnutrition; Z68.1 Body mass index [BMI] 19.9 or less, adult; Z66 Do not resuscitate; F32.9 Major depressive disorder, single episode, unspecified; E88.A Wasting disease (syndrome) due to underlying condition; Z20.822 Contact with and (suspected) exposure to COVID-19; Z93.1 Gastrostomy status; Z79.899 Other long term (current) drug therapy
CPT/HCPCS: 0241U; 36415; 36600; 71045; 71250; 80048; 80053; 82803; 83735; 84100; 85025; 85379; 87040; 87147; 87205; 87633; 92950; 93005; 94010; 94640; 94660; 94799; 99285; J1644; J2270; J2919; J3371; J3475

== ENCOUNTER → 2023-12-27 07:24 | Outpatient (BNV) | payer MEDICARE, MEDICAID, SELFPAY | PROVIDERS: Admitting Provider Physician Assistant; Emergency Provider Emergency Medicine; PCP Internal Medicine; Visit Provider Internal Medicine Cardiovascular Disease | DX: R00.0 Tachycardia, unspecified (principal) | CPT/HCPCS: 93010 ==

== ENCOUNTER 2023-12-27 12:14 | Outpatient (BNV) | payer MEDICARE, MEDICAID, SELFPAY | END 2023-12-28 10:51 | PROVIDERS: Admitting Provider Physician Assistant; Emergency Provider Emergency Medicine; PCP Internal Medicine; Visit Provider Internal Medicine Cardiovascular Disease | DX: R00.0 Tachycardia, unspecified (principal) | CPT/HCPCS: 93010 ==

== ENCOUNTER → 2023-12-27 12:14 | Outpatient (BNV) | payer MEDICARE, MEDICAID, SELFPAY | PROVIDERS: Admitting Provider Physician Assistant; Emergency Provider Emergency Medicine; PCP Internal Medicine; Visit Provider Internal Medicine Pulmonary Disease | DX: G12.21 Amyotrophic lateral sclerosis (principal); E87.29 Other acidosis; T17.908A Unspecified foreign body in respiratory tract, part unspecified causing other injury, initial encounter; E44.0 Moderate protein-calorie malnutrition | CPT/HCPCS: 99222; 99233; 99291 ==

== ENCOUNTER → 2023-12-27 12:14 | Outpatient (BNV) | payer MEDICARE, MEDICAID, SELFPAY | PROVIDERS: Admitting Provider Physician Assistant; Emergency Provider Emergency Medicine; PCP Internal Medicine; Visit Provider Physician Assistant | DX: G12.21 Amyotrophic lateral sclerosis (principal); J96.01 Acute respiratory failure with hypoxia; F41.0 Panic disorder [episodic paroxysmal anxiety]; E87.29 Other acidosis | CPT/HCPCS: 99223; 99233; 99239; 99499 ==

== ENCOUNTER 2024-02-10 17:52 | Inpatient (IN) | payer MEDICARE, MEDICAID, SELFPAY ==
--- NOTE | ~2024-02-10 | CT_ITS ---
EXAMINATION: CT CHEST WITHOUT CONTRAST CLINICAL INFORMATION: Rule out pneumonia COMPARISON: 12/27/2023 TECHNIQUE: Multidetector volumetric CT imaging of the chest was done. Axial MIP volume rendering provided. Sagittal and coronal reformatted images were obtained. This CT examination was performed using dose optimization techniques as appropriate, variously including the following: *Automated exposure control *Adjustment of mA and/or kV according to patient size (this includes techniques or standardized protocols for targeted exams where dose is matched to indication/reason for exam; i.e. extremities or head) *Use of iterative reconstruction technique DLP: 135 mGy-cm FINDINGS: LUNGS: Mild biapical scarring redemonstrated. There is complete opacification of the left lower lobe with volume loss, consistent with atelectasis. This is suspected to be postobstructive in nature, as semisolid material is seen within the left mainstem bronchus extending into the lower lobe airways, and the left lower lobe airways were clear on 12/27/2023. There are also partially opacified airways in the left upper lobe. Some segments of opacified airways are also present in the right lower lobe. Mild upper lobe predominant emphysema. MEDIASTINUM: Thyroid gland appears somewhat heterogeneous, suboptimally assessed. Leftward mediastinal shift is in keeping with left hemithorax volume loss. Limited evaluation of lymph nodes without intravenous contrast. Cardiac size appears within normal limits. No pericardial effusion. Mild scattered calcification along the aorta. CORONARY ARTERY CALCIFICATION: Present PLEURA: No pneumothorax or significant pleural effusion. AXILLA: No lymphadenopathy. UPPER ABDOMEN: Grossly unremarkable. OSSEOUS STRUCTURES: Unremarkable. CT/CT chest wo IV con IMPRESSION: 1. Complete opacification of the left lower lobe with volume loss, consistent with atelectasis/lobar collapse. This is suspected to be postobstructive in nature, as semisolid material is seen within the left mainstem bronchus extending into the lower lobe airways. This could be secondary to aspiration; consider further evaluation with bronchoscopy. 2. Segmental airways in the left upper lobe and right lower lobe also are opacified, without associated airspace opacities. 3. Mild upper lobe predominant emphysema. 4. Coronary artery calcifications. Correlation with cardiac risk factors is recommended.
--- NOTE | ~2024-02-10 | XR_ITS ---
EXAMINATION: XR CHEST CLINICAL INFORMATION: Shortness of breath. ALS. COMPARISON: Chest radiograph dated 12/27/2023. TECHNIQUE: Frontal view of the chest was obtained. FINDINGS: The heart is normal in size. There is calcific atherosclerotic disease of the aorta. There is a left lower lobe retrocardiac opacity for which infection is not excluded. The right lung is clear. There is no large pleural effusion. No pneumothorax. No acute osseous abnormalities. There is a gastrostomy tube. XR/XR chest 1V IMPRESSION: Left lower lobe retrocardiac opacity for which infection is not excluded. Alternatively, this may represent atelectasis. The right lung is clear.
[2024-02-10 18:02] VITALS: BP 170/110; BP 177/100; PULSE 82; PULSE 85; RESP 24; TEMP 36.9; O2SAT 94; O2SAT 98; BMI 14.8
--- NOTE | 2024-02-10 18:03 | ECG_ITS ---
Test Reason : DYSYPNEA Blood Pressure : / mmHG Vent. Rate : 082 BPM Atrial Rate : 082 BPM P-R Int : 116 ms QRS Dur : 074 ms QT Int : 362 ms P-R-T Axes : 083 056 055 degrees QTc Int : 422 ms Poor data quality Normal sinus rhythm with sinus arrhythmia Minimal voltage criteria for LVH, may be normal variant ( Sokolow-Jama ) Borderline ECG When compared with ECG of 28-DEC-2023 10:51, ST no longer depressed in Lateral leads T wave inversion no longer evident in Inferior leads T wave inversion no longer evident in Lateral leads Referred By: Khushbu Baptiste Electronically Signed By:Robe Gracia
[2024-02-10 18:04] VITALS: PULSE 82; RESP 25; O2SAT 93
[2024-02-10] MEDS: Albuterol Sulfate 5 MG, Albuterol/Iprat 2.5/0.5MG 3 ML 3 ML INHALE (18:04)
--- NOTE | 2024-02-10 18:07 | ED_ITS ---
HPI - SOB/Dyspnea General Chief Complaint: Dyspnea Stated Complaint: hx of ALS, trouble breathing, getting worse Time Seen by Provider: 02/10/24 18:00 Source: patient and EMS Mode of arrival: EMS Limitations: no limitations History of Present Illness ED Provider: Dr. Khushbu Baptiste HPI Narrative: patient comes to the emergency room via ambulance complaining of shortness of breath/asthma exacerbation. Patient uses 2 L of oxygen via nasal cannula at home. Patient states that today he had some pCO2 4 L. patient used albuterol at home with no significant treatment. When EMS arrived, patient was given 2 DuoNebs. Patient started breathing more comfortably, oxygen was titrated back to 2 L. Related Data Home Medications ?Medication ?Instructions ?Recorded ?Confirmed albuterol sulfate 90 mcg/actuation 1 puff inhalation Q4H PRN 08/18/22 12/27/23 aerosol inhaler Shortness Of Breath trazodone 50 mg tablet 2 tab feeding tube BEDTIME 08/18/22 12/27/23 folic acid 1 mg tablet 1 mg feeding tube DAILY@1800 08/04/23 12/27/23 sertraline 100 mg tablet 200 mg feeding tube DAILY 08/04/23 12/27/23 docusate sodium 100 mg capsule 100 mg PO DAILY 12/27/23 12/27/23 edaravone 105 mg/5 mL oral See Rx Instructions .Route .COMPLEX 12/27/23 12/27/23 suspension (Radicava ORS) thiamine mononitrate (vit B1) 100 100 mg feeding tube DAILY 12/27/23 12/27/23 mg tablet Previous Rx's ?Medication ?Instructions ?Recorded amoxicillin 875 mg-potassium 1 tab PO Q12H #10 tabs 12/30/23 clavulanate 125 mg tablet lidocaine 4 % topical patch 1 patch transdermal DAILY PRN Back 12/30/23 (Lidocaine Pain Relief) Pain #20 ea Allergies Allergy/AdvReac Type Severity Reaction Status Date / Time No Known Allergies Allergy Verified 02/10/24 18:07 Review of Systems 2 Review of Systems: Constitutional : No Weight loss, No Fever, No Chills, No Night Sweats, No Fatigue, No Malaise ENT/Mouth : No Hearing loss, No Ear Pain, No Nasal Congestion, No Sinus Pain, No Hoarseness, No sore throat, No Rhinorrhea, No Swallowing Difficulty Eyes: No Eye Pain, No Swelling, No Redness, No Foreign Body, No Discharge, No Vision Changes Cardiovascular : No Chest Pain, No SOB, No Dyspnea on Exertion, No Orthopnea, No Edema, No Palpitations Respiratory : complaining of wheezing for a few days, cough, shortness of breath for 3-4 days Gastrointestinal : No Nausea, No Vomiting, No Diarrhea, No Constipation, No abdominal Pain, No Hematochezia, No Melena Genitourinary : no irregular bleeding, No Dysuria, No Urinary Frequency, No Hematuria, No Urinary Incontinence, No Urgency, No Flank Pain, No Urinary Flow Changes, No Hesitancy Musculoskeletal : No joint pain, No Myalgias, No Joint Swelling Skin : No Skin Lesions, No rash Neuro : No Weakness, No Numbness, No Paresthesias, No Loss of Consciousness, No Dizziness, No Headache Psych : No Anxiety/Panic, No Depression, No SI/HI/AH/VH, No Social Issues, Heme/Lymph: No Bruising, No Bleeding,No Lymphadenopathy Endocrine : No Polyuria, No Polydipsia, No Temperature Intolerance [facility] Past Medical History Medical History Panic disorder Moderate protein-calorie malnutrition MDD (major depressive disorder) Atelectasis ALS (amyotrophic lateral sclerosis) Social History Social History Household Members: Spouse Housing: House Do you presently have visiting nurse or other home services: Yes (housework) Alcohol intake: current Alcohol intake frequency: holidays/special occasions only Comment: rings appropriately Patient Tobacco Use Status: Never used Tobacco Smoked in Last 30 Days: No e-Cigarette/Vaping Use: Never Used Substance Use Type: Marijuana Advance Directives: Yes Advance Directives on File: Yes Advance Directives Date on File: 07/29/23 service: No Current occupational status: disabled Physical Exam 2 Vital Signs: Vital Signs: Last Vital Signs Temp 98 F 02/10/24 23:12 Pulse 89 02/10/24 23:12 Resp 29 H 02/10/24 23:53 BP 162/86 H 02/10/24 23:12 Pulse Ox 93 02/10/24 23:12 O2 Del Method Nasal Cannula 02/10/24 23:12 O2 Flow Rate 3 02/10/24 23:12 Oxygen Flow Rate 2 02/10/24 18:02 BMI result Body Mass Index 14.8 Const: Other: Appearance: Alert. Oriented X3. seems anxious , Patient is cachectic Eyes: Pupils equal, round and reactive to light. ENT: Pharynx normal. Neck: Normal inspection. Neck supple. No lymph nodes noted. No crepitus CVS: Normal heart rate and rhythm. Pulses normal. Normal S1 and S2 Respiratory: mild bilateral wheezing, no crackles, no rales, oxygen saturation 95% on 3 L Abdomen: Soft and nontender. No rigidity. No distention. Skin: Skin warm and dry. Normal skin color. Normal skin turgor. Extremities: No lower extremity edema. No Lacerations. No Rash Neuro: Oriented X 3. No motor deficit. No sensory deficit. Moving all extremities. No slurred speech. CN 2 through 12 grossly intact Psych: calm, cooperative, anxious Course Course Course Narrative: - patient receiving IV fluids, Solu-Medrol, magnesium in brown protocol has been started - of patient's labs and imaging pending Medications Administered Discontinued Medications Generic Name Dose Route Start Last Admin Trade Name Freq PRN Reason Stop Dose Admin Albuterol Sulfate 5 mg/ 0 mg 02/10/24 18:00 02/10/24 18:04 Albuterol/Ipratropium 3 ml INHALE 02/10/24 18:01 1 each ONCE ONE Administration Magnesium Sulfate 2 gm in 50 mls @ 25 mls/hr 02/10/24 18:00 02/10/24 19:26 Magnesium Sulfate/H2o IV 02/10/24 19:59 Infused ONCE ONE Infusion Sodium Chloride 1,000 mls @ 999 mls/hr 02/10/24 18:03 02/10/24 19:27 Ns IVCONT 02/10/24 19:03 Infused .Q1H1M ONE Infusion Lorazepam 1 mg 02/10/24 19:54 02/10/24 20:01 Lorazepam 2 Mg/Ml Vial IVPUSH 02/10/24 19:55 1 mg ONCE ONE Administration Lorazepam 1 mg 02/10/24 23:48 02/10/24 23:55 Lorazepam 2 Mg/Ml Vial IVPUSH 02/10/24 23:49 1 mg ONCE ONE Administration Methylprednisolone Sodium Succinate 125 mg 02/10/24 18:00 02/10/24 18:34 Methylprednisolone Sod Succ 125 Mg/2 Ml Vial IVPUSH 02/10/24 18:01 125 mg ONCE ONE Administration Methylprednisolone Sodium Succinate 125 mg 02/10/24 23:48 02/10/24 23:55 Methylprednisolone Sod Succ 125 Mg/2 Ml Vial IVPUSH 02/10/24 23:49 125 mg ONCE ONE Administration Medical Decision Making Medical Decision Making [facility] [place] Narrative: - after IV medication treatment and nebulizations, patient started feeling much better. - my interpretation of labs: White blood cell count elevated at baseline, sodium slightly decreased. Troponin and BNP within normal limits. - chest x-ray shows possible left lower lobe opacification, nonspecific. CT scan ordered. - Around midnight, patient started developing worsening shortness of breath. Patient was given more nebulization treatments. per respiratory therapists who know the patient well from previous admission, patient is supposed to be on nocturnal BiPAP. Patient was put on BiPAP. - CT scan Shows complete opacification of the left lower lobe, may be postobstructive in nature, patient may need evaluation with bronchoscopy - I discussed the patient with Dr. Kilpatrick, medicine team is willing to accept the patient if a bronch can be done tomorrow in the morning. - I discussed the patient with Dr. Molina, he will see him in the morning. - Sepsis is not suspected. Patient's respiratory failure secondary to ALS rather than an infectious process. Differential Diagnosis Differential Diagnoses: The differential diagnosis associated with the presentation includes ( Asthma, emphysema, ALS) Admission/Observation Consideration of admission/observation: Escalation of care including admission/observation considered Consult Healthcare Provider Management of the patient was discussed with: Hospitalist and Managed Care Manager Lab Data [facility] [place] Lab Attestation statement: I reviewed the patient's lab results. 02/10/24 18:30 02/10/24 19:39 Labs: Lab Results 02/10/24 02/10/24 02/10/24 Range/Units 18:30 18:37 19:31 WBC 13.9 H (4.8-10.8) X10*3/uL RBC 5.05 (4.60-5.80) X10*6/uL Hgb 15.5 (14.0-18.0) g/dl Hct 43.0 (42.0-52.0) % MCV 85.1 (80.0-98.0) fL MCH 30.7 (27.0-33.0) pg MCHC 36.0 (31.0-36.0) g/dl RDW 13.4 (11.0-16.0) % Plt Count 168 D (160-400) X10*3/uL MPV 8.4 L (9.4-12.4) fL Immature Gran % (Auto) 0.4 (0.0-0.4) % Neut % (Auto) 87.0 H (45-73) % Lymph % (Auto) 6.9 L (20-40) % [place] % (Auto) 5.5 (2-11) % Eos % (Auto) 0.1 (0-4) % Baso % (Auto) 0.1 (0-2) % Lymph # (Auto) 1.0 L (1.2-4.9) X10*3/uL [place] # (Auto) 0.8 (0.1-1.2) X10*3/uL Eos # (Auto) 0.0 (0.0-0.4) X10*3/uL Baso # (Auto) 0.0 (0.0-0.2) X10*3/uL Abs Immat Gran (auto) 0.05 H (0.00-0.03) X10*3/uL Absolute Neuts (auto) 12.1 H (2.0-8.3) x10*3/uL Absolute Nucleated RBC 0.000 (0.0-0.012) X10*3/uL Nucleated RBC % (auto) 0.0 (0.0-0.2) /100WBC PT 11.3 (11.1-13.3) SEC INR 0.9 (0.9-1.1) VBG pH 7.47 H (7.32-7.43) VBG pCO2 53 mmHg VBG pO2 118 mmHg VBG HCO3 39 H (22-26) mmol/L VBG O2 Saturation 100.0 % VBG Base Excess 13.3 mmol/L Sodium (135-145) mmol/L Potassium (3.3-5.1) mmol/L Chloride (96-108) mmol/L Carbon Dioxide (22-29) mmol/L Anion Gap (12-20) BUN (9-16) mg/dL Creatinine (0.5-1.4) mg/dL Estim Creat Clear Calc Estimated GFR Random Glucose (60-115) mg/dL Lactic Acid 0.5 (0.5-2.0) mmol/L Calcium (8.4-10.2) mg/dL Total Bilirubin (0.0-1.0) mg/dL Direct Bilirubin (0.0-0.5) mg/dL AST (5-37) U/L ALT (0-40) U/L Alkaline Phosphatase (39-117) U/L Troponin I High Sens 11.1 D (<3.5-35.0) ng/L B-Natriuretic Peptide (<100) pg/mL Total Protein (6.5-8.0) g/dL Albumin (3.5-5.0) g/dL Urine Color Yellow Urine Appearance Turbid Urine pH 7.5 (5.0-9.0) Ur Specific [place] 1.015 (1.005-1.025) Urine Protein 30 (1+) H (Neg-Trace) mg/dL Urine Glucose (UA) Negative (Negative) mg/dL Urine Ketones Negative (Negative) mg/dL Urine Blood Negative (Negative) Urine Nitrite Negative (Negative) Ur Leukocyte Esterase Negative (Negative) Urine RBC 0-2 (0-2) /HPF Urine WBC 0-5 (0-5) /HPF Ur Squamous Epith Cells 0-2 (0-2) /HPF Urine Bacteria None Seen (None Seen) Hyaline Casts 0-2 (0-2) /LPF Influenza Type A (PCR) NEGATIVE (Negative) Influenza Type B (PCR) NEGATIVE (Negative) RSV RNA Qual (PCR) NEGATIVE (Negative) SARS-CoV-2 RNA (RT-PCR) NEGATIVE (Negative) 02/10/24 Range/Units 19:39 WBC (4.8-10.8) X10*3/uL RBC (4.60-5.80) X10*6/uL Hgb (14.0-18.0) g/dl Hct (42.0-52.0) % MCV (80.0-98.0) fL MCH (27.0-33.0) pg MCHC (31.0-36.0) g/dl RDW (11.0-16.0) % Plt Count (160-400) X10*3/uL MPV (9.4-12.4) fL Immature Gran % (Auto) (0.0-0.4) % Neut % (Auto) (45-73) % Lymph % (Auto) (20-40) % [place] % (Auto) (2-11) % Eos % (Auto) (0-4) % Baso % (Auto) (0-2) % Lymph # (Auto) (1.2-4.9) X10*3/uL [place] # (Auto) (0.1-1.2) X10*3/uL Eos # (Auto) (0.0-0.4) X10*3/uL Baso # (Auto) (0.0-0.2) X10*3/uL Abs Immat Gran (auto) (0.00-0.03) X10*3/uL Absolute Neuts (auto) (2.0-8.3) x10*3/uL Absolute Nucleated RBC (0.0-0.012) X10*3/uL Nucleated RBC % (auto) (0.0-0.2) /100WBC PT (11.1-13.3) SEC INR (0.9-1.1) VBG pH (7.32-7.43) VBG pCO2 mmHg VBG pO2 mmHg VBG HCO3 (22-26) mmol/L VBG O2 Saturation % VBG Base Excess mmol/L Sodium 134 L (135-145) mmol/L Potassium 4.2 (3.3-5.1) mmol/L Chloride 94 L (96-108) mmol/L Carbon Dioxide 30 H (22-29) mmol/L Anion Gap 14 (12-20) BUN 16 (9-16) mg/dL Creatinine 0.48 L (0.5-1.4) mg/dL Estim Creat Clear Calc 102.3 Estimated GFR > 60 Random Glucose 115 (60-115) mg/dL Lactic Acid (0.5-2.0) mmol/L Calcium 8.6 D (8.4-10.2) mg/dL Total Bilirubin 0.5 (0.0-1.0) mg/dL Direct Bilirubin 0.1 (0.0-0.5) mg/dL AST 28 (5-37) U/L ALT 23 (0-40) U/L Alkaline Phosphatase 73 (39-117) U/L Troponin I High Sens (<3.5-35.0) ng/L B-Natriuretic Peptide 36 (<100) pg/mL Total Protein 6.3 L (6.5-8.0) g/dL Albumin 4.2 (3.5-5.0) g/dL Urine Color Urine Appearance Urine pH (5.0-9.0) Ur Specific [place] (1.005-1.025) Urine Protein (Neg-Trace) mg/dL Urine Glucose (UA) (Negative) mg/dL Urine Ketones (Negative) mg/dL Urine Blood (Negative) Urine Nitrite (Negative) Ur Leukocyte Esterase (Negative) Urine RBC (0-2) /HPF Urine WBC (0-5) /HPF Ur Squamous Epith Cells (0-2) /HPF Urine Bacteria (None Seen) Hyaline Casts (0-2) /LPF Influenza Type A (PCR) (Negative) Influenza Type B (PCR) (Negative) RSV RNA Qual (PCR) (Negative) SARS-CoV-2 RNA (RT-PCR) (Negative) Independent Interpretation I performed an independent interpretation of an: CT Scan Radiology Impression Discussion of test interpretation with radiology: I have reviewed the radiologist's reading. Radiologist Impression: 1. Complete opacification of the left lower lobe with volume loss, consistent with atelectasis/lobar collapse. This is suspected to be postobstructive in nature, as semisolid material is seen within the left mainstem bronchus extending into the lower lobe airways. This could be secondary to aspiration; consider further evaluation with bronchoscopy. 2. Segmental airways in the left upper lobe and right lower lobe also are opacified, without associated airspace opacities. 3. Mild upper lobe predominant emphysema. 4. Coronary artery calcifications. Correlation with cardiac risk factors is recommended. Critical Care Time Critical Care Time Critical Care Time: Yes Total Critical Care Time: 75 Attestation: I have personally provided critical care time. Time includes review of lab data, radiology results, discussion with consultants, and monitoring for potential decompensation. Intervention performed as documented. Discharge Plan Discharge Clinical Impression: Respiratory failure, ALS (amyotrophic lateral sclerosis) Patient Disposition: Admitted As Inpatient Prescriptions: No Action sertraline 100 mg tablet 200 mg feeding tube DAILY trazodone 50 mg tablet 2 tab feeding tube BEDTIME Hold Instructions: Resume on 08/11/23. albuterol sulfate 90 mcg/actuation HFA aerosol inhaler 1 puff inhalation Q4H PRN (Reason: Shortness Of Breath) Radicava ORS 105 mg/5 mL suspension See Rx Instructions .ROUTE .COMPLEX Rx Instructions: 105 mg (5 mL) once daily for 10 days within a 14-day period, followed by a 14-day drug-free period. docusate sodium 100 mg capsule 100 mg PO DAILY thiamine mononitrate (vit B1) 100 mg tablet 100 mg feeding tube DAILY lidocaine [Lidocaine Pain Relief] 4 % Adhesive Patch,Medicated 1 patch transdermal DAILY PRN (Reason: Back Pain) Qty: 20 1RF Protocol: Apply to: Apply to: back amoxicillin-pot clavulanate 875-125 mg Tablet 1 tab PO Q12H Qty: 10 0RF folic acid 1 mg tablet 1 mg feeding tube DAILY@1800 Print Language: Turkish
[2024-02-10] MEDS: 0.9 % Sodium Chloride 1,000 ML 999 ML IVCONT (18:34)
[2024-02-10] MEDS: Magnesium Sulfate/H2O 2 GM/50 ML PIGGYBACK IV (18:34)
[2024-02-10] MEDS: methylPREDNISolone Sod Succ 125 MG/2 ML VIAL IVPUSH ×2 (18:34→23:55)
[2024-02-10 18:42] LABS: MANUAL DIFF FLAG NO
[2024-02-10 18:43] LABS: Basophils Percent Auto 0.1 % (0-2); Eosinophils Percent Auto 0.1 % (0-4); Hemoglobin 15.5 g/dl (14.0-18.0); Imm Gran Abs Auto 0.05 X10*3/uL (0.00-0.03); Imm Gran Pct Auto 0.4 % (0.0-0.4); Lymphocytes Percent Auto 6.9 % (20-40); Mean Corpuscular Hemoglobin 30.7 pg (27.0-33.0); Mean Corpuscular Volume 85.1 fL (80.0-98.0); Mean Platelet Volume 8.4 fL (9.4-12.4); Monocytes Absolute Auto 0.8 X10*3/uL (0.1-1.2); Monocytes Percent Auto 5.5 % (2-11); Neutrophils Absolute Auto 12.1 x10*3/uL (2.0-8.3); Platelet Count 168 X10*3/uL (160-400); Red Blood Count 5.05 X10*6/uL (4.60-5.80); Red Cell Distribution Width 13.4 % (11.0-16.0); White Blood Count 13.9 X10*3/uL (4.8-10.8)
[2024-02-10 18:44] LABS: VBG Base Excess 13.3 mmol/L; VBG HCO3 39 mmol/L (22-26); VBG pCO2 53 mmHg; VBG pH 7.47 (7.32-7.43); VBG pO2 118 mmHg
[2024-02-10 18:49] LABS: INTERNATIONAL NORM RATIO 0.9 (0.9-1.1); Prothrombin Time 11.3 SEC (11.1-13.3)
[2024-02-10 18:50] LABS: Venous Blood Gas Refer to POC result
[2024-02-10 18:53] LABS: Lactic Acid 0.5 mmol/L (0.5-2.0)
[2024-02-10 19:02] LABS: Troponin-I High Sensitivity 11.1 ng/L (<3.5-35.0)
[2024-02-10 19:19] LABS: Influenza A PCR NEGATIVE (Negative); Influenza B PCR NEGATIVE (Negative); Resp Syncy Virus RNA Qual PCR NEGATIVE (Negative); SARS COV2 PCR INHOUSE NEGATIVE (Negative)
--- NOTE | 2024-02-10 19:21 | PC.NURSE ---
Called lab regarding patient's BNP, BMP, and liver panel still ordered but look like they are pending, was not made aware of recollection from previous RN Blanca Kiser confirmed that specimens had been hemolyized and need to be recollected.
[2024-02-10 19:31] VITALS: BP 167/103; PULSE 80; RESP 22; TEMP 36.8; O2SAT 96
[2024-02-10 19:41] LABS: Appearance Urine Turbid; Color Urine Yellow; Glucose Urine UA Negative (Negative); Leukocyte Esterase Urine Negative (Negative); Nitrite Urine Negative (Negative); PH 7.5 (5.0-9.0); Specific Gravity - Urine 1.015 (1.005-1.025); UMIC TRIGGER UACC YES; Urine Blood Negative (Negative); Urine Ketones Negative (Negative); Urine Protein 30 (1+) mg/dL (Neg-Trace)
[2024-02-10 19:43] LABS: Bacteria Urine None Seen (None Seen); Hyaline Casts Urine 0-2 /LPF (0-2); RBC Urine 0-2 /HPF (0-2); Squamous Epithelial Cell Urine 0-2 /HPF (0-2); WBC Urine 0-5 /HPF (0-5)
--- NOTE | 2024-02-10 19:54 | PC.NURSE ---
Patient's family member came to seek out this RN in ED, stated that patient regularly uses Marijuana to help with his anxiety and in the past he has been given ativan to help with his anxiety in the hospital. Dr. Baptiste made aware, given verbal order for IV ativan, see MAR.
[2024-02-10] MEDS: LORazepam 2 MG/ML VIAL 1 MG IVPUSH ×2 (20:01→23:55)
[2024-02-10 20:12] LABS: Alanine Aminotransferase 23 U/L (0-40); Albumin Level 4.2 g/dL (3.5-5.0); Alkaline Phosphatase 73 U/L (39-117); Anion Gap 14 (12-20); Aspartate Amino Transferase 28 U/L (5-37); Bilirubin Direct 0.1 mg/dL (0.0-0.5); Bilirubin Total 0.5 mg/dL (0.0-1.0); Blood Urea Nitrogen 16 mg/dL (9-16); Calcium 8.6 mg/dL (8.4-10.2); Carbon Dioxide 30 mmol/L (22-29); Chloride 94 mmol/L (96-108); Creatinine Clr Calc Pharmacy 102.3; Estimated Glomerular Filt Rate > 60; Glucose Random 115 mg/dL (60-115); Potassium 4.2 mmol/L (3.3-5.1); Sodium 134 mmol/L (135-145); Total Protein 6.3 g/dL (6.5-8.0)
[2024-02-10 20:17] LABS: B Type Natriuretic Peptide 36 pg/mL (<100)
[2024-02-10 22:00] VITALS: BP 167/104; PULSE 91; RESP 14; O2SAT 97
--- NOTE | 2024-02-10 22:30 | PC.NURSE ---
Patient resting quietly on stretcher at this time, waiting CT scan results.
[2024-02-10 23:12] VITALS: BP 162/86; PULSE 89; RESP 13; TEMP 36.6; O2SAT 93
[2024-02-10 23:53] VITALS: PULSE 91; RESP 29; O2SAT 94
--- NOTE | 2024-02-10 23:56 | PC.NURSE ---
Took over care from CASEY Galeana, pt had increase breathing, re-tracking, Provider aware and respiratory into assess pt, pt placed on cpap. Medicated per sep. pt on the bedside monitor.
[2024-02-11] VITALS (13 sets, daily range): BP systolic 107–201; BP diastolic 73–109; PULSE 82–95; RESP 18–34; TEMP 36.2–36.6; O2SAT 78–100
--- NOTE | 2024-02-11 00:12 | MHC.EDTECH ---
400ml of urine emptied from urinal
--- NOTE | 2024-02-11 00:24 | PC.NURSE ---
Took over care from CASEY Galeana, pt having increase respiratory distress, Dr. Baptiste and respiratory notified, pt placed on cpap, medicated per Mar, Pt continues to have elevated blood pressure, Dr. Antony aware no new order at this time. Plan is to admit pt .
[2024-02-11] MEDS: cefTRIAXone sodium 1 GM in 0.9 % Sodium Chloride 50 ML IV (00:32)
--- NOTE | 2024-02-11 00:39 | PC.NURSE ---
medicated per mar, pt reposition for comfort.
--- NOTE | 2024-02-11 01:05 | P.HPHOSP_ITS ---
History of Present Illness Date of Service: 02/11/24 Chief Complaint: Dyspnea This is a 63-year-old male with pertinent history of chronic hypoxia on 2 L supplemental oxygen and nocturnal BiPAP due to ALS, protein calorie malnutrition, mood disorder, status post PEG tube who presents to the emergency department for evaluation of dyspnea. Patient stated that he became short of breath on the day of presentation. Endorses cough. No chest pain, wheezing. No fever, chills, nausea, vomiting, abdominal pain, changes in urinary or bowel habits. Of note, patient was recently admitted to the hospital with acute on chronic hypoxic hypercapnic failure due to aspiration pneumonia and discharged on 12/30/2023. Patient briefly required ICU stay during previous hospitalization. In the emergency department, imaging with complete opacification of left lower lobe, likely postop obstructive. Review of Systems 2 Cardiovascular: Cardiovascular: Reports dyspnea on exertion Respiratory: Respiratory: Reports cough and Reports dyspnea on exertion Gastrointestinal: Gastrointestinal: Reports no additional gastrointestinal complaints Genitourinary: Genitourinary: Reports no additional male genitourinary complaints Musculoskeletal: Musculoskeletal: Reports no additional musculoskeletal complaints PMFSH Medical History Panic disorder Moderate protein-calorie malnutrition MDD (major depressive disorder) Atelectasis ALS (amyotrophic lateral sclerosis) Pertinent family history: No family history of early CAD Social History Household Members: Spouse Housing: House Do you presently have visiting nurse or other home services: Yes (housework) Alcohol intake: current Alcohol intake frequency: holidays/special occasions only Comment: rings appropriately Patient Tobacco Use Status: Never used Tobacco Smoked in Last 30 Days: No e-Cigarette/Vaping Use: Never Used Substance Use Type: Marijuana Advance Directives: Yes Advance Directives on File: Yes Advance Directives Date on File: 07/29/23 service: No Current occupational status: disabled Meds Allergies Allergy/AdvReac Type Severity Reaction Status Date / Time No Known Allergies Allergy Verified 02/10/24 18:07 Home Medications ?Medication ?Instructions ?Recorded ?Confirmed ?Last Taken ?Type albuterol sulfate 90 mcg/actuation 1 puff inhalation Q4H PRN 08/18/22 12/27/23 07/29/23 History aerosol inhaler Shortness Of Breath trazodone 50 mg tablet 2 tab feeding tube BEDTIME 08/18/22 12/27/23 12/26/23 History folic acid 1 mg tablet 1 mg feeding tube DAILY@1800 08/04/23 12/27/23 12/26/23 History sertraline 100 mg tablet 200 mg feeding tube DAILY 08/04/23 12/27/23 12/26/23 History docusate sodium 100 mg capsule 100 mg PO DAILY 12/27/23 12/27/23 12/26/23 History edaravone 105 mg/5 mL oral See Rx Instructions .Route .COMPLEX 12/27/23 12/27/23 1 Week Ago History suspension (Radicava ORS) ~12/20/23 thiamine mononitrate (vit B1) 100 100 mg feeding tube DAILY 12/27/23 12/27/23 12/26/23 History mg tablet Physical Exam 2 Vital Signs and Narrative: Vital Signs: Last Vital Signs Temp 98 F 02/10/24 23:12 Pulse 89 02/10/24 23:12 Resp 26 H 02/11/24 00:56 BP 162/86 H 02/10/24 23:12 Pulse Ox 93 02/10/24 23:12 O2 Del Method Nasal Cannula 02/10/24 23:12 O2 Flow Rate 3 02/10/24 23:12 Oxygen Flow Rate 2 02/10/24 18:02 BMI result Body Mass Index 14.8 Middle-aged frail, cachectic male lying in bed in distress on BiPAP Neck supple, no JVD Regular rate and rhythm, S1-S2 heard Reduced left-sided breath sounds Abdomen soft nontender, no guarding, no rigidity, peg tube in place Patient is awake, alert and oriented to self, place ; no focal motor deficit Psych: Normal mood No pedal edema Results Labs 02/10/24 18:30 02/10/24 19:39 Labs: Laboratory Results - last 24 hr 02/10/24 02/10/24 02/10/24 18:30 18:37 19:31 MCV 85.1 MCH 30.7 MCHC 36.0 RDW 13.4 Plt Count 168 D MPV 8.4 L Immature Gran % (Auto) 0.4 Neut % (Auto) 87.0 H Lymph % (Auto) 6.9 L [place] % (Auto) 5.5 Eos % (Auto) 0.1 Baso % (Auto) 0.1 Lymph # (Auto) 1.0 L [place] # (Auto) 0.8 Eos # (Auto) 0.0 Baso # (Auto) 0.0 Abs Immat Gran (auto) 0.05 H Absolute Neuts (auto) 12.1 H Absolute Nucleated RBC 0.000 Nucleated RBC % (auto) 0.0 PT 11.3 INR 0.9 VBG pH 7.47 H VBG pCO2 53 VBG pO2 118 VBG HCO3 39 H VBG O2 Saturation 100.0 VBG Base Excess 13.3 Anion Gap Estim Creat Clear Calc Estimated GFR Random Glucose Lactic Acid 0.5 Calcium Total Bilirubin Direct Bilirubin AST ALT Alkaline Phosphatase Troponin I High Sens 11.1 D B-Natriuretic Peptide Total Protein Albumin Urine Color Yellow Urine Appearance Turbid Urine pH 7.5 Ur Specific [place] 1.015 Urine Protein 30 (1+) H Urine Glucose (UA) Negative Urine Ketones Negative Urine Blood Negative Urine Nitrite Negative Ur Leukocyte Esterase Negative Urine RBC 0-2 Urine WBC 0-5 Ur Squamous Epith Cells 0-2 Urine Bacteria None Seen Hyaline Casts 0-2 Influenza Type A (PCR) NEGATIVE Influenza Type B (PCR) NEGATIVE RSV RNA Qual (PCR) NEGATIVE SARS-CoV-2 RNA (RT-PCR) NEGATIVE 02/10/24 19:39 MCV MCH MCHC RDW Plt Count MPV Immature Gran % (Auto) Neut % (Auto) Lymph % (Auto) [place] % (Auto) Eos % (Auto) Baso % (Auto) Lymph # (Auto) [place] # (Auto) Eos # (Auto) Baso # (Auto) Abs Immat Gran (auto) Absolute Neuts (auto) Absolute Nucleated RBC Nucleated RBC % (auto) PT INR VBG pH VBG pCO2 VBG pO2 VBG HCO3 VBG O2 Saturation VBG Base Excess Anion Gap 14 Estim Creat Clear Calc 102.3 Estimated GFR > 60 Random Glucose 115 Lactic Acid Calcium 8.6 D Total Bilirubin 0.5 Direct Bilirubin 0.1 AST 28 ALT 23 Alkaline Phosphatase 73 Troponin I High Sens B-Natriuretic Peptide 36 Total Protein 6.3 L Albumin 4.2 Urine Color Urine Appearance Urine pH Ur Specific [place] Urine Protein Urine Glucose (UA) Urine Ketones Urine Blood Urine Nitrite Ur Leukocyte Esterase Urine RBC Urine WBC Ur Squamous Epith Cells Urine Bacteria Hyaline Casts Influenza Type A (PCR) Influenza Type B (PCR) RSV RNA Qual (PCR) SARS-CoV-2 RNA (RT-PCR) Imaging Radiologist's Impressions: Impressions Chest X-Ray 02/10/24 19:00 IMPRESSION: Left lower lobe retrocardiac opacity for which infection is not excluded. Alternatively, this may represent atelectasis. The right lung is clear. Chest CT 02/10/24 21:05 IMPRESSION: 1. Complete opacification of the left lower lobe with volume loss, consistent with atelectasis/lobar collapse. This is suspected to be postobstructive in nature, as semisolid material is seen within the left mainstem bronchus extending into the lower lobe airways. This could be secondary to aspiration; consider further evaluation with bronchoscopy. 2. Segmental airways in the left upper lobe and right lower lobe also are opacified, without associated airspace opacities. 3. Mild upper lobe predominant emphysema. 4. Coronary artery calcifications. Correlation with cardiac risk factors is recommended. Assessment and Plan (1) Respiratory failure: Status: Acute Plan This is a 63-year-old male with pertinent history of chronic hypoxia on 2 L supplemental oxygen and nocturnal BiPAP due to ALS, protein calorie malnutrition, mood disorder, status post PEG tube who presents to the emergency department for evaluation of dyspnea. #. Acute on chronic hypoxic respiratory failure due to aspiration pneumonia: Will admit patient and initiate empiric IV antibiotics. Imaging with postobstructive complete opacification of left lower lobe. Consulted pulmonology. Continue nocturnal BiPAP. #. Sepsis due to above: Resuscitated with IV crystalloids. Lactic acid and blood culture obtained #. Protein calorie malnutrition: Nutrition consult #. Mood disorder: Continue home mood stabilizers Med rec pending DVT prophylaxis: Lovenox Full code Admit as inpatient and will require two night minimum hospital stay for supplemental oxygen, IV antibiotics (as above), which is not possible in a lesser acute setting. Specialist consult pending Quality Stroke Does the patient have a stroke diagnosis?: No VTE Prior VTE?: No VTE Risk Level:: Medical - moderate - high VTE Device Contraindication: Treatment Not Indicated VTE Drug Contraindication: N/A - Med Ordered
[2024-02-11] MEDS: Ampicillin Sodium/Sulbactam Na 3 GM in 0.9 % Sodium Chloride 100 ML IV ×2 (01:24→05:46)
[2024-02-11] MEDS: 0.9 % Sodium Chloride Flush 3 ML SYRINGE IVFLUSH (01:24)
--- NOTE | 2024-02-11 01:37 | PC.NURSE ---
pt sleeping with Cpap on, no sign of distress at this time.
--- NOTE | 2024-02-11 03:52 | MHC.EDTECH ---
Pt found to be incontinent of urine. Bedding change done, Pt was cleaned, [place] cath placed and repositioned with pillows placed between knees, on the sides of arms for comfort. Warm blankets given, call marley within reach.
[2024-02-11] MEDS: LORazepam 2 MG/ML VIAL 0.5 MG IVPUSH ×2 (05:44→10:36)
[2024-02-11 05:49] LABS: Basophils Percent Auto 0.1 % (0-2); Hematocrit 45.9 % (42.0-52.0); Hemoglobin 16.3 g/dl (14.0-18.0); Imm Gran Abs Auto 0.09 X10*3/uL (0.00-0.03); Imm Gran Pct Auto 0.7 % (0.0-0.4); Lymphocytes Absolute Auto 0.4 X10*3/uL (1.2-4.9); Lymphocytes Percent Auto 2.6 % (20-40); MANUAL DIFF FLAG SCAN; Mean Corpuscular HGB Conc 35.5 g/dl (31.0-36.0); Mean Corpuscular Hemoglobin 30.1 pg (27.0-33.0); Mean Corpuscular Volume 84.8 fL (80.0-98.0); Mean Platelet Volume 8.7 fL (9.4-12.4); Monocytes Absolute Auto 0.3 X10*3/uL (0.1-1.2); Monocytes Percent Auto 2.1 % (2-11); Neutrophils Absolute Auto 12.9 x10*3/uL (2.0-8.3); Neutrophils Percent Auto 94.5 % (45-73); Platelet Count 216 X10*3/uL (160-400); Red Blood Count 5.41 X10*6/uL (4.60-5.80); Red Cell Distribution Width 13.4 % (11.0-16.0); SCAN SMEAR FLAG 1; White Blood Count 13.7 X10*3/uL (4.8-10.8)
--- NOTE | 2024-02-11 06:02 | PC.NURSE ---
attempted to take of cpap per pt request, pt de-stated into the 80's , Kirby Funez aware, Medicated for in anxiety and placed back on CPap by respiratory
[2024-02-11 06:10] LABS: SLIDE REVIEW VERIFIED
[2024-02-11 06:13] LABS: Anion Gap 10 (12-20); Blood Urea Nitrogen 13 mg/dL (9-16); Calcium 9.8 mg/dL (8.4-10.2); Carbon Dioxide 36 mmol/L (22-29); Chloride 91 mmol/L (96-108); Creatinine Clr Calc Pharmacy 94.4; Estimated Glomerular Filt Rate > 60; Glucose Random 135 mg/dL (60-115); Potassium 4.3 mmol/L (3.3-5.1); Sodium 133 mmol/L (135-145)
[2024-02-11] MEDS: Albuterol/Iprat 2.5/0.5MG 3 ML AMPUL.NEB INHALE (08:05)
--- NOTE | 2024-02-11 08:08 | PC.NURSE ---
this RN was in next room when she was called over d/t pt c/o not being able to breathe. pt noted to be at 79% on 9L via NC. pt transitioned to 12L via oxymask - 78%. pt then transitioned to 15L via nonrebreather - 81%. RT now bedside - placed pt back on bipap (04/14 @ 100%) w/ good effect - resting @ 96%. pt originally seemed to be becoming restless - unable to answer questions/follow commands appropriately, attempting to take off bipap machine and take off hospital attire/equipment. pt now resting comfortably w/ eyes closed on bipap in no apparent distress. hospitalist bedside assessing pt. plan of care ongoing.
[2024-02-11] MEDS: Enoxaparin Sodium 40 MG/0.4 ML SYRINGE SUBCUT (09:40)
--- NOTE | 2024-02-11 11:16 | W.MHC.ACPN ---
Advanced Care Planning Note Advanced Care Planning Note Time spent (in minutes): 20 Narrative: This patient with ALS, experiencing muscle wasting, progressive decline, and respiratory failure, presented with increased difficulty breathing. He was found to have acute on chronic respiratory failure with hypoxia and aspiration pneumonia, left lung colapse and has been placed on BiPAP to maintain his oxygen saturation. However, he has been resistant to wearing the BiPAP mask, causing further discomfort. He has a DNR/DNI order and a completed MOLST form, with no intention of changing it. I discussed treatment options with the patient and his , including continuing with BiPAP and intubation if his condition worsens. Given his declining condition and poor quality of life, they have opted for hospice care, comfort measures, and to return home. Problems Discussed (1) Respiratory failure:
--- NOTE | 2024-02-11 11:51 | PHA.MEDREC ---
Pharmacy Consult ? Medication Reconciliation Pharmacy has completed the medication reconciliation. Med rec NOT complete based on patient changeover to comfort measures only.
--- NOTE | 2024-02-11 13:36 | PM.DS ---
DS: Providers Provider Date of Service: 02/11/24 Date of admission: 02/11/24 01:03 Date of discharge: 02/11/24 Primary care physician: Angelina Javed DO DS: Diagnosis Discharge Diagnosis (1) Respiratory failure: Status: Acute DS: Summary Hospital Course Hospital Course: admission hpi Chief Complaint: Dyspnea This is a 63-year-old male with pertinent history of chronic hypoxia on 2 L supplemental oxygen and nocturnal BiPAP due to ALS, protein calorie malnutrition, mood disorder, status post PEG tube who presents to the emergency department for evaluation of dyspnea. Patient stated that he became short of breath on the day of presentation. Endorses cough. No chest pain, wheezing. No fever, chills, nausea, vomiting, abdominal pain, changes in urinary or bowel habits. Of note, patient was recently admitted to the hospital with acute on chronic hypoxic hypercapnic failure due to aspiration pneumonia and discharged on 12/30/2023. Patient briefly required ICU stay during previous hospitalization. In the emergency department, imaging with complete opacification of left lower lobe, likely postop obstructive. Hospital This patient with ALS, experiencing muscle wasting, progressive decline, and respiratory failure, presented with increased difficulty breathing. He was found to have acute on chronic respiratory failure with hypoxia and aspiration pneumonia, left lung colapse and has been placed on BiPAP to maintain his oxygen saturation. However, he has been resistant to wearing the BiPAP mask, causing further discomfort. He has a DNR/DNI order and a completed MOLST form, with no intention of changing it. I discussed treatment options with the patient and his (health care proxy), including continuing with BiPAP and intubation if his condition worsens and further testinng such bronchoscopy.. Given his declining condition and poor quality of life, they have opted for hospice care, comfort measures, and to return home. Hospice will follow the patient at home. Hospice will address hospice meds Final diagnosis: Acute on chronic hypoxic respiratory failure Aspiration pneumonia colapsed lung Time Attestation Discharge Coordination Time (in mins): 40 Quality: Safe Use of Opioids Does Pt have an Active Cancer Diagnosis on the Problem List?: No Quality: Stroke Does the patient have a stroke diagnosis?: No Physical Exam Vital Signs: Vital Signs: Last Vital Signs Temp 98 F 02/11/24 06:42 Pulse 82 02/11/24 11:06 Resp 26 H 02/11/24 11:06 BP 201/108 H 02/11/24 11:06 Pulse Ox 91 L 02/11/24 11:06 O2 Del Method Nasal Cannula 02/11/24 11:06 O2 Flow Rate 4 02/11/24 11:06 Oxygen Flow Rate 2 02/10/24 18:02 BMI result Body Mass Index 14.8 DS: Data Data Completed and Pending Completed studies during hospitalization [Text1]: Procedures Assistance with Respiratory Ventilation, Less than 24 Consecutive Hours, Continuous Positive Airway Pressure (12/27/23) Drainage of Left Lower Lung Lobe, Via Natural or Artificial Opening Endoscopic, Diagnostic (07/29/23) Drainage of Right Lower Lung Lobe, Via Natural or Artificial Opening Endoscopic, Diagnostic (07/29/23) Drainage of Right Middle Lung Lobe, Via Natural or Artificial Opening Endoscopic, Diagnostic (07/29/23) Labs on day of discharge: Laboratory Results - last 24 hr 02/10/24 02/10/24 02/10/24 18:30 18:37 19:31 WBC 13.9 H RBC 5.05 Hgb 15.5 Hct 43.0 MCV 85.1 MCH 30.7 MCHC 36.0 RDW 13.4 Plt Count 168 D MPV 8.4 L Immature Gran % (Auto) 0.4 Neut % (Auto) 87.0 H Lymph % (Auto) 6.9 L [place] % (Auto) 5.5 Eos % (Auto) 0.1 Baso % (Auto) 0.1 Lymph # (Auto) 1.0 L [place] # (Auto) 0.8 Eos # (Auto) 0.0 Baso # (Auto) 0.0 Abs Immat Gran (auto) 0.05 H Absolute Neuts (auto) 12.1 H Absolute Nucleated RBC 0.000 Nucleated RBC % (auto) 0.0 Smear Tech's Comments PT 11.3 INR 0.9 VBG pH 7.47 H VBG pCO2 53 VBG pO2 118 VBG HCO3 39 H VBG O2 Saturation 100.0 VBG Base Excess 13.3 Sodium Potassium Chloride Carbon Dioxide Anion Gap BUN Creatinine Estim Creat Clear Calc Estimated GFR Random Glucose Lactic Acid 0.5 Calcium Total Bilirubin Direct Bilirubin AST ALT Alkaline Phosphatase Troponin I High Sens 11.1 D B-Natriuretic Peptide Total Protein Albumin Urine Color Yellow Urine Appearance Turbid Urine pH 7.5 Ur Specific [place] 1.015 Urine Protein 30 (1+) H Urine Glucose (UA) Negative Urine Ketones Negative Urine Blood Negative Urine Nitrite Negative Ur Leukocyte Esterase Negative Urine RBC 0-2 Urine WBC 0-5 Ur Squamous Epith Cells 0-2 Urine Bacteria None Seen Hyaline Casts 0-2 Influenza Type A (PCR) NEGATIVE Influenza Type B (PCR) NEGATIVE RSV RNA Qual (PCR) NEGATIVE SARS-CoV-2 RNA (RT-PCR) NEGATIVE 02/10/24 02/11/24 19:39 05:39 WBC 13.7 H RBC 5.41 Hgb 16.3 Hct 45.9 MCV 84.8 MCH 30.1 MCHC 35.5 RDW 13.4 Plt Count 216 D MPV 8.7 L Immature Gran % (Auto) 0.7 H Neut % (Auto) 94.5 H Lymph % (Auto) 2.6 L [place] % (Auto) 2.1 Eos % (Auto) 0.0 Baso % (Auto) 0.1 Lymph # (Auto) 0.4 L [place] # (Auto) 0.3 Eos # (Auto) 0.0 Baso # (Auto) 0.0 Abs Immat Gran (auto) 0.09 H Absolute Neuts (auto) 12.9 H Absolute Nucleated RBC 0.000 Nucleated RBC % (auto) 0.0 Smear Tech's Comments VERIFIED PT INR VBG pH VBG pCO2 VBG pO2 VBG HCO3 VBG O2 Saturation VBG Base Excess Sodium 134 L 133 L Potassium 4.2 4.3 Chloride 94 L 91 L Carbon Dioxide 30 H 36 H Anion Gap 14 10 L BUN 16 13 Creatinine 0.48 L 0.52 Estim Creat Clear Calc 102.3 94.4 Estimated GFR > 60 > 60 Random Glucose 115 135 H Lactic Acid Calcium 8.6 D 9.8 D Total Bilirubin 0.5 Direct Bilirubin 0.1 AST 28 ALT 23 Alkaline Phosphatase 73 Troponin I High Sens B-Natriuretic Peptide 36 Total Protein 6.3 L Albumin 4.2 Urine Color Urine Appearance Urine pH Ur Specific [place] Urine Protein Urine Glucose (UA) Urine Ketones Urine Blood Urine Nitrite Ur Leukocyte Esterase Urine RBC Urine WBC Ur Squamous Epith Cells Urine Bacteria Hyaline Casts Influenza Type A (PCR) Influenza Type B (PCR) RSV RNA Qual (PCR) SARS-CoV-2 RNA (RT-PCR) Discharge Plan Discharge Anticipated Discharge Date/Time: 02/11/24 12:28 Patient Disposition: Hospice - Home Discharge Diagnosis: ALS, Acute on Chronic hypoxic respiratory failure, pneumonia Referrals: Angelina Barone DO [Primary Care Provider] - 1 Week Discharge Medications: Discontinued sertraline 100 mg tablet 200 mg feeding tube DAILY trazodone 50 mg tablet 2 tab feeding tube BEDTIME Hold Instructions: Resume on 08/11/23. albuterol sulfate 90 mcg/actuation HFA aerosol inhaler 1 puff inhalation Q4H PRN (Reason: Shortness Of Breath) Radicava ORS 105 mg/5 mL suspension See Rx Instructions .ROUTE .COMPLEX Rx Instructions: 105 mg (5 mL) once daily for 10 days within a 14-day period, followed by a 14-day drug-free period. docusate sodium 100 mg capsule 100 mg PO DAILY thiamine mononitrate (vit B1) 100 mg tablet 100 mg feeding tube DAILY lidocaine [Lidocaine Pain Relief] 4 % Adhesive Patch,Medicated 1 patch transdermal DAILY PRN (Reason: Back Pain) Qty: 20 1RF Protocol: Apply to: Apply to: back amoxicillin-pot clavulanate 875-125 mg Tablet 1 tab PO Q12H Qty: 10 0RF folic acid 1 mg tablet 1 mg feeding tube DAILY@1800 Discharge Orders: Discharge Order (Routine); Ordered 02/11/24 Ordered By: Chaka Moreno Diet: Advance to usual diet Activity on Discharge: As tolerated Stand Alone Forms: Patient Portal Discharge page Print Language: Kiswahili Care Plan Goals: Home with family, and end of life care in a comfortable setting Health Concerns: ALS, Acute on Chronic hypoxic respiratory failure, pneumonia Plan of Treatment: Home with hospice and comfort care Hospice medication is being taking care of by hospice Assessment: see above Discharge Date/Time: 02/11/24 16:56
--- NOTE | 2024-02-11 13:58 | MHC.CM.PN ---
Addendum entered by Babs Lr 02/11/24 14:08: Patients changed her mind. She does want a hospital bed. A message has been sent via Rad to Hospice. Original Note: IMM 02/11/24 Male ^@ DX Aspiration PNA R/T ALS. Met with patients in ER#5. The patient lives with his . He uses home O2 [facility] is the provider. 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 A Hospice consult has been ordered and referred. The preference for hospice is [facility]. Charleen the brand coordinator RN was able to speak with the patients via phone. Hospice services will be starting at 3pm today. Transportation to home is BLS. Patient is aware that a family member will need to [facility] [place] not there preferred pharmacy. DP is home with [facility] via BLS.
== END 2024-02-11 16:56 | disposition hospice, home (50) | DRG 871 ==
LOC: HO.ED 02-11 00:29 → HO.EDOVER 02-11 01:31 → HO.S3 02-11 07:44 → HO.EDOVER 02-11 07:48
PROVIDERS: Admitting Provider Student in an Organized Health Care Education/Training Program; Emergency Provider Emergency Medicine; PCP Internal Medicine; Visit Provider Internal Medicine
DX: A41.9 Sepsis, unspecified organism (principal); J69.0 Pneumonitis due to inhalation of food and vomit; J96.21 Acute and chronic respiratory failure with hypoxia; G12.21 Amyotrophic lateral sclerosis; E46 Unspecified protein-calorie malnutrition; Z68.1 Body mass index [BMI] 19.9 or less, adult; J98.19 Other pulmonary collapse; Z66 Do not resuscitate; F39 Unspecified mood [affective] disorder; Z99.81 Dependence on supplemental oxygen; Z93.1 Gastrostomy status; Z51.5 Encounter for palliative care
CPT/HCPCS: 0241U; 36415; 71045; 71250; 80048; 80076; 81001; 82803; 83605; 83880; 84484; 85025; 85610; 87040; 93005; 94640; 99285; J0295; J0696; J1650; J2060; J2919; J3475

== ENCOUNTER → 2024-02-10 18:03 | Outpatient (BNV) | payer MEDICARE, MEDICAID, SELFPAY | PROVIDERS: Admitting Provider Student in an Organized Health Care Education/Training Program; Emergency Provider Emergency Medicine; PCP Internal Medicine; Visit Provider Internal Medicine Cardiovascular Disease | DX: R06.00 Dyspnea, unspecified (principal) | CPT/HCPCS: 93010 ==

== ENCOUNTER → 2024-02-10 18:33 | Outpatient (BNV) | payer MEDICARE, MEDICAID, SELFPAY | PROVIDERS: Emergency Provider Emergency Medicine; PCP Internal Medicine; Visit Provider Student in an Organized Health Care Education/Training Program | DX: J96.20 Acute and chronic respiratory failure, unspecified whether with hypoxia or hypercapnia (principal); J69.0 Pneumonitis due to inhalation of food and vomit; G12.21 Amyotrophic lateral sclerosis; J98.19 Other pulmonary collapse | CPT/HCPCS: 99236; 99497 ==